=== PATIENT | male | born 1960 | race African-American/Black ===

== ENCOUNTER 2021-03-09 15:04 | Emergency (ER) | payer BC ==
[2021-03-09 15:41] LABS: Absolute Lymphocytes (CBC) 1.3 K/uL (0.7-4.9); Basophils % 0.4 % (0-1.3); Hematocrit 45.3 % (39.6-49.0); Lymphocytes % 17.7 % (15.3-44.8); MPV 8.5 fL (7.6-11.3); RBC Red Blood Cell Count 5.46 M/uL (4.33-5.43)
[2021-03-09 15:43] LABS: Urine Blood Negative (Negative); Urine Glucose 2+ (Negative); Urine Protein Negative (Negative)
[2021-03-09 16:07] LABS: ALT/SGPT 43 U/L (12-78); AST/SGOT 25 U/L (15-37); Albumin 3.3 g/dL (3.4-5.0); Alkaline Phosphatase 62 U/L (45-117); BUN Blood Urea Nitrogen 16 mg/dL (7-18); Bicarbonate 27 mmol/L (21-32); Bilirubin Direct 0.2 mg/dL (0-0.2); Bilirubin Total 0.5 mg/dL (0.2-1.0); Lipase 58 U/L (73-393); Potassium 3.8 mmol/L (3.5-5.1); Sodium Level 132 mmol/L (136-145)
[2021-03-09 16:25] LABS: Glucose Level 624 mg/dL (74-106)
[2021-03-09] MEDS ORDERED: NA CHLORIDE 0.9% 2,000 ML ONE (17:33)
[2021-03-09] MEDS ORDERED: INSULIN -REGULAR HUMAN 50 UNIT/0.5 ML ML ONE (17:33)
[2021-03-09 18:00] LABS: Urine Bacteria <20 /HPF (NONE SEEN); Urine RBC <5 /HPF (NONE SEEN)
--- NOTE | 2021-03-09 18:49 | EDPHYS ---
Physician Documentation [facility] Name: Esau Valdes Age: 60 yrs Sex: Male : 1960 Arrival Date: 03/09/2021 Time: 15:05 Bed 14 Private MD: ED Physician Matias Saunders HPI: 03/09 16:30 This 60 yrs old Black Male presents to ER via Ambulatory with complaints of High Blood cp Sugar - >500. 16:30 The patient or guardian reports hyperglycemia, that was potentially precipitated by cp eating. Associated signs and symptoms: Pertinent positives: blurry vision, right flank pain. 16:30 Current symptoms: In the emergency department the patient's symptoms are unchanged from cp the initial presentation, despite home interventions. 16:30 Patient reports he has not been watching his diet recently. cp Historical: - Allergies: 15:22 No Known Allergies; aa5 - PMHx: 15:22 Diabetes mellitus; aa5 15:26 Sleep apnea; aa5 - Immunization history:: Client reports receiving the 2nd dose of the Covid vaccine. - Social history:: Smoking status: Patient reports the use of cigarette tobacco products, smokes one-half pack cigarettes per day. ROS: 16:35 Cardiovascular: Negative for chest pain, edema, palpitations. cp 16:35 Constitutional: Negative for body aches, chills, fever, poor PO intake. cp 16:35 Eyes: Positive for blurry vision. 16:35 ENT: Negative for ear pain, sore throat. 16:35 Respiratory: Negative for cough, shortness of breath, wheezing. 16:35 Abdomen/GI: Negative for nausea and vomiting, diarrhea, constipation. 16:35 Back: Positive for flank pain, on the right. 16:35 : Positive for urinary frequency. 16:35 Neuro: Positive for weakness, Negative for altered mental status, headache, syncope. 16:35 All other systems are negative. Exam: 16:40 Constitutional: The patient appears in no acute distress, alert, awake, cp non-diaphoretic, non-toxic, well developed, well nourished, obese. 16:40 Head/Face: Normocephalic, atraumatic. cp 16:40 Eyes: Periorbital structures: appear normal, Conjunctiva: normal, no exudate, no injection, Sclera: no appreciated abnormality, Lids and lashes: appear normal, bilaterally. 16:40 ENT: External ear(s): are unremarkable, Nose: is normal, Mouth: Lips: moist, Oral mucosa: moist, Posterior pharynx: Airway: no evidence of obstruction, patent. 16:40 Neck: ROM/movement: is normal, is supple, without pain, no range of motions limitations. 16:40 Chest/axilla: Inspection: normal, Palpation: is normal, no crepitus, no tenderness. 16:40 Cardiovascular: Rate: normal, Rhythm: regular, Edema: is not appreciated, JVD: is not appreciated. 16:40 Respiratory: the patient does not display signs of respiratory distress, Respirations: normal, no use of accessory muscles, no retractions, labored breathing, is not present, Breath sounds: are clear throughout, no decreased breath sounds, no stridor, no wheezing. 16:40 Abdomen/GI: Inspection: abdomen appears normal, Bowel sounds: active, all quadrants, Palpation: soft, in all quadrants, mild abdominal tenderness, in the anterior aspect of right lateral abdomen and posterior aspect of right lateral abdomen, rebound tenderness, is not appreciated, involuntary guarding, is not appreciated. Vital Signs: 15:17 BP 154 / 90; Pulse 70; Resp 18 S; Temp 97.0(TE); Pulse Ox 96% on R/A; Weight 129.27 kg aa5 (R); Height 6 ft. 2 in. (187.96 cm) (R); 17:00 BP 142 / 86; Pulse 62; Resp 16; Pulse Ox 99% on R/A; vg1 15:17 Body Mass Index 36.59 (129.27 kg, 187.96 cm) aa5 MDM: 16:00 Differential diagnosis: DKA, hyperglycemia, hyperthyroidism, hypothyroidism. cp 16:49 Patient medically screened. cp 18:47 Data reviewed: vital signs, nurses notes, lab test result(s). cp 18:47 Counseling: I had a detailed discussion with the patient and/or guardian regarding: the cp historical points, exam findings, and any diagnostic results supporting the discharge/admit diagnosis, lab results, the need for outpatient follow up, for definitive care, a family practitioner, to return to the emergency department if symptoms worsen or persist or if there are any questions or concerns that arise at home. Response to treatment: the patient's symptoms have markedly improved after treatment, VSS. Symptoms improved and blood glucose markedly improved. Will discharge to home for continued monitoring. Patient instructed on need for diet changes and to f/u with family physician. 03/09 15:29 Order name: Basic Metabolic Panel; Complete Time: 17:26 cp 03/09 16:33 Interpretation: Normal except: NA 132; GLUC 624; CRE 1.73; GFR 49. cp 03/09 15:29 Order name: CBC with Diff; Complete Time: 16:09 cp 03/09 17:57 Interpretation: Normal except: RBC 5.46; MCH 26.3; MCHC 31.7; RDW 15.6; GILLES% 74.2. cp 03/09 15:29 Order name: Hepatic Function; Complete Time: 17: cp 03/09 15:29 Order name: Lipase; Complete Time: 17:26 cp 03/09 15:29 Order name: Ketone, Serum; Complete Time: 17:26 cp 03/09 15:29 Order name: Urine Microscopic Only; Complete Time: 18:47 cp 03/09 15:15 Order name: Accucheck; Complete Time: 15:22 cp 03/09 15:43 Order name: Glucose, Ancillary Testing; Complete Time: 16:09 EDMS 03/09 15:43 Order name: Urine Dipstick-Ancillary; Complete Time: 16:09 EDMS 03/09 18:47 Order name: Glucose, Ancillary Testing; Complete Time: 06:54 EDMS 03/09 15:29 Order name: IV Saline Lock; Complete Time: 15:29 cp 03/09 15:29 Order name: Labs collected and sent; Complete Time: 15:29 cp 03/09 15:29 Order name: Urine Dipstick-Ancillary (obtain specimen); Complete Time: 15:34 cp 03/09 18:03 Order name: Accucheck Blood Glucose; Complete Time: 18:35 cp Administered Medications: 17:10 Drug: NS 0.9% 1000 ml Route: IV; Rate: 1 bolus; Site: right forearm; vg1 18:36 Follow up: IV Status: Completed infusion; IV Intake: 1000ml vg1 17:10 Drug: NS 0.9% 1000 ml Route: IV; Rate: 1 bolus; Site: right forearm; vg1 18:35 Follow up: IV Status: Completed infusion; IV Intake: 1000ml vg1 17:12 Drug: Insulin Regular Human 10 units {Co-Signature: ss (Clarisa Knox RN).} Route: IVP; vg1 Site: right forearm; 18:35 Follow up: Response: No adverse reaction; Blood sugar is lowered vg1 Point of Care Testin:22 FSBG reading as HIGH aa5 Ranges: Critical Glucose Levels:Adult <50 mg/dl or >400 mg/dl <40 mg/dl or >180 mg/dl Disposition: 19:00 Chart complete. cp Disposition Summary: 03/09/21 18:48 Discharge Ordered Location: Home cp Problem: an ongoing problem cp Symptoms: have improved cp Condition: Stable cp Diagnosis - Diabetes mellitus due to underlying condition with hyperglycemia cp Followup: cp - With: Private Physician - When: 2 - 3 days - Reason: Recheck today's complaints Discharge Instructions: - Discharge Summary Sheet cp - Hyperglycemia cp - Form - Daily Diabetes Record cp - Blood Glucose Monitoring, Adult cp - Diabetes Mellitus and Nutrition, Adult cp Forms: - Medication Reconciliation Form cp - Thank You Letter cp - Antibiotic Education cp - Prescription Opioid Use cp - Work release form vg1 Addendum: 03/12/2021 10:26 Co-signature as Attending Physician, Matias Saunders MD I agree with the assessment and c pandya plan of care. Signatures: Dispatcher [employer] Matias Hernadez MD MD cha Calderon, Audri, RN RN aa5 Matias Caban, PA PA Elisa Andrade, RN RN vg1 Clarisa Knox RN ss Corrections: (The following items were deleted from the chart) 03/09 18:18 18:02 [place] Protocol+CT.RAD.BRZ ordered. EDWA EDMS
--- NOTE | 2021-03-09 18:49 | ER ---
Nurse's Notes [facility] Name: Esau Valdes Age: 60 yrs Sex: Male : 1960 Arrival Date: 03/09/2021 Time: 15:05 Bed 14 [facility] MD: Diagnosis: Diabetes mellitus due to underlying condition with hyperglycemia Presentation: 03/09 15:17 Chief complaint: Patient states: "My blood sugar was 600 today". Pt reports he takes aa5 Metformin. Pt c/o blurry vision and generalized weakness. Pt denies nausea/vomiting. Coronavirus screen: At this time, the client does not indicate any symptoms associated with coronavirus-19. Ebola Screen: No symptoms or risks identified at this time. Initial Sepsis Screen: Does the patient meet any 2 criteria? No. Patient's initial sepsis screen is negative. Does the patient have a suspected source of infection? No. Patient's initial sepsis screen is negative. Risk Assessment: Do you want to hurt yourself or someone else? Patient reports no desire to harm self or others. Onset of symptoms was February 2021. 15:17 Method Of Arrival: Ambulatory aa5 15:17 Acuity: LILY 2 aa5 Historical: - Allergies: 15:22 No Known Allergies; aa5 - PMHx: 15:22 Diabetes mellitus; aa5 15:26 Sleep apnea; aa5 - Immunization history:: Client reports receiving the 2nd dose of the Covid vaccine. - Social history:: Smoking status: Patient reports the use of cigarette tobacco products, smokes one-half pack cigarettes per day. Screenin:33 Abuse screen: Denies threats or abuse. Nutritional screening: No deficits noted. vg1 Tuberculosis screening: No symptoms or risk factors identified. Fall Risk No fall in past 12 months (0 pts). No secondary diagnosis (0 pts). IV access (20 points). Ambulatory Aid- None/Bed Rest/Nurse Assist (0 pts). Gait- Normal/Bed Rest/Wheelchair (0 pts) Mental Status- Oriented to own ability (0 pts). Total Ferrara Fall Scale indicates No Risk (0-24 pts). Assessment: 17:00 General: Appears in no apparent distress. comfortable, Behavior is calm, cooperative. vg1 Pain: Complains of pain in lower back and RLQ Pain currently is 7 out of 10 on a pain scale. Neuro: Level of Consciousness is awake, alert, obeys commands, Oriented to person, place, time, situation. Cardiovascular: Patient's skin is warm and dry. Respiratory: Airway is patent Respiratory effort is even, unlabored. GI: Abdomen is round non-distended, Patient currently denies diarrhea, nausea, vomiting. : No signs and/or symptoms were reported regarding the genitourinary system. EENT: No signs and/or symptoms were reported regarding the EENT system. Derm: Skin is intact, is healthy with good turgor. Musculoskeletal: Circulation, motion, and sensation intact. 19:04 Reassessment: Patient appears in no apparent distress at this time. Patient and/or vg1 family updated on plan of care and expected duration. Pain level reassessed. Patient is alert, oriented x 3, equal unlabored respirations, skin warm/dry/pink. Patient denies pain at this time. Patient states feeling better. Vital Signs: 15:17 BP 154 / 90; Pulse 70; Resp 18 S; Temp 97.0(TE); Pulse Ox 96% on R/A; Weight 129.27 kg aa (R); Height 6 ft. 2 in. (187.96 cm) (R); 17:00 BP 142 / 86; Pulse 62; Resp 16; Pulse Ox 99% on R/A; vg1 15:17 Body Mass Index 36.59 (129.27 kg, 187.96 cm) [facility] ED Course: 15:05 Patient arrived in ED. as 15:14 Matias Caban PA is PHCP. cp 15:14 Matias Saunders MD is Attending Physician. cp 15:17 Arm band placed on. aa5 15:21 Triage completed. 5 15:29 Initial lab(s) drawn, by pa, sent to lab. Inserted saline lock: 20 gauge in right aa5 forearm, using aseptic technique. Blood collected. 15:34 Urine Microscopic Only Sent. [facility] 15:34 Ketone, Serum Sent. [facility] 15:34 Basic Metabolic Panel Sent. [facility] 15:34 CBC with Diff Sent. [facility] 15:34 Hepatic Function Sent. [facility] 15:34 Lipase Sent. [facility] 15:35 Initial lab(s) drawn, by pa, sent to lab. Urine collected: clean catch specimen, clear. 5 Inserted saline lock: 20 gauge forearm, using aseptic technique. Blood collected. 15:43 Urine collected: clean catch specimen. 5 16:54 Patient has correct armband on for positive identification. Bed in low position. Call [facility] light in reach. Side rails up X 1. Pulse ox on. NIBP on. 17:00 Elisa Ewing, RN is Primary Nurse. vg1 17:33 No provider procedures requiring assistance completed. vg1 19:04 IV discontinued, intact, bleeding controlled, No redness/swelling at site. Pressure vg1 dressing applied. Administered Medications: 17:10 Drug: NS 0.9% 1000 ml Route: IV; Rate: 1 bolus; Site: right forearm; vg1 18:36 Follow up: IV Status: Completed infusion; IV Intake: 1000ml vg1 17:10 Drug: NS 0.9% 1000 ml Route: IV; Rate: 1 bolus; Site: right forearm; vg1 18:35 Follow up: IV Status: Completed infusion; IV Intake: 1000ml vg1 17:12 Drug: Insulin Regular Human 10 units {Co-Signature: ss (Clarisa Knox RN).} Route: IVP; vg1 Site: right forearm; 18:35 Follow up: Response: No adverse reaction; Blood sugar is lowered vg1 Point of Care Testin:22 FSBG reading as HIGH aa5 Ranges: Intake: 18:35 IV: 1000ml; Total: 1000ml. vg1 18:36 IV: 1000ml; Total: 2000ml. vg1 Outcome: 18:48 Discharge ordered by . cp 19:03 Discharged to home ambulatory. vg1 19:03 Condition: stable 19:03 Discharge instructions given to patient, Instructed on discharge instructions, follow up and referral plans. Demonstrated understanding of instructions, follow-up care. 19:04 Patient left the ED. vg1 Signatures: Herminia Littlejohn Audri, RN RN aa5 Matias Caban PA PA cp Martinez, Maria [facility] Elisa Ewing, MATHEW RN 1 Clarisa Knox RN ss
[2021-03-09 19:19] VITALS: TEMP 97
[2021-03-09 19:20] VITALS: BP 142/86; O2SAT 99
== END 2021-03-09 19:04 | disposition home or self-care (01) ==
LOC: ER 15:04
DX: E11.65 Type 2 diabetes mellitus with hyperglycemia (principal); F17.210 Nicotine dependence, cigarettes, uncomplicated
CPT/HCPCS: 96361; 85025; 80048; 36415; 82010; 82947 ×2; 80076; 83690; 96374; 99284; J7030; 81003; 81015

== ENCOUNTER 2021-12-19 16:54 | Emergency (ER) | payer BC ==
--- OUTSIDE RECORDS SUMMARY | 2021-12-19 17:52 | XMS REPORT | Continuity of Care Document ---
:1960 Author Organization [facility] t Address [address] [place] [address] Care Team Providers Name Role Phone Unavailable Unavailable Unavailable Problems This patient has no known problems. Allergies, Adverse Reactions, Alerts This patient has no known allergies or adverse reactions. Medications This patient has no known medications. Procedures This patient has no known procedures. Encounters Start End Encounter Admission Attending Care Care Encounter Source Date/Time Date/Time Type Type Clinicians Facility Department ID 2021-06-21 Outpatient [facility] [id number] Common 15:49:01 [facility] 2021-06-13 Outpatient [facility] [id number] Common 13:32:49 [id number] [facility] 2021-06-13 Outpatient [facility] [id number] Common 13:25:32 [id number] [facility] 2021-06-07 2021-06-07 ambulatory [facility] [id number] Common 00:00:00 00:00:00 [facility] 2021-05-31 2021-05-31 ambulatory [facility] [id number] Common 00:00:00 00:00:00 [facility] 2021-01-11 2021-01-11 Outpatient [facility] [id number] Common 00:00:00 00:00:00 [facility] 2020-11-28 2020-11-28 Outpatient [facility] [id number] Common 00:00:00 00:00:00 [facility] Results Test Description Test Time Test Comments Results Result Comments Source HIV 1/2 4TH GEN, RFLX CONF 2021-08-14 04:13:42 Test Item Value Reference Range Interpretation Comme nts HIV 1/2 4TH GEN, RFLX CONF (test code = 3514) NON-REACTIVE NON-REAC TIVE TSH, THIRD [id number] 01:15:29 Test Item Value Reference Range Interpretation Comments TSH, THIRD 0.746 UIU/ML 0.400-4.100 UNLESS OTHERW ISE GENERATION (test INDICATED, ALL TESTING code = 2821) PERFORMED [facility] [address] [place] [id number] [place] [address] DIRECTOR: FRANCES SAPP M.D. IA NUMBER [id number] CAP ACCREDITATION N O. [id number] LIPID [id number] 00:16:46 Test Item Value Reference Range Interpretation Comments CHOLESTEROL (test 106 MG/DL <200 code = 2210) TRIGLYCERIDES (test 144 MG/DL <150 code = 2232) HDL CHOLESTEROL (test 40 MG/DL >39 code = 2220) CALC LDL CHOL (test 43 MG/DL <100 NOTE: C ALCULATED LDL code = 2237) IS BASED ON JEREMIAH-LYNN METHOD WHICHINCLUDES ADJUSTABLE TRIGLYCERIDE:VL DL CHOLESTEROL RAT IO.THIS FACTOR VARIES B Y MEASURED TRIGLY CERIDE AND NON-HDLCHOL ESTEROL CONCENTRATIONS WITH INCREASED CALCU LATED LDL SEENIN HIGH ER TRIGLYCERIDE OR LOWER NON-HDL SPECIME NS. FOR MOREINFORMATION , SEE CLIENT ANNOUNCE MENT AT [email or web address] [email or web address] RATIO LDL/HDL 1.08 RATIO <3.55 (test code = 2238) HEMOGLOBIN [id number] 07:26:51 Test Item Value Reference Range Interpretation Comments HEMOGLOBIN A1c (test 13.1 % 4.2-5.6 H AMERI CAN DIABETES code = 71775) ASSOCIATION IDELINES FOR HGB A1C: PREDIABETES/INC REASED RISK . . . . . . . 5 .7-6.4% DIAGNOSIS OF DI ABETES . . . . . . . . . >=6 .5% WITH CONFIRMATION OR APPROPRIATE SYMPTOMS NOTE: ASSAY MAY BE AFFECTED BY HEMOGLOBINOPATH IES (SICKLE CELL ANEMIA, S- C DISEASE, OTHERS) OR MARJORIE FICIALLY LOWERED BY DECR EASED RED CELL SURVIVAL ( HEMOLYTIC ANEMIAS, BLOOD LOSS, ETC.). CONSIDER ALTERN ATE TESTING OR LABORATORY C ONSULTATION. CBC W/AUTO DIFF WITH [id number] 05:39:50 Test Item Value Reference Range Interpretation Comments WBC (test code = 7.2 K/UL 3.5-11.0 1001) RBC (test code = 5.07 M/UL 4.50-6.10 1002) HEMOGLOBIN (test code 13.1 G/DL 13.5-17.0 L = 1003) HEMATOCRIT (test code 41.4 % 40.0-51.0 = 1004) MCV (test code = 81.7 fL 80.0-99.0 1005) MCH (test code = 25.8 PG 25.0-33.0 1006) MCHC (test code = 31.6 G/DL 31.0-36.0 1007) RDW (test code = 12.7 % 11.5-15.0 1038) NEUTROPHILS (test 70.0 % code = 1008) LYMPHOCYTES (test 20.9 % code = 1010) MONOCYTES (test code 6.6 % = 1011) EOSINOPHILS (test 1.8 % code = 1012) BASOPHILS (test code 0.3 % = 1013) IMMATURE GRANULOCYTES 0.4 % (test code = 1036) NUCLEATED RBCS (test 0.0 /100 WBC'S See_Comment [Aut omated code = 1065) message] The sy stem which generated this result transmitted reference range : 0.0. The refere nce range was not u sed to interpret th is result as normal/abnormal . PLATELET COUNT (test 264 K/UL 130-400 code = 1015) ABSOLUTE NEUTROPHILS 5.01 K/UL 1.50-7.50 (test code = 1066) ABSOLUTE LYMPHOCYTES 1.50 K/UL 1.00-4.00 (test code = 1067) ABSOLUTE MONOCYTES 0.47 K/UL 0.20-1.00 (test code = 1068) ABSOLUTE EOSINOPHILS 0.13 K/UL 0.00-0.50 (test code = 1040) ABSOLUTE BASOPHILS 0.02 K/UL 0.00-0.20 (test code = 1069) ABS IMMATURE 0.03 K/UL 0.00-0.10 GRANULOCYTES (test code = 1020) ABS NUCLEATED RBCS 0.00 K/UL 0.00-0.11 (test code = 64654)
--- NOTE | 2021-12-19 18:08 | ER ---
Nurse's Notes [facility] Name: Esau Valdes Age: 61 yrs Sex: Male : 1960 Arrival Date: 12/19/2021 Time: 17:10 Bed Waiting Private MD: Diagnosis: Pain in right leg-resolved Presentation: 12/19 17:18 Chief complaint: Patient states: it started yesterday at work. i felt a pain in my tw2 RIGHT leg. over night it got worse where i couldn't rest. i called out for work and i mentioned maybe coming here but i need to get it checked out so i can go back to work. the pain is in my RIGHT thigh. 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 the pain went away. Coronavirus screen: At this time, the client does not indicate any symptoms associated with coronavirus-19. Ebola Screen: Patient denies travel to an Ebola-affected area in the 21 days before illness onset. Initial Sepsis Screen: Does the patient meet any 2 criteria? No. Patient's initial sepsis screen is negative. Does the patient have a suspected source of infection? No. Patient's initial sepsis screen is negative. Risk Assessment: Do you want to hurt yourself or someone else? Patient reports no desire to harm self or others. Onset of symptoms was December 19, 2021. 17:18 Method Of Arrival: Ambulatory tw2 17:18 Acuity: LILY 4 tw2 Triage Assessment: 17:22 General: Appears in no apparent distress. well groomed, Behavior is calm, cooperative, tw2 appropriate for age. Pain: Complains of pain in right quadriceps. Musculoskeletal: Circulation, motion, and sensation intact. Range of motion: intact in all extremities. Historical: - Allergies: 17:22 No Known Allergies; tw2 - Home Meds: 17:22 metformin 500 mg Oral tab 1 tab 2 times per day [Active]; losartan 25 mg oral tab 1 tab tw2 once daily [Active]; - PMHx: 17:22 diabetes mellitus; Sleep Apnea; Hypertensive disorder; tw2 - PSHx: 17:22 None; tw2 - Immunization history:: Client reports receiving the 2nd dose of the Covid vaccine. - Social history:: Smoking status: Patient reports the use of cigarette tobacco products, smokes one-half pack cigarettes per day. Screenin:24 Abuse screen: Denies threats or abuse. Nutritional screening: No deficits noted. tw2 Tuberculosis screening: No symptoms or risk factors identified. Fall Risk None identified. Assessment: 17:24 Reassessment: pt returned to [facility] at this time. tw2 18:12 Reassessment: Patient appears in no apparent distress at this time. No changes from tw2 previously documented assessment. Patient and/or family updated on plan of care and expected duration. Pain level reassessed. Patient is alert, oriented x 3, equal unlabored respirations, skin warm/dry/pink. Vital Signs: 17:18 BP 170 / 96; Pulse 89; Resp 17; Temp 97.8(TE); Pulse Ox 100% on R/A; Weight 124.74 kg tw2 (R); Height 6 ft. 3 in. (190.50 cm); Pain 2/10; 17:18 Body Mass Index 34.37 (124.74 kg, 190.50 cm) tw2 ED Course: 17:10 Patient arrived in ED. rg4 17:22 Triage completed. tw2 17:23 Tania Iniguez F[facility]-C is [facility]. kb 17:23 Matias Saunders MD is Attending Physician. kb 17:23 Arm band placed on. tw2 18:12 na. tw2 18:12 No provider procedures requiring assistance completed. Patient did not have IV access tw2 during this emergency room visit. Administered Medications: No medications were administered Medication: 18:12 VIS not applicable for this client. tw2 Outcome: 18:08 Discharge ordered by . kb 18:12 Discharged to home ambulatory. tw2 18:12 Condition: stable 18:12 Discharge instructions given to patient, Instructed on discharge instructions, follow up and referral plans. Demonstrated understanding of instructions, follow-up care. 18:12 Patient left the ED. tw2 Signatures: Tania Iniguez FNP-C FNP-Ckb Wise, Tara, RN RN tw2 Isatu Ewing rg4
--- NOTE | 2021-12-19 18:08 | EDPHYS ---
Physician Documentation [facility] Name: Esau Valdes Age: 61 yrs Sex: Male : 1960 Arrival Date: 12/19/2021 Time: 17:10 Bed Waiting Private MD: DOTTY Physician Matias Saunders HPI: 12/19 18:27 This 61 yrs old Black Male presents to ER via Ambulatory with complaints of Leg Pain. kb 18:27 The patient presents with pain, that is acute. The complaints affect the lateral aspect kb of right thigh. Context: The problem was sustained at work, resulted from a repetitive motion, the patient can fully bear weight, the patient is able to ambulate. Onset: The symptoms/episode began/occurred yesterday. Modifying factors: The symptoms are alleviated by nothing. the symptoms are aggravated by nothing. Associated signs and symptoms: The patient has no apparent associated signs or symptoms. Treatment prior to arrival includes: no previous treatment. Severity of symptoms: At their worst the symptoms were moderate, in the emergency department the symptoms have resolved. The patient has not experienced similar symptoms in the past. The patient has not recently seen a physician. Pt reports muscle pain to right lateral thigh that started yesterday. States he called into work this morning because he still had tightness in the muscle and didn't think he could perform his duties. States pain is now gone and he has no complaints, but his employer told him he had to be seen and get a note to return. Historical: - Allergies: 17:22 No Known Allergies; tw2 - Home Meds: 17:22 metformin 500 mg Oral tab 1 tab 2 times per day [Active]; losartan 25 mg oral tab 1 tab tw2 once daily [Active]; - PMHx: 17:22 diabetes mellitus; Sleep Apnea; Hypertensive disorder; tw2 - PSHx: 17:22 None; tw2 - Immunization history:: Client reports receiving the 2nd dose of the Covid vaccine. - Social history:: Smoking status: Patient reports the use of cigarette tobacco products, smokes one-half pack cigarettes per day. ROS: 18:27 Constitutional: Negative for fever, chills, and weight loss. kb 18:27 All other systems are negative. Exam: 18:27 Constitutional: This is a well developed, well nourished patient who is awake, alert, kb and in no acute distress. Head/Face: Normocephalic, atraumatic. ENT: Moist Mucous membranes Cardiovascular: Regular rate and rhythm with a normal S1 and S2. No gallops, murmurs, or rubs. No pulse deficits. Respiratory: Respirations even and unlabored. No increased work of breathing. Talking in full sentences Abdomen/GI: Soft, non-tender. No distention Skin: Warm, dry with normal turgor. Normal color. MS/ Extremity: Pulses equal, no cyanosis. Neurovascular intact. Full, normal range of motion. Neuro: Awake and alert, GCS 15, oriented to person, place, time, and situation. Moves all extremities. Normal gait. Psych: Awake, alert, with orientation to person, place and time. Behavior, mood, and affect are within normal limits. Vital Signs: 17:18 BP 170 / 96; Pulse 89; Resp 17; Temp 97.8(TE); Pulse Ox 100% on R/A; Weight 124.74 kg tw2 (R); Height 6 ft. 3 in. (190.50 cm); Pain 2/10; 17:18 Body Mass Index 34.37 (124.74 kg, 190.50 cm) tw2 MDM: 18:07 Patient medically screened. kb 18:26 Data reviewed: vital signs, nurses notes. Data interpreted: Pulse oximetry: on room air kb is 100 %. Interpretation: normal. Counseling: I had a detailed discussion with the patient and/or guardian regarding: the historical points, exam findings, and any diagnostic results supporting the discharge/admit diagnosis, the need for outpatient follow up, a family practitioner, to return to the emergency department if symptoms worsen or persist or if there are any questions or concerns that arise at home. Administered Medications: No medications were administered Disposition Summary: 12/19/21 18:08 Discharge Ordered Location: Home kb Condition: Stable kb Diagnosis - Pain in right leg - resolved kb Followup: kb - With: Emergency Department - When: As needed - Reason: Worsening of condition Followup: kb - With: Private Physician - When: 2 - 3 days - Reason: Recheck today's complaints, Continuance of care, Re-evaluation by your physician Discharge Instructions: - Musculoskeletal Pain kb - Discharge Summary Sheet tw2 Forms: - Medication Reconciliation Form kb - Thank You Letter kb - Antibiotic Education kb - Prescription Opioid Use kb - Work release form tw2 Signatures: Tania Iniguez, CARTON WAXING MACHINE OPERATOR-C CARTON WAXING MACHINE OPERATOR-Marleni Melendez, RN RN tw2
[2021-12-19 19:21] VITALS: BP 170/96; TEMP 97.8; O2SAT 100
== END 2021-12-19 18:12 | disposition home or self-care (01) ==
LOC: ER 16:54
DX: M79.604 Pain in right leg (principal); E11.9 Type 2 diabetes mellitus without complications; I10 Essential (primary) hypertension; F17.210 Nicotine dependence, cigarettes, uncomplicated

== ENCOUNTER → 2023-07-12 | Emergency (ER) | payer BC ==
[~2023-07-12] MED LIST: HYDROMORPHONE HCL 1 MG/ML INJ ONE; LIDOCAINE 2% W/EPI 1:200,000 MPF 20 ML VIAL IM ONE; MORPHINE 4 MG/ML SYR ONE; ONDANSETRON 4 MG/2 ML VIAL ONE
--- OUTSIDE RECORDS SUMMARY | 2023-07-12 14:50 | XMS REPORT | Continuity of Care Document ---
Author Name Unknown Address [address] [place] [address] [facility]connect Address [address] [place] [address] Care Team Providers Care Iron Plastic Bullet Maker Name Role Phone Unavailable Unavailable Unavailable Payers Payer Name Policy Type Policy Number Effective Date Expirati on Date Source [facility] 6 [id number] [facility] Problems Condition Name Condition Details Condition Category Status Onset Date Resolution Date Last Treatment Date Treating Clinician Comments Source [id number] Posthitis Problem Commo n [facility] [id number] 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 Problem [facility] Social History Social Habit Start Date Stop Date Quantity Comments Source History of Tobacco Use Current Smoker [facility] Sex Assigned At [facility] Smoking Status Start Date Stop Date Source Current Smoker 2021-06-07 00:00:00 [facility] Medications Ordered Medication Name Filled Medication Name Start Date Stop Date Current Medication? Ordering Clinician Indication Dosage Frequency Signature (SIG) Comments Components Source Clotrimazol e-Betametha sone 1-0.05 % Clotrimazol e-Betametha sone 1-0.05 % 8 00:00: 00 08-30 00:00 :00 No 1{appli cation} BID Clotrimazol e-Betametha sone 1-0.05 % Clotrimazol e-Betametha sone 1-0.05 % 01-11 00:00: 00 04-05 00:00 :00 No 1{appli cation} BID Clotrimazo le-Betamet hasone 1-0.05 % Betamethaso ne Dipropionat e 0.05 % Betamethaso ne Dipropionat e 0.05 % 11-28 00:00: 00 12-26 00:00 :00 No 1{appli cation} BID Betamethas one Dipropiona te 0.05 % Lovastatin 40 MG Lovastatin 40 MG No QD Lovastatin 40 MG metFORMIN HCl 1000 MG metFORMIN HCl 1000 MG No 1{table t_with_ a_meal} QD metFORMIN HCl 1000 MG metFORMIN HCl 1000 MG metFORMIN HCl 1000 MG No 1{table t_with_ a_meal} QD metFORMIN HCl 1000 MG Lovastatin 40 MG Lovastatin 40 MG No QD Lovastatin 40 MG Lovastatin 40 MG Lovastatin 40 MG No QD Lovastatin 40 MG metFORMIN HCl 1000 MG metFORMIN HCl 1000 MG No 1{table t_with_ a_meal} QD metFORMIN HCl 1000 MG metFORMIN HCl 1000 MG metFORMIN HCl 1000 MG No 1{table t_with_ a_meal} QD Lovastatin 40 MG Lovastatin 40 MG No QD metFORMIN HCl 1000 MG metFORMIN HCl 1000 MG No 1{table t_with_ a_meal} QD metFORMIN HCl 1000 MG Lovastatin 40 MG Lovastatin 40 MG No QD Lovastatin 40 MG Vital Signs Vital Name Observation Time Observation Value Comments S mitzyce height 2021-06-07 08:15:00 75 [in_i] Commo n [facility] weight 2021-06-07 08:15:00 295 [lb_av] Comm on [facility] temperature 2021-06-07 08:15:00 98 [degF] Comm on [facility] bmi 2021-06-07 08:15:00 36.87 kg/m2 Comm on [facility] oximetry 2021-06-07 08:15:00 98 % Commo n [facility] respiratory rate 2021-06-07 08:15:00 16 /min Common [facility] blood pressure systolic 2021-06-07 08:15:00 179 mm[Hg] [facility] blood pressure diastolic 2021-06-07 08:15:00 86 mm[Hg] [facility] height 2021-01-11 16:30:00 75 [in_i] Commo n [facility] weight 2021-01-11 16:30:00 285 [lb_av] Comm on [facility] temperature 2021-01-11 16:30:00 97.2 [degF] Com mon [facility] bmi 2021-01-11 16:30:00 35.62 kg/m2 Comm on [facility] oximetry 2021-01-11 16:30:00 99 % Commo n [facility] blood pressure systolic 2021-01-11 16:30:00 147 mm[Hg] [facility] blood pressure diastolic 2021-01-11 16:30:00 76 mm[Hg] [facility] height 2020-11-28 15:40:00 75 [in_i] Commo n [facility] weight 2020-11-28 15:40:00 287.4 [lb_av] Co mmon [facility] temperature 2020-11-28 15:40:00 96.5 [degF] Com [facility] bmi 2020-11-28 15:40:00 35.92 kg/m2 Comm on [facility] oximetry 2020-11-28 15:40:00 97 % Commo n [facility] blood pressure systolic 2020-11-28 15:40:00 159 mm[Hg] [facility] blood pressure diastolic 2020-11-28 15:40:00 84 mm[Hg] [facility] Encounters Start Date/Time End Date/Time Encounter Type Admission Type Attending [facility] Facility Care Department Encounter ID Source 2021-06-21 15:49:01 Outpatient [facility] [id number] [facility] 2021-06-13 13:32:49 Outpatient [facility] [id number] [facility] 2021-06-13 13:25:32 Outpatient [facility] [id number] [facility] 2023-07-04 13:34:23 2023-07-04 13:34:23 Outpatient [facility] [id number] Usman Hyman 2023-06-14 09:52:35 2023-06-14 09:52:35 Outpatient [facility] [id number] Usman Hyman 2023-02-24 15:33:13 2023-02-24 15:33:13 Outpatient [facility] [id number] Usman Hyman 2022-10-07 09:08:20 2022-10-07 09:08:20 Outpatient [facility] [id number] Usman Hyman 2022-08-12 11:14:26 2022-08-12 11:14:26 Outpatient [facility] [id number] Usman Hyman 2022-05-28 17:22:02 2022-05-28 17:22:02 Outpatient [facility] [id number] Usman Hyman 2021-06-22 00:00:00 2021-06-22 00:00:00 (TEL) [facility] [id number] [facility] 2021-06-07 00:00:00 2021-06-07 00:00:00 OFFICE VISIT ESTAB PT LEVEL 4 [facility] [id number] [facility] 2021-05-31 00:00:00 2021-05-31 00:00:00 (TEL) [facility]C [id number] [facility] 2021-01-11 00:00:00 2021-01-11 00:00:00 OFFICE VISIT EST PT LEVEL 3 [facility] STLC [id number] [facility] 2020-11-28 00:00:00 2020-11-28 00:00:00 OFFICE VISIT NEW PT LEVEL 3 [facility] STLC [id number] [facility] Results Test Description Test Time Test Comments Results Result Co mments Source CULTURE, URINE 2023-07-06 11:21:14 SPECIMEN NUMBER: [id number] CULTURE, URINE SPECIMEN NUMBER: [id number] SPECIMEN COMMENT: URINE SOURCE: URINE REPORT STATUS: FINAL ISOLATE NUMBER 1: IDENTIFICATION: 07/06/2023 10-50,000 CFU/ML STREPTOCOCCUS AGALACTIAE (GROUP B) ADDITIONAL OBSERVATIONS: PENICILLIN AND AMPICILLIN ARE DRUGS OF CHOICE FOR TREATMENT OF B-HEMOLYTIC STREPTOCOCCAL INFECTIONS. SUSCEPTIBILITY TESTING OF PENICILLIN AND OTHER B-LACTAMS APPROVED BY THE US FOOD AND DRUG ADMINISTRATION FOR TREATMENT OF B-HEMOLYTIC STREPTOCOCCAL INFECTIONS NEED NOT BE PERFORMED ROUTINELY. ALBUMIN/CREATININE RATIO, URINE, [id number] 02:45:52* Test Item Value Reference Range Interpretation Comme nts CREATININE, URINE, CONC. (test code = 2072) 61.4 MG/DL NOT ESTAB ALBUMIN, URINE, RANDOM (test code = 57664) 9.1 MG/DL NOT ESTAB CALC ALBUMIN/CREAT, RND (test code = 97988) 148 MG/G <30 H Note: Albumin/Cr eatinine ratio reference interval reflects ADA and NKF guidelines. UNLESS OTHERWISE INDICATED, ALL TESTING PERFORMED AT [facility] [address] [place] [address] LOADING UNIT OPERATOR CRIMPING: MAREN CHAVARRIA M.D. CLIA NUMBER [id number] [facility] [place] [id number] HCV RNA, PCR [id number] 20:16:46* Test Item Value Reference Range Interpretation Comme nts HCV RNA, PCR QUANT (test code = 4571) NOT DETEC IU/ML HCV VIRAL LOG (test code = 41083) NOT DETEC LOG IU/ML HCV RNA was not detected, indicating no current HCV infection.Reactive HCV antibody result may be due to biologic false positive.In certain situations, follow up HCV RNA testing may be indicated(suspected HCV exposure within past 6 months or clinical evidence ofHCV disease). Range of quantitation is 15-100,000,000 IU/mL, (1.176-8.000 logIU/mL). Samples with HCV RNA detected below the limit ofquantitation are reported as <15 IU/mL. Assay methodology ispolymerase chain reaction (PCR) using the Tushar Jayden 6800/8800system. The expected range is NOT DETECTED. HEPATITIS C REFLEX [id number] 02:34:07* Test Item Value Reference Range Interpretation Comme nts HEPATITIS C ANTIBODY (test c ode = 4675) REACTIVE NON-REACTIVE A COMPREHENSIVE METABOLIC [id number] 23:23:07* Test Item Value Reference Range Interpretation Comme nts GLUCOSE (test code = 7) 327 MG/DL 70-99 H BUN (test code = 2207) 14 MG/DL 8-23 CREATININE (test code = 2214) 1.20 MG/DL 0.80-1.40 eGFR (2020 CKD-EPI) (test co de = 00812) 69 ML/MIN/1.73 >60 CALC BUN/CREAT (test code = 2235) 12 RATIO 6-28 SODIUM (test code = 223) 136 MEQ/L 133-146 POTASSIUM (test code = 2228) 4.7 MEQ/L 3.5-5.4 CHLORIDE (test code = 2215) 99 MEQ/L 95-107 CARBON DIOXIDE (test code = 2206) 25 MEQ/L 19-31 CALCIUM (test code = 2209) 10.0 MG/DL 8.5-10.5 PROTEIN, TOTAL (test code = 2229) 7.3 G/DL 6.1-8.3 ALBUMIN (test code = 2201) 4.4 G/DL 3.5-5.2 CALC GLOBULIN (test code = 2240) 2.9 G/DL 1.9-3.7 CALC A/G RATIO (test code = 2234) 1.5 RATIO 1.0-2.6 BILIRUBIN, TOTAL (test code = 2207) 0.4 MG/DL <=1.2 ALKALINE PHOSPHATASE (test code = 2204) 55 U/L 40-123 AST (test code = 2218) 26 U/L 9-50 ALT (test code = 2219) 40 U/L 5-50 LIPID [id number] 23:23:07* Test Item Value Reference Range Interpretation Comme nts CHOLESTEROL (test code = 2210) 128 MG/DL <200 TRIGLYCERIDES (test code = 2232) 174 MG/DL <150 H HDL CHOLESTEROL (test code = 2220) 27 MG/DL >39 L CALC LDL CHOL (test code = 2237) 74 MG/DL <100 NOTE: CALCULATED LDL IS BASED ON JEREMIAH-LYNN METHOD WHICHINCLUDES ADJUSTABLE TRIGLYCERIDE:VLDL CHOLESTEROL RATIO.THIS FACTOR VARIES BY MEASURED TRIGLYCERIDE AND NON-HDLCHOLESTEROL CONCENTRATIONS WITH INCREASED CALCULATED LDL SEENIN HIGHER TRIGLYCERIDE OR LOWER NON-HDL SPECIMENS. FOR MOREINFORMATION, SEE CLIENT ANNOUNCEMENT AT [email or web address] RISK RATIO LDL/HDL (test code = 2238) 2.74 RATIO <3.55 HEMOGLOBIN [id number] 03:16:16* Test Item Value Reference Range Interpretation Comme nts HEMOGLOBIN A1c (test code = 78052) 11.2 % 4.2-5.6 H [employer] GUIDELINES FOR HGB A1C: PREDIABETES/INCREASED RISK . . . . . . . 5.7-6.4% DIAGNOSIS OF DIABETES . . . . . . . . . >=6.5% WITH CONFIRMATION OR APPROPRIATE SYMPTOMS NOTE: ASSAY MAY BE AFFECTED BY HEMOGLOBINOPATHIES (SICKLE CELL ANEMIA, S-C DISEASE, OTHERS) OR ARTIFICIALLY LOWERED BY DECREASED RED CELL SURVIVAL (HEMOLYTIC ANEMIAS, BLOOD LOSS, ETC.). CONSIDER ALTERNATE TESTING OR LABORATORY CONSULTATION. HIV 1/2 4TH GEN, RFLX [id number] 04:13:42* Test Item Value Reference Range Interpretation Comme nts HIV 1/2 4TH GEN, RFLX CONF ( test code = 3514) NON-REACTIVE NON-REACTIVE TSH, THIRD [id number] 01:15:29* Test Item Value Reference Range Interpretation Comme nts TSH, THIRD GENERATION (test code = 2821) 0.746 UIU/ML 0.400-4.100 UNLESS OTHERWISE INDICATED, ALL TESTING PERFORMED [facility] [address] [place] [address] LOADING UN[employer] OPERATOR CRIMPING: FRANCES SAPP M.D. CLIA NUMBER [id number] [place] [id number] LIPID [id number] 00:16:46* Test Item Value Reference Range Interpretation Comme nts CHOLESTEROL (test code = 2210) 106 MG/DL <200 TRIGLYCERIDES (test code = 2232) 144 MG/DL <150 HDL CHOLESTEROL (test code = 2220) 40 MG/DL >39 CALC LDL CHOL (test code = 2237) 43 MG/DL <100 NOTE: CALCULATED LDL IS BASED ON JEREMIAH-LYNN METHOD WHICHINCLUDES ADJUSTABLE TRIGLYCERIDE:VLDL CHOLESTEROL RATIO.THIS FACTOR VARIES BY MEASURED TRIGLYCERIDE AND NON-HDLCHOLESTEROL CONCENTRATIONS WITH INCREASED CALCULATED LDL SEENIN HIGHER TRIGLYCERIDE OR LOWER NON-HDL SPECIMENS. FOR MOREINFORMATION, SEE CLIENT ANNOUNCEMENT AT [email or web address] RISK RATIO LDL/HDL (test code = 2238) 1.08 RATIO <3.55 HEMOGLOBIN [id number] 07:26:51* Test Item Value Reference Range Interpretation Comme nts HEMOGLOBIN A1c (test code = 40769) 13.1 % 4.2-5.6 H [employer] GUIDELINES FOR HGB A1C: PREDIABETES/INCREASED RISK . . . . . . . 5.7-6.4% DIAGNOSIS OF DIABETES . . . . . . . . . >=6.5% WITH CONFIRMATION OR APPROPRIATE SYMPTOMS NOTE: ASSAY MAY BE AFFECTED BY HEMOGLOBINOPATHIES (SICKLE CELL ANEMIA, S-C DISEASE, OTHERS) OR ARTIFICIALLY LOWERED BY DECREASED RED CELL SURVIVAL (HEMOLYTIC ANEMIAS, BLOOD LOSS, ETC.). CONSIDER ALTERNATE TESTING OR LABORATORY CONSULTATION. CBC W/AUTO DIFF WITH [id number] 05:39:50* Test Item Value Reference Range Interpretation Comme nts WBC (test code = 1001) 7.2 K/UL 3.5-11.0 RBC (test code = 1002) 5.07 M/UL 4.50-6.10 HEMOGLOBIN (test code = 1003) 13.1 G/DL 13.5-17.0 L HEMATOCRIT (test code = 1004) 41.4 % 40.0-51.0 MCV (test code = 1005) 81.7 fL 80.0-99.0 MCH (test code = 1006) 25.8 PG 25.0-33.0 MCHC (test code = 1007) 31.6 G/DL 31.0-36.0 RDW (test code = 1038) 12.7 % 11.5-15.0 NEUTROPHILS (test code = 1008) 70.0 % LYMPHOCYTES (test code = 1010) 20.9 % MONOCYTES (test code = 1011) 6.6 % EOSINOPHILS (test code = 1012) 1.8 % BASOPHILS (test code = 1013) 0.3 % IMMATURE GRANULOCYTES (test code = 1036) 0.4 % NUCLEATED RBCS (test code = 1065) 0.0 /100 WBC'S See_Comment [Automated messa ge] The system which generated this result transmitted reference range: 0.0. The reference range was not used to interpret this result as normal/abnormal. PLATELET COUNT (test code = 1015) 264 K/UL 130-400 ABSOLUTE NEUTROPHILS (test code = 1066) 5.01 K/UL 1.50-7.50 ABSOLUTE LYMPHOCYTES (test code = 1067) 1.50 K/UL 1.00-4.00 ABSOLUTE MONOCYTES (test code = 1068) 0.47 K/UL 0.20-1.00 ABSOLUTE EOSINOPHILS (test code = 1040) 0.13 K/UL 0.00-0.50 ABSOLUTE BASOPHILS (test code = 1069) 0.02 K/UL 0.00-0.20 ABS IMMATURE GRANULOCYTES (test code = 1020) 0.03 K/UL 0.00-0.10 ABS NUCLEATED RBCS (test code = 31574) 0.00 K/UL 0.00-0.11
[2023-07-12 16:11] LABS: Absolute Lymphocytes (CBC) 0.4 K/uL (0.7-4.9); Hematocrit 45.5 % (39.6-49.0); Lymphocytes % 2.5 % (15.3-44.8); MCV 77.5 fL (80-100); MPV 8.6 fL (7.6-11.3); Platelets 266 thou/uL (152-406); RBC Red Blood Cell Count 5.88 M/uL (4.33-5.43)
[2023-07-12 16:24] LABS: Albumin 2.7 g/dL (3.4-5.0); Bilirubin Total 1.1 mg/dL (0.2-1.0); Potassium 4.1 mEq/L (3.5-5.1); Protein, Total 7.5 g/dL (6.4-8.2)
[2023-07-12 16:29] LABS: Protime INR 1.17
--- NOTE | 2023-07-12 18:18 | EDPHYS ---
Physician Documentation [facility] Name: Esau Valdes Age: 63 yrs Sex: Male : 1960 Arrival Date: 07/12/2023 Time: 14:46 Bed 2 Private MD: ED Physician Huber Rivera HPI: 07/12 18:52 This 63 yrs old Black Male presents to ER via Ambulatory with complaints of elbow pain. kdr 18:52 Patient presents with left elbow pain that began on after he hit his elbow on kdr the metal part of his truck door. Patient states that shortly afterwards he had a x-ray done of the elbow which did not apparently resulted in any acute finding. There were some chronic findings secondary to prior elbow trauma. Patient states since then the elbow has become acutely tender's and swollen. He now has swelling from his shoulder down to his hand. Patient denies fever, nausea, vomiting or any other symptom. Patient appears to be in acute pain from the pathology in his elbow.. Onset: The symptoms/episode began/occurred suddenly, 2 day(s) ago. Severity of symptoms: At their worst the symptoms were incapacitating in the emergency department the symptoms are unchanged. The patient has not experienced similar symptoms in the past. The patient has been recently seen by a physician: the patient's primary care provider. Historical: - Allergies: 15:07 No Known Allergies; cm10 - PMHx: 15:07 diabetes mellitus; Hypertensive disorder; Sleep Apnea; Hypertensive disorder; cm10 - Immunization history:: Adult Immunizations up to date. - Social history:: Smoking status: Patient reports the use of cigarette tobacco products, smokes one-half pack cigarettes per day. ROS: 18:52 Constitutional: Negative for fever, chills, and weight loss, Eyes: Negative for injury, kdr pain, redness, and discharge, 18:52 MS/extremity: Positive for injury or acute deformity, decreased range of motion, erythema, pain, swelling, tenderness, warmth, of the left bicep, left antecubital area, dorsal aspect of left forearm, left tricep, left elbow and palmar aspect of left forearm, 18:52 Skin: Positive for abscess, Apparent bursitis of the left elbow, Exam: 18:52 Constitutional: This is a well developed, well nourished patient who is awake, alert, kdr and in moderate distress. Head/Face: Normocephalic, atraumatic. Neck: Trachea midline, no thyromegaly or masses palpated, and no cervical lymphadenopathy. Supple, full range of motion without nuchal rigidity, or vertebral point tenderness. No Meningismus. Chest/axilla: Normal chest wall appearance and motion. Nontender with no deformity. No lesions are appreciated. Cardiovascular: Regular rate and rhythm with a normal S1 and S2. No gallops, murmurs, or rubs. Normal PMI, no JVD. No pulse deficits. Respiratory: Lungs have equal breath sounds bilaterally, clear to auscultation and percussion. No rales, rhonchi or wheezes noted. No increased work of breathing, no retractions or nasal flaring. Back: No spinal tenderness. No costovertebral tenderness. Full range of motion. Skin: Warm, dry with normal turgor. Normal color with no rashes, no lesions, and no evidence of cellulitis. Neuro: Awake and alert, GCS 15, oriented to person, place, time, and situation. Cranial nerves II-XII grossly intact. Motor strength 5/5 in all extremities. Sensory grossly intact. Cerebellar exam normal. Normal gait. Psych: Awake, alert, with orientation to person, place and time. Behavior, mood, and affect are within normal limits. 18:52 Musculoskeletal/extremity: Extremities: grossly normal except: noted in the left elbow: decreased ROM, erythema, pain, swelling, tenderness, Vital Signs: 15:05 BP 160 / 82; Pulse 94; Resp 16; Temp 98.8(O); Pulse Ox 99% on R/A; Weight 113.4 kg (R); cm10 Height 6 ft. 2 in. ; Pain 8/10; 16:40 BP 155 / 99; Pulse 90; Resp 16 S; Pulse Ox 99% on R/A; aa5 17:05 BP 168 / 92; Pulse 88; Resp 16 S; Pulse Ox 99% on R/A; aa5 15:05 Body Mass Index 32.10 (113.40 kg, 187.96 cm) cm10 15:05 Pain Scale: Adult cm10 Procedures: 18:52 I \T\ D: Incision and drainage was performed for an abscess of the left Elbow Prepped kdr with Betadine, Anesthetized with ml's 2% Lidocaine with epinephrine. 5 ml's 2% Lidocaine with epinephrine. Incised with #11 blade. Drained large amount purulent fluid. bloody fluid. Loculations removed. Cultures obtained. Abscess cavity explored. Packed with iodoform gauze, Dressing: sterile 4x4 gauze, the patient tolerated the procedure well. MDM: 18:17 Patient medically screened. kdr 18:52 Data reviewed: vital signs, nurses notes, lab test result(s), radiologic studies. kdr Consideration of Admission/Observation Patient was admitted/placed on observation. Escalation of care including admission/observation considered. Patient refused admission, I implored the patient to stay indicating that he may lose his upper extremity if he does not stay for antibiotics and further management. Patient was adamant about leaving.. I considered the following discharge prescriptions or medication management in the emergency department Medications were administered in the Emergency Department. See JUL. 07/12 15:39 Order name: Blood Culture Adult (2) cm10 07/12 15:39 Order name: CBC with Diff; Complete Time: 16:34 cm10 07/12 15:39 Order name: CMP; Complete Time: 16:34 cm10 07/12 15:39 Order name: Lactate w/ 2H reflex if indic.; Complete Time: 16:34 cm10 07/12 15:39 Order name: Protime (+inr); Complete Time: 16:34 cm10 07/12 15:39 Order name: Ptt, Activated; Complete Time: 16:34 cm10 07/12 18:56 Order name: Body Fluid Culture [facility] 07/12 15:39 Order name: Elbow Left 3 View XRAY; Complete Time: 18:50 cm10 07/12 15:39 Order name: EKG; Complete Time: 15:40 cm10 07/12 15:39 Order name: Cardiac monitoring; Complete Time: 15:57 cm10 07/12 15:39 Order name: EKG - Nurse/Tech; Complete Time: 15:57 cm10 07/12 15:39 Order name: IV Saline Lock - Large Bore; Complete Time: 15:57 cm10 07/12 15:39 Order name: Labs collected and sent; Complete Time: 15:57 cm10 07/12 15:39 Order name: O2 Per Protocol; Complete Time: 15:57 cm10 07/12 15:39 Order name: O2 Sat Monitoring; Complete Time: 15:57 cm10 07/12 15:39 Order name: Vital Signs; Complete Time: 15:57 cm10 07/12 16:58 Order name: I\T\D Setup; Complete Time: 16:58 aa5 Administered Medications: 16:40 Drug: morphine IVP or IV 4 mg IVP once over 4 mins; VO obtained at 1635 Route: IVP; aa5 Infused Over: 4 mins; Site: right forearm; 16:50 Follow up: Response: No adverse reaction; Pain is unchanged, physician notified aa5 16:40 Drug: Ondansetron IVP 4 mg IVP once; over 2 minutes. VO obtained at 1635 Route: IVP; aa5 Site: right forearm; 16:50 Follow up: Response: No adverse reaction aa5 17:05 Drug: HYDROmorphone IVP 1 mg IVP once Route: IVP; Site: right forearm; aa5 17:15 Follow up: Response: No adverse reaction aa5 18:00 Drug: Lidocaine-Epinephrine Infiltration -2 % (1:100,000) 10 ml Infiltration once; to aa5 bedside {Note: administered to left elbow by Dr. Rivera. .} Route: Infiltration; 18:38 Not Given (Patient Refused): [id number] mg IVPB once over 30 mins; (mix in 50 mL) aa5 18:38 Not Given (Patient Refused): vancomycin1.5 grams IVPB at calculated rate once aa5 Disposition Summary: 07/12/23 18:17 Left Against Medical Advice Problem: new kdr Symptoms: have improved kdr Condition: Stable kdr Diagnosis - Septic bursitis left elbow kdr Followup: kdr - With: Private Physician - When: 2 - 3 days - Reason: If symptoms return, Further diagnostic work-up, Recheck today's complaints, Continuance of care, Re-evaluation by your physician Discharge Instructions: - Discharge Summary Sheet kdr - Elbow Bursitis kdr - Bursitis, [id number] kdr - Elbow Bursitis, [id number] kdr Prescriptions: - acetaminophen-codeine 300-15 mg Oral tablet - take 2 tablet ORAL route every 4 to 6 hours As needed as needed for pain; 20 kdr tablet; Refills: 0, Product Selection Permitted - Clindamycin HCl 300 mg Oral Capsule - take 1 capsule ORAL route every 6 hours for 10 days; 40 capsule; Refills: 0, kdr Product Selection Permitted - Bactrim DS 800-160 mg Oral Tablet - take 1 tablet ORAL route every 12 hours for 10 days; 20 tablet; Refills: 0, kdr Product Selection Permitted Signatures: Dispatcher [employer] Huber Kurtz MD MD kdr Denia Childs, RN RN aa5 Karey Littlejohn RN RN cm10 Corrections: (The following items were deleted from the chart) 16:28 15:39 Accucheck ordered. cm10 aa5 18:56 18:44 Miscellaneous Lab Test+[id number].LAB.BRZ ordered. EDMS EDMS
--- NOTE | 2023-07-12 18:18 | ER ---
Nurse's Notes [facility] Name: Esau Valdes Age: 63 yrs Sex: Male : 1960 Arrival Date: 07/12/2023 Time: 14:46 Bed 2 Private MD: Diagnosis: Septic bursitis left elbow Presentation: 07/12 15:05 Chief complaint: Patient states: Left elbow pain onset after hitting his elbow cm10 on the metal part of his truck door. Pt states that he had an x-ray done and was told that he had bursitis. Pt has noted swelling, redness and warmth to touch on his left elbow. Coronavirus screen: Vaccine status: Patient reports receiving the 2nd dose of the covid vaccine. Client denies travel out of the [place] in the last 14 days. Ebola Screen: Patient denies travel to an Ebola-affected area in the 21 days before illness onset. No symptoms or risks identified at this time. Initial Sepsis Screen: Does the patient meet any 2 criteria? No. Patient's initial sepsis screen is negative. Does the patient have a suspected source of infection? No. Patient's initial sepsis screen is negative. Risk Assessment: Do you want to hurt yourself or someone else? Patient reports no desire to harm self or others. Onset of symptoms was July 12, 2023. 15:05 Method Of Arrival: Ambulatory cm10 15:05 Acuity: LILY 3 cm10 Historical: - Allergies: 15:07 No Known Allergies; cm10 - PMHx: 15:07 diabetes mellitus; Hypertensive disorder; Sleep Apnea; Hypertensive disorder; cm10 - Immunization history:: Adult Immunizations up to date. - Social history:: Smoking status: Patient reports the use of cigarette tobacco products, smokes one-half pack cigarettes per day. Assessment: 16:00 General: Appears uncomfortable, Behavior is cooperative. Pain: Complains of pain in aa5 left elbow Pain currently is 10 out of 10 on a pain scale. Quality of pain is described as pressure, Pt states "It feels like there is a nail stuck in there and I can't touch it" Is continuous, Aggravated by increased activity, repositioning. Neuro: Level of Consciousness is awake, alert, obeys commands, Oriented to person, place, time, situation. Cardiovascular: Heart tones S1 S2 present Rhythm is regular. Respiratory: Airway is patent Respiratory effort is even, unlabored, Respiratory pattern is regular, symmetrical. GI: Abdomen is non-distended. : No signs and/or symptoms were reported regarding the genitourinary system. EENT: No signs and/or symptoms were reported regarding the EENT system. Derm: Skin is dry, Skin is normal, Skin temperature is warm. Musculoskeletal: Swelling present in left elbow extending mid upper arm and mid FA, swelling is moderate, redness noted to left elbow and hot to touch. 16:50 Reassessment: Pt now moaning and reports morphine has not helped with pain relief. MD finley notified.. 17:00 Reassessment: Pt ambulatory to restroom, pt refused urinal. . aa5 17:05 Reassessment: Patient is alert, oriented x 3, equal unlabored respirations, skin aa5 warm/dry/pink. 17:05 Reassessment: Pt back in bed, instructed pt to stay in bed due to Dilaudid aa5 administration, pt verbalized understanding. . 17:05 General: Appears uncomfortable, Behavior is restless. Pain: Noted to be moaning. Neuro: aa5 Level of Consciousness is awake, alert, obeys commands, Oriented to person, place, time, situation. Respiratory: Airway is patent Respiratory effort is even, unlabored, Respiratory pattern is regular, symmetrical. Derm: Skin is dry, Skin is normal, Skin temperature is warm. 18:00 Reassessment: Reports pain has decreased after I\\T\\D. . Neuro: Level of Consciousness is aa5 awake, alert, obeys commands, Oriented to person, place, time, situation. Respiratory: Airway is patent Respiratory effort is even, unlabored, Respiratory pattern is regular, symmetrical. Derm: Skin is dry, Skin is normal, Skin temperature is warm. 18:10 Reassessment: Dr. Rivera spoke to patient and recommended admission, pt hesitant about aa5 being admitted to hospital at this time. Dr. Rivera notified pt of risk leaving the hospital, increased risk for worsening infection due to diabetes, increased risk for sepsis, risk for losing limb, and or , pt verbalizes understanding. . Vital Signs: 15:05 BP 160 / 82; Pulse 94; Resp 16; Temp 98.8(O); Pulse Ox 99% on R/A; Weight 113.4 kg (R); cm10 Height 6 ft. 2 in. ; Pain 8/10; 16:40 BP 155 / 99; Pulse 90; Resp 16 S; Pulse Ox 99% on R/A; aa5 17:05 BP 168 / 92; Pulse 88; Resp 16 S; Pulse Ox 99% on R/A; aa5 15:05 Body Mass Index 32.10 (113.40 kg, 187.96 cm) cm10 15:05 Pain Scale: Adult cm10 ED Course: 13:54 Initial lab(s) drawn, by me, sent to lab. First set of blood cultures drawn by me, EKG cm10 done, by ED staff, reviewed by Huber Rivera MD. 14:51 Patient arrived in ED. ra3 14:51 Huber Rievra MD is Attending Physician. kdr 15:07 Triage completed. cm10 15:08 Arm band placed on Patient placed in an exam room, on a stretcher. cm10 15:41 Denia Childs, RN is Primary Nurse. aa5 15:57 CBC with Diff Sent. cm10 15:57 CMP Sent. cm10 15:57 Lactate w/ 2H reflex if indic. Sent. cm10 15:57 Protime (+inr) Sent. cm10 15:57 Ptt, Activated Sent. cm10 15:57 Inserted saline lock: 20 gauge in right forearm, using aseptic technique. Blood cm10 collected. 15:58 Client placed on continuous cardiac and pulse oximetry monitoring. NIBP monitoring cm10 applied. 16:35 Second set of blood cultures drawn by mn. aa5 17:05 Elbow Left 3 View XRAY In Process Unspecified. EDMS 18:00 Assist provider with I \\T\\ D: of an abscess on left elbow Set up I\\T\\D tray. Performed by aa 5 Huber Rivera MD Culture sent to lab. Wound packed. iodoform gauze, Dressing with ABD pad, kerlix and tape Patient tolerated well. Large amount of purulent drainage was noted. 18:30 Pt was seen walking out of ER, pt dc'd IV, no active bleeding noted to site. (see aa5 nursing notes for more information). Administered Medications: 16:40 Drug: morphine IVP or IV 4 mg IVP once over 4 mins; VO obtained at 1635 Route: IVP; aa5 Infused Over: 4 mins; Site: right forearm; 16:50 Follow up: Response: No adverse reaction; Pain is unchanged, physician notified aa5 16:40 Drug: Ondansetron IVP 4 mg IVP once; over 2 minutes. VO obtained at 1635 Route: IVP; aa5 Site: right forearm; 16:50 Follow up: Response: No adverse reaction aa5 17:05 Drug: HYDROmorphone IVP 1 mg IVP once Route: IVP; Site: right forearm; aa5 17:15 Follow up: Response: No adverse reaction aa5 18:00 Drug: Lidocaine-Epinephrine Infiltration -2 % (1:100,000) 10 ml Infiltration once; to aa5 bedside {Note: administered to left elbow by Dr. Rivera. .} Route: Infiltration; 18:38 Not Given (Patient Refused): [id number] mg IVPB once over 30 mins; (mix in 50 mL) aa5 18:38 Not Given (Patient Refused): vancomycin1.5 grams IVPB at calculated rate once aa5 Outcome: 18:30 Patient left the ED. aa5 18:30 AMA Left before signing form, aa5 18:30 Condition: stable 18:30 Instructed on n/a. Pt was seen walking out of ER, talked to pt and states he does not want to be admitted to hospital, he wants to go home now, pt refused dose of antibiotics ordered before leaving, pt also refused discharge paperwork and prescriptions. Pt states "I have to go now". 18:59 Patient left the ED. aa5 Signatures: Dispatcher [employer] EDHuber Aparicio MD MD [facility] Denia Childs RN RN aa5 Karey Littlejohn RN RN cm10 Zeynep Collins ra3 Corrections: (The following items were deleted from the chart) 18:51 18:38 Patient left the ED. aa5 aa5
--- NOTE | 2023-07-12 18:24 | RAD REPORT ---
EXAM DESCRIPTION: RAD - Elbow Left 3 View - 07/12/2023 5:04 pm CLINICAL HISTORY: SWELLING COMPARISON: No comparisons TECHNIQUE: Left elbow, 3 views. FINDINGS: Osseous remodeling with pronounced diffuse sclerotic changes predominantly along the subch ondral bone throughout the elbow joint, particularly along the ulnotrochlear articulation. Mild defor mity at the neck of the radius, may indicate sequelae of remote trauma. Pronounced periarticular soft tissue swelling. No elevated posterior fat pad to suggest an effusion. There is no dislocation or periosteal reaction noted. No soft tissue gas or radiopaque foreign body. IMPRESSION: Pronounced soft tissue swelling about the elbow with predominantly subchondral sclerotic changes and osseous remodeling as above. Findings may relate to longstanding arthritic changes. Poss ibility of chronic osteomyelitis or sequelae of septic arthritis cannot be entirely excluded. If ther e is concern for acute osteomyelitis, MRI would provide improved assessment. Deformity at the neck of the radius favored to represent sequelae of remote trauma.
[2023-07-12 18:55] VITALS: BP 160/82; TEMP 98.8; O2SAT 99
[2023-07-12 20:03] LABS: Body Fluid WBC 474453 /mm^3
[2023-07-12 20:10] LABS: Appearance TURBID (CLEAR); Body Fluid Source SYNOVIAL; Color of fluid Red (COLORLESS)
--- NOTE | 2023-07-14 14:33 | EKG ---
Test Date: 2023-07-12 Test Time: 15:54:14 Roof Designer: JANIS MEASUREMENT RESULTS: Intervals: Rate: 92 SD: 130 QRSD: 80 QT: 322 QTc: 398 [place]: P: 42 SD: 130 QRS: 102 T: -40 INTERPRETIVE STATEMENTS: Normal sinus rhythm ST & T wave abnormality, consider inferolateral ischemia Abnormal ECG Compared to ECG 06/22/2021 13:01:44 ST (T wave) deviation now present Sinus bradycardia no longer present Right-axis deviation no longer present Myocardial infarct finding no longer present T-wave abnormality no longer present Possible ischemia still present Electronically Signed On 07-14-23 14:28:29 BELT PICKER by Ricardo Casas
== END ==
LOC: ER 14:46
DX: M71.122 Other infective bursitis, left elbow (principal); F17.210 Nicotine dependence, cigarettes, uncomplicated
CPT/HCPCS: 93005; 87040 ×2; 87070; 85025; 36415; 89050; 85610; 83605; 85730; 80053; 73080; J1170; J2405; 87077; 87186; 96374; 96375; 99285

== ENCOUNTER → 2023-07-14 | Emergency (ER) | payer BC ==
[~2023-07-14] MED LIST changes: -HYDROMORPHONE HCL 1 MG/ML INJ ONE; -LIDOCAINE 2% W/EPI 1:200,000 MPF 20 ML VIAL IM ONE; -MORPHINE 4 MG/ML SYR ONE; +NA CHLORIDE 0.9% 250 ML ONE; -ONDANSETRON 4 MG/2 ML VIAL ONE; +VANCOMYCIN 1 GM/VIAL ONE
--- OUTSIDE RECORDS SUMMARY | 2023-07-14 14:03 | XMS REPORT | Continuity of Care Document ---
Author Name Unknown Address [address] [facility]. [address] [place] [address] [facility] thconnect Address [address] [facility] [address] [place] [address] Care Team Providers Care Billet Grinder Name Role Phone Unavailable Unavailable Unavailable Payers Payer Name Policy Type Policy Number Effective Date Expirati on Date Source [facility] 6 [id number] [facility] Problems Condition Name Condition Details Condition Category Status Onset Date Resolution Date Last Treatment Date Treating Clinician Comments Source [id number] Posthitis Problem Commo n [facility] [id number] 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 Problem [facility] Social History Social Habit Start Date Stop Date Quantity Comments Source History of Tobacco Use Current Smoker [facility] Sex Assigned At [facility] Smoking Status Start Date Stop Date Source Current Smoker 2021-06-07 00:00:00 [facility] Medications Ordered Medication Name Filled Medication Name Start Date Stop Date Current Medication? Ordering Clinician Indication Dosage Frequency Signature (SIG) Comments Components Source Clotrimazol e-Betametha sone 1-0.05 % Clotrimazol e-Betametha sone 1-0.05 % 01-11 00:00: 00 08-30 00:00 :00 No 1{appli [...] Name Observation Time Observation Value Comments S ource height 2021-06-07 08:15:00 75 [in_i] Commo n [facility] weight 2021-06-07 08:15:00 295 [lb_av] Comm on [facility] temperature 2021-06-07 08:15:00 98 [degF] Comm on [facility] bmi 2021-06-07 08:15:00 36.87 kg/m2 Comm on [facility] oximetry 2021-06-07 08:15:00 98 % Commo n [facility] respiratory rate 2021-06-07 08:15:00 16 /min Common [facility] blood pressure systolic 2021-06-07 08:15:00 179 mm[Hg] [facility] blood pressure diastolic 2021-06-07 08:15:00 86 mm[Hg] Common [facility] height 2021-01-11 16:30:00 75 [in_i] Commo n [facility] weight 2021-01-11 16:30:00 285 [lb_av] Comm on [facility] temperature 2021-01-11 16:30:00 97.2 [degF] Com mon [facility] bmi 2021-01-11 16:30:00 35.62 kg/m2 Comm on [facility] oximetry 2021-01-11 16:30:00 99 % Commo n [facility] blood pressure systolic 2021-01-11 16:30:00 147 mm[Hg] Common [facility] blood pressure diastolic 2021-01-11 16:30:00 76 mm[Hg] Common [facility] height 2020-11-28 15:40:00 75 [in_i] Commo n [facility] weight 2020-11-28 15:40:00 287.4 [lb_av] Co mmon [facility] temperature 2020-11-28 15:40:00 96.5 [degF] Com mon [facility] bmi 2020-11-28 15:40:00 35.92 kg/m2 Comm on [facility] oximetry 2020-11-28 15:40:00 97 % Commo n [facility] blood pressure systolic 2020-11-28 15:40:00 159 mm[Hg] [facility] blood pressure diastolic 2020-11-28 15:40:00 84 mm[Hg] [facility] Start Date/Time End Date/Time Encounter Type Admission Type Attending [facility] Facility Care Department Encounter ID Source 2021-06-21 15:49:01 Outpatient [facility] [id number] [facility] 2021-06-13 13:32:49 Outpatient [facility] [id number] [facility] 2021-06-13 13:25:32 Outpatient [facility] [id number] [facility] 2023-07-04 13:34:23 2023-07-04 13:34:23 Outpatient [facility] [id number] Usman Hyman 2023-06-14 09:52:35 2023-06-14 09:52:35 Outpatient [facility] [id number] Usman Hyman 2023-02-24 15:33:13 2023-02-24 15:33:13 Outpatient [facility] [id number] Usman Hyman 2022-10-07 09:08:20 2022-10-07 09:08:20 Outpatient [facility] [id number] Usman Hyman 2022-08-12 11:14:26 2022-08-12 11:14:26 Outpatient [facility] [id number] Usman Hyman 2022-05-28 17:22:02 2022-05-28 17:22:02 Outpatient [facility] [id number] Usman Patterson Boogie 2021-06-22 00:00:00 2021-06-22 00:00:00 (TEL) [facility] [id number] [facility] 2021-06-07 00:00:00 2021-06-07 00:00:00 OFFICE VISIT ESTAB PT LEVEL 4 [facility] [id number] [facility] 2021-05-31 00:00:00 2021-05-31 00:00:00 (TEL) [facility] [id number] [facility] 2021-01-11 00:00:00 2021-01-11 00:00:00 OFFICE VISIT EST PT LEVEL 3 [facility] [id number] [facility] 2020-11-28 00:00:00 2020-11-28 00:00:00 OFFICE VISIT NEW [facility]EV[id number] Results Test Description Test Time Test Comments Results Result Co mments Source CULTURE, URINE 2023-07-06 11:21:14 SPECIMEN NUMBER: [id number] CULTURE, URINE SPECIMEN NUMBER: [id number] SPECIMEN COMMENT: URINE SOURCE: URINE REPORT STATUS: FINAL ISOLATE NUMBER 1: IDENTIFICATION: 07/06/2023 10-50,000 CFU/ML STREPTOCOCCUS AGALACTIAE (GROUP B) ADDITIONAL OBSERVATIONS: PENICILLIN AND AMPICILLIN ARE DRUGS OF CHOICE FOR TREATMENT OF B-HEMOLYTIC STREPTOCOCCAL INFECTIONS. SUSCEPTIBILITY TESTING OF PENICILLIN AND OTHER B-LACTAMS APPROVED BY THE [place] [employer]OD AND DRUG [employer]MIN[employer]RATION FOR TREATMENT OF B-HEMOLYTIC STREPTOCOCCAL INFECTIONS NEED NOT BE PERFORMED ROUTINELY. ALBUMIN/CREATININE RATIO, URINE, [id number] 02:45:52* Test Item Value Reference Range Interpretation Comme nts CREATININE, URINE, CONC. (test code = 2072) 61.4 MG/DL NOT ESTAB ALBUMIN, URINE, RANDOM (test code = 69457) 9.1 MG/DL NOT ESTAB CALC ALBUMIN/CREAT, RND (test code = 29244) 148 MG/G <30 H Note: Albumin/Cr eatinine ratio reference interval reflects ADA and NKF guidelines. UNLESS OTHERWISE INDICATED, ALL TESTING PERFORMED AT [facility] [address] [place] [address] MILK PICKUP TRUCK DRIVER: MAREN CHAVARRIA M.D. CLIA NUMBER [id number] [facility] [place]. [id number] HCV RNA, PCR [id number] 20:16:46* Test Item Value Reference Range Interpretation Comme nts HCV RNA, PCR QUANT (test code = 4571) NOT DETEC IU/ML HCV VIRAL LOG (test code = 14235) NOT DETEC LOG IU/ML HCV RNA was [...] chain reaction (PCR) using the Tushar Jayden [employer]00[employer]00system. The expected range is NOT DETECTED. HEPATITIS C REFLEX [id number] 02:34:07* Test Item Value Reference Range Interpretation Comme nts HEPATITIS C ANTIBODY (test c ode = 4675) REACTIVE NON-REACTIVE A COMPREHENSIVE METABOLIC [id number] 23:23:07* Test Item Value Reference Range Interpretation Comme nts GLUCOSE (test code = 2217) 327 MG/DL 70-99 H BUN (test code = 2207) 14 MG/DL 8-23 CREATININE (test code = 2214) 1.20 MG/DL 0.80-1.40 eGFR (2020 CKD-EPI) (test co de = 44870) 69 ML/MIN/1.73 >60 CALC BUN/CREAT (test code = 2235) 12 RATIO 6-28 SODIUM (test code = 2231) 136 MEQ/L 133-146 POTASSIUM (test code = [...] code = 2219) 40 U/L 5-50 LIPID [id number] 23:23:07* Test Item Value Reference Range Interpretation [...] SPECIMENS. FOR MOREINFORMATION, SEE CLIENT ANNOUNCEMENT AT http://www.[employer] /CalcLDL-C RISK RATIO LDL/HDL (test code = 2238) 2.74 RATIO <3.55 HEMOGLOBIN [id number] 03:16:16* Test Item Value Reference Range Interpretation Comme [facility] HEMOGLOBIN A1c (test code = 88773) 11.2 % 4.2-5.6 H [employer] GUIDELINES FOR HGB A1C: [...] LABORATORY CONSULTATION. HIV 1/2 4TH GEN, RFLX [id number] 04:13:42* Test Item Value Reference Range Interpretation Comme nts HIV 1/2 4TH GEN, RFLX CONF ( test code = 3514) NON-REACTIVE NON-REACTIVE TSH, THIRD [id number] 01:15:29* Test Item Value Reference Range Interpretation Comme nts TSH, THIRD GENERATION (test code = 2821) 0.746 UIU/ML 0.400-4.100 UNLESS OTHERWISE INDICATED, [facility] [address] [place] [address] [employer] PICKUP TRUCK DRIVER: FRANCES SAPP M.D. CLIA NUMBER [id number] [place]. [id number] LIPID [id number] 00:16:46* Test Item Value Reference Range Interpretation [...] SPECIMENS. FOR MOREINFORMATION, SEE CLIENT ANNOUNCEMENT AT http://www.[employer] /CalcLDL-C RISK RATIO LDL/HDL (test code = 2238) 1.08 RATIO <3.55 HEMOGLOBIN [id number] 07:26:51* Test Item Value Reference Range Interpretation Comme nts HEMOGLOBIN A1c (test code = 05220) 13.1 % 4.2-5.6 H [employer] GUIDELINES FOR HGB A1C: [...] OR LABORATORY CONSULTATION. CBC W/AUTO DIFF WITH [id number] 05:39:50* Test Item Value Reference Range Interpretation [...] = 1065) 0.0 /100 WBC'S See_Comment [Automated [employer]] The system which generated this result [...] 0.00-0.10 ABS NUCLEATED RBCS (test code = 30774) 0.00 K/UL 0.00-0.11
[2023-07-14 15:24] LABS: Absolute Lymphocytes (CBC) 0.6 K/uL (0.7-4.9); Hematocrit 41.2 % (39.6-49.0); MPV 8.2 fL (7.6-11.3); Platelets 284 thou/uL (152-406); RBC Red Blood Cell Count 5.29 M/uL (4.33-5.43)
[2023-07-14 15:34] LABS: Protime INR 1.12
[2023-07-14 15:40] LABS: Albumin 2.3 g/dL (3.4-5.0); Bilirubin Total 0.6 mg/dL (0.2-1.0); Potassium 3.9 mEq/L (3.5-5.1); Protein, Total 6.6 g/dL (6.4-8.2)
--- NOTE | 2023-07-14 15:50 | RAD REPORT ---
EXAM DESCRIPTION: CT - Elbow Left W Con - 07/14/2023 3:27 pm CLINICAL HISTORY: Left elbow pain and swelling COMPARISON: X-ray July 14, 2023 TECHNIQUE: Computed axial tomography left elbow obtained with coronal and sagittal reconstruction All CT scans are performed using dose optimization technique as appropriate and may include automated exposure control or mA/KV adjustment according to patient size. FINDINGS: No acute fracture or dislocation seen. Marked arthritis involves the elbow consisting of osteophytes, joint space narrowing and subchondral cysts. There are several bony fragments which lie along the elbow. These are well corticated and appear grinder setup operator marc. A significant joint effusion is not visualized. No acute bony destructive lesions seen. Ill-defined fluid within the olecranon bursa. Edema within predominately the posterior subcutaneous t issues IMPRESSION: No acute fracture is seen Marked arthritis Ill-defined fluid within the olecranon bursa may indicate bursitis Diffuse edema within predominately the posterior subcutaneous tissues can be seen with a cellulitis No radiographic evidence of osteomyelitis. If this remains a clinical concern despite treatment then MRI would be recommended
--- NOTE | 2023-07-14 16:25 | EDPHYS ---
Physician Documentation [facility] Name: Esau Valdes Age: 63 yrs Sex: Male : 1960 Arrival Date: 07/14/2023 Time: 14:01 Bed 18 Private MD: ED Physician Pete Armenta HPI: 07/14 17:01 This 63 yrs old Black Male presents to ER via Ambulatory with complaints of Elbow rt Injury. 17:01 Patient was seen in the ED about 2 days ago for infection to the left elbow, incision rt and drainage was performed. Labs are drawn, patient fused admission at that time and did not take the antibiotics that were prescribed to him. Patient states that now his creatinine better,. Redness, swelling, pain have decreased. Presents for wound check. Denies other acute complaints, symptoms are moderate severity, no other aggravating elevating factors.. Historical: - Allergies: 14:24 No Known Allergies; aa5 - PMHx: 14:24 diabetes mellitus; Hypertensive disorder; Hypertensive disorder; Sleep Apnea; aa5 - Immunization history:: Adult Immunizations unknown. - Family history:: not pertinent. - Social history:: Smoking status: unknown. ROS: 17:04 Constitutional: Negative for fever, chills, and weight loss, Cardiovascular: Negative rt for chest pain, palpitations, and edema, Respiratory: Negative for shortness of breath, cough, wheezing, and pleuritic chest pain, Abdomen/GI: Negative for abdominal pain, nausea, vomiting, diarrhea, and constipation, Neuro: Negative for headache, weakness, numbness, tingling, and seizure, Psych: Negative for depression, anxiety, suicide ideation, homicidal ideation, and hallucinations, 17:04 Skin: Positive for abscess, cellulitis, Exam: 17:04 Constitutional: This is a well developed, well nourished patient who is awake, alert, rt and in no acute distress. Head/Face: Normocephalic, atraumatic. Chest/axilla: Normal chest wall appearance and motion. Nontender with no deformity. No lesions are appreciated. Cardiovascular: Regular rate and rhythm with a normal S1 and S2. No gallops, murmurs, or rubs. Normal PMI, no JVD. No pulse deficits. Respiratory: Lungs have equal breath sounds bilaterally, clear to auscultation and percussion. No rales, rhonchi or wheezes noted. No increased work of breathing, no retractions or nasal flaring. Abdomen/GI: Soft, non-tender, with normal bowel sounds. No distension or tympany. No guarding or rebound. No evidence of tenderness throughout. Neuro: Awake and alert, GCS 15, oriented to person, place, time, and situation. Cranial nerves II-XII grossly intact. Motor strength 5/5 in all extremities. Sensory grossly intact. Cerebellar exam normal. Normal gait. 17:04 Musculoskeletal/extremity: Draining abscess noted to the left arm with surrounding cellulitis, patient is able to range his elbow without difficulty.. Vital Signs: 14:21 BP 140 / 71; Pulse 65; Resp 18 S; Temp 98.1(TE); Pulse Ox 98% on R/A; Weight 113.4 kg aa5 (R); Height 6 ft. 2 in. (R); 14:46 BP 124 / 70; Pulse 61; Resp 16; Pulse Ox 96% on R/A; me1 15:40 BP 125 / 85; Pulse 59; Resp 18; Pulse Ox 95% on R/A; me1 16:40 BP 129 / 79; Pulse 59; Resp 18; Pulse Ox 95% on R/A; me1 17:32 Pulse 61; Pulse Ox 96% on R/A; ap3 18:00 BP 128 / 84; Pulse 55; Resp 16; Pulse Ox 96% on R/A; me1 14:21 Body Mass Index 32.10 (113.40 kg, 187.96 cm) aa5 MDM: 14:35 Patient medically screened. rt 17:04 Differential diagnosis: Abscess, cellulitis, necrotizing fasciitis, osteomyelitis. Data rt reviewed: vital signs, nurses notes. Consideration of Admission/Observation Escalation of care including admission/observation considered. Patient states that the symptoms continue to improve, labs are improving. There is no drainable abscess currently, no evidence of deep space infection to include necrotizing fasciitis or bony involvement. At this time, patient is amenable and desires of trial of outpatient management. Strict return precautions were discussed with the patient. I considered the following discharge prescriptions or medication management in the emergency department Medications were administered in the Emergency Department. See MAR. Independent interpretation of the following test(s) in the Emergency Department CT Scan: My interpretation is No abscess interpretation of CT scan images. Care significantly affected by the following chronic conditions: Diabetes, Hypertension. Counseling: I had a detailed discussion with the patient and/or guardian regarding the historical points, exam findings, and any diagnostic results supporting the discharge/admit diagnosis, lab results, radiology results, the need for outpatient follow up, to return to the emergency department if symptoms worsen or persist or if there are any questions or concerns that arise at home. 07/14 14:42 Order name: Blood Culture Adult (2) rt 07/14 14:42 Order name: CBC with Diff rt 07/14 14:42 Order name: CMP; Complete Time: 15:52 rt 07/14 14:42 Order name: Lactate w/ 2H reflex if indic.; Complete Time: 16:01 rt 07/14 14:42 Order name: Protime (+inr); Complete Time: 15:52 rt 07/14 14:42 Order name: Ptt, Activated; Complete Time: 15:52 rt 07/14 15:05 Order name: Elbow Left W Con; Complete Time: 15:52 EDMS 07/14 14:42 Order name: Accucheck; Complete Time: 15:51 rt 07/14 14:42 Order name: IV Saline Lock - Large Bore; Complete Time: 15:15 rt 07/14 14:42 Order name: Labs collected and sent; Complete Time: 15:15 rt 07/14 14:42 Order name: O2 Per Protocol; Complete Time: 15:15 rt 07/14 14:42 Order name: O2 Sat Monitoring; Complete Time: 15:15 rt 07/14 14:42 Order name: Vital Signs; Complete Time: 15:15 rt Administered Medications: 15:51 Drug: vancoMYCIN IVPB 1 grams IVPB once over 2 hrs Route: IVPB; Infused Over: 2 hrs; me1 Site: right antecubital; 18:25 Follow up: Response: No adverse reaction; IV Status: Completed infusion me1 Disposition Summary: 07/14/23 16:25 Discharge Ordered Notes: Location: Home rt Problem: an ongoing problem rt Symptoms: have improved rt Condition: Stable rt Diagnosis - Cellulitis to left upper extremity rt Followup: rt - With: Private Physician - When: 2 - 3 days - Reason: Discharge Instructions: - Discharge Summary Sheet rt - Cellulitis, Adult rt Forms: - Medication Reconciliation Form rt - Thank You Letter rt - Antibiotic Education rt - Prescription Opioid Use rt - Patient Portal Instructions rt - Leadership Thank You Letter rt Prescriptions: - Doxycycline Hyclate 100 mg Oral Tablet - take 1 tablet ORAL route every 12 hours; 20 tablet; Refills: 0, Product rt Selection Permitted Signatures: Dispatcher [employer] EDDenia Dorado, RN RN aa5 Pete Armenta MD MD rt Nesha Dawn RN RN me1 Corrections: (The following items were deleted from the chart) 15:05 14:47 CT LEFT ELBOW WO CONTRAST ordered. EDMS EDMS 17:06 14:42 Cardiac monitoring ordered. rt ap3 17:06 14:42 EKG - Nurse/Tech ordered. rt ap3
--- NOTE | 2023-07-14 16:25 | ER ---
Nurse's Notes [facility] Name: Esau Valdes Age: 63 yrs Sex: Male : 1960 Arrival Date: 07/14/2023 Time: 14:01 Bed 18 Private MD: Diagnosis: Cellulitis to left upper extremity Presentation: 07/14 14:21 Chief complaint: Chief complaint: Patient states: "I was seen here recently but I had me1 to leave but now I want the doctor to look at my elbow". Pt c/o "pus coming out of left elbow". 14:21 Coronavirus screen: At this time, the client does not indicate any symptoms associated aa5 with coronavirus-19. Ebola Screen: Patient denies travel to an Ebola-affected area in the 21 days before illness onset. Initial Sepsis Screen: Does the patient meet any 2 criteria? No. Patient's initial sepsis screen is negative. Does the patient have a suspected source of infection? Yes:. Risk Assessment: Do you want to hurt yourself or someone else? Patient reports no desire to harm self or others. Onset of symptoms was June 2023. 14:21 Acuity: LILY 3 aa5 14:21 Method Of Arrival: Ambulatory aa5 Triage Assessment: 18:38 Injury Description: Denies injury. me1 Historical: - Allergies: 14:24 No Known Allergies; aa5 - PMHx: 14:24 diabetes mellitus; Hypertensive disorder; Hypertensive disorder; Sleep Apnea; aa5 - Immunization history:: Adult Immunizations unknown. - Family history:: not pertinent. - Social history:: Smoking status: unknown. Screenin:30 [facility] ED Fall Risk Assessment (Adult) History of falling in the last 3 months, me1 including since admission No falls in past 3 months (0 pts) Confusion or Disorientation No (0 pts) Intoxicated or Sedated No (0 pts) Impaired Gait No (0 pts) Mobility Assist Device Used No (0 pt) Altered Elimination No (0 pt) Score/Fall Risk Level 0 - 2 = Low Risk Oriented to surroundings, Provided non-skid footwear, Hourly rounding (assess needs \\T\\ fall precautionary measures) done. Abuse screen: Denies threats or abuse. Nutritional screening: No deficits noted. Tuberculosis screening: No symptoms or risk factors identified. Assessment: 14:30 General: Appears uncomfortable, well groomed, well developed, well nourished, Behavior me1 is calm, cooperative, appropriate for age, Reports "I was seen here recently but I had to leave but now I want the doctor to look at my elbow". Pt c/o "pus coming out of left elbow". Pain: Complains of pain in left elbow Pain does not radiate. Pain currently is 2 out of 10 on a pain scale. Quality of pain is described as tender, Pain began 2-3 days ago. Is continuous. Neuro: Level of Consciousness is awake, alert, obeys commands, Oriented to person, place, time, situation, Appropriate for age. Cardiovascular: Capillary refill < 3 seconds Patient's skin is warm and dry. Respiratory: Airway is patent Trachea midline Respiratory effort is even, unlabored, Respiratory pattern is regular, symmetrical. Derm: Abscess located on left elbow. Musculoskeletal: Swelling present in left elbow. 17:07 General: discharge pending completion of antibiotics. ap3 Vital Signs: 14:21 BP 140 / 71; Pulse 65; Resp 18 S; Temp 98.1(TE); Pulse Ox 98% on R/A; Weight 113.4 kg aa5 (R); Height 6 ft. 2 in. (R); 14:46 BP 124 / 70; Pulse 61; Resp 16; Pulse Ox 96% on R/A; me1 15:40 BP 125 / 85; Pulse 59; Resp 18; Pulse Ox 95% on R/A; me1 16:40 BP 129 / 79; Pulse 59; Resp 18; Pulse Ox 95% on R/A; me1 17:32 Pulse 61; Pulse Ox 96% on R/A; ap3 18:00 BP 128 / 84; Pulse 55; Resp 16; Pulse Ox 96% on R/A; me1 14:21 Body Mass Index 32.10 (113.40 kg, 187.96 cm) aa5 ED Course: 14:04 Patient arrived in ED. mg5 14:12 Pete Armenta MD is Attending Physician. rt 14:21 Arm band placed on. aa5 14:26 Triage completed. aa5 14:30 Patient has correct armband on for positive identification. Bed in low position. Call me1 light in reach. Side rails up X 1. Provided Education on: POC. Verbalized understanding. . 14:30 No provider procedures requiring assistance completed. me1 15:15 Nesha Dawn, RN is Primary Nurse. me1 15:15 Inserted saline lock: 20 gauge in right antecubital area, using aseptic technique. me1 15:16 CBC with Diff Sent. me1 15:16 CMP Sent. me1 15:16 Lactate w/ 2H reflex if indic. Sent. me1 15:16 Protime (+inr) Sent. me1 15:16 Ptt, Activated Sent. me1 15:29 Elbow Left W Con In Process Unspecified. EDMS 15:53 Blood Culture Adult (2) Sent. me1 15:53 Lactate w/ 2H reflex if indic. Sent. me1 18:38 IV discontinued, intact, bleeding controlled, No redness/swelling at site. Pressure me1 dressing applied. Administered Medications: 15:51 Drug: vancoMYCIN IVPB 1 grams IVPB once over 2 hrs Route: IVPB; Infused Over: 2 hrs; me1 Site: right antecubital; 18:25 Follow up: Response: No adverse reaction; IV Status: Completed infusion me1 Medication: 14:30 VIS not applicable for this client. me1 Outcome: 16:25 Discharge ordered by . rt 18:37 Discharged to home ambulatory, me1 18:37 Condition: stable 18:37 Discharge instructions given to patient, Instructed on discharge instructions, follow up and referral plans. medication usage, Demonstrated understanding of instructions, follow-up care, medications, Prescriptions given X 1, 18:38 Patient left the ED. me1 Signatures: Dispatcher [employer] [facility] Denia Childs RN RN aa5 Clara Verdin RN RN ap3 Pete Armenta MD MD rt Nesha Dawn, RN RN me1 Monica Frazier mg5 Corrections: (The following items were deleted from the chart) 14:26 14:21 Chief complaint: aa5 aa5 18:27 14:21 Chief complaint: Patient states: "I was seen here recently but I had to leave but me1 now I want the doctor to look at my elbow". Pt c/o "pus coming out of left elbow" Chief complaint: Patient states: "I was seen here recently but I had to leave but now I want the doctor to look at my elbow". Pt c/o "pus coming out of left elbow" aa5 18:36 14:30 General: Appears me1 me1
[2023-07-14 18:55] LABS: Platelet Estimate ADEQ; White Blood Cell Scan OK (OK)
[2023-07-14 18:56] LABS: Blood Morphology Comment NOT SEEN (NOT SEEN)
[2023-07-14 19:01] VITALS: BP 128/84; TEMP 98.1; O2SAT 96
== END ==
LOC: ER 14:01
DX: L03.114 Cellulitis of left upper limb (principal); E11.9 Type 2 diabetes mellitus without complications; I10 Essential (primary) hypertension
CPT/HCPCS: 87040 ×2; 85025; 36415; 85610; 83605; 85730; 80053; 73201; Q9967; J7050; 96365; 96366; 99284

== ENCOUNTER 2023-07-22 11:00 | Inpatient (IN) | payer BC ==
--- OUTSIDE RECORDS SUMMARY | 2023-07-22 11:04 | XMS REPORT | Continuity of Care Document ---
Author Name Unknown Address [address] [facility] [address] [place] [address] [facility] thconnect Address [address] [facility] [address] [place] [address] Care Team Providers Care Web Site Developer Name Role Phone Unavailable Unavailable Unavailable Payers Payer Name Policy Type Policy Number Effective Date Expirati on Date Source [facility] 6 [id number] [facility] Problems Condition Name Condition Details Condition Category Status Onset Date Resolution Date Last Treatment Date Treating Clinician Comments Source [id number] Posthitis Problem Commo n [facility] [id number] 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 Problem [facility] Social History Social Habit Start Date Stop Date Quantity Comments Source History of Tobacco Use Current Smoker [facility] Sex Assigned At [facility] Smoking Status Start Date Stop Date Source Current Smoker 2021-06-07 00:00:00 [facility] Medications Ordered Medication Name Filled Medication Name [...] height 2021-06-07 08:15:00 75 [in_i] Commo n [facility] weight 2021-06-07 08:15:00 295 [lb_av] Comm on [facility] temperature 2021-06-07 08:15:00 98 [degF] Comm on [facility] bmi 2021-06-07 08:15:00 36.87 kg/m2 Comm on [facility] oximetry 2021-06-07 08:15:00 98 % Commo n [facility] respiratory rate 2021-06-07 08:15:00 16 /min Common [facility] blood pressure systolic 2021-06-07 08:15:00 179 mm[facility]Hg[facility] pressure diastolic 2021-06-07 08:15:00 86 mm[Hg] [facility] height 2021-01-11 16:30:00 75 [in_i] Commo n [facility] weight 2021-01-11 16:30:00 285 [lb_av] Comm on [facility] temperature 2021-01-11 16:30:00 97.2 [degF] Com [facility] bmi 2021-01-11 16:30:00 35.62 kg/m2 Comm on [facility] oximetry 2021-01-11 16:30:00 99 % Commo n [facility] blood pressure systolic 2021-01-11 16:30:00 147 mm[Hg] [facility] blood pressure diastolic 2021-01-11 16:30:00 76 mm[Hg] Common [facility] height 2020-11-28 15:40:00 75 [in_i] Commo n [facility] weight 2020-11-28 15:40:00 287.4 [lb_av] Co mmon [facility] temperature 2020-11-28 15:40:00 96.5 [degF] Com [facility] bmi 2020-11-28 15:40:00 35.92 kg/m2 Comm on [facility] oximetry 2020-11-28 15:40:00 97 % Commo n [facility] blood pressure systolic 2020-11-28 15:40:00 159 mm[facility]Hg[facility] blood pressure diastolic 2020-11-28 15:40:00 84 mm[Hg] [facility] Start Date/Time End Date/Time Encounter Type Admission Type Attending [facility] Facility Care Department Encounter ID Source 2021-06-21 15:49:01 Outpatient [facility] [id number] [facility] 2021-06-13 13:32:49 Outpatient [facility] [id number] [facility] 2021-06-13 13:25:32 Outpatient [facility] STL[facility] [id number] [facility] 2023-07-04 13:34:23 2023-07-04 13:34:23 Outpatient [facility] [id number] Usman Hyman 2023-06-14 09:52:35 2023-06-14 09:52:35 Outpatient [facility] [id number] Usman Hyman 2023-02-24 15:33:13 2023-02-24 15:33:13 Outpatient [facility] [id number] Usman Hyman 2022-10-07 09:08:20 2022-10-07 09:08:20 Outpatient [facility] [id number] Usman Hyman 2022-08-12 11:14:26 2022-08-12 11:14:26 Outpatient [facility] [id number] Usman Hyman 2022-05-28 17:22:02 2022-05-28 17:22:02 Outpatient [facility] [id number] Usman Patterson [place] 2021-06-22 00:00:00 2021-06-22 00:00:00 (TEL) [facility] [id number] [facility] 2021-06-07 00:00:00 2021-06-07 00:00:00 OFFICE VISIT ESTAB PT LEVEL 4 [facility] STLMLC [id number] [facility] 2021-05-31 00:00:00 2021-05-31 00:00:00 (TEL) [facility]LMLC STLMLC [id number] [facility] 2021-01-11 00:00:00 2021-01-11 00:00:00 OFFICE VISIT EST PT LEVEL 3 [facility] STLC [id number] [facility] 2020-11-28 00:00:00 2020-11-28 00:00:00 OFFICE VISIT NEW PT LEVEL 3 [facility]LMLC STLC [id number] [facility] Results Test Description Test Time Test Comments Results Result Co mments Source CULTURE, URINE 2023-07-06 11:21:14 SPECIMEN NUMBER: [id number] CULTURE, URINE SPECIMEN NUMBER: [id number] SPECIMEN COMMENT: URINE SOURCE: URINE REPORT STATUS: FINAL ISOLATE NUMBER 1: IDENTIFICATION: 07/06/2023 10-50,000 CFU/ML STREPTOCOCCUS AGALACTIAE (GROUP B) ADDITIONAL OBSERVATIONS: PENICILLIN AND AMPICILLIN ARE DRUGS OF CHOICE FOR TREATMENT OF B-HEMOLYTIC STREPTOCOCCAL INFECTIONS. SUSCEPTIBILITY TESTING OF PENICILLIN AND OTHER B-LACTAMS APPROVED BY THE [place] [employer]OD AND DRUG [employer]RATION FOR TREATMENT OF B-HEMOLYTIC STREPTOCOCCAL INFECTIONS NEED NOT BE PERFORMED ROUTINELY. ALBUMIN/CREATININE RATIO, URINE, [id number] 02:45:52* Test Item Value Reference Range Interpretation Comme nts CREATININE, URINE, CONC. (test code = 2072) 61.4 MG/DL NOT ESTAB ALBUMIN, URINE, RANDOM (test code = 57411) 9.1 MG/DL NOT ESTAB CALC ALBUMIN/CREAT, RND (test code = 01021) 148 MG/G <30 H Note: Albumin/Cr eatinine ratio reference interval reflects ADA and NKF guidelines. UNLESS OTHERWISE INDICATED, ALL TESTING PERFORMED AT [facility] [address] [place] [address] ADVISORY SERVICES ASSOCIATE: MAREN CHAVARRIA M.D. CLIA NUMBER [id number] [facility] [place]. [id number] HCV RNA, PCR [id number] 20:16:46* Test Item Value Reference Range Interpretation Comme nts HCV RNA, PCR QUANT (test code = 4571) NOT DETEC IU/ML HCV VIRAL LOG (test code = 75839) NOT DETEC LOG IU/ML HCV RNA was [...] range is NOT DETECTED. HEPATITIS C REFLEX [id number] 02:34:07* Test Item Value Reference Range Interpretation Comme nts HEPATITIS C ANTIBODY (test c ode = 4675) REACTIVE NON-REACTIVE A LIPID [id number] 23:23:07* Test Item Value Reference Range Interpretation [...] SPECIMENS. FOR MOREINFORMATION, SEE CLIENT ANNOUNCEMENT AT [email or web address] RISK RATIO LDL/HDL (test code = 2238) 2.74 RATIO <3.55 COMPREHENSIVE METABOLIC [id number] 23:23:07* Test Item Value Reference Range Interpretation Comme nts GLUCOSE (test code = 2217) 327 MG/DL 70-99 H BUN (test code = 2208) 14 MG/DL 8-23 CREATININE (test code = 2214) 1.20 MG/DL 0.80-1.40 eGFR (2020 CKD-EPI) (test co de = 77828) 69 ML/MIN/1.73 >60 CALC BUN/CREAT (test code [...] (test code = 2219) 40 U/L 5-50 HEMOGLOBIN [id number] 03:16:16* Test Item Value Reference Range Interpretation Comme [facility] HEMOGLOBIN A1c (test code = 00117) 11.2 % 4.2-5.6 H [employer] GUIDELINES FOR HGB A1C: [...] LABORATORY CONSULTATION. HIV 1/2 4TH GEN, RFLX [id number] 04:13:42* Test Item Value Reference Range Interpretation Comme [facility] HIV 1/2 4TH GEN, RFLX CONF ( test code = 3514) NON-REACTIVE NON-REACTIVE TSH, THIRD [id number] 01:15:29* Test Item Value Reference Range Interpretation Comme [facility] TSH, THIRD GENERATION (test code = 2821) 0.746 UIU/ML 0.400-4.100 UNLESS OTHERWISE INDICATED, [facility] [address] [place] [address] ADVISORY SERVICES ASSOCIATE: FRANCES SAPP M.D. CLIA NUMBER [id number] [place] [id number] LIPID [id number] 00:16:46* Test Item Value Reference Range Interpretation [...] SPECIMENS. FOR MOREINFORMATION, SEE CLIENT ANNOUNCEMENT AT [email or web address] /[email or web address]-C RISK RATIO LDL/HDL (test code = 2238) 1.08 RATIO <3.55 HEMOGLOBIN [id number] 07:26:51* Test Item Value Reference Range Interpretation Comme nts HEMOGLOBIN A1c (test code = 67762) 13.1 % 4.2-5.6 H [employer] GUIDELINES FOR HGB A1C: [...] OR LABORATORY CONSULTATION. CBC W/AUTO DIFF WITH [id number] 05:39:50* Test Item Value Reference Range Interpretation [...] = 1065) 0.0 /100 WBC'S See_Comment [Automated Reblea ge] The system which generated this result [...] 0.00-0.10 ABS NUCLEATED RBCS (test code = 12982) 0.00 K/UL 0.00-0.11
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
--- NOTE | 2023-07-22 12:11 | RAD REPORT ---
EXAM DESCRIPTION: CT - Head Brain Wo Cont - 07/22/2023 12:04 pm CLINICAL HISTORY: syncope, fall COMPARISON: No comparisons TECHNIQUE: All CT scans are performed using dose optimization technique as appropriate and may inclu de automated exposure control or mA/KV adjustment according to patient size. FINDINGS: No intracranial hemorrhage, hydrocephalus or extra-axial fluid collection.No areas of brai n edema or evidence of midline shift. Mild chronic small vessel ischemic changes. The paranasal sinuses and mastoids are clear. The calvarium is intact. 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 No other osseous lesions are identified. IMPRESSION: No acute intracranial abnormality.
--- NOTE | 2023-07-22 12:11 | RAD REPORT ---
EXAM DESCRIPTION: RAD - Chest Single View - 07/22/2023 12:05 pm CLINICAL HISTORY: syncope, fall COMPARISON: Chest Pa And Lat (2 Views) dated 06/22/2021; Chest Pa And Lat (2 Views) dated 02/21/2020 FINDINGS: Lines: None. Lungs: No evidence of edema or pneumonia. Pleural: No significant pleural effusions or pneumothorax. Cardiac: Enlarged cardiac silhouette. Mediastinum: Within normal limits. Bones: No acute fractures. Other: None IMPRESSION: Enlarged cardiac silhouette could be due to an underlying pericardial effusion. Consider further evaluation with echocardiography. The lungs are clear.
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
--- NOTE | 2023-07-22 12:22 | RAD REPORT ---
EXAM DESCRIPTION: RAD - Femur Right - 07/22/2023 12:05 pm CLINICAL HISTORY: PAIN COMPARISON: Pelvis dated 07/22/2023 FINDINGS/IMPRESSION: No acute fracture. No malalignment. Mild right acetabular degenerative changes.
[2023-07-22 12:27] LABS: Absolute Basophils 0.1 K/uL (0-0.5); Absolute Lymphocytes (CBC) 0.7 K/uL (0.7-4.9); Absolute Neutrophil 17.2 K/uL (1.8-8.0); Basophils % 0.6 % (0-1.3); Eosinophils % 0.1 % (0-4.4); Hematocrit 43.8 % (39.6-49.0); Hemoglobin 14.5 g/dL (13.6-17.9); Lymphocytes % 3.5 % (15.3-44.8); MCH 25.1 pg (27.0-35.0); MPV 8.2 fL (7.6-11.3); Neutrophils % 90.8 % (41.7-73.7); Platelets 480 thou/uL (152-406); RBC Red Blood Cell Count 5.77 M/uL (4.33-5.43); Red Cell Distribution Width 15.4 % (12.1-15.2)
[2023-07-22 12:36] LABS: PT Prothrombin Time 13.1 SECONDS (9.5-12.5); PTT, Activated Partial Thromb 30.3 SECONDS (24.3-36.9); Protime INR 1.2
[2023-07-22 12:48] LABS: Albumin 2.4 g/dL (3.4-5.0); Albumin/Globulin Ratio 0.5 (1.1-1.8); Anion Gap 11.3 mEq/L (5.0-15.0); Bilirubin Direct 0.4 mg/dL (0-0.2); Bilirubin Indirect, Calculated 0.4 mg/dL (0.2-0.8); Bilirubin Total 0.8 mg/dL (0.2-1.0); Globulin 4.8 g/dL (2.3-3.5); Potassium 4.3 mEq/L (3.5-5.1); Protein, Total 7.2 g/dL (6.4-8.2); Troponin High Sensitivity 39.3 pg/mL (<58.9)
[2023-07-22] MEDS ORDERED: ONDANSETRON 4 MG/2 ML VIAL ONE (13:42)
[2023-07-22] MEDS ORDERED: MORPHINE 4 MG/ML SYR ONE (13:43)
[2023-07-22 13:49] LABS: Specific Gravity > 1.030 (1.005-1.030); Urine Bacteria None Seen /HPF (<20); Urine Bilirubin NEGATIVE (Negative); Urine Blood 2+ (Negative); Urine Clarity Clear (Clear); Urine Color Light-Yellow (Yellow); Urine Glucose 4+ (Over) (Negative); Urine Mucus Slight /HPF (None Seen); Urine Protein TRACE (Negative); Urine Urobilinogen Normal (Normal); Urine pH 5.5 (5.0-7.0)
[2023-07-22] MEDS ORDERED: VANCOMYCIN 1 GM/VIAL ONE (13:51)
[2023-07-22] MEDS ORDERED: NA CHLORIDE 0.9% 250 ML ONE (13:51)
--- NOTE | 2023-07-22 14:11 | RAD REPORT ---
EXAM DESCRIPTION: Shoulder Right 2 View - 07/22/2023 1:31 pm CLINICAL HISTORY: PAIN COMPARISON: No comparisons TECHNIQUE: Internal and external rotation views of the right shoulder were obtained. FINDINGS: Cortical irregularity along the humeral head anteriorly, may relate to sequelae of prior t rauma or dislocation. AC joint shows moderate degenerative changes. No acute or suspicious findings. IMPRESSION: Cortical irregularity along the humeral head anteriorly may relate to sequelae of prior trauma or dislocation, of indeterminate age.
--- NOTE | 2023-07-22 14:24 | RAD REPORT ---
EXAM DESCRIPTION: CT - Chest Abdomen Pelvis W Cont - 07/22/2023 1:14 pm CLINICAL HISTORY: fall, abnormal CXR, cannot walk on right hip, eval for occu COMPARISON: Femur Right dated 07/22/2023 TECHNIQUE: Thin axial CT images of the chest, abdomen, and pelvis, performed following intravenous a dministration of iodinated contrast. Multiplanar reformats were generated and reviewed. All CT scans are performed using dose optimization technique as appropriate and may include automated exposure control or mA/KV adjustment according to patient size. FINDINGS: The lungs are clear.No pleural or pericardial effusion.No intrathoracic adenopathy. The liver, spleen, pancreas, adrenal glands and kidneys are within normal limits. Gallbladder is con tracted with a small 1.7 cm structure at the level of the neck showing ring calcifications, could rel ate to a cholesterol containing stone or wall calcifications of the bladder in the region. No bowel obstruction, free air, free fluid or abscess. Normal appendix. No pathologic lymphadenopath y in the abdomen or pelvis. Small compression deformity along the superior right femoral head/ neck junction. Triangular ossific density along the superior margin of the acetabulum, could relate to a degenerative spur versus a sma ll chip fracture. See coronal images 59-66 on series 303. Pronounced soft tissue swelling throughout the periarticular muscles of the right hip and the right piriformis, extending along the upper aspect of the hip flexors, without a discrete hyperdense hematoma. IMPRESSION: Small compression deformity along the superior right femoral head/ neck junction. Triang ular ossific density at the superior margin of the acetabulum. Findings are suggestive of acute fract ures. Pronounced soft tissue swelling in the right hip periarticular soft tissues, right piriformis muscle, and extending along the upper aspect of the right hip flexors. Cholesterol containing stone versus wall calcifications at the neck of the gallbladder.
--- NOTE | 2023-07-22 14:38 | RAD REPORT ---
EXAM DESCRIPTION: CT - C Spine Wo Con - 07/22/2023 1:14 pm CLINICAL HISTORY: Fall, pain COMPARISON: None. TECHNIQUE: Axial thin cut noncontrast CT images of the cervical spine were obtained with sagittal an d coronal reconstruction images generated and reviewed. All CT scans are performed using dose optimization technique as appropriate and may include automated exposure control or mA/KV adjustment according to patient size. FINDINGS: Cervical body height and alignment are normal. No disk space narrowing. No fracture or acu te bony abnormality. No paraspinal mass or hematoma. IMPRESSION: Negative CT cervical spine examination.
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
[2023-07-22] MEDS ORDERED: MORPHINE 2 MG/ML SYR IV PRN (16:23)
[2023-07-22] MEDS ORDERED: ACETAMINOPHEN 500 MG TAB PO PRN (16:23)
[2023-07-22] MEDS ORDERED: ONDANSETRON 4 MG/2 ML VIAL IV PRN (16:23)
--- NOTE | 2023-07-22 17:03 | EKG ---
Test Date: 2023-07-22 Test Time: 12:12:47 Creative Writer: MB MEASUREMENT RESULTS: Intervals: Rate: 79 RI: 118 QRSD: 92 QT: 372 QTc: 426 [place]: P: 53 RI: 118 QRS: -18 T: -35 INTERPRETIVE STATEMENTS: Normal sinus rhythm Nonspecific T wave abnormality Abnormal ECG Compared to ECG 07/12/2023 15:54:14 T-wave abnormality now present ST (T wave) deviation no longer present Possible ischemia no longer present Electronically Signed On 07-22-23 17:02:09 INLAYER SILVER by Ricardo Casas
[2023-07-22] MEDS: NA CHLORIDE 0.9% 1,000 ML IV SCH (17:07)
[2023-07-22] MEDS: Levofloxacin 750mg IV 750 MG/150 ML BAG IV SCH (17:08)
[2023-07-22] MEDS: HYDROMORPHONE HCL 2 MG/ML inj IV ONE (17:08)
[2023-07-22] MEDS: INSULIN REGULAR (HUMAN) 100 UNIT/ML SQ SCH (17:08)
[2023-07-22 17:31] LABS: Blood Morphology Comment NOT SEEN (NOT SEEN); Platelet Estimate INCR; White Blood Cell Scan OK (OK)
[2023-07-22 18:11] VITALS: BMI 32.1
[2023-07-22] MEDS: LACTOBACILLUS/ACIDOPHILUS TAB PO SCH (20:43)
[2023-07-23] MEDS: MORPHINE 2 MG/ML SYR IV PRN (02:15)
[2023-07-23] MEDS: ZOLPIDEM TARTRATE 5 MG TABLET PO ONE ×2 (02:27→20:38)
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
[2023-07-23 07:40] LABS: Absolute Basophils 0.1 K/uL (0-0.5); Absolute Lymphocytes (CBC) 0.9 K/uL (0.7-4.9); Absolute Monocytes 0.8 K/uL (0.1-1.3); Absolute Neutrophil 13.4 K/uL (1.8-8.0); Basophils % 0.9 % (0-1.3); Eosinophils % 0.2 % (0-4.4); Hematocrit 40.9 % (39.6-49.0); Hemoglobin 13.4 g/dL (13.6-17.9); Lymphocytes % 5.9 % (15.3-44.8); MCH 24.9 pg (27.0-35.0); MCHC 32.9 g/dL (32.0-36.0); MCV 75.9 fL (80-100); MPV 8.1 fL (7.6-11.3); Monocytes % 5.4 % (3.3-12.3); Neutrophils % 87.6 % (41.7-73.7); Platelets 454 thou/uL (152-406); RBC Red Blood Cell Count 5.38 M/uL (4.33-5.43); Red Cell Distribution Width 15.4 % (12.1-15.2)
[2023-07-23 07:56] LABS: Anion Gap 9.9 mEq/L (5.0-15.0); Magnesium 1.9 mg/dL (1.6-2.4); Potassium 3.9 mEq/L (3.5-5.1)
[2023-07-23] MEDS: HYDROMORPHONE HCL 1 MG/ML INJ IV PRN (10:24)
[2023-07-23] MEDS: VANCOMYCIN 1.75 GM in NA CHLORIDE 0.9% 500 ML IVPB SCH (10:26)
[2023-07-23] MEDS: SILVER SULFADIAZINE 1% 25 GM TOP SCH (12:40)
[2023-07-23 17:03] LABS: Hepatitis B surface AG Interp. Nonreactive (Nonreactive); Hepatitis C Virus Ab Reactive (Nonreactive)
[2023-07-23 19:44] LABS: HBsAG Nonreactive Report Report
--- NOTE | 2023-07-23 19:50 | CON ---
Reason For Consultation: Right hip pain. Date Of Consult: 07/22/2023 History Of Present Illness: Mr. Valdes is a diabetic gentleman who has been admitted the last day and a half after a fall. He has had cellulitic changes in his left upper extremity. He has been treated on an outpatient basis, progressively worsened. He has what he believed to be hypoglycemic episode resulting in a fainting and a fall. He has been admitted to the hospital with complaints of right hip pain. Workup reveals a possible fracture visualized on CT scan. His left upper extremity has what appeared to be fracture blisters on his hand and his left elbow. It is unknown length of time of the syncopal episode, however. He has an elevated white count, which is coming down over the last couple of days. I have reviewed the studies and done examination on this gentleman and it is not clear that this is indeed a right hip fracture. There is a cortical deformity on the lateral margin of his femoral head, but there is no fracture that goes through the femoral head and the femoral head does not exhibit any type of collapse. Even if this is a fracture, it is not an operative intervention necessary. His left hand has blisters on the dorsum of the hand and elbow. He seems to be somewhat septic with elevated white count of 20,000. He admits his diabetes is under extreme poor control. At this juncture, I do not see an operative intervention from our standpoint. If the hip did indeed ever require an intervention it would need a total hip replacement, which he certainly is not a candidate for at the time of this dictation. Upper extremity appears to have no focal area of fluctuance, but extensive cellulitic change. I would like to see this to be treated with antibiotics and progressive improvement. It appears that this has been a long- standing failure of outpatient treatment to get to this point. At this point, I do not see that there is an operative intervention that we can help this gentleman with. CM/MODL Voice ID: [id number] Report ID: [id number] JONA
[2023-07-23 21:45] LABS: Hepatitis B Core IgM Equivocal (Nonreactive)
[2023-07-24] MEDS: HYDROCODONE/APAP 5/325 MG TAB PO PRN (03:15)
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
--- NOTE | 2023-07-24 09:03 | RAD REPORT ---
EXAM DESCRIPTION: US - Liver Only - 07/24/2023 8:45 am CLINICAL HISTORY: Hepatitis B, hepatitis C COMPARISON: July 19, 2023 CT FINDINGS: The liver has a normal echotexture. The liver is mildly enlarged. Hepatopetal flow. A lesion is not visualized. The spleen measures 8 centimeters. Normal echotexture IMPRESSION: Mild hepatomegaly Unremarkable ultrasound spleen
[2023-07-24] MEDS: MEDIHONEY 44 ML TOPICAL TUBE TOP SCH (14:53)
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
[2023-07-24] MEDS: ZOLPIDEM TARTRATE 5 MG TABLET PO ONE (23:35)
[2023-07-25] MEDS: INSULIN GLARGINE 100 UNIT/ML SQ SCH (09:58)
--- NOTE | 2023-07-25 10:56 | RAD REPORT ---
EXAM DESCRIPTION: CT - Upper Extremity W/ Cont - 07/25/2023 10:35 am CLINICAL HISTORY: left arm cellulitis COMPARISON: Liver Only dated 07/24/2023; Chest Abdomen Pelvis W Cont dated 07/22/2023; C Spine Wo Con da juany 07/22/2023; Shoulder Right 2 View dated 07/22/2023 FINDINGS: Prominent degenerative change involves the wrist. No acute fracture or dislocation is seen . No soft tissue gas or fluid collections. No soft tissue mass or hematoma. Skin thickening and mild ti ssue edema is present at the left upper extremity. No abscess suspected. IMPRESSION: No evidence of soft tissue abscess or osteomyelitis. No soft tissue gas is present. All CT scans are performed using dose optimization technique as appropriate and may include automated exposure control or mA/KV adjustment according to patient size.
[2023-07-25] MEDS: VANCOMYCIN 1.75 GM in NA CHLORIDE 0.9% 500 ML IVPB SCH (11:19)
[2023-07-25 14:58] LABS: Absolute Basophils 0.1 K/uL (0-0.5); Absolute Eosinophils 0.1 K/uL (0-0.5); Absolute Lymphocytes (CBC) 1.1 K/uL (0.7-4.9); Absolute Monocytes 0.6 K/uL (0.1-1.3); Absolute Neutrophil 8.5 K/uL (1.8-8.0); Basophils % 0.5 % (0-1.3); Eosinophils % 0.5 % (0-4.4); Hematocrit 45.3 % (39.6-49.0); Hemoglobin 15.1 g/dL (13.6-17.9); Lymphocytes % 10.2 % (15.3-44.8); MCH 25.2 pg (27.0-35.0); MCHC 33.4 g/dL (32.0-36.0); MCV 75.4 fL (80-100); Monocytes % 6.2 % (3.3-12.3); Neutrophils % 82.6 % (41.7-73.7); Platelets 553 thou/uL (152-406); RBC Red Blood Cell Count 6.01 M/uL (4.33-5.43); Red Cell Distribution Width 15.3 % (12.1-15.2)
[2023-07-25 15:12] LABS: Anion Gap 10.9 mEq/L (5.0-15.0); Potassium 3.9 mEq/L (3.5-5.1)
[2023-07-25] MEDS: NA CHLORIDE 0.9% 1,000 ML IV SCH (15:24)
[2023-07-25] MEDS: ZOLPIDEM TARTRATE 5 MG TABLET PO ONE (22:43)
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
[2023-07-26] MEDS ORDERED: HYDROCODONE/APAP 7.5/325 MG TAB PO PRN (08:30)
[2023-07-26] MEDS: DOXYCYCLINE 100 MG CAP PO SCH (09:04)
[2023-07-26] MEDS: LACTOBACILLUS/ACIDOPHILUS TAB PO SCH (09:04)
[2023-07-26] MEDS: levoFLOXacin 750 MG TAB PO SCH (10:46)
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
[2023-07-26 14:24] LABS: Absolute Basophils 0.1 K/uL (0-0.5); Absolute Eosinophils 0.1 K/uL (0-0.5); Absolute Lymphocytes (CBC) 0.9 K/uL (0.7-4.9); Absolute Monocytes 0.5 K/uL (0.1-1.3); Absolute Neutrophil 7.5 K/uL (1.8-8.0); Basophils % 0.6 % (0-1.3); Eosinophils % 0.6 % (0-4.4); Hematocrit 45.8 % (39.6-49.0); Lymphocytes % 9.7 % (15.3-44.8); MCH 24.8 pg (27.0-35.0); MCHC 32.7 g/dL (32.0-36.0); MCV 75.9 fL (80-100); Monocytes % 5.1 % (3.3-12.3); Nucleated Red Blood Cells % 0.1 % (0-0); Platelets 564 thou/uL (152-406); RBC Red Blood Cell Count 6.04 M/uL (4.33-5.43); Red Cell Distribution Width 15.3 % (12.1-15.2)
[2023-07-26 14:32] LABS: Albumin 2.1 g/dL (3.4-5.0); Albumin/Globulin Ratio 0.5 (1.1-1.8); Anion Gap 12.1 mEq/L (5.0-15.0); Bilirubin Total 0.6 mg/dL (0.2-1.0); Globulin 4.3 g/dL (2.3-3.5); Magnesium 1.7 mg/dL (1.6-2.4); Potassium 4.1 mEq/L (3.5-5.1); Protein, Total 6.4 g/dL (6.4-8.2)
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
[2023-07-26] MEDS: INSULIN REGULAR (HUMAN) 100 UNIT/ML SQ SCH (17:16)
[2023-07-26] MEDS ORDERED: ZOLPIDEM TARTRATE 5 MG TABLET PO ONE (22:19)
[2023-07-26] MEDS: INSULIN GLARGINE 100 UNIT/ML SQ SCH (22:23)
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
[2023-07-27] MEDS ORDERED: levoFLOXacin 750 MG TAB PO SCH (09:00)
[2023-07-27] MEDS: NICOTINE 21 MG/PAT TD SCH (11:52)
[2023-07-27] MEDS: OXYCODONE HCL 5 MG TAB PO PRN (11:53)
[2023-07-27] MEDS: INSULIN GLARGINE 100 UNIT/ML SQ SCH (19:49)
[2023-07-27] MEDS ORDERED: INSULIN GLARGINE 100 UNIT/ML SQ SCH (21:00)
[2023-07-27] MEDS: ZOLPIDEM TARTRATE 5 MG TABLET PO SCH (22:45)
[2023-07-28 06:57] LABS: Absolute Basophils 0.1 K/uL (0-0.5); Absolute Eosinophils 0.1 K/uL (0-0.5); Absolute Lymphocytes (CBC) 1.3 K/uL (0.7-4.9); Absolute Monocytes 0.7 K/uL (0.1-1.3); Absolute Neutrophil 8.2 K/uL (1.8-8.0); Basophils % 0.6 % (0-1.3); Eosinophils % 0.9 % (0-4.4); Hematocrit 47.1 % (39.6-49.0); Hemoglobin 15.8 g/dL (13.6-17.9); Lymphocytes % 12.4 % (15.3-44.8); MCH 25.3 pg (27.0-35.0); MCHC 33.6 g/dL (32.0-36.0); MCV 75.3 fL (80-100); MPV 7.8 fL (7.6-11.3); Monocytes % 6.6 % (3.3-12.3); Neutrophils % 79.5 % (41.7-73.7); Platelets 563 thou/uL (152-406); RBC Red Blood Cell Count 6.26 M/uL (4.33-5.43)
[2023-07-28 07:08] LABS: Albumin 2.5 g/dL (3.4-5.0); Albumin/Globulin Ratio 0.6 (1.1-1.8); Anion Gap 7.9 mEq/L (5.0-15.0); Bilirubin Total 0.7 mg/dL (0.2-1.0); Globulin 4.1 g/dL (2.3-3.5); Potassium 3.9 mEq/L (3.5-5.1); Protein, Total 6.6 g/dL (6.4-8.2)
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
[2023-07-28] MEDS ORDERED: NICOTINE 21 MG/PAT TD SCH (11:30)
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
[2023-07-28 16:40] LABS: Anti-Nuclear Antibody Screen Negative (Negative)
[2023-07-28] MEDS: ZOLPIDEM TARTRATE 5 MG TABLET PO PRN (23:01)
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
[2023-07-29 16:07] LABS: Hepatitis C RNA (PCR) <15 IU/mL; Hepatitis C Virus RNA (PCR)log <1.18 log IU/mL
[2023-07-29] MEDS: HYDROCORTISONE SUC 100 MG INJ IV ONE (17:53)
[2023-07-29] MEDS: INSULIN GLARGINE 100 UNIT/ML SQ SCH (20:39)
[2023-07-29 23:22] VITALS: O2SAT 95
[2023-07-30] MEDS: OXYCODONE HCL 5 MG TAB PO PRN (16:12)
[2023-07-30 17:17] VITALS: BP 151/90; TEMP 97.5
--- NOTE | 2023-08-01 01:02 | P.DS ---
Discharge Date: 07/30/23 Disposition: ROUTINE DISCHARGE Discharge Condition: GOOD Reason for Admission: Cellulitis left upper limb Consultations: Orthopedics Brief History of Present Illness: Patient is a 63-year-old -Turkish male presents to the emergency room with fall, hip pain. He reports symptoms started yesterday. He reports associated generalized weakness reports not feeling well over the last several days. Reports syncopal episode with fall to the ground, waking up on the ground. He reports weaning himself off of methadone for chronic pain. He reports recently started on insulin in the last month. He reports diabetes poorly controlled. He reports injury to the right hip and left hand, shoulder. Unable to ambulate ambulate independently. Pain with range of motion. He denies fever, nausea vomiting diarrhea, shortness of breath chest pain. Plan to admit for cellulitis left upper limb, fracture of the right femur, failure outpatient therapy of cellulitis, syncope. Patient had a CT scan which revealed a compression deformity of the right femoral head and neck. Patient also has some blistering to the left hand after he had extensive swelling a week ago for which he came into the emergency room. Patient does not appear to have any cellulitis and will probably get some further CT imaging and consultants to assist in patient's care. Patient may need transfer to a tertiary care facility. Hospital Course: We made arrangements for patient to transfer to a tertiary care facility. However, patient was denied for transferred to [facility] for hand surge ry. Patient had blistering to the multiple fingers of the left hand. We continued with IV antibiotics and Silvadene ointment to that hand. The blistering improved. When the blisters was removed as well. Patient had clear drainage from that blister with no purulent drainage. Patient had a CT scan of that left upper extremity with no extensive abnormal findings except for some soft tissue edema. Patient had no abscess or no phlegmon collection. Will consult Orthopedics at our hospital. They felt like patient has compression deformity to the left femoral head and neck was a chronic abnormality and patient did not need aggressive surgical intervention until the infection was controlled. We worked with physical therapy and patient did minimal weight- bearing status. Patient continues to improve and at this time we have discussed the case with orthopedics and they do not want to do any further surgical intervention. Patient is adamant about going home as he is frustrated with roma mancia here for prolonged period. patient will need close follow-up as an outpatient with orthopedics as well as PCP and Wound Healing specialist. We will try to arrange for patient to get home health at discharge as well. At this time patient is stable for discharge with outpatient follow-up and patient is advised to continue with strict blood sugar control. Patient will give be given pain medication for further treatment as well. Vital Signs/Physical Exam: Temp Pulse Resp BP Pulse Ox 97.5 F 65 18 151/90 H 98 07/30/23 16:00 07/30/23 16:00 07/30/23 16:00 07/30/23 16:00 07/30/23 16:00 General: Alert, In no apparent distress, Oriented x3 Laboratory Data at Discharge: WBC Cancelled 07/30/23 05:00 Hgb Cancelled 07/30/23 05:00 Hct Cancelled 07/30/23 05:00 Plt Count Cancelled 07/30/23 05:00 PT 13.1 SECONDS (9.5-12.5) H 07/22/23 12:18 INR 1.20 07/22/23 12:18 APTT 30.3 SECONDS (24.3-36.9) 07/22/23 12:18 Sodium Cancelled 07/30/23 05:00 Potassium Cancelled 07/30/23 05:00 BUN Cancelled 07/30/23 05:00 Creatinine Cancelled 07/30/23 05:00 Glucose Cancelled 07/30/23 05:00 Magnesium Cancelled 07/30/23 05:00 Magnesium Cancelled 07/30/23 05:00 Total Bilirubin Cancelled 07/30/23 05:00 AST Cancelled 07/30/23 05:00 ALT Cancelled 07/30/23 05:00 Alkaline Phosphatase Cancelled 07/30/23 05:00 Home Medications: Metformin HCl 1 tab PO BID 06/22/21 Amlodipine [Norvasc*] 07/22/23 Atorvastatin Calcium [Lipitor] 40 mg PO BEDTIME 07/22/23 Famotidine [Pepcid] 40 mg PO DAILY 07/22/23 Losartan Potassium [Cozaar] 100 mg PO DAILY 07/22/23 glipiZIDE [Glipizide] 10 mg PO DAILY 07/22/23 Insulin Glargine,Hum.rec.anlog [Lantus] 10 unit SQ BID #100 ml 07/25/23 Doxycycline Hyclate 100 mg PO BID #28 tab 07/30/23 Hydrocodone 10/APAP 325 [[place] 10/325] 1 tab PO Q6H PRN #30 tab 07/30/23 Medihoney [Medihoney Woundcare Gel*] 1 appl TOP DAILY #1 tube 07/30/23 Silver Sulfadiazine [Silvadene 1% Cream] 1 appl TOP BID #1 tube 07/30/23 levoFLOXacin [Levaquin*] 750 mg PO DAILY #14 tab 07/30/23 New Medications: Doxycycline Hyclate 100 mg PO BID #28 tab Insulin Glargine,Hum.rec.anlog [Lantus] 10 unit SQ BID #100 ml levoFLOXacin [Levaquin*] 750 mg PO DAILY #14 tab Medihoney [Medihoney Woundcare Gel*] 1 appl TOP DAILY #1 tube Hydrocodone 10/APAP 325 [[place] 10/325] 1 tab PO Q6H PRN #30 tab PRN Reason: Pain Silver Sulfadiazine [Silvadene 1% Cream] 1 appl TOP BID #1 tube Physician Discharge Instructions: INSTRUCTIONS: Physician Discharge Instructions: -Follow-up with PCP in 1 to 2 weeks -Please call Dr. Harry at [phone] if any questions regarding hospital stay -Please call nursing station at [phone] if any nursing or medication questions -Return to the emergency room if symptoms worsen Diet: ADA, low sodium Activity: Fall precautions Diet: AHA Activity: Fall precautions Followup: Sarah To CLIENT SERVICES ASSOCIATE [Primary Care Provider] - Time spent managing pt's care (in minutes): 35
== END 2023-07-30 18:15 | disposition home or self-care (01) | DRG 602 ==
LOC: ER 11:00 → 2ND 15:37
PROVIDERS: ADMIT Hospitalist; ATTEND Hospitalist
DX: L03.114 Cellulitis of left upper limb (principal); S72.91XA Unspecified fracture of right femur, initial encounter for closed fracture; E87.1 Hypo-osmolality and hyponatremia; N17.9 Acute kidney failure, unspecified; B15.9 Hepatitis A without hepatic coma; B16.9 Acute hepatitis B without delta-agent and without hepatic coma; I31.39 Other pericardial effusion (noninflammatory); E11.65 Type 2 diabetes mellitus with hyperglycemia; I10 Essential (primary) hypertension; D75.839 Thrombocytosis, unspecified; M47.9 Spondylosis, unspecified; G89.29 Other chronic pain; S62.611D Displaced fracture of proximal phalanx of left index finger, subsequent encounter for fracture with routine healing; R74.01 Elevation of levels of liver transaminase levels; Z79.4 Long term (current) use of insulin; Z79.84 Long term (current) use of oral hypoglycemic drugs; Z91.199 Patient's noncompliance with other medical treatment and regimen due to unspecified reason; Z79.899 Other long term (current) drug therapy; W18.30XA Fall on same level, unspecified, initial encounter; Y99.9 Unspecified external cause status; Y93.9 Activity, unspecified; Y92.9 Unspecified place or not applicable
CPT/HCPCS: 36415; 70450; 71045; 71260; 72125; 72170; 73201; 74177; 76705; 80048; 80053; 80074; 80076; 81001; 82103; 82947; 83036; 83605; 83735; 84484; 85025; 85610; 85730; 86038; 86255; 86705; 87040; 87520; 87522; 93005; 96374; 96375; 97116; 97162; 97530; 99285; J1170; J1720; J1815; J2270; J2405; J7030; J7040; J7050; Q9967

== ENCOUNTER 2024-03-06 20:54 | Inpatient (IN) | payer BC, SELFPAY ==
--- OUTSIDE RECORDS SUMMARY | 2024-03-06 21:00 | XMS REPORT | Continuity of Care Document ---
Author Name Unknown Address [address] [facility] [address] [place] [address] [facility] thconnect Address [address] [facility]. 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 6 [id number] [facility] Problems Condition Name Condition Details Condition Category Status Onset Date Resolution Date Last Treatment Date Treating Clinician Comments Source Diabetic peripheral neuropathy Diabetic Peripheral Neuropathy Problem Active 11-24 00:00: 00 [facility] Lumbar radiculopa thy Lumbar Radiculopa thy Problem Active 11-05 00:00: 00 [facility] Spinal stenosis of lumbar region Spinal Stenosis of Lumbar Region Problem Active 10-30 00:00: 00 [facility] Rotator cuff arthropath y of right shoulder Rotator Cuff Arthropath y of Right Shoulder Problem Active 10-30 00:00: 00 [facility] Arthritis of bilateral acromiocla vicular joints Arthritis of Bilateral Acromiocla vicular Joints Problem Active 10-23 00:00: 00 [facility] Knee joint prosthesis present Knee Joint Prosthesis Present Problem Active 10-23 00:00: 00 [facility] Pain of right knee joint Pain of Right Knee Joint Problem Active 10-23 00:00: 00 [facility] Pain of right shoulder joint Pain of Right Shoulder Joint Problem Active 10-23 00:00: 00 [facility] Pain of left shoulder joint Pain of Left Shoulder Joint Problem Active 10-23 00:00: 00 [facility] Closed fracture of neck of femur Closed Fracture of Neck of Femur Problem Active 08-24 00:00: 00 [facility] Stress fracture of neck of right femur Stress Fracture of Neck of Right Femur Problem Active 08-17 00:00: 00 [facility] Pain in femur Pain in Femur Problem Active 08-17 00:00: 00 [facility] Pain in right hip joint Pain in Right Hip Joint Problem Active 08-17 00:00: 00 [facility] Osteoarthr itis of knee Osteoarthr itis of Knee Problem Active 2013-05 2 00:00: 00 [facility] Subluxatio n of elbow joint Subluxatio n of Elbow Joint Problem Active 01-31 00:00: 00 [facility] Total knee replacemen t Total Knee Replacemen t Problem Active 8 00:00: 00 [facility] [id number] Posthitis Problem Commo n [facility] [id number] 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 Problem [facility] Allergies, Adverse Reactions, Alerts Allergy Name Allergy Type Status Severity Reaction(s) Onset Date Inactive Date Treating Clinician Comments Source No Known Allergie s DA Active U 405 00:00: 00 [facility] No Known Allergie s DA Active U 8 00:00: 00 [facility] Social History Social Habit Start Date Stop Date Quantity Comments Source History of Tobacco Use Current Smoker [facility] Sex Assigned At [facility] Smoking Status Start Date Stop Date Source Former Smoker [facility] Current Smoker 2021-06-07 00:00:00 [facility] Medications Ordered Medication Name Filled Medication Name Start Date Stop Date Current Medication? Ordering Clinician Indication Dosage Frequency Signature (SIG) Comments Components Source Lantus Solostar U-100 Insulin 100 unit/mL (3 mL) subcutaneou s pen 11-14 00:00: 00 Yes (3 mL) [facility] Lantus Solostar U-100 Insulin 100 unit/mL (3 mL) subcutaneou s pen 11-03 00:00: 00 Yes (3 mL) [facility] losartan 100 mg tablet 11-03 00:00: 00 Yes 1mg [facility] H[facility] Janumet 50 mg-1,000 mg tablet 11-03 00:00: 00 Yes 1mg [facility] Hyman atorvastati n 40 mg tablet 11-03 00:00: 00 Yes 1mg [facility] omeprazole 20 mg capsule,del ayed release 11-03 00:00: 00 Yes 1mg [facility] gabapentin 100 mg capsule 11-03 00:00: 00 Yes 1mg [facility] meloxicam 15 mg tablet Take 1 tablet every day by oral route with meal(s) for 42 days. meloxicam 15 mg tablet Take 1 tablet every day by oral route with meal(s) for 42 days. 6-07 00:00: 00 No 1 Q1D meloxicam 15 mg tablet Take 1 tablet every day by oral route with meal(s) for 42 days. [facility] Suboxone 8 mg-2 mg sublingual film 6-06 00:00: 00 Yes 1mg [facility] Suboxone 8 mg-2 mg sublingual film 08 00:00: 00 Yes 1mg [facility] Suboxone 8 mg-2 mg sublingual film 24 00:00: 00 Yes 1mg [facility] H[facility] BUPRENORPHI NE-NALOX 8-2MG FILM 24 00:00: 00 Yes [facility] Hyman buprenorphi ne 8 mg-naloxone 2 mg sublingual film 08-19 00:00: 00 Yes 1mg [facility] buprenorphi ne 4 mg-naloxone 1 mg sublingual film 08-12 00:00: 00 Yes 1mg [facility] H[facility] buprenorphi ne 8 mg-naloxone 2 mg sublingual film 08-12 00:00: 00 Yes 1mg [facility] TAKE 1 TABLET BY MOUTH TWICE DAILY 08-11 00:00: 00 Yes 10 [facility] TAKE 1 TABLET AT BEDTIME. 08-11 00:00: 00 Yes 40 [facility] TAKE 1 TABLET BY MOUTH DAILY 08-11 00:00: 00 Yes 100 [facility] clotrimazol e-betametha sone 1 %-0.05 % topical cream 3-21 00:00: 00 Yes 1% [facility] gabapentin 100 mg capsule -16 00:00: 00 Yes mg [facility] Lantus Solostar U-100 Insulin 100 unit/mL (3 mL) subcutaneou s pen -15 00:00: 00 Yes (3 mL) [facility] doxycycline hyclate 100 mg tablet -13 00:00: 00 Yes mg [facility] hydrocodone 10 mg-acetamin ophen 325 mg tablet 07-29 00:00: 00 Yes mg [facility] levofloxaci n 750 mg tablet 07-29 00:00: 00 Yes mg [facility] H[facility] SSD 1% CRE 07-29 00:00: 00 Yes [facility] H[facility] LEVOFLOXACI N 750MG 07-29 00:00: 00 Yes [facility] TAKE 1 TABLET BY MOUTH TWICE A DAY 07-29 00:00: 00 Yes [facility] DOXYCYCL HYC 100MG 07-17 00:00: 00 Yes [facility] H[facility] tamsulosin 0.4 mg capsule 07-08 00:00: 00 Yes mg [facility] TAKE 1 TABLET TWICE DAILY UNTIL GONE. 07-08 00:00: 00 09-28 00:00 :00 No 500 [facility] omeprazole 20 mg capsule,del ayed release 07-04 00:00: 00 Yes mg [facility] H[facility] Victoza 2-Brent 0.6 mg/0.1 mL (18 mg/3 mL) subcutaneou s pen injector 07-04 00:00: 00 Yes (18 mg/3 mL) [facility] TAKE 1 TABLET BY MOUTH ONCE DAILY 06-18 00:00: 00 Yes [id number] [facility] H[facility] TAKE 1 TABLET AT BEDTIME. 06-18 00:00: 00 Yes 40 [facility] TAKE 1 TABLET BY MOUTH DAILY 06-18 00:00: 00 Yes 100 [facility] H[facility] GLIPIZIDE 10 MG 06-18 00:00: 00 Yes 10 [facility] H[facility] atorvastati n 40 mg tablet 06-14 00:00: 00 Yes mg [facility] glipizide 10 mg tablet 06-14 00:00: 00 Yes mg [facility] TAKE 1 TABLET BY MOUTH DAILY 06-14 00:00: 00 09-28 00:00 :00 No 100 [facility] TAKE 1 TABLET BY MOUTH ONCE DAILY 2024-0 1-27 00:00: 00 09-28 00:00 :00 No [id number] [facility] TAKE 1 TABLET BY MOUTH AT BEDTIME 06-12 00:00: 00 09-28 00:00 :00 No 40 [facility] TAKE 1 TABLET TWICE DAILY. 06-12 00:00: 00 09-28 00:00 :00 No 1000 [facility] H[facility] TAKE 1 TABLET BY MOUTH TWICE DAILY 06-12 00:00: 00 09-28 00:00 :00 No 10 [facility] TAKE 1 TABLET BY MOUTH DAILY 06-12 00:00: 00 09-28 00:00 :00 No 100 Usman Yesenia Boogie APPLY CREAM TOPICALLY TO AFFECTED AREA TWICE A DAY 2022-05 00:00: 00 Yes Usman Yesenia Boogie APPLY TOPICALLY TO AFFEECTED AREA TWICE A DAY 2022-05 00:00: 00 Yes [facility] Hyman TAKE 1 TABLET BY MOUTH TWICE A DAY 2022-05 00:00: 00 Yes [id number] [facility] Hyman INJECT 0.25 MG SC ONCE A WEEK X 4 WEEKS 2022-05 0 00:00: 00 09-28 00:00 :00 No 23 Usman Yesenia Hyman TAKE 1 TABLET BY MOUTH ONCE DAILY 2022-05 00:00: 00 09-28 00:00 :00 No [id number] Usman Yesenia Hyman TAKE 1 TABLET BY MOUTH TWICE DAILY 2022-05 0 00:00: 00 09-28 00:00 :00 No 10 Usman Yesenia Boogie LOSARTAN POTASSIUM 100 MG 2022-05 0 00:00: 00 09-28 00:00 :00 No Usman Yesenia Boogie ATORVASTATI N 40 MG 2022-05 009 00:00: 00 09-28 00:00 :00 No Usman Yesenia Boogie TAKE 1 TABLET BY MOUTH TWICE DAILY -14 00:00: 00 09-28 00:00 :00 No 10 [facility] H[facility] APPLY CREAM TOPICALLY TO AFFECTED AREA TWICE A DAY FOR 15 DAYS -24 00:00: 00 Yes Usmna Yesenia Boogie TAKE 1 TABLET BY MOUTH TWICE DAILY -22 00:00: 00 09-28 00:00 :00 No [id number] Us[facility] Hyman JANUMET XR 50-1,000 MG 08-16 00:00: 00 09-28 00:00 :00 No [facility] Hyman TAKE 1 TABLET BY MOUTH AT BEDTIME 08-12 00:00: 00 09-28 00:00 :00 No 40 [facility] Hyman TAKE 1 TABLET DAILY. 08-12 00:00: 00 09-28 00:00 :00 No 10 [facility] H[facility] TAKE 1 TABLET BY MOUTH DAILY 08-12 00:00: 00 09-28 00:00 :00 No 100 [facility] Hyman TAKE 1 TABLET BY MOUTH TWICE A DAY 08-12 00:00: 00 09-28 00:00 :00 No [id number] [facility] Hyman TAKE 1 TABLET BY MOUTH DAILY 08-08 00:00: 00 09-28 00:00 :00 No 100 [facility] Hyman TAKE 1 TABLET BY MOUTH AT BEDTIME 08-08 00:00: 00 09-28 00:00 :00 No 40 [facility] Hyman TAKE 1 TABLET BY MOUTH TWICE A DAY 08-08 00:00: 00 09-28 00:00 :00 No [id number] [facility] Hyman APPLY CREAM TOPICALLY TO AFFECTED AREA TWICE DAILY 2021-05 1 00:00: 00 Yes [facility] Hyman TAKE 1 CAPSULE BY MOUTH IN THE MORNING 02-08 00:00: 00 Yes [facility] Hyman losartan 50 mg tablet 08-11 00:00: 00 Yes 1mg Us[facility] Hyman Januvia 50 mg tablet - 00:00: 00 Yes 1mg [facility] Hyman metformin 1,000 mg tablet 08-11 00:00: 00 Yes 1mg [facility] Hyman glipizide 10 mg tablet - 00:00: 00 Yes 1mg Us[facility] Hyman atorvastati n 80 mg tablet 08-11 00:00: 00 Yes 1mg Us[facility] Hyman hydrochloro thiazide 12.5 mg capsule 3- 00:00: 00 Yes 1mg [facility] Hyman Dose Unknown 3- 00:00: 00 Yes [facility] Hyman Dose Unknown 2-25 00:00: 00 Yes [facility] Hyman Dose Unknown 2- 00:00: 00 Yes [facility] Hyman Dose Unknown 1-14 00:00: 00 Yes [facility] Hyman Dose Unknown 1- 00:00: 00 Yes [facility] Hyman Dose Unknown 06-01 00:00: 00 Yes [facility] Hyman Dose Unknown 1- 00:00: 00 Yes [facility] Hyman Dose Unknown 1 00:00: 00 Yes [facility] Hyman Dose Unknown 2020-05 00:00: 00 Yes [facility] Hyman Januvia 50 mg tablet 2020-05 0 00:00: 00 Yes 1mg [facility] Hyman losartan 50 mg tablet 2020-05 018 00:00: 00 Yes 1mg [facility] Hyman metformin 1,000 mg tablet 2020-05 018 00:00: 00 Yes 1mg [facility] Hyman glipizide 10 mg tablet 2020-05 018 00:00: 00 Yes 1mg [facility] Hyman Dose Unknown 2020-05 018 00:00: 00 Yes [facility] Hyman hydrochloro thiazide 12.5 mg capsule 2020-05 018 00:00: 00 Yes 1mg Us[facility] Hyman Dose Unknown 01-27 00:00: 00 Yes Usman Hyman losartan 50 mg tablet 01-27 00:00: 00 Yes 1mg Us[facility] Hyman metformin 1,000 mg tablet 01-27 00:00: 00 Yes 1mg Usman Hyman atorvastati n 80 mg tablet 01-27 00:00: 00 Yes 1mg Us[facility] Hyman hydrochloro thiazide 12.5 mg capsule - 00:00: 00 Yes 1mg [facility] Hyman Clotrimazol e-Betametha sone 1-0.05 % Clotrimazol e-Betametha sone 1-0.05 % 8-26 00:00: 00 11-18 00:00 :00 No 1{appli cation} BID Clotrimazo le-Betamet hasone 1-0.05 % Betamethaso ne Dipropionat e 0.05 % Betamethaso ne Dipropionat e 0.05 % 7-13 00:00: 00 12-26 00:00 :00 No 1{appli cation} BID Betamethas one Dipropiona te 0.05 % Dose Unknown - 00:00: 00 Yes [facility] Hyman Dose Unknown - 00:00: 00 Yes Us[facility] Hyman Dose Unknown 10-06 00:00: 00 Yes Us[facility] Hyman Dose Unknown 10-06 00:00: 00 Yes [facility] Hyman hydrochloro thiazide 12.5 mg capsule - 00:00: 00 Yes 1mg Us[facility] Hyman Dose Unknown 4-30 00:00: 00 Yes [facility] Hyman Dose Unknown -30 00:00: 00 Yes [facility] Hyman Dose Unknown 4-30 00:00: 00 Yes [facility] Hyman Dose Unknown -30 00:00: 00 Yes [facility] Hyman metformin 1,000 mg tablet 2-12 00:00: 00 Yes 1mg Usman Hyman atorvastati n 80 mg tablet 2-12 00:00: 00 Yes 1mg [facility] Hyman metformin 1,000 mg tablet 2-10 00:00: 00 Yes 1mg Usman Hyman losartan 25 mg tablet 2-10 00:00: 00 Yes 1mg Us[facility] Hyman hydrochloro thiazide 12.5 mg capsule 2-10 00:00: 00 Yes 1mg [facility] Hyman metformin 1,000 mg tablet 2-05 00:00: 00 Yes 1mg Usman Hyman losartan 25 mg tablet 2-05 00:00: 00 Yes 1mg Us[facility] Hyman hydrochloro thiazide 12.5 mg capsule 2-05 00:00: 00 Yes 1mg Usman Hyman losartan 25 mg tablet 2019-05 2-05 00:00: 00 Yes 1mg Us[facility] Hyman metformin 1,000 mg tablet 2019-05 2-05 00:00: 00 Yes 1mg Us[facility] Hyman hydrochloro thiazide 12.5 mg capsule 2019-05 2-05 00:00: 00 Yes 1mg [facility] Hyman hydrochloro thiazide 12.5 mg capsule 2019-05 0-12 00:00: 00 Yes 1mg Usman Hyman ProAir HFA 90 mcg/actuati on aerosol inhaler 0 -12 00:00: 00 Yes 12mcg/a ctuatio n Usman Hyman metformin 1,000 mg tablet 0 - 00:00: 00 Yes 1mg Usman Hyman losartan 25 mg tablet 0 01-28 00:00: 00 Yes 1mg Usman Hyman levofloxaci n 500 mg tablet 0 8-17 00:00: 00 Yes 1mg Us[facility] Hyman prednisone 20 mg tablet 0 8-17 00:00: 00 Yes 1mg Usman Hyman benzonatate 200 mg capsule 0 8-17 00:00: 00 Yes 1mg Us[facility] Hyman losartan 25 mg tablet 0 7-07 00:00: 00 Yes 1mg [facility] Hyman metformin 1,000 mg tablet 0 7-07 00:00: 00 Yes 1mg Usman Hyman ProAir HFA 90 mcg/actuati on aerosol inhaler 0 5- 00:00: 00 Yes 12mcg/a ctuatio n [facility] Hyman losartan 25 mg tablet 0 5- 00:00: 00 Yes 1mg [facility] Hyman metformin 1,000 mg tablet 0 5- 00:00: 00 Yes 1mg Usman Hyman lovastatin 20 mg tablet 0 5- 00:00: 00 Yes 1mg Us[facility] Hyman losartan 25 mg tablet 0 4-21 00:00: 00 Yes 1mg [facility] Hyman metformin 1,000 mg tablet 0 4-21 00:00: 00 Yes 1mg Us[facility] Hyman lovastatin 20 mg tablet 2019-0 4-21 00:00: 00 Yes 1mg Us[facility] Hyman losartan 25 mg tablet 2019-0 3-10 00:00: 00 Yes 1mg Us[facility] Hyman metformin 1,000 mg tablet 3 00:00: 00 Yes 1mg Usman Hyman lovastatin 20 mg tablet 3 00:00: 00 Yes 1mg Usman Hyman losartan 25 mg tablet 1 00:00: 00 Yes 1mg Usman Hyman metformin 1,000 mg tablet 05-31 00:00: 00 Yes 1mg Usman Hyman lovastatin 20 mg tablet 05-31 00:00: 00 Yes 1mg Usman Hyman metformin 1,000 mg tablet 2018-05 00:00: 00 Yes 1mg Usman Hyman lovastatin 20 mg tablet 2018-05 00:00: 00 Yes 1mg Usman Hyman lisinopril 40 mg tablet 2018-05 0 00:00: 00 Yes 1mg Usman Hyman metformin 1,000 mg tablet 2018-05 00:00: 00 Yes 1mg Usman Hyman lovastatin 20 mg tablet 2018-05 00:00: 00 Yes 1mg Usman Hyman lisinopril 40 mg tablet 01-15 00:00: 00 Yes 1mg Usman Hyman metformin 1,000 mg tablet 01-15 00:00: 00 Yes 1mg Usman Hyman lovastatin 20 mg tablet 01-15 00:00: 00 Yes 1mg Usman Hyman tamsulosin 0.4 mg capsule 01-15 00:00: 00 Yes 1mg Usman Hyman lisinopril 40 mg tablet 12-11 00:00: 00 Yes 1mg Usman Hyman metformin 1,000 mg tablet 12-11 00:00: 00 Yes 1mg Usman Hyman lovastatin 20 mg tablet 12-11 00:00: 00 Yes 1mg Usman Hyman lisinopril 30 mg tablet 06-04 00:00: 00 Yes 1mg Usman Hyman lisinopril 30 mg tablet 09-26 00:00: 00 Yes 1mg Usman Hyman glipizide 5 mg tablet 07-22 00:00: 00 Yes 1mg Usman Hyman hydrochloro thiazide 25 mg tablet 07-22 00:00: 00 Yes 1mg Us[facility] Hyman lovastatin 20 mg tablet 07-22 00:00: 00 Yes 1mg Usman Hyman lisinopril 30 mg tablet 07-22 00:00: 00 Yes 1mg Usman Hyman amlodipine 10 mg tablet 07-22 00:00: 00 Yes 1mg Usman Hyman metformin 1,000 mg tablet 07-22 00:00: 00 Yes 1mg Usman Hyman glipizide 5 mg tablet 2016-05 00:00: 00 Yes 1mg Usman Hyman metformin 1,000 mg tablet 2016-05 00:00: 00 Yes 1mg Usman Hyman amlodipine 10 mg tablet 2016-05 00:00: 00 Yes 1mg Usman Hyman lisinopril 30 mg tablet 2016-05 00:00: 00 Yes 1mg Usman Hyman lovastatin 20 mg tablet 2016-05 00:00: 00 Yes 1mg Usman Hyman hydrochloro thiazide 25 mg tablet 2016-05 00:00: 00 Yes 1mg Usman Hyman metformin 500 mg tablet 2016-05 00:00: 00 Yes 1mg Usman Hyman lisinopril 30 mg tablet 2016-05 00:00: 00 Yes 1mg Usman Hyman amlodipine 5 mg tablet 2016-05 00:00: 00 Yes 1mg Usman Hyman hydrochloro thiazide 25 mg tablet 2016-05 00:00: 00 Yes 1mg Usman Hyman lovastatin 20 mg tablet 02-13 00:00: 00 Yes 1mg Usman Hyman lovastatin 20 mg tablet 11-14 00:00: 00 Yes 1mg Usman Hyman amlodipine 5 mg tablet 11-14 00:00: 00 Yes 1mg Usman Hyman lisinopril 30 mg tablet 11-14 00:00: 00 Yes 1mg Usman Hyman hydrochloro thiazide 25 mg tablet 11-13 00:00: 00 Yes 1mg Usman Hyman metformin 500 mg tablet 11-13 00:00: 00 Yes 1mg Usman Hyman lisinopril 30 mg tablet 10-01 00:00: 00 Yes 1mg Usman Hyman hydrochloro thiazide 25 mg tablet 10-01 00:00: 00 Yes 1mg Usman Hyman Tricor 145 mg tablet 10-01 00:00: 00 Yes 1mg Usman Hyman amlodipine 5 mg tablet 10-01 00:00: 00 Yes 1mg Usman Hyman metformin 500 mg tablet 10-01 00:00: 00 Yes 1mg Usman Hyman hydrochloro thiazide 25 mg tablet 08-30 00:00: 00 Yes 1mg Usman Hyman lisinopril 30 mg tablet 08-30 00:00: 00 Yes 1mg Usman Hyman amlodipine 5 mg tablet 07-23 00:00: 00 Yes 1mg Usman Hyman Tricor 145 mg tablet 07-23 00:00: 00 Yes 1mg Usman Hyman hydrochloro thiazide 25 mg tablet 07-23 00:00: 00 Yes 1mg Usman Hyman lisinopril 30 mg tablet 07-23 00:00: 00 Yes 1mg Usman Hyman lisinopril 30 mg tablet 2015-05 00:00: 00 Yes 1mg Usman Hyman Tricor 145 mg tablet 2015-05 00:00: 00 Yes 1mg Usman Hyman hydrochloro thiazide 25 mg tablet 2015-05 00:00: 00 Yes 1mg Usman Hyman amlodipine 5 mg tablet 2015-05 00:00: 00 Yes 1mg Usman Hyman metformin 500 mg tablet 2015-05 00:00: 00 Yes 1mg Usman Hyman amlodipine 5 mg tablet 12-12 00:00: 00 Yes 1mg Usman Hyman hydrochloro thiazide 25 mg tablet 12-12 00:00: 00 Yes 1mg Usman Hyman Tricor 145 mg tablet 12-12 00:00: 00 Yes 1mg Usman Hyman lisinopril 30 mg tablet 12-12 00:00: 00 Yes 1mg Usman Hyman metformin 500 mg tablet 12-12 00:00: 00 Yes 1mg Usman Hyman amlodipine 5 mg tablet 11-13 00:00: 00 Yes 1mg Usman Hyman hydrochloro thiazide 25 mg tablet 10-05 00:00: 00 Yes 1mg Usman Hyman Tricor 145 mg tablet 10-05 00:00: 00 Yes 1mg Usman Hyman lisinopril 30 mg tablet 10-05 00:00: 00 Yes 1mg Usman Hyman metformin 500 mg tablet 10-05 00:00: 00 Yes 1mg Usman Hyman lisinopril 30 mg tablet 05-19 00:00: 00 Yes 1mg Usman Hyman metformin 500 mg tablet 2014-05 00:00: 00 Yes 1mg Usman Hyman lisinopril 20 mg tablet 2014-05 00:00: 00 Yes 1mg Usman Hyman lisinopril 20 mg tablet 12-21 00:00: 00 Yes 1mg Usman yHman atorvastati n 40 mg tablet atorvastati n 40 mg tablet No atorvastat in 40 mg tablet [facility] gabapentin 100 mg capsule TAKE 1 CAPSULE BY MOUTH THREE TIMES DAILY gabapentin 100 mg capsule TAKE 1 CAPSULE BY MOUTH THREE TIMES DAILY No gabapentin 100 mg capsule TAKE 1 CAPSULE BY MOUTH THREE TIMES DAILY [facility] Janumet 50 mg-1,000 mg tablet TAKE ONE TABLET BY MOUTH EVERY DAY Janumet 50 mg-1,000 mg tablet TAKE ONE TABLET BY MOUTH EVERY DAY No Janumet 50 mg-1,000 mg tablet TAKE ONE TABLET BY MOUTH EVERY DAY [facility] buprenorphi ne 8 mg-naloxone [address] FILM UNDER THE TONGUE THREE TIMES A DAY buprenorphi ne 8 mg-naloxone [address] FILM UNDER THE TONGUE THREE TIMES A DAY No buprenorph ine 8 mg-naloxon e [address] FILM UNDER THE TONGUE THREE TIMES A DAY [facility] Lyrica 75 mg capsule Take 1 capsule twice a day by oral route. Lyrica 75 mg capsule Take 1 capsule twice a day by oral route. No 1capsul e(s) BID Lyrica 75 mg capsule Take 1 capsule twice a day by oral route. [facility] clotrimazol e-betametha sone 1 %-0.05 % topical cream APPLY CREAM TOPICALLY TO AFFECTED AREA TWICE A DAY clotrimazol e-betametha sone 1 %-0.05 % topical cream APPLY CREAM TOPICALLY TO AFFECTED AREA TWICE A DAY No clotrimazo le-betamet hasone 1 %-0.05 % topical cream APPLY CREAM TOPICALLY TO AFFECTED AREA TWICE A DAY [facility] doxycycline hyclate 100 mg tablet TAKE 1 TABLET BY MOUTH TWICE A DAY doxycycline hyclate 100 mg tablet TAKE 1 TABLET BY MOUTH TWICE A DAY No doxycyclin e hyclate 100 mg tablet TAKE 1 TABLET BY MOUTH TWICE A DAY [facility] glipizide 10 mg tablet TAKE 1 TABLET BY MOUTH TWICE DAILY glipizide 10 mg tablet TAKE 1 TABLET BY MOUTH TWICE DAILY No glipizide 10 mg tablet TAKE 1 TABLET BY MOUTH TWICE DAILY [facility] hydrocodone 10 mg-acetamin ophen 325 mg tablet TAKE 1 TABLET BY MOUTH EVERY 6 HOURS NEEDED FOR PAIN hydrocodone 10 mg-acetamin ophen 325 mg tablet TAKE 1 TABLET BY MOUTH EVERY 6 HOURS NEEDED FOR PAIN No hydrocodon e 10 mg-acetami nophen 325 mg tablet TAKE 1 TABLET BY MOUTH EVERY 6 HOURS NEEDED FOR PAIN [facility] Janumet XR 50 mg-1,000 mg tablet,exte nded release Janumet XR 50 mg-1,000 mg tablet,exte nded release No Janumet XR 50 mg-1,000 mg tablet,ext ended release [facility] Lantus Solostar U-100 Insulin 100 unit/mL (3 mL) subcutaneou s pen inject 10 units BELOW THE SKIN with breakfast AND 10 units with dinner Lantus Solostar U-100 Insulin 100 unit/mL (3 mL) subcutaneou s pen inject 10 units BELOW THE SKIN with breakfast AND 10 units with dinner No Lantus Solostar U-100 Insulin 100 unit/mL (3 mL) subcutaneo us pen inject 10 units BELOW THE SKIN with breakfast AND 10 units with dinner [facility] levofloxaci n 750 mg tablet TAKE 1 TABLET BY MOUTH EVERY DAY levofloxaci n 750 mg tablet TAKE 1 TABLET BY MOUTH EVERY DAY No levofloxac in 750 mg tablet TAKE 1 TABLET BY MOUTH EVERY DAY [facility] losartan 100 mg tablet losartan 100 mg tablet No losartan 100 mg tablet [facility] omeprazole 20 mg capsule,del ayed release omeprazole 20 mg capsule,del ayed release No omeprazole 20 mg capsule,de layed release [facility] penicillin V potassium 500 mg tablet penicillin V potassium 500 mg tablet No penicillin V potassium 500 mg tablet [facility] SSD 1 % topical cream APPLY 1 APPLICATION TO SKIN TWICE A DAY SSD 1 % topical cream APPLY 1 APPLICATION TO SKIN TWICE A DAY No SSD 1 % topical cream APPLY 1 APPLICATIO N TO SKIN TWICE A DAY [facility] tamsulosin 0.4 mg capsule tamsulosin 0.4 mg capsule No tamsulosin 0.4 mg capsule [facility] Victoza 2-Brent 0.6 mg/0.1 mL (18 mg/3 mL) subcutaneou s pen injector Victoza 2-Brent 0.6 mg/0.1 mL (18 mg/3 mL) subcutaneou s pen injector No Victoza 2-Brent 0.6 mg/0.1 mL (18 mg/3 mL) subcutaneo us pen injector [facility] tramadol 50 mg tablet Take 1 tablet(s) EVERY 6 HOURS by oral route as needed for pain tramadol 50 mg tablet Take 1 tablet(s) EVERY 6 HOURS by oral route as needed for pain No tramadol 50 mg tablet Take 1 tablet(s) EVERY 6 HOURS by oral route as needed for pain [facility] Lovastatin 40 MG Lovastatin 40 MG No QD Lovastatin 40 MG metFORMIN HCl 1000 MG metFORMIN HCl 1000 MG No 1{table t_with_ a_meal} QD metFORMIN HCl 1000 MG metFORMIN HCl 1000 MG metFORMIN HCl 1000 MG No 1{table t_with_ a_meal} QD metFORMIN HCl 1000 MG Lovastatin 40 MG Lovastatin 40 MG No QD Lovastatin 40 MG Immunizations Ordered Immunization Name Filled Immunization Name Date Status Comments Source Moderna COVID-19 Vaccine Moderna COVID-19 Vaccine 2020-09-29 00:00:00 Completed [facility] Moderna COVID-19 Vaccine Moderna COVID-19 Vaccine 2020-08-31 00:00:00 Completed [facility] Vital Signs Vital Name Observation Time Observation Value Comments S stephany Height 2023-11-25 00:00:00 75 [in_i] [facility] BMI (Body Mass Index) 2023-11-25 00:00:00 31.2 kg/m2 [facility] Body Weight 2023-11-25 00:00:00 250 [lb_av] [facility] BMI (Body Mass Index) 2023-11-06 00:00:00 31.2 kg/m2 [facility] Height 2023-11-06 00:00:00 75 [in_i] [facility] Body Weight 2023-11-06 00:00:00 250 [lb_av] [facility] Height 2023-10-31 00:00:00 75 [in_i] [facility] Body Weight 2023-10-31 00:00:00 250 [lb_av] [facility] BMI (Body Mass Index) 2023-10-31 00:00:00 31.2 kg/m2 [facility] Height 2023-10-24 00:00:00 75 [in_i] [facility] Body Weight 2023-10-24 00:00:00 250 [lb_av] [facility] BMI (Body Mass Index) 2023-10-24 00:00:00 31.2 kg/m2 [facility] height 2021-06-07 08:15:00 75 [in_i] Commo n [...] pressure systolic 2021-06-07 08:15:00 179 mm[Hg] [facility] blood pressure diastolic 2021-06-07 08:15:00 86 mm[Hg] [facility] height 2021-01-11 16:30:00 75 [in_i] Commo n [facility] weight 2021-01-11 16:30:00 285 [lb_av] Comm on [facility] temperature 2021-01-11 16:30:00 97.2 [degF] Com mon [facility] bmi 2021-01-11 16:30:00 35.62 kg/m2 Comm on [facility] oximetry 2021-01-11 16:30:00 99 % Commo n [facility] blood pressure systolic 2021-01-11 16:30:00 147 mm[Hg] [facility] blood pressure diastolic 2021-01-11 16:30:00 76 mm[Hg] [facility] height 2020-11-28 15:40:00 75 [in_i] Commo n [facility] weight 2020-11-28 15:40:00 287.4 [lb_av] Co mmon [facility] temperature 2020-11-28 15:40:00 96.5 [degF] Com [facility] bmi 2020-11-28 15:40:00 35.92 kg/m2 Comm on [facility] oximetry 2020-11-28 15:40:00 97 % Commo n [facility] blood pressure systolic 2020-11-28 15:40:00 159 mm[Hg] [facility] blood pressure diastolic 2020-11-28 15:40:00 84 mm[Hg] [facility] BP Systolic 2023-11-18 10:34:00 133 mm[Hg] Step hen [facility] BP Diastolic 2023-11-18 10:34:00 76 mm[Hg] Lul phen [facility] Weight Measured 2023-11-18 10:34:00 251.80 pounds Usman F [facility] Height Measured 2023-11-18 10:34:00 74.00 inches Usman F [facility] Body Temperature 2023-11-18 10:34:00 98.00 degrees Usman F [facility] Heart Rate 2023-11-18 10:34:00 79.00 /min Safia en F [facility] Respiratory Rate 2023-11-18 10:34:00 Usman F [place] BP Systolic 2023-11-04 11:35:00 158 mm[Hg] Step hen [facility] BP Diastolic 2023-11-04 11:35:00 93 mm[Hg] Lul phen [facility] Weight Measured 2023-11-04 11:35:00 255.00 pounds Usman F [facility] Height Measured 2023-11-04 11:35:00 74.00 inches Usman F [place] Body Temperature 2023-11-04 11:35:00 98.20 degrees Usman F [place] Heart Rate 2023-11-04 11:35:00 77.00 /min Safia en F [facility] Respiratory Rate 2023-11-04 11:35:00 18.00 /min Usman F [place] BP Systolic 2023-10-23 10:44:00 144 mm[Hg] Step hen [facility] [place] BP Diastolic 2023-10-23 10:44:00 84 mm[Hg] Lul phen [facility] [place] Weight Measured 2023-10-23 10:44:00 252.02 pounds Usman F [facility] Height Measured 2023-10-23 10:44:00 74.00 inches Usman F [place] Body Temperature 2023-10-23 10:44:00 97.50 degrees Usman F [place] Heart Rate 2023-10-23 10:44:00 75.00 /min Safia en F [place] Respiratory Rate 2023-10-23 10:44:00 18.00 /min Usman F [place] BP Systolic 2023-09-24 14:35:00 129 mm[Hg] Step hen [facility] [place] BP Diastolic 2023-09-24 14:35:00 72 mm[Hg] Lul phen [facility] Weight Measured 2023-09-24 14:35:00 240.00 pounds Usman F [facility] Height Measured 2023-09-24 14:35:00 74.00 inches Usman F [place] Body Temperature 2023-09-24 14:35:00 97.20 degrees Usman F [place] Heart Rate 2023-09-24 14:35:00 77.00 /min Safia en F [place] Respiratory Rate 2023-09-24 14:35:00 Usman F [place] BP Systolic 2023-09-10 13:54:00 140 mm[Hg] Step hen [facility] [place] BP Diastolic 2023-09-10 13:54:00 85 mm[Hg] Lul phen [facility] [place] Weight Measured 2023-09-10 13:54:00 235.60 pounds Usman F [facility] Height Measured 2023-09-10 13:54:00 74.00 inches Usman F [place] Body Temperature 2023-09-10 13:54:00 98.10 degrees Usman F [place] Heart Rate 2023-09-10 13:54:00 85.00 /min Safia en F [place] Respiratory Rate 2023-09-10 13:54:00 19.00 /min Usman F [place] BP Systolic 2023-08-20 13:46:00 136 mm[Hg] Step hen [facility] [place] BP Diastolic 2023-08-20 13:46:00 84 mm[Hg] Lul phen [facility] [place] Weight Measured 2023-08-20 13:46:00 237.60 pounds Usman F [facility] Height Measured 2023-08-20 13:46:00 74.00 inches Usman F [place] Body Temperature 2023-08-20 13:46:00 98.40 degrees Usman F [place] Heart Rate 2023-08-20 13:46:00 71.00 /min Safia en F [place] Respiratory Rate 2023-08-20 13:46:00 18.00 /min Usman F [place] BP Systolic 2023-08-13 10:04:00 136 mm[Hg] Step hen [facility] [place] BP Diastolic 2023-08-13 10:04:00 87 mm[Hg] Lul phen [facility] Weight Measured 2023-08-13 10:04:00 226.00 pounds Usman F [facility] Height Measured 2023-08-13 10:04:00 74.00 inches Usman F [facility] Body Temperature 2023-08-13 10:04:00 98.20 degrees Usman F [place] Heart Rate 2023-08-13 10:04:00 85.00 /min Safia en F [place] Respiratory Rate 2023-08-13 10:04:00 18.00 /min Usman F [place] BP Systolic 2023-08-12 13:36:00 139 mm[Hg] Step hen [facility] [place] BP Diastolic 2023-08-12 13:36:00 88 mm[Hg] Lul phen [facility] [place] Weight Measured 2023-08-12 13:36:00 226.40 pounds Usman F [facility] Height Measured 2023-08-12 13:36:00 74.00 inches Usman F [facility] Body Temperature 2023-08-12 13:36:00 98.20 degrees Usman F [place] Heart Rate 2023-08-12 13:36:00 88.00 /min Safia en F [place] Respiratory Rate 2023-08-12 13:36:00 18.00 /min Usman F [facility] BP Systolic 2023-08-07 14:57:00 131 mm[Hg] Step hen [facility] [place] BP Diastolic 2023-08-07 14:57:00 89 mm[Hg] Lul phen [facility] [place] Weight Measured 2023-08-07 14:57:00 226.60 pounds Usman F [facility] Height Measured 2023-08-07 14:57:00 74.00 inches Usman F [facility] Body Temperature 2023-08-07 14:57:00 98.00 degrees Usman F [place] Heart Rate 2023-08-07 14:57:00 94.00 /min Safia en F [place] Respiratory Rate 2023-08-07 14:57:00 18.00 /min Usman F [facility] BP Systolic 2023-08-01 15:50:00 100 mm[Hg] Step hen [facility] BP Diastolic 2023-08-01 15:50:00 78 mm[Hg] Lul phen [facility] Weight Measured 2023-08-01 15:50:00 215.60 pounds Usman F [facility] Height Measured 2023-08-01 15:50:00 74.00 inches Usman F [facility] Body Temperature 2023-08-01 15:50:00 98.40 degrees Usman F [facility] Heart Rate 2023-08-01 15:50:00 76.00 /min Safia en Yesenia Hyman Respiratory Rate 2023-08-01 15:50:00 18.00 /min Usman Hyman BP Systolic 2023-07-04 13:45:00 149 mm[Hg] Eugene hen Yesenia Hyman BP Diastolic 2023-07-04 13:45:00 82 mm[Hg] Lul Hyman Weight Measured 2023-07-04 13:45:00 255.60 pounds Usman Hyman Height Measured 2023-07-04 13:45:00 74.00 inches Usman Hyman Body Temperature 2023-07-04 13:45:00 98.20 degrees Usman Hyman Heart Rate 2023-07-04 13:45:00 76.00 /min Safia en Yesneia Hyman Respiratory Rate 2023-07-04 13:45:00 18.00 /min Usman Hyman Procedures Procedure Date / Time Performed Performing Clinician Source RADEX SPI LUMBOSAC MINIMUM 4 VIEWS 2023-11-25 00:00:00 [facility] XR, hip + pelvis, unilateral, 2 or 3 view 2023-11-14 00:00:00 [facility], knee, 1 or 2 view 2023-10-24 00:00:00 [facility] XR, shoulder, 2 or more view 2023-10-24 00:00:00 [facility] MRI, shoulder, w/o contrast 2023-10-24 00:00:00 [facility] MRI, lumbar spine, w/o contrast 2023-10-24 00:00:00 [facility] XR, hip + pelvis, unilateral, 2 or 3 view 2023-09-26 00:00:00 [facility] MRI, hip, w/ contrast 2023-08-22 00:00:00 [facility] XR, hip + pelvis, unilateral, 2 or 3 view 2023-08-18 00:00:00 [facility] XR, femur, 2 or more view 2023-08-18 00:00:00 [facility] MRI, hip, w/o contrast 2023-08-18 00:00:00 [facility] Fracture Surgery [facility] Procedure on Stomach [facility] Arthroscopy of Hip [facility] Total Replacement of Right Knee Joint [facility] Total Replacement of Left Knee Joint [facility] Encounters Start Date/Time End Date/Time Encounter Type Admission Type Attending [facility] Care Facility Care Department Encounter ID Source 2021-06-21 15:49:01 Outpatient [facility] [id number] [facility] 2021-06-13 13:32:49 Outpatient [facility] [id number] [facility] 2021-06-13 13:25:32 Outpatient [facility] [id number] [facility] 2024-02-09 14:17:28 2024-02-09 14:17:28 Outpatient [facility] [id number] Usman Patterson [place] 2024-01-01 10:33:32 2024-01-01 10:33:32 Outpatient [facility] [id number] Usman Patterson [place] 2023-11-27 11:08:32 2023-11-27 11:08:32 Outpatient [facility] [id number] Usman Patterson [place] 2023-11-25 00:00:00 2023-11-25 00:00:00 Dionte Valentine MD: [address] [place], [place] [address] , Ph. [phone] [facility] [id number] [facility] 2023-11-18 10:34:48 2023-11-18 10:34:48 Outpatient [facility] [id number] Usman Yesenia Boogie 2023-11-18 00:00:00 2023-11-18 00:00:00 Outpatient Visit [facility] [id number] Usman Yesenia Boogie 2023-11-14 00:00:00 2023-11-14 00:00:00 Frances Bar MD: [address] [place], [place] [address] , Ph. [phone] [place] [facility] [place] [facility] [id number] [facility] 2023-11-10 11:08:47 2023-11-10 11:08:47 Outpatient [facility] 24 Usman Patterson [place] 2023-11-06 00:00:00 2023-11-06 00:00:00 Heath Lawson MD: [address] [place], [place] [address] , Ph. [phone] [place] [facility] [place] [facility] [id number] [facility] 2023-11-04 11:06:32 2023-11-04 11:06:32 Outpatient [facility] 18 Usman Patterson Warriormine 2023-11-04 00:00:00 2023-11-04 00:00:00 Outpatient Visit [facility] [id number] Usman Patterson Warriormine 2023-10-31 00:00:00 2023-10-31 00:00:00 Rafal Pate MD: [address] [place], [place] [id number] , Ph. [phone] [place] [facility] [place] [facility] [place] [id number] [facility] 2023-10-24 00:00:00 2023-10-24 00:00:00 Rafal Pate MD: [address] [place], [place] [id number] , Ph. [phone] [place] [facility] [place] [facility] [place] [id number] [facility] 2023-10-23 10:42:24 2023-10-23 10:42:24 Outpatient [facility] [id number] Usman Patterson [place] 2023-09-26 00:00:00 2023-09-26 00:00:00 Frances Bar MD: [address] [place] [address] , Ph. [phone] [place] [facility] [place] [facility] [address] [id number] [facility] 2023-09-24 14:35:23 2023-09-24 14:35:23 Outpatient [facility] [id number] Usman Hyman 2023-09-12 00:00:00 2023-09-12 00:00:00 Frances Bar MD: [address] [place] [address] , Ph. [phone] [facility] [place] - [facility] [place] [facility] [address] [id number] [facility] 2023-09-10 13:51:14 2023-09-10 13:51:14 Outpatient [facility] [id number] Usman Hyman 2023-09-02 09:14:00 2023-09-02 09:14:00 Outpatient Frances Hsieh [facility] [id number] [facility] 2023-09-02 00:00:00 2023-09-02 00:00:00 Frances Bar MD: [address] [place] [address] , Ph. [phone] [facility] [place] [facility] [place] [facility] [id number] [facility] 2023-08-31 00:00:00 2023-08-31 00:00:00 Outpatient [facility]_ Dutch_ [facility] [id number] [facility] 2023-08-25 00:00:00 2023-08-25 00:00:00 Frances Bar MD: [address] [place] [address] , Ph. [phone] [facility] [place] - [facility] [place] [facility] [address] [id number] [facility] 2023-08-22 08:46:00 2023-08-22 08:46:00 Outpatient Frances Hsieh [facility] [id number] [facility] 2023-08-22 00:00:00 2023-08-22 00:00:00 Frances Bar MD: [address] [place] [address] , Ph. [phone] [facility]_ Robin_MD [place] - [facility] [place] [facility] [address] [place] [id number] [facility] 2023-08-21 19:53:00 2023-08-21 19:53:00 Outpatient Frances Bar [facility] [id number] [facility] 2023-08-20 13:42:52 2023-08-20 13:42:52 Outpatient [facility] [id number] Usman Hyman 2023-08-18 00:00:00 2023-08-18 00:00:00 Frances Bar MD: [address] [place] [address] , Ph. [phone] [facility]_ Robin_MD [place] [facility] [place] [facility] [place] [id number] [facility] 2023-08-12 00:00:00 2023-08-12 00:00:00 Outpatient FOG_[facility]tia_ Robin_MD [place] [id number] [facility] 2023-08-07 14:41:23 2023-08-07 14:41:23 Outpatient [facility] [id number] Usman Patterson [place]ogie 2023-08-01 15:35:34 2023-08-01 15:35:34 Outpatient [facility] [id number] Usman Patterson [place] 2023-07-04 13:34:23 2023-07-04 13:34:23 Outpatient [facility] [id number] Usman Patterson [place] 2023-06-14 09:52:35 2023-06-14 09:52:35 Outpatient [facility] [id number] Usman Patterson [place] 2023-02-24 15:33:13 2023-02-24 15:33:13 Outpatient [facility] [id number] Usman Hyman 2022-10-07 09:08:20 2022-10-07 09:08:20 Outpatient [facility] [id number] Usman Hyman 2022-08-12 11:14:26 2022-08-12 11:14:26 Outpatient [facility] [id number] Usman Hyman 2022-05-28 17:22:02 2022-05-28 17:22:02 Outpatient [facility] [id number] Usman Hyman 2021-06-22 00:00:00 2021-06-22 00:00:00 (TEL) STLMLC STLMLC [id number] [facility] 2021-06-07 00:00:00 2021-06-07 00:00:00 OFFICE VISIT ESTAB PT LEVEL 4 STLMLC STLMLC [id number] [facility] 2021-05-31 00:00:00 2021-05-31 00:00:00 (TEL) STLMLC STLMLC [id number] [facility] 2021-01-11 00:00:00 2021-01-11 00:00:00 OFFICE VISIT EST PT LEVEL 3 STLMLC STLMLC [id number] [facility] 2020-11-28 00:00:00 2020-11-28 00:00:00 OFFICE VISIT NEW PT LEVEL 3 STLMLC STLMLC [id number] [facility] Results Test Description Test Time Test Comments Results Result Co mments Source VITAMIN B 12 AND FOLIC [id number] 03:55:09* Test Item Value Reference Range Interpretation Comme nts VITAMIN B-12 (test code = 2840) >2000 PG/ML 200-950 H FOLIC ACID (test code = 2695) 19.1 UG/L SEE BELOW INTERPRETI VE RANGES DEFICIENCY . . . . . . . . . . . . . . . UG/L <4.0 POSSIBLE DEFICIENCY. . . . . . . . . . . UG/L 4.0-5.9 SUFFICIENT . . . . . . . . . . . . . . . UG/L >=6.0 UNLESS OTHERWISE INDICATED, ALL TESTING PERFORMED AT [facility] [address] [facility] [place] [address] EXHIBITIONS AND COLLECTIONS MANAGER: MAREN CHAVARRIA M.D. CLIA NUMBER [id number] [facility] [place]. [id number] CBC W/AUTO DIFF WITH [id number] 03:15:20* Test Item Value Reference Range Interpretation Comme nts WBC (test code = 1001) 6.6 K/UL 3.5-11.0 RBC (test code = 1002) 4.89 M/UL 4.50-6.10 HEMOGLOBIN (test code = 1003) 13.1 G/DL 13.5-17.0 L HEMATOCRIT (test code = 1004) 41.3 % 40.0-51.0 MCV (test code = 1005) 84.5 fL 80.0-99.0 MCH (test code = 1006) 26.8 PG 25.0-33.0 MCHC (test code = 1007) 31.7 G/DL 31.0-36.0 RDW (test code = 1038) 14.4 % 11.5-15.0 NEUTROPHILS (test code = 1008) 70.8 % LYMPHOCYTES (test code = 1010) 18.6 % MONOCYTES (test code = 1011) 7.9 % EOSINOPHILS (test code = 1012) 2.0 % BASOPHILS (test code = 1013) 0.2 % IMMATURE GRANULOCYTES (test code = 1036) 0.5 % NUCLEATED RBCS (test code = 1065) 0.0 /100 WBC'S See_Comment [Automated messa ge] The system which generated this result transmitted reference range: 0.0. The reference range was not used to interpret this result as normal/abnormal. PLATELET COUNT (test code = 1015) 293 K/UL 130-400 ABSOLUTE NEUTROPHILS (test code = 1066) 4.65 K/UL 1.50-7.50 ABSOLUTE LYMPHOCYTES (test code = 1067) 1.22 K/UL 1.00-4.00 ABSOLUTE MONOCYTES (test code = 1068) 0.52 K/UL 0.20-1.00 ABSOLUTE EOSINOPHILS (test code = 1040) 0.13 K/UL 0.00-0.50 ABSOLUTE BASOPHILS (test code = 1069) 0.01 K/UL 0.00-0.20 ABS IMMATURE GRANULOCYTES (test code = 1020) 0.03 K/UL 0.00-0.10 ABS NUCLEATED RBCS (test code = 21856) 0.00 K/UL 0.00-0.11 [id number] 02:39:37* Test Item Value Reference Range Interpretation Comme nts FERRITIN (test code = 2075) 267 NG/ML 30-400 [id number] 02:39:29* Test Item Value Reference Range Interpretation Comme nts TRANSFERRIN (test code = 4936) 213 MG/DL 200-360 IRON BINDING CAPACITY AND IRON AND % [id number] 02:38:50* Test Item Value Reference Range Interpretation Comme nts IRON, SERUM (test code = 2222) 52 UG/DL 59-158 L UNSATURATED IBC (test code = 09329) 197 UG/DL 112-347 CALC TOTAL IBC (test code = 2077) 249 UG/DL 250-450 L CALC % IRON SAT (test code = 2079) 21 % 20-50 CBC W/AUTO [id number] 00:00:00* Test Item Value Reference Range Interpretation Comme nts WBC (test code = 1001) 6.6 K/UL RBC (test code = 1002) 4.89 M/UL HEMOGLOBIN (test code = 1003) 13.1 G/DL HEMATOCRIT (test code = 1004) 41.3 % MCV (test code = 1005) 84.5 fL MCH (test code = 1006) 26.8 PG MCHC (test code = 1007) 31.7 G/DL RDW (test code = 1038) 14.4 % NEUTROPHILS (test code = 1008) 70.8 % LYMPHOCYTES (test code = 1010) 18.6 % MONOCYTES (test code = 1011) 7.9 % EOSINOPHILS (test code = 1012) 2.0 % BASOPHILS (test code = 1013) 0.2 % IMMATURE GRANULOCYTES (test code = 1036) 0.5 % NUCLEATED RBCS (test code = 1065) 0.0 /100WBC'S PLATELET COUNT (test code = 1015) 293 K/UL ABSOLUTE NEUTROPHILS (test c ode = 1066) 4.65 K/UL ABSOLUTE LYMPHOCYTES (test c ode = 1067) 1.22 K/UL ABSOLUTE MONOCYTES (test cod e = 1068) 0.52 K/UL ABSOLUTE EOSINOPHILS (test c ode = 1040) 0.13 K/UL ABSOLUTE BASOPHILS (test cod e = 1069) 0.01 K/UL ABS IMMATURE GRANULOCYTES (t est code = 1020) 0.03 K/UL ABS NUCLEATED RBCS (test cod e = 89332) 0.00 K/UL Usman HymanHEMOGLOBIN [id number] 00:00:00* Test Item Value Reference Range Interpretation Comme nts HEMOGLOBIN A1c (test code = 03524) 6.7 % Usman HymanIRON BINDING CAPACITY AND IRON AND % [id number] 00:00:00* Test Item Value Reference Range Interpretation Comme nts IRON, SERUM (test code = 2222) 52 UG/DL UNSATURATED IBC (test code = 83185) 197 UG/DL CALC TOTAL IBC (test code = 2077) 249 UG/DL CALC % IRON SAT (test code = 2079) 21 % Usman [id number] 00:00:00* Test Item Value Reference Range Interpretation Comme nts FERRITIN (test code = 2075) 267 NG/ML Usman [id number] 00:00:00* Test Item Value Reference Range Interpretation Comme nts TRANSFERRIN (test code = 4936) 213 MG/DL Usman HymanVITAMIN B 12 AND FOLIC [id number] 00:00:00* Test Item Value Reference Range Interpretation Comme nts VITAMIN B-12 (test code = 2840) >2000 PG/ML FOLIC ACID (test code = 2695) 19.1 UG/L Usman HymanCBC W/AUTO DIFF WITH [id number] 08:10:35* Test Item Value Reference Range Interpretation Comme nts WBC (test code = 1001) 5.7 K/UL 3.5-11.0 RBC (test code = 1002) 5.32 M/UL 4.50-6.10 HEMOGLOBIN (test code = 1003) 13.2 G/DL 13.5-17.0 L HEMATOCRIT (test code = 1004) 41.4 % 40.0-51.0 MCV (test code = 1005) 77.8 fL 80.0-99.0 L MCH (test code = 1006) 24.8 PG 25.0-33.0 L MCHC (test code = 1007) 31.9 G/DL 31.0-36.0 RDW (test code = 1038) 15.3 % 11.5-15.0 H NEUTROPHILS (test code = 1008) 69.2 % LYMPHOCYTES (test code = 1010) 20.4 % MONOCYTES (test code = 1011) 7.5 % EOSINOPHILS (test code = 1012) 2.3 % BASOPHILS (test code = 1013) 0.3 % IMMATURE GRANULOCYTES (test code = 1036) 0.3 % NUCLEATED RBCS (test code = 1065) 0.0 /100 WBC'S See_Comment [Automated message] The system which generated this result transmitted reference range: 0.0. The reference range was not used to interpret this result as normal/abnormal. PLATELET COUNT (test code = 1015) 358 K/UL 130-400 ABSOLUTE NEUTROPHILS (test code = 1066) 3.97 K/UL 1.50-7.50 ABSOLUTE LYMPHOCYTES (test code = 1067) 1.17 K/UL 1.00-4.00 ABSOLUTE MONOCYTES (test code = 1068) 0.43 K/UL 0.20-1.00 ABSOLUTE EOSINOPHILS (test code = 1040) 0.13 K/UL 0.00-0.50 ABSOLUTE BASOPHILS (test code = 1069) 0.02 K/UL 0.00-0.20 ABS IMMATURE GRANULOCYTES (test code = 1020) 0.02 K/UL 0.00-0.10 ABS NUCLEATED RBCS (test code = 69365) 0.00 K/UL 0.00-0.11 UNLESS OTHER OCONNOR INDICATED, ALL TESTING PERFORMED AT [facility] [address] [place] [address] EXHIBITIONS AND COLLECTIONS MANAGER: MAREN CHAVARRIA M.D. CLIA NUMBER [id number] [facility] [place]. [id number] HIV 1/2 4TH GEN, RFLX [id number] 04:31:36* Test Item Value Reference Range Interpretation Comme nts HIV 1/2 4TH GEN, RFLX CONF ( test code = 3514) NON-REACTIVE NON-REACTIVE HEPATITIS PANEL, [id number] 04:31:36* Test Item Value Reference Range Interpretation Comme nts HEPATITIS A IgM (test code = 34461) NON-REACTIVE NON-REACTIVE HEPATITIS B CORE IgM (test code = 4644) NON-REACTIVE NON-REACTIVE HEPATITIS B SURF AG (test code = 2739) NON-REACTIVE NON-REACTIVE HEPATITIS C ANTIBODY (test code = 4675) REACTIVE NON-REACTIVE A INTERPRETATION HEPATITIS A: (test code = 2552) (NOTE) Hepatitis A serology shows no evidence of acute hepatitis A. INTERPRETATION HEPATITIS B: (test code = 73774) (NOTE) Hepatitis B serology shows no evidence of acute hepatitis B andno indication of exposure to hepatitis B virus in the previous danielle eight months. INTERPRETATION HEPATITIS C: (test code = 87639) (NOTE) Hepatitis C serology is consistent with exposure to hepatitis Cvirus. The CDC recommends performing a supplemental confirmatory teston initial positive hepatitis C antibody tests. HCV PCR quantitativecan be used to confirm these results on a new sample (See MMWR, 2003;52 RR-3). ACUTE HEPATITIS [id number] 00:00:00* Test Item Value Reference Range Interpretation Comme nts HEPATITIS A IgM (test code = 62993) NON-REACTIVE HEPATITIS B CORE IgM (test c ode = 4644) NON-REACTIVE HEPATITIS B SURF AG (test co de = 2739) NON-REACTIVE HEPATITIS C ANTIBODY (test c ode = 4675) REACTIVE INTERPRETATION HEPATITIS A: (test code = 2552) (NOTE) INTERPRETATION HEPATITIS B: (test code = 84665) (NOTE) INTERPRETATION HEPATITIS C: (test code = 09798) (NOTE) [facility] [id number] 00:00:00* Test Item Value Reference Range Interpretation Comme nts WBC (test code = 1001) 5.7 K/UL RBC (test code = 1002) 5.32 M/UL HEMOGLOBIN (test code = 1003) 13.2 G/DL HEMATOCRIT (test code = 1004) 41.4 % MCV (test code = 1005) 77.8 fL MCH (test code = 1006) 24.8 PG MCHC (test code = 1007) 31.9 G/DL RDW (test code = 1038) 15.3 % NEUTROPHILS (test code = 1008) 69.2 % LYMPHOCYTES (test code = 1010) 20.4 % MONOCYTES (test code = 1011) 7.5 % EOSINOPHILS (test code = 1012) 2.3 % BASOPHILS (test code = 1013) 0.3 % IMMATURE GRANULOCYTES (test code = 1036) 0.3 % NUCLEATED RBCS (test code = 1065) 0.0 /100WBC'S PLATELET COUNT (test code = 1015) 358 K/UL ABSOLUTE NEUTROPHILS (test c ode = 1066) 3.97 K/UL ABSOLUTE LYMPHOCYTES (test c ode = 1067) 1.17 K/UL ABSOLUTE MONOCYTES (test cod e = 1068) 0.43 K/UL ABSOLUTE EOSINOPHILS (test c ode = 1040) 0.13 K/UL ABSOLUTE BASOPHILS (test cod e = 1069) 0.02 K/UL ABS IMMATURE GRANULOCYTES (t est code = 1020) 0.02 K/UL ABS NUCLEATED RBCS (test cod e = 86396) 0.00 K/UL Usman HymanHIV 1/2 4TH GEN, RFLX [id number] 00:00:00* Test Item Value Reference Range Interpretation Comme nts HIV 1/2 4TH GEN, RFLX CONF ( test code = 3514) NON-REACTIVE Usman HymanACUTE HEPATITIS [id number] 00:00:00* Test Item Value Reference Range Interpretation Comme nts HEPATITIS A IgM (test code = 34947) NON-REACTIVE HEPATITIS B CORE IgM (test c ode = 4644) NON-REACTIVE HEPATITIS B SURF AG (test co de = 2739) NON-REACTIVE HEPATITIS C ANTIBODY (test c ode = 4675) REACTIVE INTERPRETATION HEPATITIS A: (test code = 2552) (NOTE) INTERPRETATION HEPATITIS B: (test code = 74507) (NOTE) INTERPRETATION HEPATITIS C: (test code = 07078) (NOTE) Usman HymanCBC W/AUTO [id number] 00:00:00* Test Item Value Reference Range Interpretation Comme nts WBC (test code = 1001) 5.7 K/UL RBC (test code = 1002) 5.32 M/UL HEMOGLOBIN (test code = 1003) 13.2 G/DL HEMATOCRIT (test code = 1004) 41.4 % MCV (test code = 1005) 77.8 fL MCH (test code = 1006) 24.8 PG MCHC (test code = 1007) 31.9 G/DL RDW (test code = 1038) 15.3 % NEUTROPHILS (test code = 1008) 69.2 % LYMPHOCYTES (test code = 1010) 20.4 % MONOCYTES (test code = 1011) 7.5 % EOSINOPHILS (test code = 1012) 2.3 % BASOPHILS (test code = 1013) 0.3 % IMMATURE GRANULOCYTES (test code = 1036) 0.3 % NUCLEATED RBCS (test code = 1065) 0.0 /100WBC'S PLATELET COUNT (test code = 1015) 358 K/UL ABSOLUTE NEUTROPHILS (test c ode = 1066) 3.97 K/UL ABSOLUTE LYMPHOCYTES (test c ode = 1067) 1.17 K/UL ABSOLUTE MONOCYTES (test cod e = 1068) 0.43 K/UL ABSOLUTE EOSINOPHILS (test c ode = 1040) 0.13 K/UL ABSOLUTE BASOPHILS (test cod e = 1069) 0.02 K/UL ABS IMMATURE GRANULOCYTES (t est code = 1020) 0.02 K/UL ABS NUCLEATED RBCS (test cod e = 98512) 0.00 K/UL Usman HymanHIV 1/2 4TH GEN, RFLX [id number] 00:00:00* Test Item Value Reference Range Interpretation Comme nts HIV 1/2 4TH GEN, RFLX CONF ( test code = 3514) NON-REACTIVE Usman [id number] 16:40:00* Test Item Value Reference Range Interpretation Comme nts GLUBED (test code = GLUBED) 189 mg/dL 60-99 H The normal fasti ng blood glucose range for a non-diabeticadult is 60-99 mg/dL. Two hours after meals, normal blood glucose levels should beless than 140 mg/dL.Please note new normal range. [id number] 16:27:00* Test Item Value Reference Range Interpretation Comme nts glubed (test code = glubed) 189 mg/dL 60-99 H performing lab: (test code = performing lab:) [facility] [id number] 10:58:00* Test Item Value Reference Range Interpretation Comme nts GLUBED (test code = GLUBED) 202 mg/dL 60-99 H The normal fasti ng blood glucose range for a non-diabeticadult is 60-99 mg/dL. Two hours after meals, normal blood glucose levels should beless than 140 mg/dL.Please note new normal range. [id number] 10:47:00* Test Item Value Reference Range Interpretation Comme nts glubed (test code = glubed) 202 mg/dL 60-99 H performing lab: (test code = performing lab:) [facility]- MRI LW JNT W/CONTRAST [id number] 08:23:00 [facility] ESAU VALDES : 1960 Sex: M Patient Name: ESAU VALDES Unit No: [id number] EXAMS: CPT CODE: [id number] MRI LW JNT W/CONTRAST RT [id number]: Multiplanar multisequence images of the right hip were obtained with and without IV contrast. COMPARISON STUDY: MRI dated 08/22/2023. FINDINGS: Marked heterogeneous increased signal is demonstrated within the right femoral head and neck, greatest within the anterior femoral neck. Underlying fracture anteriorly is not excluded. A right hip joint effusion is present. There is pronounced intramuscular edema and enhancement surrounding the right hip joint and extending into the abductor musculature. A complex fluid collection is noted within the adductor musculature measuring up to 4 cm.No definite enhancing focal mass is visualized. Mild right hip cartilage loss is noted diffusely. There is a complex tear of the superior labrum. Bone marrow signal is otherwise normal. The gluteal and hamstring tendons are intact. Visualized intrapelvic structures are unremarkable. IMPRESSION: Marked intramuscular edema and enhancement within the right adductor musculature as well as a complex fluid collection. This could represent myositis/abscess formation in the absence of trauma. If thereis history of trauma, these findings may be secondary to muscle tear/strain and hematoma. No underlying mass is visualized. at 0823 Reported and signed by: Usman To M.D. CC: Frances Bar MD Technologist: JOANNE MACHUCA MRI Transcribed D/ (0823) Jordyn [facility] NAME: ESAU VALDES [address] [facility] PHYS: BRIMA. - Frances Bar MD : 1960 AGE: 63 SEX: M [place], [place] [address] LOC: Y.MRI PHONE #: [phone] EXAM DATE: 08/22/2023 STATUS: DEP CLI FAX #:[phone] RAD #: D/C DT PAGE 1 Signed Report Patient Name: ESAU VALDES Unit No: [id number] EXAMS: CPT CODE: [id number] MRI LW JNT W/[place] [id number] (Continued) Orig Print D/T: S: 08/24/2023 (08) [facility] NAME: ESAU VALDES [address] [place] [address] PHYS: BRIMA. - Frances Bar : 1960 AGE: 63 SEX: M [place], [place] [address] LOC: Y.MRI PHONE #: [phone] EXAM DATE: 08/22/2023 STATUS: DEP CLI FAX #: [phone] RAD #: D/C DT PAGE 2 Signed Report- MRI LW JNT W/O CONT [id number] 08:23:00 [facility] 1960 Sex: M Patient Name: ESAU VALDES Unit No: [id number] EXAMS: CPT CODE: [id number] MRI LW JNT W/[place] [id number] TECHNIQUE: Multiplanar multisequence images of the right hip were obtained with and without IV contrast. COMPARISON STUDY: MRI dated 08/22/2023. FINDINGS: Marked heterogeneous increased signal is demonstrated within the right femoral head and neck, greatest within the anterior femoral neck. Underlying f racture anteriorly is not excluded. A right hip joint effusion is present. There is pronounced intramuscular edema and enhancement surrounding the right hip joint and extending into the abductor musculature. A complex fluid collection is noted within the adductor musculature measuring up to 4 cm. No definite enhancing focal mass is visualized. Mild right hip cartilage loss is noted diffusely. There is a complex tear of the superior labrum. Bone marrow signal is otherwise normal. The gluteal andhamstring tendons are intact. Visualized intrapelvic structures are unremarkable. IMPRESSION: Marked intramuscular edema and enhancement within the right adductor musculature as well as a complex fluid collection. This could represent myositis/abscess formation in the absence of trauma. If there ishistory of trauma, these findings may be secondary to muscle tear/strain and hematoma. No underlying mass is visualized. at 0823 Reported and signed by: Usman To M.D. CC: Frances Bar MD Technologist: Ismael Mcfarlane ([facility]),MRI Transcribed D/ (0823) [email or web address] [facility] NAME: ESAU VALDES[address] [facility] PHYS: BRIMA.01 - Frances Bar MD : 1960 AGE: 63 SEX: M [place], [place] [address] LOC: Y.MRI PHONE #: [phone] EXAM DATE: 08/22/2023 STATUS: DEP CLI FAX#: [phone] RAD #: D/C DT PAGE 1 Signed Report Patient Name: ESAU VALDES Unit No: [id number]: CPT CODE: [id number] MRI LW JNT W/[place] [id number] (Continued) Orig Print D/T: S: 08/24/2023 (0826) [facility] NAME: ESAU VALDES [address] PHYS: OJ.Soni - Frances Bar MD : 1960 AGE: 63 SEX: M [place], [place] [address] LOC: YJULIAN PHONE #: [phone] EXAM DATE: 08/22/2023 STATUS: DEP CLI FAX #: [phone] RAD #: D/C DT PAGE 2 Signed ReportC REACTIVE [id number] 23:20:00* Test Item Value Reference Range Interpretation Comme nts C REACTIVE PROTEIN (test cod e = CRP) < 0.30 mg/dL < 0.3 N COMPREHENSIVE METABOLIC [id number] 22:12:00* Test Item Value Reference Range Interpretation Comme nts SODIUM (test code = NA) 138 mmol/L 136-145 N POTASSIUM (test code = K) 4.2 mmol/L 3.5-5.1 N CHLORIDE (test code = CL) 101.0 mmol/L 98-107 N CARBON DIOXIDE (test code = CO2) 27.6 mmol/L 21-32 N GLUCOSE (test code = GLU) 154 mg/dL 74-106 H BLOOD UREA NITROGEN (test code = BUN) 12 mg/dL 7-18 N GLOMERULAR FILTRATION RATE (test code = GFR) 99.0 >60 The Glomerular Filtration Rate is a calculated parameterbased on serum Creatinine, patient age and sex. GFR valuesless than 60 mL/min/1.73 square meters are indicative ofChronic Kidney Disease. Values less than 15 mL/min/1.73square meters indicate Kidney failure. The calculation forGFR is based on the CKD-EPI (2020) calculation. This formulais race indifferent and is the recommended formula for GFRby the National Kidney Foundation for Adults.The GFR will not calculate if the sex is unknown or if thepatient's age is <18 years. CREATININE (test code = CREAT) 0.83 mg/dL 0.70-1.30 N TOTAL PROTEIN (test code = PROT) 7.0 g/dL 6.4-8.2 N ALBUMIN (test code = ALB) 3.6 g/dL 3.4-5.0 N GLOBULIN (test code = GLOB) 3.4 g/dL 2.2-4.2 N ALBUMIN/GLOBULIN RATIO (test code = A/G) 1.1 0.7-2.0 N CALCIUM (test code = CA) 9.5 mg/dL 8.5-10.1 N BILIRUBIN TOTAL (test code = BILT) 0.30 mg/dL 0.2-1.00 N SGOT/AST (test code = AST) 26.0 U/L 15-37 N SGPT/ALT (test code = ALT) 58.0 U/L 16-63 N ALKALINE PHOSPHATASE TOTAL (test code = ALKP) 100 U/L 46-116 N ACUTE HEPATITIS [id number] 21:25:00* Test Item Value Reference Range Interpretation Comme nts AB HEPATITIS A IGM (test code = HAVMAB) NONREACTIVE NONREACTIVE AG HEPATITIS B SURFACE (test code = HBSAG) NONREACTIVE NONREACTIVE AB HEPATITIS B CORE IGM (test code = HBCMAB) NONREACTIVE NONREACTIVE AB HEPATITIS C (test code = HCVAB) REACTIVE NONREACTIVE A RESULTS CALLED T O BOWEN HOLLINS MT.READ BACK & CONFIRMED? Y.BY [id number] 08/21/232123. SIGNAL TO CUTOFF (test code = CUTOFF) >11.00 <0.80 H AB HIV 1 21:25:00* Test Item Value Reference Range Interpretation Comme nts AB HIV 1 2 (test code = LAL93DL) NONREACTIVE NONREACTIVE Done by Siemens Corticaaur 4th Gen HIV Ag/Ab Combo Screen C REACTIVE [id number] 21:25:00* Test Item Value Reference Range Interpretation Comme nts C REACTIVE PROTEIN (test code = CRP) mg/dL < 0.3 ACUTE HEPATITIS [id number] 21:25:00* Test Item Value Reference Range Interpretation Comme nts AB HEPATITIS A IGM (test code = HAVMAB) NONREACTIVE NONREACTIVE AG HEPATITIS B SURFACE (test code = HBSAG) NONREACTIVE NONREACTIVE AB HEPATITIS B CORE IGM (test code = HBCMAB) NONREACTIVE NONREACTIVE AB HEPATITIS C (test code = HCVAB) REACTIVE NONREACTIVE A Reported to []by JACI on 08/21/23 at 2125.RESULTS CALLED TO BOWEN HOLLINS MT.READ BACK & CONFIRMED? Y.BY [id number] 08/21/232123. SIGNAL TO CUTOFF (test code = CUTOFF) > 11.00 <0.80 H AB HIV 21:25:00* Test Item Value Reference Range Interpretation Comme nts AB HIV 1 (test code = HIV1AB) NONREACTIVE NONREACTIVE Done by Smartaxiaur 4th Gen HIV Ag/Ab Combo Screen SED [id number] 15:30:00* Test Item Value Reference Range Interpretation Comme nts SED RATE (test code = SEDW) 10 mm/hr 0-20 N PROTHROMBIN [id number] 14:45:00* Test Item Value Reference Range Interpretation Comme nts PROTHROMBIN TIME PATIENT (test code = PTP) 9.5 secs 9.4-12.5 N INTERNATIONAL NORMAL RATIO (test code = INR) 0.89 <2.0 RECOMMENDED THER APEUTIC RANGE FOR ORAL ANTICOAGULANTTREATMENT: CONDITION INRProphylaxis of venous thrombosis in 2.0 - 3.0 high-risk medical or surgical patientsTreatment of venous thrombosis 2.0 - 3.0Prevention of embolism 2.0 - 3.0Prevention of recurrent embolism, or 3.0 - 4.5 patients with mechanical prosthetic intravascular valves IS PATIENT ON ANTICOAGULANTS ? [facility] been notified if Patient is on Heparin Drip? NOIf Yes, order CBC, OCCULT BLOOD, PT every other day NTHROMBOPLASTIN TIME [id number] 14:45:00* Test Item Value Reference Range Interpretation Comme nts PTT ACTIVATED (test code = APTT) 33.2 secs 25.1-36.5 N IS PATIENT ON ANTICOAGULANTS ? [facility] been notified if Patient is on Heparin Drip? NOIf Yes, order CBC, OCCULT BLOOD, PT every other day NCBC W/AUTO DIFF 2023-08-21 13:55:00* Test Item Value Reference Range Interpretation Comme nts WHITE BLOOD CELL (test code = WBC) 3.8 K/mm3 5.5-11.0 L RED BLOOD CELL (test code = RBC) 5.50 M/mm3 4.2-5.4 H HEMOGLOBIN (test code = HGB) 13.5 g/dL 12-16 N HEMATOCRIT (test code = HCT) 41.7 % 37-47 N MEAN CELL VOLUME (test code = MCV) 76 fL 80-98 L MEAN CELL HGB (test code = MCH) 24.5 pg 27-34 L MEAN CELL HGB CONCENTRATION (test code = MCHC) 32.4 g/dL 30.8-34.1 N RED CELL DISTRIBUTION WIDTH (test code = RDW) 15.9 % 11-16 N PLT (test code = PLT) 227 K/mm3 130-400 N MEAN PLATELET VOLUME (test c ode = MPV) 10.2 fL 8.9-12.1 N NEUTROPHIL % (test code = NT%) 55.8 % 45-70 N LYMPHOCYTE % (test code = LY%) 27.9 % 20-40 N MONOCYTE % (test code = MO%) 9.5 % 3-10 N EOSINOPHIL % (test code = EO%) 5.5 % 1-5 H BASOPHIL % (test code = BA%) 0.8 % 0.0-1.1 N NEUTROPHIL # (test code = NT#) 2.12 K/mm3 2.00-7.50 N LYMPHOCYTE # (test code = LY#) 1.06 K/mm3 1.50-4.00 L MONOCYTE # (test code = MO#) 0.36 K/mm3 0.2-0.8 N EOSINOPHIL # (test code = EO#) 0.21 K/mm3 0.04-0.4 N BASOPHIL # (test code = BA#) 0.03 K/mm3 0.02-0.10 N MANUAL DIFF REQUIRED (test c ode = MDIFF) NO MANUAL DIFF NUCLEATED RED BLOOD CELL (te st code = NRBC) 0 % 0-0 N CBC W Auto Differential panel - [id number] 11:45:00* Test Item Value Reference Range Interpretation Comme nts white blood cell (test code = white blood cell) 3.8 K/mm3 5.5-11.0 L red blood cell (test code = red blood cell) 5.50 M/mm3 4.2-5.4 H hemoglobin (test code = hemoglobin) 13.5 g/dL 12-16 hematocrit (test code = hematocrit) 41.7 % 37-47 mean cell volume (test code = mean cell volume) 76 fL 80-98 L mean cell HGB (test code = m fredy cell HGB) 24.5 pg 27-34 L mean cell HGB concentration (test code = mean cell HGB concentration) 32.4 g/dL 30.8-34.1 red cell distribution width (test code = red cell distribution width) 15.9 % 11-16 plt (test code = plt) 227 K/mm3 130-400 mean platelet volume (test c ode = mean platelet volume) 10.2 fL 8.9-12.1 neutrophil % (test code = neutrophil %) 55.8 % 45-70 lymphocyte % (test code = lymphocyte %) 27.9 % 20-40 monocyte % (test code = mono cyte %) 9.5 % 3-10 eosinophil % (test code = eosinophil %) 5.5 % 1-5 H basophil % (test code = baso vito %) 0.8 % 0.0-1.1 neutrophil # (test code = neutrophil #) 2.12 K/mm3 2.00-7.50 lymphocyte # (test code = lymphocyte #) 1.06 K/mm3 1.50-4.00 L monocyte # (test code = mono cyte #) 0.36 K/mm3 0.2-0.8 eosinophil # (test code = eosinophil #) 0.21 K/mm3 0.04-0.4 basophil # (test code = baso vito #) 0.03 K/mm3 0.02-0.10 manual diff required (test c ode = manual diff required) no manual diff nucleated red blood cell (te st code = nucleated red blood cell) 0 % 0-0 performing lab: (test code = performing lab:) [facility] (PT)2023-08-21 11:45:00* Test Item Value Reference Range Interpretation Comme nts prothrombin time patient (te st code = prothrombin time patient) 9.5 secs 9.4-12.5 international normal ratio ( test code = international normal ratio) 0.89 <2.0 performing lab: (test code = performing lab:) [facility]althromboplastin time [id number] 11:45:00 * Test Item Value Reference Range Interpretation Comme nts PTT activated (test code = P TT activated) 33.2 secs 25.1-36.5 performing lab: (test code = performing lab:) [facility] Medicinesed [id number] 11:45:00* Test Item Value Reference Range Interpretation Comme nts sed rate (test code = sed rate) 10 mm/HR 0-20 performing lab: (test code = performing lab:) [facility] - Serum or [id number] 11:45:00* Test Item Value Reference Range Interpretation Comme nts sodium (test code = sodium) 138 mmol/L 136-145 potassium (test code = potassium) 4.2 mmol/L 3.5-5.1 chloride (test code = chloride) 101.0 mmol/L 98-107 carbon dioxide (test code = carbon dioxide) 27.6 mmol/L 21-32 glucose (test code = glucose) 154 mg/dL 74-106 H blood urea nitrogen (test co de = blood urea nitrogen) 12 mg/dL 7-18 glomerular filtration rate ( test code = glomerular filtration rate) 99.0 >60 creatinine (test code = creatinine) 0.83 mg/dL 0.70-1.30 total protein (test code = t otal protein) 7.0 g/dL 6.4-8.2 albumin (test code = albumin) 3.6 g/dL 3.4-5.0 globulin (test code = globulin) 3.4 g/dL 2.2-4.2 albumin/globulin ratio (test code = albumin/globulin ratio) 1.1 0.7-2.0 calcium (test code = calcium) 9.5 mg/dL 8.5-10.1 bilirubin total (test code = bilirubin total) 0.30 mg/dL 0.2-1.00 SGOT/AST (test code = SGOT/AST) 26.0 U/L 15-37 SGPT/ALT (test code = SGPT/ALT) 58.0 U/L 16-63 alkaline phosphatase total ( test code = alkaline phosphatase total) 100 U/L 46-116 performing lab: (test code = performing lab:) [facility] HospitalC reactive [id number] 11:45:00* Test Item Value Reference Range Interpretation Comme nts C reactive protein (test cod e = C reactive protein) < 0.30 < 0.3 performing lab: (test code = performing lab:) [facility] HospitalCULTURE, [id number] 11:21:14SPECIMEN NUMBER: [id number] CULTURE, URINE SPECIMEN NUMBER: [id number] SPECIMEN COMMENT: URINE SOURCE: URINE REPORT STATUS: FINAL ISOLATE NUMBER 1: IDENTIFICATION: 07/06/2023 10-50,000 CFU/ML STREPTOCOCCUS AGALACTIAE (GROUP B) ADDITIONAL OBSERVATIONS: PENICILLIN AND AMPICILLIN ARE DRUGS OF CHOICE FOR TREATMENT OF B- HEMOLYTIC STREPTOCOCCAL INFECTIONS. SUSCEPTIBILITY TESTING OF PENICILLIN AND OTHER B-LACTAMS APPROVED BY THE [place] FOOD AND DRUG ADMINISTRATION FOR TREATMENT OF B-HEMOLYTIC STREPTOCOCCAL INFECTIONS NEED NOT BE PERFORMED ROUTINELY.CULTURE, [id number] 00:00:00* Test Item Value Reference Range Interpretation Comme nts CULTURE, URINE (test code = 81378) SPECIMEN NUMBER: [id number] Usman HymanCULTURE, [id number] 00:00:00* Test Item Value Reference Range Interpretation Comme nts CULTURE, URINE (test code = 01067) SPECIMEN NUMBER: [id number] Usman HymanPSA, [id number] 07:47:28* Test Item Value Reference Range Interpretation Comme nts PSA, TOTAL (test code = 2606) 0.31 NG/ML <=4.00 NOTE: Methodolog y is Tushar Jayden Electrochemiluminescence Immunoassay traceable to WHO reference standard 96/760. UNLESS OTHERWISE INDICATED, ALL TESTING PERFORMED AT [facility] [address] [place] [address] EXHIBITIONS AND COLLECTIONS MANAGER: MAREN CHAVARRIA M.D. CLIA NUMBER [id number] [facility] [place]. [id number] PSA, [id number] 00:00:00* Test Item Value Reference Range Interpretation Comme nts PSA, TOTAL (test code = 2606) 0.31 NG/ML Usman RaygozaA, [id number] 00:00:00* Test Item Value Reference Range Interpretation Comme nts PSA, TOTAL (test code = 2606) 0.31 NG/ML Usman HymanALBUMIN/CREATININE RATIO, URINE, [id number] 02:45:52* Test Item Value Reference Range Interpretation Comme nts CREATININE, URINE, CONC. (test code = 2072) 61.4 MG/DL NOT ESTAB ALBUMIN, URINE, RANDOM (test code = 35080) 9.1 MG/DL NOT ESTAB CALC ALBUMIN/CREAT, RND (test code = 53704) 148 MG/G <30 H Note: Albumin/Cr eatinine ratio reference interval reflects ADA and NKF guidelines. UNLESS OTHERWISE INDICATED, ALL TESTING PERFORMED AT [facility] [address] [place] [address] EXHIBITIONS AND COLLECTIONS MANAGER: MAREN CHAVARRIA M.D. [place] NUMBER [id number] [facility] [place]. [id number] ALBUMIN/CREATININE RATIO, RANDOM [id number] 00:00:00* Test Item Value Reference Range Interpretation Comme nts CREATININE, URINE, CONC. (te st code = 2072) 61.4 MG/DL ALBUMIN, URINE, RANDOM (test code = 89930) 9.1 MG/DL CALC ALBUMIN/CREAT, RND (shanna t code = 09873) 148 MG/G Usman HymanALBUMIN/CREATININE RATIO, RANDOM [id number] 00:00:00* Test Item Value Reference Range Interpretation Comme nts CREATININE, URINE, CONC. (te st code = 2072) 61.4 MG/DL ALBUMIN, URINE, RANDOM (test code = 39646) 9.1 MG/DL CALC ALBUMIN/CREAT, RND (shanna t code = 93602) 148 MG/G Usman HymanHCV RNA, PCR [id number] 20:16:46* Test Item Value Reference Range Interpretation Comme nts HCV RNA, PCR QUANT (test code = 4571) NOT DETEC IU/ML HCV VIRAL LOG (test code = 34057) NOT DETEC LOG IU/ML HCV RNA was [...] range is NOT DETECTED. HEPATITIS C REFLEX [id number] 02:34:07* Test Item Value Reference Range Interpretation Comme nts HEPATITIS C ANTIBODY (test c ode = 4675) REACTIVE NON-REACTIVE A HEPATITIS C REFLEX [id number] 00:00:00* Test Item Value Reference Range Interpretation Comme nts HEPATITIS C ANTIBODY (test c ode = 4675) REACTIVE Usman HymanHCV RNA, PCR [id number] 00:00:00* Test Item Value Reference Range Interpretation Comme nts HCV RNA, PCR QUANT (test code = 4571) NOT DETEC IU/ML HCV VIRAL LOG (test code = 58578) NOT DETEC LOGIU/ML Usman HymanHEPATITIS C REFLEX [id number] 00:00:00* Test Item Value Reference Range Interpretation Comme nts HEPATITIS C ANTIBODY (test c ode = 4675) REACTIVE Usman Patterson AustinHCV RNA, PCR [id number] 00:00:00* Test Item Value Reference Range Interpretation Comme nts HCV RNA, PCR QUANT (test code = 4571) NOT DETEC IU/ML HCV VIRAL LOG (test code = 18238) NOT DETEC LOGIU/ML Usman HymanCOMPREHENSIVE METABOLIC [id number] 23:23:07* Test Item Value Reference Range Interpretation Comme nts GLUCOSE (test code = 2217) 327 MG/DL 70-99 H BUN (test code = 2208) 14 MG/DL 8-23 CREATININE (test code = 2214) 1.20 MG/DL 0.80-1.40 eGFR (2020 CKD-EPI) (test co de = 03487) 69 ML/MIN/1.73 >60 CALC BUN/CREAT (test code = 2235) 12 RATIO 6-28 SODIUM (test code = 2231) 136 MEQ/L 133-146 POTASSIUM (test code = 2228) 4.7 MEQ/L 3.5-5.4 CHLORIDE (test code = 2215) 99 MEQ/L 95-107 CARBON DIOXIDE (test code = 2206) 25 MEQ/L 19-31 CALCIUM (test code = 2209) 10.0 MG/DL 8.5-10.5 PROTEIN, TOTAL (test code = 222) 7.3 G/DL 6.1-8.3 ALBUMIN (test code = [...] code = 2219) 40 U/L 5-50 LIPID [id number] 23:23:07* Test Item Value Reference Range Interpretation [...] SPECIMENS. FOR MOREINFORMATION, SEE CLIENT ANNOUNCEMENT AT [email or web address] RISK RATIO LDL/HDL (test code = 2238) 2.74 RATIO <3.55 HEMOGLOBIN [id number] 03:16:16* Test Item Value Reference Range Interpretation Comme nts HEMOGLOBIN A1c (test code = 13916) 11.2 % 4.2-5.6 H [employer]ATION GUIDELINES FOR HGB A1C: [...] ETC.). CONSIDER ALTERNATE TESTING OR LABORATORY CONSULTATION. HEMOGLOBIN [id number] 00:00:00* Test Item Value Reference Range Interpretation Comme nts HEMOGLOBIN A1c (test code = 42118) 11.2 % Usman F AustinLIPID [id number] 00:00:00* Test Item Value Reference Range Interpretation Comme nts CHOLESTEROL (test code = 2210) 128 MG/DL TRIGLYCERIDES (test code = 2232) 174 MG/DL HDL CHOLESTEROL (test code = 2220) 27 MG/DL CALC LDL CHOL (test code = 2237) 74 MG/DL RISK RATIO LDL/HDL (test cod e = 2238) 2.74 RATIO Usman HymanCOMPREHENSIVE METABOLIC [id number] 00:00:00* Test Item Value Reference Range Interpretation Comme nts GLUCOSE (test code = 2217) 327 MG/DL BUN (test code = 2208) 14 MG/DL CREATININE (test code = 2214) 1.20 MG/DL eGFR (2020 CKD-EPI) (test co de = 63878) 69 ML/MIN/1.73 CALC BUN/CREAT (test code = 2235) 12 RATIO SODIUM (test code = 2231) 136 MEQ/L POTASSIUM (test code = 2228) 4.7 MEQ/L CHLORIDE (test code = 2215) 99 MEQ/L CARBON DIOXIDE (test code = 2206) 25 MEQ/L CALCIUM (test code = 2209) 10.0 MG/DL PROTEIN, TOTAL (test code = 2229) 7.3 G/DL ALBUMIN (test code = 2201) 4.4 G/DL CALC GLOBULIN (test code = 2240) 2.9 G/DL CALC A/G RATIO (test code = 2234) 1.5 RATIO BILIRUBIN, TOTAL (test code = 2207) 0.4 MG/DL ALKALINE PHOSPHATASE (test code = 2204) 55 U/L AST (test code = 2218) 26 U/L ALT (test code = 2219) 40 U/L Usman HymanHEMOGLOBIN [id number] 00:00:00* Test Item Value Reference Range Interpretation Comme nts HEMOGLOBIN A1c (test code = 85214) 11.2 % Usman HymanLIPID [id number] 00:00:00* Test Item Value Reference Range Interpretation Comme nts CHOLESTEROL (test code = 2210) 128 MG/DL TRIGLYCERIDES (test code = 2232) 174 MG/DL HDL CHOLESTEROL (test code = 2220) 27 MG/DL CALC LDL CHOL (test code = 2237) 74 MG/DL RISK RATIO LDL/HDL (test cod e = 2238) 2.74 RATIO Usman Patterson AustinCOMPREHENSIVE METABOLIC [id number] 00:00:00* Test Item Value Reference Range Interpretation Comme nts GLUCOSE (test code = 2217) 327 MG/DL BUN (test code = 2208) 14 MG/DL CREATININE (test code = 2214) 1.20 MG/DL eGFR (2020 CKD-EPI) (test co de = 11461) 69 ML/MIN/1.73 CALC BUN/CREAT (test code = 2235) 12 RATIO SODIUM (test code = 223) 136 MEQ/L POTASSIUM (test code = 2228) 4.7 MEQ/L CHLORIDE (test code = 2215) 99 MEQ/L CARBON DIOXIDE (test code = 2206) 25 MEQ/L CALCIUM (test code = 2209) 10.0 MG/DL PROTEIN, TOTAL (test code = 222) 7.3 G/DL ALBUMIN (test code = 2201) 4.4 G/DL CALC GLOBULIN (test code = 2240) 2.9 G/DL CALC A/G RATIO (test code = 2234) 1.5 RATIO BILIRUBIN, TOTAL (test code = 2207) 0.4 MG/DL ALKALINE PHOSPHATASE (test code = 2204) 55 U/L AST (test code = 2218) 26 U/L ALT (test code = 2219) 40 U/L Usman HymanHIV 1/2 4TH GEN, RFLX [id number] 04:13:42* Test Item Value Reference Range Interpretation Comme nts HIV 1/2 4TH GEN, RFLX CONF ( test code = 3514) NON-REACTIVE NON-REACTIVE HIV AB/AG COMBO RFLX [id number] 00:00:00* Test Item Value Reference Range Interpretation Comme nts HIV 1/2 4TH GEN, RFLX CONF ( test code = 3514) NON-REACTIVE Usman HymanHIV AB/AG COMBO RFLX [id number] 00:00:00* Test Item Value Reference Range Interpretation Comme nts HIV 1/2 4TH GEN, RFLX CONF ( test code = 3514) NON-REACTIVE Usman HymanTSH, THIRD [id number] 01:15:29* Test Item Value Reference Range Interpretation Comme nts TSH, THIRD GENERATION (test code = 2821) 0.746 UIU/ML 0.400-4.100 UNLESS OTHERWISE INDICATED, ALL TESTING PERFORMED ATCLINICAL PATHOLOGY [employer] [address] [place] [id number] EXHIBITIONS AND COLLECTIONS MANAGER: FRANCES SAPP M.D. [place] NUMBER [id number] [facility] [place]. [id number] LIPID [id number] 00:16:46* Test Item Value Reference Range Interpretation [...] SPECIMENS. FOR MOREINFORMATION, SEE CLIENT ANNOUNCEMENT AT [email or web address] RISK RATIO LDL/HDL (test code = 2238) 1.08 RATIO <3.55 LIPID [id number] 00:00:00* Test Item Value Reference Range Interpretation Comme nts CHOLESTEROL (test code = 2210) 106 MG/DL TRIGLYCERIDES (test code = 2232) 144 MG/DL HDL CHOLESTEROL (test code = 2220) 40 MG/DL CALC LDL CHOL (test code = 2237) 43 MG/DL RISK RATIO LDL/HDL (test cod e = 2238) 1.08 RATIO Usman Patterson [id number] 00:00:00* Test Item Value Reference Range Interpretation Comme nts TSH, THIRD GENERATION (test code = 2821) 0.746 UIU/ML Usman HymanLIPID [id number] 00:00:00* Test Item Value Reference Range Interpretation Comme nts CHOLESTEROL (test code = 2210) 106 MG/DL TRIGLYCERIDES (test code = 2232) 144 MG/DL HDL CHOLESTEROL (test code = 2220) 40 MG/DL CALC LDL CHOL (test code = 2237) 43 MG/DL RISK RATIO LDL/HDL (test cod e = 2238) 1.08 RATIO Usman Patterson [id number] 00:00:00* Test Item Value Reference Range Interpretation Comme nts TSH, THIRD GENERATION (test code = 2821) 0.746 UIU/ML Usman F AustinHEMOGLOBIN [id number] 07:26:51* Test Item Value Reference Range Interpretation Comme nts HEMOGLOBIN A1c (test code = 77273) 13.1 % 4.2-5.6 H [employer] GUIDELINES FOR HGB A1C: [...] OR LABORATORY CONSULTATION. CBC W/AUTO DIFF WITH [id number] 05:39:50* Test Item Value Reference Range Interpretation [...] = 1065) 0.0 /100 WBC'S See_Comment [Automated Chiral Qu[facility]] The system which generated this result transmitted [...] 0.00-0.10 ABS NUCLEATED RBCS (test code = 11971) 0.00 K/UL 0.00-0.11 HEMOGLOBIN [id number] 00:00:00* Test Item Value Reference Range Interpretation Comme nts HEMOGLOBIN A1c (test code = 05839) 13.1 % [facility] [id number] 00:00:00* Test Item Value Reference Range Interpretation Comme nts WBC (test code = 1001) 7.2 K/UL RBC (test code = 1002) 5.07 M/UL HEMOGLOBIN (test code = 1003) 13.1 G/DL HEMATOCRIT (test code = 1004) 41.4 % MCV (test code = 1005) 81.7 fL MCH (test code = 1006) 25.8 PG MCHC (test code = 1007) 31.6 G/DL RDW (test code = 1038) 12.7 % NEUTROPHILS (test code = 1008) 70.0 % LYMPHOCYTES (test code = 1010) 20.9 % MONOCYTES (test code = 1011) 6.6 % EOSINOPHILS (test code = 1012) 1.8 % BASOPHILS (test code = 1013) 0.3 % IMMATURE GRANULOCYTES (test code = 1036) 0.4 % NUCLEATED RBCS (test code = 1065) 0.0 /100WBC'S PLATELET COUNT (test code = 1015) 264 K/UL ABSOLUTE NEUTROPHILS (test c ode = 1066) 5.01 K/UL ABSOLUTE LYMPHOCYTES (test c ode = 1067) 1.50 K/UL ABSOLUTE MONOCYTES (test cod e = 1068) 0.47 K/UL ABSOLUTE EOSINOPHILS (test c ode = 1040) 0.13 K/UL ABSOLUTE BASOPHILS (test cod e = 1069) 0.02 K/UL ABS IMMATURE GRANULOCYTES (t est code = 1020) 0.03 K/UL ABS NUCLEATED RBCS (test cod e = 98007) 0.00 K/UL Usman HymanHEMOGLOBIN [id number] 00:00:00* Test Item Value Reference Range Interpretation Comme nts HEMOGLOBIN A1c (test code = 56841) 13.1 % Usman HymanCBC W/AUTO [id number] 00:00:00* Test Item Value Reference Range Interpretation Comme nts WBC (test code = 1001) 7.2 K/UL RBC (test code = 1002) 5.07 M/UL HEMOGLOBIN (test code = 1003) 13.1 G/DL HEMATOCRIT (test code = 1004) 41.4 % MCV (test code = 1005) 81.7 fL MCH (test code = 1006) 25.8 PG MCHC (test code = 1007) 31.6 G/DL RDW (test code = 1038) 12.7 % NEUTROPHILS (test code = 1008) 70.0 % LYMPHOCYTES (test code = 1010) 20.9 % MONOCYTES (test code = 1011) 6.6 % EOSINOPHILS (test code = 1012) 1.8 % BASOPHILS (test code = 1013) 0.3 % IMMATURE GRANULOCYTES (test code = 1036) 0.4 % NUCLEATED RBCS (test code = 1065) 0.0 /100WBC'S PLATELET COUNT (test code = 1015) 264 K/UL ABSOLUTE NEUTROPHILS (test c ode = 1066) 5.01 K/UL ABSOLUTE LYMPHOCYTES (test c ode = 1067) 1.50 K/UL ABSOLUTE MONOCYTES (test cod e = 1068) 0.47 K/UL ABSOLUTE EOSINOPHILS (test c ode = 1040) 0.13 K/UL ABSOLUTE BASOPHILS (test cod e = 1069) 0.02 K/UL ABS IMMATURE GRANULOCYTES (t est code = 1020) 0.03 K/UL ABS NUCLEATED RBCS (test cod e = 44851) 0.00 K/UL Usman HymanLIPID PANEL [ADDED]2021-06-02 00:00:00* Test Item Value Reference Range Interpretation Comme nts CHOLESTEROL (test code = 2210) 203 MG/DL TRIGLYCERIDES (test code = 2232) 337 MG/DL HDL CHOLESTEROL (test code = 2220) 50 MG/DL CALC LDL CHOL (test code = 2237) 108 MG/DL RISK RATIO LDL/HDL (test cod e = 2238) 2.16 RATIO Usman HymanCOMPREHENSIVE METABOLIC PANEL [ADDED]2021-06-02 00:00:00* Test Item Value Reference Range Interpretation Comme nts GLUCOSE (test code = 2217) 248 MG/DL BUN (test code = 2208) 20 MG/DL CREATININE (test code = 2214) 1.25 MG/DL eGFR (2020 CKD-EPI) (test co de = 36449) 66 ML/MIN/1.73 CALC BUN/CREAT (test code = 2235) 16 RATIO SODIUM (test code = 2231) 137 MEQ/L POTASSIUM (test code = 2228) 4.1 MEQ/L CHLORIDE (test code = 2215) 98 MEQ/L CARBON DIOXIDE (test code = 2206) 26 MEQ/L CALCIUM (test code = 2209) 9.7 MG/DL PROTEIN, TOTAL (test code = 2229) 7.3 G/DL ALBUMIN (test code = 2201) 4.2 G/DL CALC GLOBULIN (test code = 2240) 3.1 G/DL CALC A/G RATIO (test code = 2234) 1.4 RATIO BILIRUBIN, TOTAL (test code = 2207) 0.3 MG/DL ALKALINE PHOSPHATASE (test code = 2204) 73 U/L AST (test code = 2218) 23 U/L ALT (test code = 2219) 30 U/L Usman HymanALBUMIN/CREATININE RATIO, URINE, RANDOM [ADDED]2021-06-02 00:00:00* Test Item Value Reference Range Interpretation Comme nts CREATININE, URINE, CONC. (te st code = 2072) 98.4 MG/DL ALBUMIN, URINE, RANDOM (test code = 65886) 0.8 MG/DL CALC ALBUMIN/CREAT, RND (shanna t code = 89366) 8 MG/G Usman HymanHEMOGLOBIN A1c [ADDED]2021-06-02 00:00:00* Test Item Value Reference Range Interpretation Comme nts HEMOGLOBIN A1c (test code = 85671) 12.7 % Usman HymanLIPID PANEL [ADDED]2021-06-02 00:00:00* Test Item Value Reference Range Interpretation Comme nts CHOLESTEROL (test code = 2210) 203 MG/DL TRIGLYCERIDES (test code = 2232) 337 MG/DL HDL CHOLESTEROL (test code = 2220) 50 MG/DL CALC LDL CHOL (test code = 2237) 108 MG/DL RISK RATIO LDL/HDL (test cod e = 2238) 2.16 RATIO Usman HymanCOMPREHENSIVE METABOLIC PANEL [ADDED]2021-06-02 00:00:00* Test Item Value Reference Range Interpretation Comme nts GLUCOSE (test code = 2217) 248 MG/DL BUN (test code = 2208) 20 MG/DL CREATININE (test code = 2214) 1.25 MG/DL eGFR (2020 CKD-EPI) (test co de = 85377) 66 ML/MIN/1.73 CALC BUN/CREAT (test code = 2235) 16 RATIO SODIUM (test code = 2231) 137 MEQ/L POTASSIUM (test code = 2228) 4.1 MEQ/L CHLORIDE (test code = 2215) 98 MEQ/L CARBON DIOXIDE (test code = 2206) 26 MEQ/L CALCIUM (test code = 2209) 9.7 MG/DL PROTEIN, TOTAL (test code = 2229) 7.3 G/DL ALBUMIN (test code = 2201) 4.2 G/DL CALC GLOBULIN (test code = 2240) 3.1 G/DL CALC A/G RATIO (test code = 2234) 1.4 RATIO BILIRUBIN, TOTAL (test code = 2207) 0.3 MG/DL ALKALINE PHOSPHATASE (test code = 2204) 73 U/L AST (test code = 2218) 23 U/L ALT (test code = 2219) 30 U/L Usman HymanALBUMIN/CREATININE RATIO, URINE, RANDOM [ADDED]2021-06-02 00:00:00* Test Item Value Reference Range Interpretation Comme nts CREATININE, URINE, CONC. (te st code = 2072) 98.4 MG/DL ALBUMIN, URINE, RANDOM (test code = 67111) 0.8 MG/DL CALC ALBUMIN/CREAT, RND (shanna t code = 14678) 8 MG/G Usman HymanHEMOGLOBIN A1c [ADDED]2021-06-02 00:00:00* Test Item Value Reference Range Interpretation Comme nts HEMOGLOBIN A1c (test code = 54886) 12.7 % Usman Patterson BoogieLIPID [id number] 00:00:00* Test Item Value Reference Range Interpretation Comme nts CHOLESTEROL (test code = 2210) 95 MG/DL TRIGLYCERIDES (test code = 2232) 176 MG/DL HDL CHOLESTEROL (test code = 2220) 34 MG/DL CALC LDL CHOL (test code = 2237) 36 MG/DL RISK RATIO LDL/HDL (test cod e = 2238) 1.06 RATIO Usman HymanCOMPREHENSIVE METABOLIC [id number] 00:00:00* Test Item Value Reference Range Interpretation Comme nts GLUCOSE (test code = 2217) 494 MG/DL BUN (test code = 2208) 12 MG/DL CREATININE (test code = 2214) 1.44 MG/DL eGFR AMER. (test cod e = 54782) 61 ML/MIN/1.73 eGFR NON- AMER. (test code = 51864) 53 ML/MIN/1.73 CALC BUN/CREAT (test code = 2235) 8 RATIO SODIUM (test code = 2231) 135 MEQ/L POTASSIUM (test code = 2228) 4.2 MEQ/L CHLORIDE (test code = 2215) 94 MEQ/L CARBON DIOXIDE (test code = 2206) 28 MEQ/L CALCIUM (test code = 2209) 10.0 MG/DL PROTEIN, TOTAL (test code = 2229) 7.2 G/DL ALBUMIN (test code = 2201) 4.4 G/DL CALC GLOBULIN (test code = 2240) 2.8 G/DL CALC A/G RATIO (test code = 2234) 1.6 RATIO BILIRUBIN, TOTAL (test code = 2207) 0.4 MG/DL ALKALINE PHOSPHATASE (test code = 2204) 69 U/L AST (test code = 2218) 26 U/L ALT (test code = 2219) 33 U/L Usman HymanHEMOGLOBIN [id number] 00:00:00* Test Item Value Reference Range Interpretation Comme nts HEMOGLOBIN A1c (test code = 95986) 13.8 % Usman HymanLIPID [id number] 00:00:00* Test Item Value Reference Range Interpretation Comme nts CHOLESTEROL (test code = 2210) 95 MG/DL TRIGLYCERIDES (test code = 2232) 176 MG/DL HDL CHOLESTEROL (test code = 2220) 34 MG/DL CALC LDL CHOL (test code = 2237) 36 MG/DL RISK RATIO LDL/HDL (test cod e = 2238) 1.06 RATIO Usman HymanCOMPREHENSIVE METABOLIC [id number] 00:00:00* Test Item Value Reference Range Interpretation Comme nts GLUCOSE (test code = 2217) 494 MG/DL BUN (test code = 2208) 12 MG/DL CREATININE (test code = 2214) 1.44 MG/DL eGFR AMER. (test cod e = 75186) 61 ML/MIN/1.73 eGFR NON- AMER. (test code = 27162) 53 ML/MIN/1.73 CALC BUN/CREAT (test code = 2235) 8 RATIO SODIUM (test code = 2231) 135 MEQ/L POTASSIUM (test code = 2228) 4.2 MEQ/L CHLORIDE (test code = 2215) 94 MEQ/L CARBON DIOXIDE (test code = 2206) 28 MEQ/L CALCIUM (test code = 2209) 10.0 MG/DL PROTEIN, TOTAL (test code = 2229) 7.2 G/DL ALBUMIN (test code = 2201) 4.4 G/DL CALC GLOBULIN (test code = 2240) 2.8 G/DL CALC A/G RATIO (test code = 2234) 1.6 RATIO BILIRUBIN, TOTAL (test code = 2207) 0.4 MG/DL ALKALINE PHOSPHATASE (test code = 2204) 69 U/L AST (test code = 2218) 26 U/L ALT (test code = 2219) 33 U/L Usman HymanHEMOGLOBIN [id number] 00:00:00* Test Item Value Reference Range Interpretation Comme nts HEMOGLOBIN A1c (test code = 03009) 13.8 % Usman Patterson AustinLIPID [id number] 00:00:00* Test Item Value Reference Range Interpretation Comme nts CHOLESTEROL (test code = 2210) 86 MG/DL TRIGLYCERIDES (test code = 2232) 132 MG/DL HDL CHOLESTEROL (test code = 2220) 30 MG/DL CALC LDL CHOL (test code = 2237) 34 MG/DL RISK RATIO LDL/HDL (test cod e = 2238) 1.13 RATIO Usman HymanCOMPREHENSIVE METABOLIC [id number] 00:00:00* Test Item Value Reference Range Interpretation Comme nts GLUCOSE (test code = 2217) 231 MG/DL BUN (test code = 2207) 14 MG/DL CREATININE (test code = 2214) 1.22 MG/DL eGFR AMER. (test cod e = 39208) 75 ML/MIN/1.73 eGFR NON- AMER. (test code = 99245) 64 ML/MIN/1.73 CALC BUN/CREAT (test code = 2235) 11 RATIO SODIUM (test code = 223) 137 MEQ/L POTASSIUM (test code = 2228) 3.8 MEQ/L CHLORIDE (test code = 2215) 98 MEQ/L CARBON DIOXIDE (test code = 2206) 26 MEQ/L CALCIUM (test code = 2209) 9.3 MG/DL PROTEIN, TOTAL (test code = 2228) 6.7 G/DL ALBUMIN (test code = 220) 4.1 G/DL CALC GLOBULIN (test code = 2240) 2.6 G/DL CALC A/G RATIO (test code = 2234) 1.6 RATIO BILIRUBIN, TOTAL (test code = 2206) 0.2 MG/DL ALKALINE PHOSPHATASE (test code = 2203) 50 U/L AST (test code = 2218) 27 U/L ALT (test code = 2219) 36 U/L Usman HymanHEMOGLOBIN [id number] 00:00:00* Test Item Value Reference Range Interpretation Comme nts HEMOGLOBIN A1c (test code = 86921) 10.9 % Usman HymanLIPID [id number] 00:00:00* Test Item Value Reference Range Interpretation Comme nts CHOLESTEROL (test code = 2210) 86 MG/DL TRIGLYCERIDES (test code = 2232) 132 MG/DL HDL CHOLESTEROL (test code = 2220) 30 MG/DL CALC LDL CHOL (test code = 2237) 34 MG/DL RISK RATIO LDL/HDL (test cod e = 2238) 1.13 RATIO Usman HymanCOMPREHENSIVE METABOLIC [id number] 00:00:00* Test Item Value Reference Range Interpretation Comme nts GLUCOSE (test code = 7) 231 MG/DL BUN (test code = 8) 14 MG/DL CREATININE (test code = 2214) 1.22 MG/DL eGFR AMER. (test cod e = 03319) 75 ML/MIN/1.73 eGFR NON- AMER. (test code = 79778) 64 ML/MIN/1.73 CALC BUN/CREAT (test code = 2235) 11 RATIO SODIUM (test code = 2231) 137 MEQ/L POTASSIUM (test code = 2228) 3.8 MEQ/L CHLORIDE (test code = 2215) 98 MEQ/L CARBON DIOXIDE (test code = 2206) 26 MEQ/L CALCIUM (test code = 2209) 9.3 MG/DL PROTEIN, TOTAL (test code = 2229) 6.7 G/DL ALBUMIN (test code = 2201) 4.1 G/DL CALC GLOBULIN (test code = 2240) 2.6 G/DL CALC A/G RATIO (test code = 2234) 1.6 RATIO BILIRUBIN, TOTAL (test code = 2207) 0.2 MG/DL ALKALINE PHOSPHATASE (test code = 2204) 50 U/L AST (test code = 2218) 27 U/L ALT (test code = 2219) 36 U/L Usman HymanHEMOGLOBIN [id number] 00:00:00* Test Item Value Reference Range Interpretation Comme [facility] HEMOGLOBIN A1c (test code = 37946) 10.9 % Usman HymanCBC W/AUTO [id number] 00:00:00* Test Item Value Reference Range Interpretation Comme nts WBC (test code = 1001) 8.4 K/UL RBC (test code = 1002) 4.87 M/UL HEMOGLOBIN (test code = 1003) 13.0 G/DL HEMATOCRIT (test code = 1004) 38.8 % MCV (test code = 1005) 79.7 fL MCH (test code = 1006) 26.7 PG MCHC (test code = 1007) 33.5 G/DL RDW (test code = 1038) 14.7 % NEUTROPHILS (test code = 1008) 73.7 % LYMPHOCYTES (test code = 1010) 16.8 % MONOCYTES (test code = 1011) 7.8 % EOSINOPHILS (test code = 1012) 1.2 % BASOPHILS (test code = 1013) 0.5 % PLATELET COUNT (test code = 1015) 290 K/UL Usman HymanLIPID [id number] 00:00:00* Test Item Value Reference Range Interpretation Comme nts CHOLESTEROL (test code = 2210) 224 MG/DL TRIGLYCERIDES (test code = 2232) 268 MG/DL HDL CHOLESTEROL (test code = 2220) 41 MG/DL CALC LDL CHOL (test code = 2237) 142 MG/DL RISK RATIO LDL/HDL (test cod e = 2238) 3.46 RATIO Usman HymanCOMPREHENSIVE METABOLIC [id number] 00:00:00* Test Item Value Reference Range Interpretation Comme nts GLUCOSE (test code = 2217) 204 MG/DL BUN (test code = 2208) 12 MG/DL CREATININE (test code = 2214) 1.20 MG/DL eGFR AMER. (test cod e = 28492) 76 ML/MIN/1.73 eGFR NON- AMER. (test code = 71257) 66 ML/MIN/1.73 CALC BUN/CREAT (test code = 2235) 10 RATIO SODIUM (test code = 2231) 140 MEQ/L POTASSIUM (test code = 2228) 4.0 MEQ/L CHLORIDE (test code = 2215) 99 MEQ/L CARBON DIOXIDE (test code = 2206) 26 MEQ/L CALCIUM (test code = 2209) 10.1 MG/DL PROTEIN, TOTAL (test code = 2229) 7.4 G/DL ALBUMIN (test code = 2201) 4.4 G/DL CALC GLOBULIN (test code = 2240) 3.0 G/DL CALC A/G RATIO (test code = 2234) 1.5 RATIO BILIRUBIN, TOTAL (test code = 2207) 0.4 MG/DL ALKALINE PHOSPHATASE (test code = 2204) 64 U/L AST (test code = 2218) 28 U/L ALT (test code = 2219) 30 U/L Usman HymanHEMOGLOBIN [id number] 00:00:00* Test Item Value Reference Range Interpretation Comme [facility] HEMOGLOBIN A1c (test code = 45491) 10.1 % Usman HymanCBC W/AUTO [id number] 00:00:00* Test Item Value Reference Range Interpretation Comme nts WBC (test code = 1001) 8.4 K/UL RBC (test code = 1002) 4.87 M/UL HEMOGLOBIN (test code = 1003) 13.0 G/DL HEMATOCRIT (test code = 1004) 38.8 % MCV (test code = 1005) 79.7 fL MCH (test code = 1006) 26.7 PG MCHC (test code = 1007) 33.5 G/DL RDW (test code = 1038) 14.7 % NEUTROPHILS (test code = 1008) 73.7 % LYMPHOCYTES (test code = 1010) 16.8 % MONOCYTES (test code = 1011) 7.8 % EOSINOPHILS (test code = 1012) 1.2 % BASOPHILS (test code = 1013) 0.5 % PLATELET COUNT (test code = 1015) 290 K/UL Usman Patterson AustinLIPID [id number] 00:00:00* Test Item Value Reference Range Interpretation Comme nts CHOLESTEROL (test code = 2210) 224 MG/DL TRIGLYCERIDES (test code = 2232) 268 MG/DL HDL CHOLESTEROL (test code = 2220) 41 MG/DL CALC LDL CHOL (test code = 2237) 142 MG/DL RISK RATIO LDL/HDL (test cod e = 2238) 3.46 RATIO Usman HymanCOMPREHENSIVE METABOLIC [id number] 00:00:00* Test Item Value Reference Range Interpretation Comme nts GLUCOSE (test code = 2217) 204 MG/DL BUN (test code = 2208) 12 MG/DL CREATININE (test code = 2214) 1.20 MG/DL eGFR AMER. (test cod e = 90816) 76 ML/MIN/1.73 eGFR NON- AMER. (test code = 41366) 66 ML/MIN/1.73 CALC BUN/CREAT (test code = 2235) 10 RATIO SODIUM (test code = 2231) 140 MEQ/L POTASSIUM (test code = 2228) 4.0 MEQ/L CHLORIDE (test code = 2215) 99 MEQ/L CARBON DIOXIDE (test code = 2206) 26 MEQ/L CALCIUM (test code = 2209) 10.1 MG/DL PROTEIN, TOTAL (test code = 2229) 7.4 G/DL ALBUMIN (test code = 2201) 4.4 G/DL CALC GLOBULIN (test code = 2240) 3.0 G/DL CALC A/G RATIO (test code = 2234) 1.5 RATIO BILIRUBIN, TOTAL (test code = 2207) 0.4 MG/DL ALKALINE PHOSPHATASE (test code = 2204) 64 U/L AST (test code = 2218) 28 U/L ALT (test code = 2219) 30 U/L Usman HymanHEMOGLOBIN [id number] 00:00:00* Test Item Value Reference Range Interpretation Comme nts HEMOGLOBIN A1c (test code = 22831) 10.1 % Usman HymanSARS-CoV-2 (COVID-19) by RT-PCR (HIGH RISK)2020-01-05 00:00:00* Test Item Value Reference Range Interpretation Comme nts SARS-CoV-2 INTERPRETATION (t est code = 12383) NEGATIVE SOURCE (test code = 09730) NOT SPECIFIED Usman Patterson [id number] (COVID-19) by RT-PCR (HIGH RISK)2020-01-05 00:00:00* Test Item Value Reference Range Interpretation Comme nts SARS-CoV-2 INTERPRETATION (t est code = 67288) NEGATIVE SOURCE (test code = 77755) NOT SPECIFIED Usman HymanLIPID [id number] 00:00:00* Test Item Value Reference Range Interpretation Comme nts CHOLESTEROL (test code = 2210) 180 MG/DL TRIGLYCERIDES (test code = 2232) 177 MG/DL HDL CHOLESTEROL (test code = 2220) 25 MG/DL CALC LDL CHOL (test code = 2237) 126 MG/DL RISK RATIO LDL/HDL (test cod e = 2238) 5.04 RATIO Usman HymanHEMOGLOBIN [id number] 00:00:00* Test Item Value Reference Range Interpretation Comme nts HEMOGLOBIN A1c (test code = 05424) 9.2 % Usman HymanCOMPREHENSIVE METABOLIC [id number] 00:00:00* Test Item Value Reference Range Interpretation Comme nts GLUCOSE (test code = 2217) 215 MG/DL BUN (test code = 2208) 10 MG/DL CREATININE (test code = 2214) 1.28 MG/DL eGFR AMER. (test cod e = 34704) 71 ML/MIN/1.73 eGFR NON- AMER. (test code = 77537) 61 ML/MIN/1.73 CALC BUN/CREAT (test code = 2235) 8 RATIO SODIUM (test code = 2231) 136 MEQ/L POTASSIUM (test code = 2228) 5.3 MEQ/L CHLORIDE (test code = 2215) 100 MEQ/L CARBON DIOXIDE (test code = 2206) 25 MEQ/L CALCIUM (test code = 2209) 9.3 MG/DL PROTEIN, TOTAL (test code = 2229) 7.0 G/DL ALBUMIN (test code = 2201) 4.2 G/DL CALC GLOBULIN (test code = 2240) 2.8 G/DL CALC A/G RATIO (test code = 2234) 1.5 RATIO BILIRUBIN, TOTAL (test code = 2207) 0.7 MG/DL ALKALINE PHOSPHATASE (test code = 2204) 42 U/L AST (test code = 2218) 32 U/L ALT (test code = 2219) 46 U/L Usman HymanLIPID [id number] 00:00:00* Test Item Value Reference Range Interpretation Comme nts CHOLESTEROL (test code = 2210) 180 MG/DL TRIGLYCERIDES (test code = 2232) 177 MG/DL HDL CHOLESTEROL (test code = 2220) 25 MG/DL CALC LDL CHOL (test code = 2237) 126 MG/DL RISK RATIO LDL/HDL (test cod e = 2237) 5.04 RATIO Usman HymanHEMOGLOBIN [id number] 00:00:00* Test Item Value Reference Range Interpretation Comme nts HEMOGLOBIN A1c (test code = 42270) 9.2 % Usman HymanCOMPREHENSIVE METABOLIC [id number] 00:00:00* Test Item Value Reference Range Interpretation Comme nts GLUCOSE (test code = 2217) 215 MG/DL BUN (test code = 2208) 10 MG/DL CREATININE (test code = 2214) 1.28 MG/DL eGFR AMER. (test cod e = 16518) 71 ML/MIN/1.73 eGFR NON- AMER. (test code = 05150) 61 ML/MIN/1.73 CALC BUN/CREAT (test code = 2235) 8 RATIO SODIUM (test code = 2231) 136 MEQ/L POTASSIUM (test code = 2228) 5.3 MEQ/L CHLORIDE (test code = 2215) 100 MEQ/L CARBON DIOXIDE (test code = 2206) 25 MEQ/L CALCIUM (test code = 2209) 9.3 MG/DL PROTEIN, TOTAL (test code = 2229) 7.0 G/DL ALBUMIN (test code = 2201) 4.2 G/DL CALC GLOBULIN (test code = 2240) 2.8 G/DL CALC A/G RATIO (test code = 2234) 1.5 RATIO BILIRUBIN, TOTAL (test code = 2207) 0.7 MG/DL ALKALINE PHOSPHATASE (test code = 2204) 42 U/L AST (test code = 2218) 32 U/L ALT (test code = 2219) 46 U/L Usman HymanHEMOGLOBIN [id number] 00:00:00* Test Item Value Reference Range Interpretation Comme nts HEMOGLOBIN A1c (test code = 60324) 7.5 % Usman HymanCOMPREHENSIVE METABOLIC [id number] 00:00:00* Test Item Value Reference Range Interpretation Comme nts GLUCOSE (test code = 2217) 186 MG/DL BUN (test code = 2208) 14 MG/DL CREATININE (test code = 2214) 1.07 MG/DL eGFR AMER. (test cod e = 50097) 89 ML/MIN/1.73 eGFR NON- AMER. (test code = 44399) 77 ML/MIN/1.73 CALC BUN/CREAT (test code = 2235) 13 RATIO SODIUM (test code = 2231) 142 MEQ/L POTASSIUM (test code = 2228) 4.1 MEQ/L CHLORIDE (test code = 2215) 101 MEQ/L CARBON DIOXIDE (test code = 2206) 27 MEQ/L CALCIUM (test code = 2209) 9.6 MG/DL PROTEIN, TOTAL (test code = 2229) 7.0 G/DL ALBUMIN (test code = 2201) 4.4 G/DL CALC GLOBULIN (test code = 2240) 2.6 G/DL CALC A/G RATIO (test code = 2234) 1.7 RATIO BILIRUBIN, TOTAL (test code = 2207) 0.3 MG/DL ALKALINE PHOSPHATASE (test code = 2204) 60 U/L AST (test code = 2218) 22 U/L ALT (test code = 2219) 27 U/L Usman HymanLIPID [id number] 00:00:00* Test Item Value Reference Range Interpretation Comme nts CHOLESTEROL (test code = 2210) 178 MG/DL TRIGLYCERIDES (test code = 2232) 155 MG/DL HDL CHOLESTEROL (test code = 2220) 56 MG/DL CALC LDL CHOL (test code = 2237) 91 MG/DL RISK RATIO LDL/HDL (test cod e = 2238) 1.63 RATIO Usman HymanHEMOGLOBIN [id number] 00:00:00* Test Item Value Reference Range Interpretation Comme joseph HEMOGLOBIN A1c (test code = 21235) 7.5 % Usman HymanCOMPREHENSIVE METABOLIC [id number] 00:00:00* Test Item Value Reference Range Interpretation Comme nts GLUCOSE (test code = 2217) 186 MG/DL BUN (test code = 2208) 14 MG/DL CREATININE (test code = 2214) 1.07 MG/DL eGFR AMER. (test cod e = 42521) 89 ML/MIN/1.73 eGFR NON- AMER. (test code = 02258) 77 ML/MIN/1.73 CALC BUN/CREAT (test code = 2235) 13 RATIO SODIUM (test code = 2231) 142 MEQ/L POTASSIUM (test code = 2228) 4.1 MEQ/L CHLORIDE (test code = 2215) 101 MEQ/L CARBON DIOXIDE (test code = 2206) 27 MEQ/L CALCIUM (test code = 2209) 9.6 MG/DL PROTEIN, TOTAL (test code = 2229) 7.0 G/DL ALBUMIN (test code = 2201) 4.4 G/DL CALC GLOBULIN (test code = 2240) 2.6 G/DL CALC A/G RATIO (test code = 2234) 1.7 RATIO BILIRUBIN, TOTAL (test code = 2207) 0.3 MG/DL ALKALINE PHOSPHATASE (test code = 2204) 60 U/L AST (test code = 2218) 22 U/L ALT (test code = 2219) 27 U/L Usman Patterson AustinLIPID [id number] 00:00:00* Test Item Value Reference Range Interpretation Comme nts CHOLESTEROL (test code = 2210) 178 MG/DL TRIGLYCERIDES (test code = 2232) 155 MG/DL HDL CHOLESTEROL (test code = 2220) 56 MG/DL CALC LDL CHOL (test code = 2237) 91 MG/DL RISK RATIO LDL/HDL (test cod e = 2238) 1.63 RATIO Usman HymanLIPID [id number] 00:00:00* Test Item Value Reference Range Interpretation Comme nts CHOLESTEROL (test code = 2210) 192 MG/DL TRIGLYCERIDES (test code = 2232) 226 MG/DL HDL CHOLESTEROL (test code = 2220) 47 MG/DL CALC LDL CHOL (test code = 2237) 100 MG/DL RISK RATIO LDL/HDL (test cod e = 2238) 2.12 RATIO Usman [id number] 00:00:00* Test Item Value Reference Range Interpretation Comme nts TSH (test code = 2821) 0.616 UIU/ML Usman HymanCOMPREHENSIVE METABOLIC [id number] 00:00:00* Test Item Value Reference Range Interpretation Comme nts GLUCOSE (test code = 2217) 148 MG/DL BUN (test code = 2208) 26 MG/DL CREATININE (test code = 2214) 1.31 MG/DL eGFR AMER. (test cod e = 49655) 71 ML/MIN/1.73 eGFR NON- AMER. (test code = 12998) 61 ML/MIN/1.73 CALC BUN/CREAT (test code = 2235) 20 RATIO SODIUM (test code = 2231) 143 MEQ/L POTASSIUM (test code = 2228) 3.7 MEQ/L CHLORIDE (test code = 2215) 102 MEQ/L CARBON DIOXIDE (test code = 2206) 24 MEQ/L CALCIUM (test code = 2209) 9.8 MG/DL PROTEIN, TOTAL (test code = 2229) 7.2 G/DL ALBUMIN (test code = 2201) 4.6 G/DL CALC GLOBULIN (test code = 2240) 2.6 G/DL CALC A/G RATIO (test code = 2234) 1.8 RATIO BILIRUBIN, TOTAL (test code = 2207) 0.2 MG/DL ALKALINE PHOSPHATASE (test code = 2204) 60 U/L AST (test code = 2218) 22 U/L ALT (test code = 2219) 20 U/L Usman HymanLIPID [id number] 00:00:00* Test Item Value Reference Range Interpretation Comme nts CHOLESTEROL (test code = 2210) 192 MG/DL TRIGLYCERIDES (test code = 2232) 226 MG/DL HDL CHOLESTEROL (test code = 2220) 47 MG/DL CALC LDL CHOL (test code = 2237) 100 MG/DL RISK RATIO LDL/HDL (test cod e = 2238) 2.12 RATIO Usman [id number] 00:00:00* Test Item Value Reference Range Interpretation Comme nts TSH (test code = 2821) 0.616 UIU/ML Usman HymanCOMPREHENSIVE METABOLIC [id number] 00:00:00* Test Item Value Reference Range Interpretation Comme nts GLUCOSE (test code = 2217) 148 MG/DL BUN (test code = 2208) 26 MG/DL CREATININE (test code = 2214) 1.31 MG/DL eGFR AMER. (test cod e = 13700) 71 ML/MIN/1.73 eGFR NON- AMER. (test code = 16384) 61 ML/MIN/1.73 CALC BUN/CREAT (test code = 2235) 20 RATIO SODIUM (test code = 2231) 143 MEQ/L POTASSIUM (test code = 2228) 3.7 MEQ/L CHLORIDE (test code = 2215) 102 MEQ/L CARBON DIOXIDE (test code = 2206) 24 MEQ/L CALCIUM (test code = 2209) 9.8 MG/DL PROTEIN, TOTAL (test code = 2229) 7.2 G/DL ALBUMIN (test code = 2201) 4.6 G/DL CALC GLOBULIN (test code = 2240) 2.6 G/DL CALC A/G RATIO (test code = 2234) 1.8 RATIO BILIRUBIN, TOTAL (test code = 2207) 0.2 MG/DL ALKALINE PHOSPHATASE (test code = 2204) 60 U/L AST (test code = 2218) 22 U/L ALT (test code = 2219) 20 U/L Usman HymanCBC W/AUTO [id number] 00:00:00* Test Item Value Reference Range Interpretation Comme nts WBC (test code = 1001) 5.8 K/UL RBC (test code = 1002) 4.64 M/UL HEMOGLOBIN (test code = 1003) 11.7 G/DL HEMATOCRIT (test code = 1004) 36.2 % MCV (test code = 1005) 78.0 fL MCH (test code = 1006) 25.2 PG MCHC (test code = 1007) 32.3 G/DL RDW (test code = 1038) 13.6 % NEUTROPHILS (test code = 1008) 64.3 % LYMPHOCYTES (test code = 1010) 27.8 % MONOCYTES (test code = 1011) 6.4 % EOSINOPHILS (test code = 1012) 1.0 % BASOPHILS (test code = 1013) 0.5 % PLATELET COUNT (test code = 1015) 292 K/UL Usman Patterson AustinHEMOGLOBIN [id number] 00:00:00* Test Item Value Reference Range Interpretation Comme nts HEMOGLOBIN A1c (test code = 32249) 7.4 % Usman HymanCBC W/AUTO [id number] 00:00:00* Test Item Value Reference Range Interpretation Comme nts WBC (test code = 1001) 5.8 K/UL RBC (test code = 1002) 4.64 M/UL HEMOGLOBIN (test code = 1003) 11.7 G/DL HEMATOCRIT (test code = 1004) 36.2 % MCV (test code = 1005) 78.0 fL MCH (test code = 1006) 25.2 PG MCHC (test code = 1007) 32.3 G/DL RDW (test code = 1038) 13.6 % NEUTROPHILS (test code = 1008) 64.3 % LYMPHOCYTES (test code = 1010) 27.8 % MONOCYTES (test code = 1011) 6.4 % EOSINOPHILS (test code = 1012) 1.0 % BASOPHILS (test code = 1013) 0.5 % PLATELET COUNT (test code = 1015) 292 K/UL Usman HymanHEMOGLOBIN [id number] 00:00:00* Test Item Value Reference Range Interpretation Comme joseph HEMOGLOBIN A1c (test code = 60802) 7.4 % Usman Patterson WarriormineCOMPREHENSIVE METABOLIC [id number] 00:00:00* Test Item Value Reference Range Interpretation Comme nts GLUCOSE (test code = 2217) 138 MG/DL BUN (test code = 2208) 21 MG/DL CREATININE (test code = 2214) 1.35 MG/DL eGFR AMER. (test cod e = 45430) 68 ML/MIN/1.73 eGFR NON- AMER. (test code = 42819) 59 ML/MIN/1.73 CALC BUN/CREAT (test code = 2235) 16 RATIO SODIUM (test code = 2231) 140 MEQ/L POTASSIUM (test code = 2228) 4.2 MEQ/L CHLORIDE (test code = 2215) 102 MEQ/L CARBON DIOXIDE (test code = 2206) 25 MEQ/L CALCIUM (test code = 2209) 9.7 MG/DL PROTEIN, TOTAL (test code = 2229) 7.1 G/DL ALBUMIN (test code = 2201) 4.4 G/DL CALC GLOBULIN (test code = 2240) 2.7 G/DL CALC A/G RATIO (test code = 2234) 1.6 RATIO BILIRUBIN, TOTAL (test code = 2207) 0.3 MG/DL ALKALINE PHOSPHATASE (test code = 2204) 56 U/L AST (test code = 2218) 30 U/L ALT (test code = 2219) 25 U/L Usman HymanLIPID [id number] 00:00:00* Test Item Value Reference Range Interpretation Comme nts CHOLESTEROL (test code = 2210) 224 MG/DL TRIGLYCERIDES (test code = 2232) 179 MG/DL HDL CHOLESTEROL (test code = 2220) 58 MG/DL CALC LDL CHOL (test code = 2237) 130 MG/DL RISK RATIO LDL/HDL (test cod e = 2238) 2.24 RATIO Usman HymanCOMPREHENSIVE METABOLIC [id number] 00:00:00* Test Item Value Reference Range Interpretation Comme nts GLUCOSE (test code = 2217) 138 MG/DL BUN (test code = 2208) 21 MG/DL CREATININE (test code = 2214) 1.35 MG/DL eGFR AMER. (test cod e = 40097) 68 ML/MIN/1.73 eGFR NON- AMER. (test code = 63226) 59 ML/MIN/1.73 CALC BUN/CREAT (test code = 2235) 16 RATIO SODIUM (test code = 2231) 140 MEQ/L POTASSIUM (test code = 2228) 4.2 MEQ/L CHLORIDE (test code = 2215) 102 MEQ/L CARBON DIOXIDE (test code = 2206) 25 MEQ/L CALCIUM (test code = 2209) 9.7 MG/DL PROTEIN, TOTAL (test code = 2229) 7.1 G/DL ALBUMIN (test code = 2201) 4.4 G/DL CALC GLOBULIN (test code = 2240) 2.7 G/DL CALC A/G RATIO (test code = 2234) 1.6 RATIO BILIRUBIN, TOTAL (test code = 2207) 0.3 MG/DL ALKALINE PHOSPHATASE (test code = 2204) 56 U/L AST (test code = 2218) 30 U/L ALT (test code = 2219) 25 U/L Usman HymanLIPID [id number] 00:00:00* Test Item Value Reference Range Interpretation Comme nts CHOLESTEROL (test code = 2210) 224 MG/DL TRIGLYCERIDES (test code = 2232) 179 MG/DL HDL CHOLESTEROL (test code = 2220) 58 MG/DL CALC LDL CHOL (test code = 2237) 130 MG/DL RISK RATIO LDL/HDL (test cod e = 2238) 2.24 RATIO Usman Patterson AustinLIPID [id number] 00:00:00* Test Item Value Reference Range Interpretation Comme nts CHOLESTEROL (test code = 2210) 262 MG/DL TRIGLYCERIDES (test code = 2232) 391 MG/DL HDL CHOLESTEROL (test code = 2220) 51 MG/DL CALC LDL CHOL (test code = 2237) 133 MG/DL RISK RATIO LDL/HDL (test cod e = 2238) 2.60 RATIO Usman HymanHEMOGLOBIN [id number] 00:00:00* Test Item Value Reference Range Interpretation Comme nts HEMOGLOBIN A1c (test code = 76216) 6.8 % Usman HymanCOMPREHENSIVE METABOLIC [id number] 00:00:00* Test Item Value Reference Range Interpretation Comme nts GLUCOSE (test code = 2217) 115 MG/DL BUN (test code = 2208) 26 MG/DL CREATININE (test code = 2214) 1.26 MG/DL eGFR AMER. (test cod e = 65408) 74 ML/MIN/1.73 eGFR NON- AMER. (test code = 52446) 64 ML/MIN/1.73 CALC BUN/CREAT (test code = 2235) 21 RATIO SODIUM (test code = 2231) 141 MEQ/L POTASSIUM (test code = 2228) 4.2 MEQ/L CHLORIDE (test code = 2215) 103 MEQ/L CARBON DIOXIDE (test code = 2206) 25 MEQ/L CALCIUM (test code = 2209) 9.5 MG/DL PROTEIN, TOTAL (test code = 2229) 7.4 G/DL ALBUMIN (test code = 2201) 4.6 G/DL CALC GLOBULIN (test code = 2240) 2.8 G/DL CALC A/G RATIO (test code = 2234) 1.6 RATIO BILIRUBIN, TOTAL (test code = 2207) 0.2 MG/DL ALKALINE PHOSPHATASE (test code = 2204) 88 U/L AST (test code = 2218) 19 U/L ALT (test code = 2219) 16 U/L Usman HymanLIPID [id number] 00:00:00* Test Item Value Reference Range Interpretation Comme nts CHOLESTEROL (test code = 2210) 262 MG/DL TRIGLYCERIDES (test code = 2232) 391 MG/DL HDL CHOLESTEROL (test code = 2220) 51 MG/DL CALC LDL CHOL (test code = 223) 133 MG/DL RISK RATIO LDL/HDL (test cod e = 223) 2.60 RATIO Usman HymanHEMOGLOBIN [id number] 00:00:00* Test Item Value Reference Range Interpretation Comme nts HEMOGLOBIN A1c (test code = 37828) 6.8 % Usman HymanCOMPREHENSIVE METABOLIC [id number] 00:00:00* Test Item Value Reference Range Interpretation Comme nts GLUCOSE (test code = 2217) 115 MG/DL BUN (test code = 8) 26 MG/DL CREATININE (test code = 2214) 1.26 MG/DL eGFR AMER. (test cod e = 20924) 74 ML/MIN/1.73 eGFR NON- AMER. (test code = 34122) 64 ML/MIN/1.73 CALC BUN/CREAT (test code = 2235) 21 RATIO SODIUM (test code = 2231) 141 MEQ/L POTASSIUM (test code = 2228) 4.2 MEQ/L CHLORIDE (test code = 2215) 103 MEQ/L CARBON DIOXIDE (test code = 2206) 25 MEQ/L CALCIUM (test code = 2209) 9.5 MG/DL PROTEIN, TOTAL (test code = 2229) 7.4 G/DL ALBUMIN (test code = 2201) 4.6 G/DL CALC GLOBULIN (test code = 2240) 2.8 G/DL CALC A/G RATIO (test code = 2234) 1.6 RATIO BILIRUBIN, TOTAL (test code = 2207) 0.2 MG/DL ALKALINE PHOSPHATASE (test code = 2204) 88 U/L AST (test code = 2218) 19 U/L ALT (test code = 2219) 16 U/L Usman HymanCOMPREHENSIVE METABOLIC [id number] 00:00:00* Test Item Value Reference Range Interpretation Comme nts GLUCOSE (test code = 2217) 90 MG/DL BUN (test code = 2208) 20 MG/DL CREATININE (test code = 2214) 1.28 MG/DL eGFR AMER. (test cod e = 97691) 73 ML/MIN/1.73 eGFR NON- AMER. (test code = 92172) 63 ML/MIN/1.73 CALC BUN/CREAT (test code = 2235) 16 RATIO SODIUM (test code = 2231) 140 MEQ/L POTASSIUM (test code = 2228) 4.3 MEQ/L CHLORIDE (test code = 2215) 100 MEQ/L CARBON DIOXIDE (test code = 2206) 26 MEQ/L CALCIUM (test code = 2209) 9.7 MG/DL PROTEIN, TOTAL (test code = 2229) 7.5 G/DL ALBUMIN (test code = 2201) 4.4 G/DL CALC GLOBULIN (test code = 2240) 3.1 G/DL CALC A/G RATIO (test code = 2234) 1.4 RATIO BILIRUBIN, TOTAL (test code = 2207) 0.3 MG/DL ALKALINE PHOSPHATASE (test code = 2204) 52 U/L AST (test code = 2218) 25 U/L ALT (test code = 2219) 22 U/L Usman Patterson AustinLIPID [id number] 00:00:00* Test Item Value Reference Range Interpretation Comme nts CHOLESTEROL (test code = 2210) 244 MG/DL TRIGLYCERIDES (test code = 2232) 225 MG/DL HDL CHOLESTEROL (test code = 2220) 64 MG/DL CALC LDL CHOL (test code = 2237) 135 MG/DL RISK RATIO LDL/HDL (test cod e = 2238) 2.11 RATIO Usman HymanHEMOGLOBIN [id number] 00:00:00* Test Item Value Reference Range Interpretation Comme nts HEMOGLOBIN A1c (test code = 29559) 7.2 % Usman Patterson AustinCOMPREHENSIVE METABOLIC [id number] 00:00:00* Test Item Value Reference Range Interpretation Comme nts GLUCOSE (test code = 2217) 90 MG/DL BUN (test code = 2208) 20 MG/DL CREATININE (test code = 2214) 1.28 MG/DL eGFR AMER. (test cod e = ) 73 ML/MIN/1.73 eGFR NON- AMER. (test code = 50524) 63 ML/MIN/1.73 CALC BUN/CREAT (test code = 2235) 16 RATIO SODIUM (test code = 2231) 140 MEQ/L POTASSIUM (test code = 2228) 4.3 MEQ/L CHLORIDE (test code = 2215) 100 MEQ/L CARBON DIOXIDE (test code = 2206) 26 MEQ/L CALCIUM (test code = 2209) 9.7 MG/DL PROTEIN, TOTAL (test code = 2229) 7.5 G/DL ALBUMIN (test code = 2201) 4.4 G/DL CALC GLOBULIN (test code = 2240) 3.1 G/DL CALC A/G RATIO (test code = 2234) 1.4 RATIO BILIRUBIN, TOTAL (test code = 2207) 0.3 MG/DL ALKALINE PHOSPHATASE (test code = 2204) 52 U/L AST (test code = 2218) 25 U/L ALT (test code = 2219) 22 U/L Usman Patterson AustinLIPID [id number] 00:00:00* Test Item Value Reference Range Interpretation Comme nts CHOLESTEROL (test code = 2210) 244 MG/DL TRIGLYCERIDES (test code = 2232) 225 MG/DL HDL CHOLESTEROL (test code = 2220) 64 MG/DL CALC LDL CHOL (test code = 2237) 135 MG/DL RISK RATIO LDL/HDL (test cod e = 2238) 2.11 RATIO Usman Patterson AustinHEMOGLOBIN [id number] 00:00:00* Test Item Value Reference Range Interpretation Comme nts HEMOGLOBIN A1c (test code = 27645) 7.2 % Usman Patterson AustinHEMOGLOBIN [id number] 00:00:00* Test Item Value Reference Range Interpretation Comme nts HEMOGLOBIN A1c (test code = 21125) 7.0 % Usman Patterson AustinHEPATITIS C [id number] 00:00:00* Test Item Value Reference Range Interpretation Comme nts HEPATITIS C ANTIBODY (test c ode = 4675) REACTIVE Usman Patterson AustinHEMOGLOBIN [id number] 00:00:00* Test Item Value Reference Range Interpretation Comme joseph HEMOGLOBIN A1c (test code = 38969) 7.0 % Usman HymanHEPATITIS C [id number] 00:00:00* Test Item Value Reference Range Interpretation Comme nts HEPATITIS C ANTIBODY (test c ode = 4675) REACTIVE Usman Patterson AustinHEMOGLOBIN [id number] 00:00:00* Test Item Value Reference Range Interpretation Comme nts HEMOGLOBIN A1c (test code = 36144) 6.7 % Usman HymanCOMPREHENSIVE METABOLIC [id number] 00:00:00* Test Item Value Reference Range Interpretation Comme nts GLUCOSE (test code = 2217) 114 MG/DL BUN (test code = 2208) 16 MG/DL CREATININE (test code = 2214) 1.0 MG/DL eGFR AMER. (test cod e = 14409) 95 ML/MIN/1.73 eGFR NON- AMER. (test code = 87705) 78 ML/MIN/1.73 CALCULATED BUN/CREAT (test code = 2235) 16 RATIO SODIUM (test code = 2231) 137 MEQ/L POTASSIUM (test code = 2228) 4.2 MEQ/L CHLORIDE (test code = 2215) 101 MEQ/L CARBON DIOXIDE (test code = 2206) 26 MEQ/L CALCIUM (test code = 2209) 9.4 MG/DL PROTEIN, TOTAL (test code = 2229) 7.6 G/DL ALBUMIN (test code = 2201) 4.1 G/DL CALCULATED GLOBULIN (test co de = 2240) 3.5 G/DL CALCULATED A/G RATIO (test code = 2234) 1.2 RATIO BILIRUBIN, TOTAL (test code = 2207) 0.5 MG/DL ALKALINE PHOSPHATASE (test code = 2204) 85 U/L SGOT (AST) (test code = 2218) 27 U/L SGPT (ALT) (test code = 2219) 27 U/L Usman Patterson AustinLIPID [id number] 00:00:00* Test Item Value Reference Range Interpretation Comme nts CHOLESTEROL (test code = 2210) 305 MG/DL TRIGLYCERIDES (test code = 2232) 535 MG/DL HDL CHOLESTEROL (test code = 2220) 45 MG/DL CALCULATED LDL CHOL (test co de = 2237) NOTE MG/DL Usman HymanTHYROID II PROFILE (T3U, T4, T7, TSH)2015-04-08 00:00:00* Test Item Value Reference Range Interpretation Comme nts T3 UPTAKE (test code = 2817) 25.6 % T4 (THYROXINE) (test code = 2819) 10.1 UG/DL CALCULATED T7 (FTI) (test co de = 2820) 2.59 TSH (test code = 2821) 0.8 UIU/ML Usman HymanPSA, [id number] 00:00:00* Test Item Value Reference Range Interpretation Comme nts PSA, TOTAL (test code = 2606) 0.2 NG/ML Usman HymanCBC W/AUTO [id number] 00:00:00* Test Item Value Reference Range Interpretation Comme nts WBC (test code = 1001) 5.0 K/UL RBC (test code = 1002) 5.14 M/UL HEMOGLOBIN (test code = 1003) 13.2 G/DL HEMATOCRIT (test code = 1004) 39.6 % MCV (test code = 1005) 77.0 fL MCH (test code = 1006) 25.7 PG MCHC (test code = 1007) 33.3 G/DL RDW (test code = 1038) 14.1 % NEUTROPHILS (test code = 1008) 58 % LYMPHOCYTES (test code = 1010) 32 % MONOCYTES (test code = 1011) 7 % EOSINOPHILS (test code = 1012) 3 % PLATELET COUNT (test code = 1015) 288 K/UL Usman HymanHEMOGLOBIN [id number] 00:00:00* Test Item Value Reference Range Interpretation Comme nts HEMOGLOBIN A1c (test code = 42477) 6.7 % Usman HymanCOMPREHENSIVE METABOLIC [id number] 00:00:00* Test Item Value Reference Range Interpretation Comme nts GLUCOSE (test code = 2217) 114 MG/DL BUN (test code = 2208) 16 MG/DL CREATININE (test code = 2214) 1.0 MG/DL eGFR AMER. (test cod e = 96713) 95 ML/MIN/1.73 eGFR NON- AMER. (test code = 96912) 78 ML/MIN/1.73 CALCULATED BUN/CREAT (test code = 2235) 16 RATIO SODIUM (test code = 223) 137 MEQ/L POTASSIUM (test code = 2228) 4.2 MEQ/L CHLORIDE (test code = 2215) 101 MEQ/L CARBON DIOXIDE (test code = 220) 26 MEQ/L CALCIUM (test code = 2209) 9.4 MG/DL PROTEIN, TOTAL (test code = 222) 7.6 G/DL ALBUMIN (test code = 220) 4.1 G/DL CALCULATED GLOBULIN (test co de = 2240) 3.5 G/DL CALCULATED A/G RATIO (test code = 2234) 1.2 RATIO BILIRUBIN, TOTAL (test code = 220) 0.5 MG/DL ALKALINE PHOSPHATASE (test code = 2203) 85 U/L SGOT (AST) (test code = 221) 27 U/L SGPT (ALT) (test code = 2218) 27 U/L Usman HymanLIPID [id number] 00:00:00* Test Item Value Reference Range Interpretation Comme nts CHOLESTEROL (test code = 2210) 305 MG/DL TRIGLYCERIDES (test code = 223) 535 MG/DL HDL CHOLESTEROL (test code = 0) 45 MG/DL CALCULATED LDL CHOL (test co de = 223) NOTE MG/DL Usman HymanTHYROID II PROFILE (T3U, T4, T7, TSH)2015-04-08 00:00:00* Test Item Value Reference Range Interpretation Comme nts T3 UPTAKE (test code = 2817) 25.6 % T4 (THYROXINE) (test code = 2819) 10.1 UG/DL CALCULATED T7 (FTI) (test co de = 2820) 2.59 TSH (test code = 2821) 0.8 UIU/ML Usman HymanPSA, [id number] 00:00:00* Test Item Value Reference Range Interpretation Comme nts PSA, TOTAL (test code = 2606) 0.2 NG/ML Usman HymanCBC W/AUTO [id number] 00:00:00* Test Item Value Reference Range Interpretation Comme nts WBC (test code = 1001) 5.0 K/UL RBC (test code = 1002) 5.14 M/UL HEMOGLOBIN (test code = 1003) 13.2 G/DL HEMATOCRIT (test code = 1004) 39.6 % MCV (test code = 1005) 77.0 fL MCH (test code = 1006) 25.7 PG MCHC (test code = 1007) 33.3 G/DL RDW (test code = 1038) 14.1 % NEUTROPHILS (test code = 1008) 58 % LYMPHOCYTES (test code = 1010) 32 % MONOCYTES (test code = 1011) 7 % EOSINOPHILS (test code = 1012) 3 % PLATELET COUNT (test code = 1015) 288 K/UL Usman Hyman Notes Date/Time Note Provider Source Usman Smiley [facility]2024-06-18 00:00:00 Usman Smiley [facility]2024-04-04 10:02:[id number] [place] [id number] PATIENT NAME: ESAU VALDES ADMIT DATE: ACCOUNT NO: [id number] ROOM NO: AGE: 63 REPORT TYPE: ELECTROCARDIOGRAM SEX: M ADMITTING PHYSICIAN: ATTENDING PHYSICIAN:Frances Bar MD Order: [id number] Test Reason : PRE OP CLEARANCE HTN Test Date/Time Stamp: FriAug 21 2023 10:02:51 Blood Pressure : / mmHG Vent. Rate : 064 BPM Atrial Rate : 064 BPM P-R Int : 138 ms QRS Dur : 092 ms QT Int : 402 ms P-R-T Axes : 042 056 -39 degrees QTc Int : 414 ms Normal sinus rhythm T wave abnormality, consider inferior ischemia Abnormal ECG When compared with ECG of 29-NOV-2013 17:37, T wave inversion more evident in Inferior leads Confirmed by KARTIK ALFONSO MD ([id number]) on 08/26/2023 12:21:06 PM Referred By: Frances Bar Confirmed by:KARTIK ALFONSO MD PATIENT NAME: ESAU VALDES
--- NOTE | 2024-03-06 22:30 | RAD REPORT ---
Extremity Venous [facility] [employer] CLINICAL INDICATION: Male, 63 years old.SWELLING TECHNIQUE: Complete duplex sonography of the lower extremity veins was performed of the affected limb . The examination included compression for vein patency, color Doppler imaging and flow augmentation in response to distal compression of the distal external iliac, common femoral, femoral, popliteal, peroneal, tibial and great saphenous veins. [id number]. COMPARISON: No prior exams FINDINGS: Duplex sonography imaging demonstrates all deep examined to be fully compressible with spontaneous, p hasic and augmented flow in the affected limb. IMPRESSION: No evidence of deep venous thrombosis in the left lower extremity.
--- NOTE | 2024-03-06 22:34 | RAD REPORT ---
EXAM: Left lower extremity arterial ultrasound HISTORY: left leg pain and swelling: COMPARISON: None TECHNIQUE: Multiplanar grayscale and color Doppler images were obtained for [facility] lower extremity ar terial ultrasound. Spectral analysis of the Doppler waveforms were performed. FINDINGS plaque is present in the Left lower extremity: Common femoral artery: Triphasic Superficial femoral artery: Multiphasic at the proximal midportion but monophasic at the distal porti on. Popliteal artery: Monophasic Posterior tibial artery: Monophasic Dorsalis pedis artery: Monophasic IMPRESSION: Monophasic waveforms extending from the distal SFA through the runoff vessels consistent with a moder ate to severe distal SFA stenosis.
[2024-03-06 23:08] LABS: Absolute Basophils 0.1 K/uL (0-0.5); Absolute Eosinophils 0.1 K/uL (0-0.5); Absolute Lymphocytes (CBC) 1.2 K/uL (0.7-4.9); Absolute Monocytes 1.1 K/uL (0.1-1.3); Absolute Neutrophil 9.3 K/uL (1.8-8.0); Basophils % 0.5 % (0-1.3); Eosinophils % 0.8 % (0-4.4); Hematocrit 44.8 % (39.6-49.0); Hemoglobin 14.3 g/dL (13.6-17.9); MCH 25.5 pg (27.0-35.0); MCHC 31.9 g/dL (32.0-36.0); MCV 79.8 fL (80-100); MPV 8.3 fL (7.6-11.3); Monocytes % 9.4 % (3.3-12.3); Neutrophils % 79.3 % (41.7-73.7); Platelets 285 thou/uL (152-406); RBC Red Blood Cell Count 5.61 M/uL (4.33-5.43)
[2024-03-06 23:13] LABS: PT Prothrombin Time 13.6 SECONDS (9.4-12.5); PTT, Activated Partial Thromb 35.1 SECONDS (24.3-36.9); Protime INR 1.22
[2024-03-06] MEDS ORDERED: MORPHINE 4 MG/ML SYR ONE (23:20)
[2024-03-06 23:25] LABS: Albumin 3.2 g/dL (3.4-5.0); Albumin/Globulin Ratio 0.7 (1.1-1.8); Anion Gap 8.4 mEq/L (5.0-15.0); Bilirubin Total 1.1 mg/dL (0.2-1.0); Globulin 4.5 g/dL (2.3-3.5); Potassium 4.4 mEq/L (3.5-5.1); Protein, Total 7.7 g/dL (6.4-8.2)
[2024-03-06 23:35] LABS: C-Reactive Protein 82.1 mg/L (<3.00)
[2024-03-06] MEDS ORDERED: VANCOMYCIN 1 GM/VIAL ONE ×2 (23:39→23:50)
[2024-03-06] MEDS ORDERED: VANCOMYCIN 500 MG/VIAL ONE ×2 (23:39→23:50)
[2024-03-06] MEDS ORDERED: NA CHLORIDE 0.9% 1,000 ML ONE (23:40)
[2024-03-06] MEDS ORDERED: NA CHLORIDE 0.9% 250 ML ONE (23:40)
[2024-03-06] MEDS ORDERED: CEFEPIME 2 GM VIAL ONE (23:40)
[2024-03-06] MEDS ORDERED: NA CHLORIDE 0.9% 0 ML ONE (23:40)
[2024-03-06] MEDS ORDERED: NA CHLORIDE 0.9% 100 ML ONE (23:51)
[2024-03-06] MEDS ORDERED: ONDANSETRON 4 MG/2 ML VIAL IV PRN (23:58)
[2024-03-07] MEDS ORDERED: D10W 125 ML IV PRN (00:04)
[2024-03-07] MEDS ORDERED: GLUCAGON 1 MG/VIAL IM PRN (00:04)
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
--- NOTE | 2024-03-07 00:13 | RAD REPORT ---
EXAM: XR Left Foot Complete, 3 or More Views CLINICAL HISTORY: The patient is 63 years old and is Male; SWELLING TECHNIQUE: Frontal, lateral and oblique views of the left foot. COMPARISON: No relevant prior studies available. FINDINGS: BONES/JOINTS: Unremarkable. No acute fracture. No dislocation. SOFT TISSUES: Soft tissue swelling of the foot is present. Subcutaneous air and likely ulceration along the plantar surface of the lateral aspect of the forefoot is present. No radiopaque foreign body. IMPRESSION: Soft tissue swelling of the foot is present. Subcutaneous air and likely ulceration along the plant ar surface of the lateral aspect of the forefoot is present. No radiographic evidence to suggest osteomyelitis. Electronically signed by: Makayla Gustafson MD 03/07/2024 12:00 AM CDT RP Due to temporary technical issues with the PACS/[employer] reporting system, reports are being shannon d by the in-house radiologist without review as a courtesy to ensure prompt reporting the interpreting radiologist is fully responsible for the content of the report. Transcribed Date/Time: 03/07/2024 12:13 AM
[2024-03-07 00:21] LABS: Renal Epithelial <5 /HPF (None Seen); Specific Gravity > 1.030 (1.005-1.030); Sqamous Epithelial None Seen /HPF (None Seen); Urine Bacteria None Seen /HPF (<20); Urine Bilirubin NEGATIVE (Negative); Urine Blood Negative (Negative); Urine Clarity Clear (Clear); Urine Color Yellow (Yellow); Urine Culture Reflex Order NOT NEEDED; Urine Glucose 1+ (Negative); Urine Ketones NEGATIVE (Negative); Urine Microscopic Reflex YN ORDER UMIC; Urine Nitrite NEGATIVE (Negative); Urine Protein 1+ (Negative); Urine RBC None Seen /HPF (None Seen); Urine Urobilinogen 1+ (Normal); Urine WBC <5 /HPF (<5)
[2024-03-07] MEDS: NA CHLORIDE 0.9% 1,000 ML IV SCH (02:18)
[2024-03-07 03:06] VITALS: BMI 33.9
[2024-03-07] MEDS ORDERED: VANCOMYCIN 1 GM in NA CHLORIDE 0.9% 250 ML IVPB SCH (03:46)
[2024-03-07] MEDS: VANCOMYCIN 500 MG in NA CHLORIDE 0.9% 100 ML IVPB ONE (04:25)
[2024-03-07] MEDS: CEFEPIME 1 GM in NA CHLORIDE 0.9% 100 ML IV SCH (08:52)
[2024-03-07] MEDS: ENOXAPARIN 40 MG/0.4 ML SQ SCH (08:55)
[2024-03-07] MEDS: INSULIN REGULAR (HUMAN) 100 UNIT/ML SQ SCH (08:55)
--- NOTE | 2024-03-07 10:14 | P.PN ---
Date of Service: 03/07/24 63-year-old male with past medical history of diabetes, hypertension, chronic pain, was brought to ER with pain and swelling of the left foot which has been going on for the last 1 week. Noted cellulitis of the left lower extremity, elevated CRP, surgery consulted for diabetic foot ulcer, cellulitis, started on IV cefepime, vancomycin, wound cultures, blood cultures ordered, as needed analgesics for pain. Afebrile, vital signs stable. <Malu Thomas - Last Filed: 03/07/24 10:11> Patient was seen and examined. Events of the last 24 hours have been noted. Spoke with with ZHANG regarding patient's clinical picture after evaluating and examining the patient independently. I performed a substantial part of the MDM during this patient's care today. I personally made or approved the documented management plan and acknowledge its risk of complications. I agree with the findings and documentation provided in the ZHANG's notes. Patient seen and examined and we will go ahead and get an MRI of the foot. N.p.o. after midnight for I&D of the abscess on the left lateral aspect of the foot. Awaiting for surgery input at this time. <Jeremy Harry - Last Filed: 03/07/24 18:04>
[2024-03-07] MEDS: PNEUMOCOCCAL VACCINE 0.5 ML IMVAC ONE (16:00)
[2024-03-07] MEDS: MORPHINE 2 MG/ML SYR IV PRN (20:18)
[2024-03-07] MEDS ORDERED: VANCOMYCIN 2 GM in NA CHLORIDE 0.9% 500 ML IVPB SCH (22:30)
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
[2024-03-07] MEDS: VANCOMYCIN 2 GM in NA CHLORIDE 0.9% 500 ML IVPB SCH (23:45)
[2024-03-08 08:12] LABS: Absolute Basophils 0.1 K/uL (0-0.5); Absolute Eosinophils 0.2 K/uL (0-0.5); Absolute Lymphocytes (CBC) 1.2 K/uL (0.7-4.9); Absolute Monocytes 0.6 K/uL (0.1-1.3); Absolute Neutrophil 7.1 K/uL (1.8-8.0); Basophils % 0.6 % (0-1.3); Eosinophils % 2.4 % (0-4.4); Hematocrit 41.2 % (39.6-49.0); Hemoglobin 13.5 g/dL (13.6-17.9); Lymphocytes % 13.3 % (15.3-44.8); MCH 25.8 pg (27.0-35.0); MCHC 32.8 g/dL (32.0-36.0); MCV 78.8 fL (80-100); MPV 8.4 fL (7.6-11.3); Monocytes % 6.2 % (3.3-12.3); Neutrophils % 77.5 % (41.7-73.7); Nucleated Red Blood Cells % 0.1 % (0-0); Platelets 274 thou/uL (152-406); RBC Red Blood Cell Count 5.23 M/uL (4.33-5.43); Red Cell Distribution Width 14.8 % (12.1-15.2)
[2024-03-08 08:30] LABS: Albumin 2.6 g/dL (3.4-5.0); Albumin/Globulin Ratio 0.7 (1.1-1.8); Bilirubin Total 0.8 mg/dL (0.2-1.0); Globulin 3.9 g/dL (2.3-3.5); Protein, Total 6.5 g/dL (6.4-8.2)
[2024-03-08] MEDS: CEFEPIME 2 GM in NA CHLORIDE 0.9% 100 ML IV SCH ×2 (08:47→21:39)
[2024-03-08] MEDS: CEFEPIME 1 GM in NA CHLORIDE 0.9% 100 ML IV ONE (11:08)
[2024-03-08] MEDS ORDERED: LIDOCAINE 1% MPF 5 ML VIAL ONE (11:26)
[2024-03-08] MEDS ORDERED: MIDAZOLAM HCL 2 MG/2 ML INJ ONE (11:26)
[2024-03-08] MEDS ORDERED: propofoL 200 MG/20 ML VIAL IV ONE (11:26)
[2024-03-08] MEDS: NA CHLORIDE 0.9% 1,000 ML ONE (12:05)
--- NOTE | 2024-03-08 12:24 | P.PN ---
Subjective Date of Service: 03/08/24 Chief Complaint: Diabetic foot left Subjective: No new changes (no fever, no increase in pain, no discharge over the pm, no history of gout) Review of Systems 10-point ROS is otherwise unremarkable General: Unremarkable Eyes: Unremarkable ENT: Unremarkable Respiratory: Unremarkable Cardiovascular: Unremarkable Gastrointestinal: Unremarkable Genitourinary: Unremarkable Musculoskeletal: As per HPI Integumentary: Other (left lateral foot at metatarsal and 5th digit with thickening, area of previous split in skin with exudative discharge per report. awaiting OR debridement/MRI) Neurological: Unremarkable Lymphatics: Unremarkable Physical Examination - Vital Signs Temperature: 97.7 F Blood Pressure: 146/79 Pulse: 61 Respirations: 16 Pulse Ox (%): 94 - Physical Exam General: Alert, In no apparent distress, Oriented x3 HEENT: Atraumatic, Normocephalic Neck: Supple Respiratory: Normal air movement Cardiovascular: Regular rate/rhythm Capillary refill: <2 Seconds Gastrointestinal: Soft and benign Musculoskeletal: Swelling, Tenderness, Other (left lateral metatarsal/toe area) Integumentary: Skin lesion, Tenderness/swelling Neurological: Normal speech, Normal tone, Normal affect Lymphatics: No axilla or inguinal lymphadenopathy External genitalia: Deferred Rectal: Deferred - Studies Microbiology Data (last 24 hrs): 03/06/24 22:31 Wound - Left Foot Gram Stain - Final Assessment And Plan - Plan Assessment and Plan - Plan Cellulitis of left foot Started on IV antibiotic Pain control Monitor closely on telemetry Will obtain cultures Consulted Dr. Littlejohn Elevated CRP X-ray findings noted No signs of osteo but consistent with cellulitis Hypertension Antihypertensives titrated Continue home medications and titrate as needed CKD stage II Monitor renal parameters Electrolytes monitor and replace accordingly Diabetes Insulin sliding scale Accu-Chek before every meal and at bedtime GI/DVT prophylaxis Advanced directive full code Discharge Plan: Home Plan to discharge in: 48 Hours - Advance Directives Does patient have a Living Will: No Does patient have a Durable POA for Healthcare: No - Code Status/Comfort Care Code Status: Full Code Time Spent Managing Pts Care (In Minutes): 25
--- NOTE | 2024-03-08 12:31 | P.BOP ---
Preoperative diagnosis: infected diabetic left foot ulcer Postoperative diagnosis: same Primary procedure: Excisional debridement of infected diabetic left foot ulcer 4x3cm Estimated blood loss: <10cc Specimen: necrotic tissue, culture Findings: necrotic tissue. abscess Anesthesia: General Complications: None Drain(s): Other (wet to dry) Transferred to: Recovery Room Condition: Good
[2024-03-08 12:50] VITALS: O2SAT 98
--- NOTE | 2024-03-08 14:03 | OP ---
Date of Procedure: 03/08/2024 Surgeon: Flo Littlejohn MD Preoperative Diagnosis: Infected diabetic left foot ulcer. Postoperative Diagnosis: Infected diabetic left foot ulcer. Procedure: Excisional debridement of infected diabetic left foot ulcer 4 x 3 cm. Estimated Blood Loss: Less than 10 cc. Specimens: Necrotic tissue and culture. Findings: Necrotic tissue and abscess. Anesthesia: General plus local. Complications: None. Packing: Wet-to-dry. Indications For Surgery: This is the case of a 63-year-old patient who came to us with the left foot with draining pus in the lateral side of the foot. The patient fully explained the benefits, altern atives, and risks of excisional debridement and drainage of an abscess subcu, which include, but not limited to, infection, bleeding, damage to adjacent structures, anesthesia complication, recurrence, MS, and even . He also understands this may not relieve any symptoms. He might need more than one surgical intervention. He understood, signed a consent. He also understand the importance of dr essing changes, IV antibiotics, offloading shoes, diabetic control. He was also explained the import ance of discussing with his Vascular doctor the option for a revascularization of the area. He under stood, and signed a consent. Description Of Procedure: The patient was brought to the operating room, placed in supine position. Anesthesia was induced without complication. Left foot was prepped and draped in the usual sterile fashion. A time-out was called. After that, local anesthesia was applied followed by sharp incision of the skin with a knife and immediately we noticed a few cavities. Those tracked more from the hao ntar to the dorsal aspect in the fifth metatarsal region. The loculations were explored opened, and cultures were done. Hemostasis was obtained. Necrotic tissue removed and the area was packed with w et-to-dry dressing. Patient tolerated the procedure well. Patient was on his way to Recovery in sta ble condition. HM/MODL Voice ID: [id number] Report ID: [id number]
--- NOTE | 2024-03-08 14:46 | RAD REPORT ---
EXAM: Foot Left Wo Cont HISTORY: Foot pain COMPARISON: X-ray March 06, 2024 TECHNIQUE: Axial, sagittal and coronal magnetic resonance imaging of the left foot obtained FINDINGS: Soft tissue ulceration lateral forefoot. No significant abnormal signal visualized within the adjacent fifth digit. No significant abnormal signal visualized within the remainder of the bones. No soft tissue abscess. Diffuse edema tissues IMPRESSION: Diffuse edema within the subcutaneous tissues compatible with cellulitis. No evidence of osteomyelitis
[2024-03-08] MEDS: HYDROCODONE/APAP 5/325 MG TAB PO PRN (15:34)
[2024-03-08] MEDS: LOSARTAN POTASSIUM 50 MG TABLET PO SCH (17:45)
[2024-03-08] MEDS: ACETAMINOPHEN 325 MG TABLET PO PRN (17:57)
[2024-03-08] MEDS: MUPIROCIN 2% OINT 22GM TUBE TOP SCH (21:00)
[2024-03-09] MEDS: METOPROLOL TARTRATE 5 MG/5 ML INJ IV ONE (04:55)
[2024-03-09] MEDS: METOPROLOL TARTRATE 5 MG/5 ML INJ IV STA (05:01)
[2024-03-09] MEDS: Levofloxacin500mg IV 500 MG/100 ML BAG IV SCH (08:00)
[2024-03-09] MEDS: Levofloxacin 750mg IV 750 MG/150 ML BAG IV SCH (09:16)
[2024-03-09] MEDS: VANCOMYCIN 1.5 GM in NA CHLORIDE 0.9% 500 ML IVPB SCH (09:19)
--- NOTE | 2024-03-09 12:57 | EKG ---
Test Date: 2024-03-06 Test Time: 23:23:58 [employer]: CESAR MEASUREMENT RESULTS: Intervals: Rate: 67 [place]: 126 QRSD: 88 QT: 372 QTc: 393 [place]: P: 45 NJ: 126 QRS: 93 T: -44 INTERPRETIVE STATEMENTS: Normal sinus rhythm Inferior infarct, age undetermined Abnormal ECG Compared to ECG 07/22/2023 12:12:47 Myocardial infarct finding now present T-wave abnormality no longer present Electronically Signed On 03-09-24 12:51:30 CDT by Aman Fonseca
[2024-03-09 13:09] VITALS: BP 157/74; TEMP 97.6
--- NOTE | 2024-03-10 19:30 | P.DS ---
Admission Date: 03/06/24 Discharge Date: 03/10/24 Disposition: ROUTINE DISCHARGE Discharge Condition: GOOD Reason for Admission: Diabetic foot left Consultations: Dr. Littlejohn Procedures: Wound debridement to left lateral distal foot Brief History of Present Illness: 63-year-old male with past medical history of diabetes, hypertension, chronic pain, was brought to ER with pain and swelling of the left foot which has been going on for the last 1 week and has been progressively worsening and was brought to ER. Patient denies any fever or chills. No nausea vomiting or diarrhea. No history of trauma. Patient was assessed in the ER and is admitted for further management of cellulitis of the left foot. Foot x-ray was consistent with cellulitis and no signs of osteomyelitis Hospital Course: Mr. Valdes went to the operating room for debridement of the wound to his left lateral foot. The wound culture grew E. Cloacae, sensitive to Bactrim and A ugmentin. Mr. Murray will follow-up with Dr. Littlejohn and will go home with Bactrim, Augmentin, and [place]. All his questions have been answered regarding his plan of care. Vital Signs/Physical Exam: Temp Pulse Resp BP Pulse Ox 97.6 F 66 20 157/74 H 96 03/09/24 12:00 03/09/24 12:00 03/09/24 12:00 03/09/24 12:00 03/09/24 12:00 General: Alert, In no apparent distress, Oriented x3 HEENT: Atraumatic, Normocephalic Neck: Supple Respiratory: Normal air movement Cardiovascular: Normal pulses, Regular rate/rhythm, Normal S1 S2 Capillary refill: <2 Seconds Gastrointestinal: Hypoactive Musculoskeletal: No clubbing, No swelling Integumentary: Other (surgical bandage to left lateral foot/foot dry and intact) Neurological: Normal speech, Normal tone, Normal affect Lymphatics: No axilla or inguinal lymphadenopathy External genitalia: Deferred Rectal: Deferred Laboratory Data at Discharge: WBC 9.20 thou/uL (4.3-10.9) 03/08/24 07:35 Hgb 13.5 g/dL (13.6-17.9) L 03/08/24 07:35 Hct 41.2 % (39.6-49.0) 03/08/24 07:35 Plt Count 274 thou/uL (152-406) 03/08/24 07:35 PT 13.6 SECONDS (9.4-12.5) H 03/06/24 22:43 INR 1.22 03/06/24 22:43 APTT 35.1 SECONDS (24.3-36.9) 03/06/24 22:43 Sodium 136 mEq/L (136-145) 03/08/24 07:35 Potassium 4.0 mEq/L (3.5-5.1) 03/08/24 07:35 BUN 12 mg/dL (7-18) 03/08/24 07:35 Creatinine 1.00 mg/dL (0.70-1.30) 03/08/24 07:35 Glucose 172 mg/dL (74-106) H 03/08/24 07:35 Total Bilirubin 0.8 mg/dL (0.2-1.0) 03/08/24 07:35 AST 19 U/L (15-37) 03/08/24 07:35 ALT 34 U/L (16-61) 03/08/24 07:35 Alkaline Phosphatase 64 U/L (45-117) 03/08/24 07:35 Home Medications: Metformin HCl 500 mg PO BID 06/22/21 Atorvastatin Calcium [Lipitor] 40 mg PO BEDTIME 07/22/23 Losartan Potassium [Cozaar] 100 mg PO DAILY 07/22/23 glipiZIDE [Glipizide] 5 mg PO BID 07/22/23 Insulin Glargine,Hum.rec.anlog [Lantus] 10 unit SQ BID #100 ml 07/25/23 Hydrocodone 7.5/APAP 325 [[place] 7.5/325 mg] 1 tab PO Q6H PRN #30 tab 03/09/24 Mupirocin Oint [Bactroban 2% Ointment*] 1 appl TOP BID #1 tube 03/09/24 Smz./Tmp. [Bactrim Ds 800 MG/160 MG] 1 tab PO BID #20 tab 03/09/24 levoFLOXacin [Levaquin] 750 mg PO DAILY #10 tab 03/09/24 New Medications: Smz./Tmp. [Bactrim Ds 800 MG/160 MG] 1 tab PO BID #20 tab Mupirocin Oint [Bactroban 2% Ointment*] 1 appl TOP BID #1 tube levoFLOXacin [Levaquin] 750 mg PO DAILY #10 tab Hydrocodone 7.5/APAP 325 [[place] 7.5/325 mg] 1 tab PO Q6H PRN #30 tab PRN Reason: Pain Physician Discharge Instructions: OK TO DC IV AND DC HOME FOLLOW-UP WITH PRIMARY CARE PROVIDER IN 1-2 WEEKS FOLLOW-UP WITH Surgery IN 1-2 WEEKS RETURN TO THE ER IF symptoms worsens CALL DR. BRANDON AT [phone] IF ANY QUESTIONS REGARDING HOSPITAL STAY. PLEASE CALL THE FLOOR AT [phone] IF ANY MEDICATION OR NURSING QUESTIONS. Diet: ADA Activity: Fall precautions Followup: Flo Littlejohn MD [ACTIVE - CAN ADMIT] - 1-2 Weeks Sarah To NP [Primary Care Provider] - 1-2 Weeks
== END 2024-03-09 13:30 | disposition home or self-care (01) | DRG 264 ==
LOC: ER 20:54 → ERHOLD 23:58 → 2ND 03-07 01:08
PROVIDERS: ADMIT Family Medicine; ATTEND Hospitalist
PROC: 0JBR0ZZ Excision of Left Foot Subcutaneous Tissue and Fascia, Open Approach (ICD-10-PCS; principal; 2024-03-08 13:15)
DX: E11.52 Type 2 diabetes mellitus with diabetic peripheral angiopathy with gangrene (principal); L02.612 Cutaneous abscess of left foot; L03.116 Cellulitis of left lower limb; I12.9 Hypertensive chronic kidney disease with stage 1 through stage 4 chronic kidney disease, or unspecified chronic kidney disease; N18.2 Chronic kidney disease, stage 2 (mild); E11.22 Type 2 diabetes mellitus with diabetic chronic kidney disease; E11.621 Type 2 diabetes mellitus with foot ulcer; E11.628 Type 2 diabetes mellitus with other skin complications; L97.529 Non-pressure chronic ulcer of other part of left foot with unspecified severity; G89.29 Other chronic pain; F17.210 Nicotine dependence, cigarettes, uncomplicated; B95.2 Enterococcus as the cause of diseases classified elsewhere; Z79.4 Long term (current) use of insulin; Z79.84 Long term (current) use of oral hypoglycemic drugs; Z79.899 Other long term (current) drug therapy
CPT/HCPCS: 36415; 80053; 80202; 81001; 82947; 83605; 85025; 85610; 85730; 86140; 87040; 87070; 87075; 87077; 87186; 87205; 88304; 93005; 93926; 93971; 94010; 96365; 96375; 99285; J0692; J1650; J2003; J2250; J2270; J2704; J7030; J7040; J7050

== ENCOUNTER 2024-08-13 11:03 | Emergency (ER) | payer OTHER ==
--- OUTSIDE RECORDS SUMMARY | 2024-08-13 11:15 | XMS REPORT | Continuity of Care Document ---
Author Name Unknown Address [address] [facility] [address] [place] [address] [facility] Address [address] [facility] [place] [address] Care Team Providers Care Tobacco Feeder Catcher Name Role Phone Ekaterina Kendall NP Primary Care Physician PARISH HAWKINS Attending Clinician Unavailable [facility] B Attending Clinician Unavaila ble LAB90 Attending Clinician Unavailable BILLY, YANI Attending Clinician Unavailable LINUS SEVILLA Attending Clinician Unavailable NWFRANCO TERRELLEOMA O Attending Clinician Unavailable [facility] Attending Clinician UnavailFrances Alvarenga Attending Clinician Unavailable Neena Attending Clinician Unavaila Frances Nagel Admitting Clinician Unavailable Neena Admitting Clinician Unavaila MIKE Sotelo Admitting Clinician Unavailable Payers Payer Name Policy Type Policy Number Effective Date Expirati on Date Source [facility] JAYLEEN [employer] FOCUS 9 [id number] 2024 00:00:00 [place] [id number] 2022 00:00:00 Blue Cross Blue Shield of [place] 6 [id number] [facility] Problems Condition Name Condition Details Condition Category Status Onset Date Resolution Date Last Treatment Date Treating Clinician Comments Source Opioid-ind uced constipati on Opioid-ind uced constipati on Disease Active 3-11 00:00: 00 Dara andrews Hx of opioid abuse Hx of opioid abuse Disease Active 130 00:00: 00 Dara andrews Type 2 diabetes mellitus with foot ulcer, with long-term current use of insulin (multi HCC) Type 2 diabetes mellitus with foot ulcer, with long-term current use of insulin (multi HCC) Disease Active 2023-05 2- 00:00: 00 Dara andrews Diabetic peripheral neuropathy Diabetic Peripheral Neuropathy Problem [...] Knee Joint Problem Active 10-23 00:00: 00 [facility] Pain of right shoulder joint Pain of Right Shoulder Joint Problem Active 2024-0 6-07 00:00: 00 [facility] Pain of left shoulder joint Pain of Left Shoulder Joint Problem Active 607 00:00: 00 [facility] Closed fracture of neck of femur Closed Fracture of Neck of Femur Problem Active 408 00:00: 00 [facility] Stress fracture of neck of right femur Stress Fracture of Neck of Right Femur Problem Active 4 00:00: 00 [facility] [...] Subluxatio n of Elbow Joint Problem Active 915 00:00: 00 [facility] Total knee replacemen t Total Knee Replacemen t Problem Active 8 00:00: 00 [facility] Chronic back pain Chronic back pain Disease Active Dara Lewis - Externa l Chronic pain syndrome Chronic pain syndrome Disease Active Dara Hale Externa l [id number] Posthitis Problem Commo n [facility] [id number] 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 Problem Common [facility] Allergies, Adverse Reactions, Alerts Allergy Name Allergy Type Status Severity Reaction(s) Onset Date Inactive Date Treating Clinician Comments Source No Known Allergie s DA Active U 08-21 00:00: 00 [facility] No Known Allergie s DA Active U 12-28 00:00: 00 [facility] Social History Social Habit Start Date Stop Date Quantity Comments Source History of tobacco use 2008-08-17 00:00:00 Cigarette Smoker Dara Lewis - External Sexual orientation K sukh Lewis - External History of Social function 2024-07-27 00:00:00 2024-07-27 00:00:00 Dara Alcantara Alcoholic beverage intake 2024-07-27 00:00:00 2024-07-27 00:00:00 Lifetime non-drinker (finding) Dara Alcantara Cigarettes smoked current (pack per day) - Reported 2024-05-14 00:00:00 2024-05-14 00:00:00 Dara Lewis - External Cigarette pack-years 2024-05-14 00:00:00 2024-05-14 00:00:00 Dara Lewis - External Sex 2023-02-20 17:48:13 2023-02-20 17:48:13 Male (finding) Dara Lewis - External Sex assigned at 1960 00:00:00 1960 00:00:00 Dara Lewis - External Smoking Status Start Date Stop Date Source Former Smoker [facility] Smokes tobacco daily 2024-05-14 00:00:00 Dara Lewis - External Medications Ordered Medication Name Filled Medication Name Start Date Stop Date Current Medication? Ordering Clinician Indication Dosage Frequency Signature (SIG) Comments Components Source Losartan Potassium (COZAAR) 100 MG oral Tablet 07-27 00:00: 00 Yes [id number] 100mg QD Take 1 tablet (100 mg total) by mouth daily. Dara andrews Insulin Glargine (Basaglar KwikPen) 100 UNIT/ML subcutaneou s Solution Pen-injecto r 07-27 00:00: 00 Yes [id number] 3 20U QD Inject 20 units into the skin daily (with breakfast) Take 10 units in the morning and 10 units in the evening.. Dara andrews Amlodipine Besylate (NORVASC) 5 MG oral Tablet 07-27 00:00: 00 Yes [id number] 5mg QD Take 1 tablet (5 mg total) by mouth daily. Dara andrews glipiZIDE 10 MG oral Tablet 07-27 00:00: 00 Yes [id number] 3 10mg Take 1 tablet (10 mg total) by mouth in the morning and 1 tablet (10 mg total) in the evening. Take before meals. Dara andrews Atorvastati n Calcium 40 MG oral Tablet 07-27 00:00: 00 Yes [id number] 3 40mg QD Take 1 tablet (40 mg total) by mouth nightly. Dara andrews glipiZIDE 5 MG oral Tablet 06-17 11:33: 32 06-17 00:00 :00 No [id number] 00 10mg Take 2 tablets (10 mg total) by mouth. Dara andrews Atorvastati n Calcium 10 MG oral Tablet 06-17 11:33: 32 06-17 00:00 :00 No [id number] 40mg QD Take 4 tablets (40 mg total) by mouth daily. Dara andrews Buprenorphi ne HCl-Naloxon e HCl (Suboxone) 8-2 MG sublingual Film 06-17 00:00: 00 Yes [id number] 1{film} Q.5D Place 1 film under the tongue 2 times daily. Dara andrews Atorvastati n Calcium 40 MG oral Tablet 06-17 00:00: 00 07-27 00:00 :00 No [id number] 00 40mg QD Take 1 tablet (40 mg total) by mouth nightly. Dara andrews glipiZIDE 10 MG oral Tablet 06-17 00:00: 07-27 00:00 :00 No [id number] 00 10mg Take 1 tablet (10 mg total) by mouth in the morning and 1 tablet (10 mg total) in the evening. Take before meals. Dara andrews Amlodipine Besylate (NORVASC) 5 MG oral Tablet 06-17 00:00: 00 07-27 00:00 :00 No [id number] 5mg QD Take 1 tablet (5 mg total) by mouth daily. Dara andrews Insulin Glargine (Basaglar KwikPen) 100 UNIT/ML subcutaneou s Solution Pen-injecto r 2023-05 00:00: 00 07-27 00:00 :00 No [id number] 00 Take 10 units in the morning and 10 units in the evening.. Dara andrews Tramadol HCl (ULTRAM) 50 MG oral Tablet 2023-05 16:26: 07 05-14 00:00 :00 No Dara andrews METFORMIN HCL OR 2023-05 16:25: 25 05-14 00:00 :00 No Take by mouth. Dara andrews Lovastatin 40 MG oral Tablet 2023-05 16:25: 13 05-14 00:00 :00 No every 24 hours. Dara andrews Losartan Potassium 25 MG oral Tablet 2023-05 16:18: 11 05-14 00:00 :00 No 25mg QD Take 1 tablet (25 mg total) by mouth daily. Dara andrews glipiZIDE 5 MG oral Tablet 2023-05 16:02: 06 Yes [id number] 00 10mg Take 2 tablets (10 mg total) by mouth. Dara andrews Atorvastati n Calcium 10 MG oral Tablet 2023-05 16:02: 06 Yes [id number] 40mg QD Take 4 tablets (40 mg total) by mouth daily. Dara andrews Insulin Glargine (Lantus SoloStar) 100 UNIT/ML subcutaneou s Solution Pen-injecto r 2023-05 00:00: 00 Yes [id number] 00 Take 10 units in the morning and 10 units in the evening.. Dara andrews Losartan Potassium (COZAAR) 100 MG oral Tablet 2023-05 00:00: 00 07-27 00:00 :00 No [id number] 100mg QD Take 1 tablet (100 mg total) by mouth daily. Dara andrews Amlodipine Besylate (NORVASC) 5 MG oral Tablet 2023-05 00:00: 00 06-17 00:00 :00 No [id number] 5mg QD Take 1 tablet (5 mg total) by mouth daily. Dara andrews Atorvastati n Calcium 40 MG oral Tablet 2023-05 00:00: 00 05-14 00:00 :00 No 40mg QD Take 1 tablet (40 mg total) by mouth daily. Dara andrews Losartan Potassium (COZAAR) 100 MG oral Tablet 2023-05 00:00: 00 05-14 00:00 :00 No 100mg QD Take 1 tablet (100 mg total) by mouth daily. Dara andrews glipiZIDE 10 MG oral Tablet 2023-05 00:00: 00 05-14 00:00 :00 No 10mg Q.5D Take 1 tablet (10 mg total) by mouth 2 times daily. Dara andrews Pregabalin 75 MG oral Capsule 2023-05 00:00: 00 Yes [id number] 00 75mg Q.5D Take 1 capsule (75 mg total) by mouth 2 times daily. Dara andrews Lantus Solostar U-100 Insulin 100 unit/mL (3 mL) subcutaneou s pen 2023-05 00:00: 00 Yes (3 mL) Usman Hyman atorvastati n 40 mg tablet 2023-05 00:00: 00 Yes 1mg Usman Hyman losartan 100 mg tablet 2023-05 00:00: 00 Yes 1mg Usman Hyman glipizide 10 mg tablet 2023-05 00:00: 00 Yes 1mg Usman Hyman Suboxone 8 mg-2 mg sublingual film 2023-05 00:00: 00 Yes 1mg Usman Hyman Mupirocin (BACTROBAN) 2 % apply externally Ointment 2023-05 00:00: 00 05-14 00:00 :00 No APPLY 1 APPLICATIO N EXTERNALLY TWICE A DAY Dara andrews TRIMETHOPRI M-SULFAMETH OXAZOLE (BACTRIM DS) 800-160 MG oral Tablet 2023-05 00:00: 00 05-14 00:00 :00 No 1{tbl} 1 tablet. Dara Rochaold - Externa l Suboxone 8 mg-2 mg sublingual film 9- 00:00: 00 Yes 1mg Usman Hyman Suboxone 8 mg-2 mg sublingual film 8-15 00:00: 00 Yes 1mg Usman Hyman Suboxone 8 mg-2 mg sublingual film - 00:00: 00 Yes 1mg Usman Hyman atorvastati n 40 mg tablet 11-27 00:00: 00 Yes 1mg Usmna Hyman Suboxone 8 mg-2 mg sublingual film - 00:00: 00 Yes 1mg Usman Hyman Lantus Solostar U-100 Insulin 100 unit/mL (3 mL) subcutaneou s pen 11-17 00:00: 00 Yes (3 mL) Usman Hyman atorvastati n 40 mg tablet 11-17 00:00: 00 Yes 1mg Usman Hyman losartan 100 mg tablet 11-17 00:00: 00 Yes 1mg Usman Hyman Janumet 50 mg-1,000 mg tablet 11-17 00:00: 00 Yes 1mg Usman Hyman Mucinex 1,200 mg tablet, extended release 11-17 00:00: 00 Yes 1mg Usman Hyman gabapentin 100 mg capsule 11-17 00:00: 00 Yes 1mg Usman Hyman Guaifenesin (Mucinex Maximum Strength) 1200 MG oral Tablet 12 Hour Sustained Release 11-17 00:00: 00 06-17 00:00 :00 No 1mg 1 mg. Dara Lewis - Externa l Lantus Solostar U-100 Insulin 100 unit/mL (3 mL) subcutaneou s pen 11-14 00:00: 00 Yes (3 mL) Usman Hyman Lantus Solostar U-100 Insulin 100 unit/mL (3 mL) subcutaneou s pen 0 -18 00:00: 00 Yes (3 mL) Usman Hyman losartan 100 mg tablet 11-03 00:00: 00 Yes 1mg Usman Hyman atorvastati n 40 mg tablet 11-03 00:00: 00 Yes 1mg Usman Hyman omeprazole 20 mg capsule,del ayed release 11-03 00:00: 00 Yes 1mg Usman Hyman gabapentin 100 mg capsule 11-03 00:00: 00 Yes 1mg Usman Hyman Sitagliptin -Metformin HCl (Janumet) 50-1000 MG oral Tablet 11-03 00:00: 00 05-14 00:00 :00 No 1mg 1 mg. Dara andrews Meloxicam 15 MG oral Tablet 10-23 00:00: 00 05-14 00:00 :00 No Take 1 tablet every day by oral route with meal(s) for 42 days. Dara andrews Suboxone 8 mg-2 mg sublingual film 06 00:00: 00 Yes 1mg Usman Hyman Suboxone 8 mg-2 mg sublingual film 5-08 00:00: 00 Yes 1mg Usman Hyman Suboxone 8 mg-2 mg sublingual film 24 00:00: 00 Yes 1mg Usman Hyman BUPRENORPHI NE-NALOX 8-2MG FILM -24 00:00: 00 Yes Usman Hyman buprenorphi ne 8 mg-naloxone 2 mg sublingual film 4- 00:00: 00 Yes 1mg Usman Hyman buprenorphi ne 8 mg-naloxone 2 mg sublingual film -27 00:00: 00 Yes 1mg Usman Hyman Suboxone 8-2 MG sublingual Film 3-27 00:00: 00 06-17 00:00 :00 No [id number] 1mg 1 mg. Dara Hale Externa juliana Buprenorphi ne HCl-Naloxon e HCl 4-1 MG sublingual Film 08-12 00:00: 00 06-17 00:00 :00 No [id number] 1mg 1 mg. Dara Underwooda juliana TAKE 1 TABLET BY MOUTH TWICE DAILY 08-11 00:00: 00 Yes 10 Usman Hyman TAKE 1 TABLET AT BEDTIME. 08-11 00:00: 00 Yes 40 Usman Hyman TAKE 1 TABLET BY MOUTH DAILY 08-11 00:00: 00 Yes 100 Usman Hyman clotrimazol e-betametha sone 1 %-0.05 % topical cream 08-06 00:00: 00 Yes 1% Usman Hyman Gabapentin 100 MG oral Capsule 08-01 00:00: 00 05-14 00:00 :00 No 1mg 1 mg. Dara andrews Insulin Glargine (Lantus SoloStar) 100 UNIT/ML subcutaneou s Solution Pen-injecto r 07-31 00:00: 00 05-14 00:00 :00 No Dara andrews Silver sulfADIAZIN E (SSD) 1 % apply externally Cream 07-29 00:00: 00 Yes Dara andrews levofloxaci n 750 mg tablet 07-29 00:00: 00 Yes mg Usman Hyman SSD 1% CRE 07-29 00:00: 00 Yes Usman Hyman LEVOFLOXACI N 750MG 07-29 00:00: 00 Yes Usman Hyman TAKE 1 TABLET BY MOUTH TWICE A DAY 07-29 00:00: 00 Yes Usman Hyman HYDROcodone -Acetaminop hen 10-325 MG oral Tablet 07-29 00:00: 00 06-17 00:00 :00 No [id number] Dara andrews Doxycycline Hyclate 100 MG oral Tablet 07-29 00:00: 00 05-14 00:00 :00 No Dara andrews Famotidine 40 MG oral Tablet 07-21 00:00: 00 05-14 00:00 :00 No 40mg 1 tablet (40 mg total). Dara andrews Amlodipine Besylate 2.5 MG oral Tablet 07-21 00:00: 00 05-14 00:00 :00 No Dara Seybold - Externa l DOXYCYCL HYC 100MG 07-17 00:00: 00 Yes Usman Hyman Tamsulosin HCl 0.4 MG oral Capsule 07-08 00:00: 00 05-14 00:00 :00 No Dara Seybold - Externa l TAKE 1 TABLET TWICE DAILY UNTIL GONE. 07-08 00:00: 00 09-28 00:00 :00 No 500 Usman Hyman omeprazole 20 mg capsule,del ayed release 07-04 00:00: 00 Yes mg Usman Hyman Victoza 2-Brent 0.6 mg/0.1 mL (18 mg/3 mL) subcutaneou s pen injector 07-04 00:00: 00 Yes (18 mg/3 mL) Usman Hyman Liraglutide (Victoza) 18 MG/3ML subcutaneou s Solution Pen-injecto r 07-04 00:00: 00 05-14 00:00 :00 No Dara Lewis - Externa l TAKE 1 TABLET BY MOUTH ONCE DAILY 06-18 00:00: 00 Yes [id number] Usman Hyman TAKE 1 TABLET AT BEDTIME. [...] TAKE 1 TABLET BY MOUTH ONCE DAILY 06-14 00:00: 00 09-28 00:00 :00 No [id number] Usman Hyman TAKE 1 TABLET BY MOUTH AT BEDTIME 06-12 00:00: 00 09-28 00:00 :00 No 40 Usman Hyman TAKE 1 TABLET TWICE DAILY. 06-12 00:00: 00 09-28 00:00 :00 No 1000 Usman Hyman TAKE 1 TABLET BY MOUTH TWICE DAILY 06-12 00:00: 00 09-28 00:00 :00 No 10 Usman Yesenia Hyman TAKE 1 TABLET BY MOUTH DAILY 06-12 00:00: 00 09-28 00:00 :00 No 100 Usman Yesenia Hyman APPLY CREAM TOPICALLY TO AFFECTED AREA TWICE A DAY 2022-05 00:00: 00 Yes Usman Hyman APPLY TOPICALLY TO AFFEECTED AREA TWICE A DAY 2022-05 00:00: 00 Yes Usman Yesenia Boogie TAKE 1 TABLET BY MOUTH TWICE A DAY 2022-05 0 00:00: 00 Yes [id number] Usman Yesenia Hyman INJECT 0.25 MG SC ONCE A WEEK X 4 WEEKS 2022-05 0 00:00: 00 09-28 00:00 :00 No 23 Usman Hyman TAKE 1 TABLET BY MOUTH ONCE DAILY 2022-05 0 00:00: 00 09-28 00:00 :00 No [id number] Usman Yesenia Boogie TAKE 1 TABLET BY MOUTH TWICE DAILY 2022-05 0 00:00: 00 09-28 00:00 :00 No 10 Usman Yesenia Boogie LOSARTAN POTASSIUM 100 MG 2022-05 009 00:00: 00 09-28 00:00 :00 No Usman Yesenia Boogie ATORVASTATI N 40 MG 2022-05 009 00:00: 00 09-28 00:00 :00 No Usman Yesenia Boogie TAKE 1 TABLET BY MOUTH TWICE DAILY 8-14 00:00: 00 09-28 00:00 :00 No 10 Usman Yesenia Boogie APPLY CREAM TOPICALLY TO AFFECTED AREA TWICE A DAY FOR 15 DAYS 724 00:00: 00 Yes Usman Hyman TAKE 1 TABLET BY MOUTH TWICE DAILY -22 00:00: 00 09-28 00:00 :00 No [id number] Usamn Yesenia Boogie JANUMET XR 50-1,000 MG 3 00:00: 00 09-28 00:00 :00 No Usman [...] 08-12 00:00: 00 09-28 00:00 :00 No [id number] Usman Hyman TAKE 1 TABLET BY MOUTH DAILY 08-08 00:00: 00 09-28 00:00 :00 No 100 Usman Hyman TAKE 1 TABLET BY MOUTH AT BEDTIME 08-08 00:00: 00 09-28 00:00 :00 No 40 Usman Hyman TAKE 1 TABLET BY MOUTH TWICE A DAY 08-08 00:00: 00 09-28 00:00 :00 No [id number] Usman Hyman APPLY CREAM TOPICALLY TO AFFECTED AREA TWICE DAILY 2021-05 00:00: 00 Yes Usman Hyman TAKE 1 CAPSULE BY MOUTH IN THE MORNING 02-08 00:00: 00 Yes Usman Hyman losartan 50 mg tablet 08-11 00:00: 00 Yes 1mg Usman Hyman Januvia 50 mg tablet 08-11 00:00: 00 Yes 1mg Usman Hyman metformin 1,000 mg tablet 08-11 00:00: 00 Yes 1mg Usman Hyman glipizide 10 mg tablet 08-11 00:00: 00 Yes 1mg Usman Hyman atorvastati n 80 mg tablet 08-11 00:00: 00 Yes 1mg Usman Hyman hydrochloro thiazide 12.5 mg capsule 08-11 00:00: 00 Yes 1mg Usman Hyman Dose Unknown 2022-0 3-25 00:00: 00 Yes Usman Hyman Dose Unknown 2-25 00:00: 00 Yes Usman Hyman Dose Unknown 2-23 00:00: 00 Yes Usman Hyman Dose Unknown 1-14 00:00: 00 Yes Usman Hyman Dose Unknown 1-14 00:00: 00 Yes Usman Hyman Dose Unknown 1- 00:00: 00 Yes Usman Hyman Dose Unknown 06-01 00:00: 00 Yes Usman Hyman Dose Unknown 06-01 00:00: 00 Yes Usman Hyman Dose Unknown 2020-05 1 00:00: 00 Yes Usman Hyman Januvia 50 [...] 1mg Usman Hyman metformin 1,000 mg tablet - 00:00: 00 Yes 1mg Usman Hyman atorvastati n 80 mg tablet - 00:00: 00 Yes 1mg Usman Hyman hydrochloro thiazide 12.5 mg capsule - 00:00: 00 Yes 1mg Usman Hyman Clotrimazol e-Betametha sone 1-0.05 % Clotrimazol e-Betametha sone 1-0.05 % 8- 00:00: 00 -18 00:00 :00 No 1{appli cation} BID Clotrimazo [...] Dose Unknown 10-06 00:00: 00 Yes Usman yHman hydrochloro thiazide 12.5 mg capsule 10-06 00:00: 00 Yes 1mg Usman Hyman Dose Unknown 09-15 00:00: 00 Yes Usman Hyman Dose Unknown 09-15 00:00: 00 Yes Usman Hyman Dose Unknown 09-15 00:00: 00 Yes Usman Hyman Dose Unknown 09-15 00:00: 00 Yes Usman Hyman metformin 1,000 mg tablet 2- 00:00: 00 Yes 1mg Usman Hyman atorvastati n 80 mg tablet 2-12 00:00: 00 Yes 1mg Usman Hyman metformin 1,000 mg tablet 2- 00:00: 00 Yes 1mg Usman Hyman losartan 25 mg tablet 2- 00:00: 00 Yes 1mg Usman Hyman hydrochloro thiazide 12.5 mg capsule 2- 00:00: 00 Yes 1mg Usman Hyman metformin [...] Hyman hydrochloro thiazide 12.5 mg capsule 2019-05 0 00:00: 00 Yes 1mg Usman Hyman ProAir HFA 90 mcg/actuati on aerosol inhaler 0 01-28 00:00: 00 Yes 12mcg/a ctuatio n Usman Hyman metformin 1,000 mg tablet 0 01-28 00:00: 00 Yes 1mg Usman Hyman losartan 25 mg tablet 01-28 00:00: 00 Yes 1mg Usman Hyman levofloxaci n 500 mg tablet 01-02 00:00: 00 Yes 1mg Usman Hyman prednisone 20 mg tablet 01-02 00:00: 00 Yes 1mg Usman Hyman benzonatate 200 mg capsule 0 01-02 00:00: 00 Yes 1mg Usman Hyman losartan 25 mg tablet 0 - 00:00: 00 Yes 1mg Usman Hyman metformin 1,000 mg tablet 11-22 00:00: 00 Yes 1mg Usman Hyman ProAir HFA 90 mcg/actuati on aerosol inhaler - 00:00: 00 Yes 12mcg/a ctuatio n Usman Hyman losartan 25 mg tablet 0 5- 00:00: 00 Yes 1mg Usman Hyman metformin 1,000 mg tablet 0 5- 00:00: 00 Yes 1mg Usman Hyman lovastatin 20 mg tablet 0 5- 00:00: 00 Yes 1mg Usman Hyman losartan 25 mg tablet 0 - 00:00: 00 Yes 1mg Usman Hyman metformin 1,000 mg tablet 0 - 00:00: 00 Yes 1mg Usman Hyman lovastatin 20 mg tablet 0 - 00:00: 00 Yes 1mg Usman Hyman losartan 25 mg tablet 0 3-10 00:00: 00 Yes 1mg Usman Hyman metformin 1,000 mg tablet 2019-0 3-10 00:00: 00 Yes 1mg Usman Hyman lovastatin 20 mg tablet 310 00:00: 00 Yes 1mg Usman Hyman losartan 25 mg tablet 13 00:00: 00 Yes 1mg Usman Hyman metformin 1,000 mg tablet 05-31 00:00: 00 Yes 1mg Usman Hyman lovastatin 20 mg tablet 05-31 00:00: 00 Yes 1mg Usman Hyman metformin 1,000 mg tablet 2018-05 2 00:00: 00 Yes 1mg Usman Hyman lovastatin [...] tablet 01-15 00:00: 00 Yes 1mg Usman Hymna lovastatin 20 mg tablet 01-15 00:00: 00 [...] Usman Hyman hydrochloro thiazide 25 mg tablet 06 00:00: 00 Yes 1mg Usman Hyman lovastatin [...] tablet 12-21 00:00: 00 Yes 1mg Usman Hyman Lyrica 75 mg capsule Take 1 capsule [...] DAY [facility] Janumet XR 50 mg-1,000 mg tablet,exte nded release Janumet XR 50 mg-1,000 mg tablet,exte nded release No Janumet XR 50 mg-1,000 mg tablet,ext ended release [facility] levofloxaci n 750 mg tablet TAKE 1 TABLET BY MOUTH EVERY DAY levofloxaci n 750 mg tablet TAKE 1 TABLET BY MOUTH EVERY DAY No levofloxac in 750 mg tablet TAKE 1 TABLET BY MOUTH EVERY DAY [facility] omeprazole [...] DAY [facility] Victoza 2-Brent 0.6 mg/0.1 mL (18 mg/3 mL) subcutaneou s pen injector Victoza 2-Brent 0.6 mg/0.1 mL (18 mg/3 mL) subcutaneou s pen injector No Victoza 2-Brent 0.6 mg/0.1 mL (18 mg/3 mL) subcutaneo us pen injector [facility] metFORMIN HCl 1000 MG metFORMIN HCl 1000 [...] COVID-19 Vaccine Moderna COVID-19 Vaccine 2020-08-31 00:00:00 Philippe Hyman Covid-19 Vaccine Moderna (Spikevax), Mrna-lnp, Vadim Protein, Pf Unknown Completed Dara Lewis - External Covid-19 Vaccine Moderna (Spikevax), Mrna-lnp, Vadim Protein, Pf Unknown Completed Dara Lewis - External Covid-19 Vaccine Moderna (Spikevax), Mrna-lnp, Vadim Protein, Pf Unknown Completed Dara Lewis - External Covid-19 Vaccine Moderna (Spikevax), Mrna-lnp, Vadim Protein, Pf Unknown Completed Dara Lewis - External Covid-19 Vaccine Moderna (Spikevax), Mrna-lnp, Vadim Protein, Pf Unknown Completed Dara Lewis - External Vital Signs Vital Name Observation Time Observation Value Comments S ource Systolic blood pressure 2024-07-27 15:35:00 158 mm[Hg] Dara Seybo ld - External Diastolic blood pressure 2024-07-27 15:35:00 98 mm[Hg] Dara Edouardybo ld - External Heart rate 2024-07-27 15:35:00 81 /min Cesarse y Seybold - External Body temperature 2024-07-27 15:35:00 36.61 Teena Dara Edouardybold - External Respiratory rate 2024-07-27 15:35:00 18 /min Dara Seybold - External Body height 2024-07-27 15:35:00 190.5 cm Rebecca ey Seybold - External Body weight 2024-07-27 15:35:00 118.752 kg Rebecca ey Seybold - External BMI 2024-07-27 15:35:00 32.72 kg/m2 Rebecca ey Seybold - External Oxygen saturation in Arterial blood by Pulse oximetry 2024-07-27 15:35:00 99 /min Dara Rochao ld - External Body height 2024-07-13 15:31:00 190.5 cm per pt Rebecca ey Seybold - External Body weight 2024-07-13 15:31:00 117.935 kg per pt Rebecca ey Seybold - External BMI 2024-07-13 15:31:00 32.50 kg/m2 Rebecca ey Seybold - External Body height 2024-07-06 15:51:00 190.5 cm per pt Rebecca ey Seybold - External Body weight 2024-07-06 15:51:00 117.935 kg Rebecca ey Seybold - External BMI 2024-07-06 15:51:00 32.50 kg/m2 Rebecca ey Seybold - External Systolic blood pressure 2024 17:15:00 135 mm[Hg] Dara Edouardybo ld - External Diastolic blood pressure 2024 17:15:00 85 mm[Hg] Dara Edouardybo ld - External Heart rate 2024 17:15:00 85 /min Cesarse y Seybold - External Body temperature 2024 17:15:00 36.78 Teena Dara Seybold - External Respiratory rate 2024 17:15:00 18 /min Dara Seybold - External Body height 2024 17:15:00 190.5 cm Rebecca ey Seybold - External Body weight 2024 17:15:00 119.931 kg Rebecca ey Seybold - External BMI 2024 17:15:00 33.05 kg/m2 Rebecca ey Seybold - External Oxygen saturation in Arterial blood by Pulse oximetry 2024 17:15:00 99 /min Dara Seybo ld - External Systolic blood pressure 2024-05-14 21:43:00 142 mm[Hg] Dara Seybo ld - External Diastolic blood pressure 2024-05-14 21:43:00 92 mm[Hg] Dara Seybo ld - External Heart rate 2024-05-14 21:43:00 82 /min Kelse y Seybold - External Body temperature 2024-05-14 21:43:00 36.06 Teena Dara Seybold - External Respiratory rate 2024-05-14 21:43:00 15 /min Dara Seybold - External Body height 2024-05-14 21:43:00 190.5 cm Rebecca ey Seybold - External Body weight 2024-05-14 21:43:00 123.378 kg Rebecca ey Seybold - External BMI 2024-05-14 21:43:00 34.00 kg/m2 Rebecca ey Seybold - External Oxygen saturation in Arterial blood by Pulse oximetry 2024-05-14 21:43:00 97 /min Dara Seybo ld - External Height 2023-11-25 00:00:00 75 [in_i] Az[facility] a [...] Sports Medicine Height 2023-10-31 00:00:00 75 [in_i] [facility] Body Weight 2023-10-31 00:00:00 250 [lb_av] [facility] BMI (Body Mass Index) 2023-10-31 00:00:00 31.2 kg/m2 [facility] Height 2023-10-24 00:00:00 75 [in_i] [facility] Body Weight 2023-10-24 00:00:00 250 [lb_av] [facility] BMI (Body Mass Index) 2023-10-24 00:00:00 31.2 kg/m2 [facility] height 2021-06-07 08:15:00 75 [in_i] Commo n [facility] weight 2021-06-07 08:15:00 295 [lb_av] Comm on [facility] temperature 2021-06-07 08:15:00 98 [degF] Comm on [facility] bmi 2021-06-07 08:15:00 36.87 kg/m2 Comm on [facility] oximetry 2021-06-07 08:15:00 98 % Commo n [facility] respiratory rate 2021-06-07 08:15:00 16 /min [facility] blood pressure systolic 2021-06-07 08:15:00 179 mm[Hg] [facility] blood pressure diastolic 2021-06-07 08:15:00 86 mm[Hg] [facility] height 2021-01-11 16:30:00 75 [in_i] Commo n [facility] weight 2021-01-11 16:30:00 285 [lb_av] Comm on [facility] temperature 2021-01-11 16:30:00 97.2 [degF] Com mon [facility] bmi 2021-01-11 16:30:00 35.62 kg/m2 Comm on [facility] oximetry 2021-01-11 16:30:00 99 % Commo n [facility] blood pressure systolic 2021-01-11 16:30:00 147 mm[Hg] [facility] blood pressure diastolic 2021-01-11 16:30:00 76 mm[Hg] Common [facility] height 2020-11-28 15:40:00 75 [in_i] Commo n [facility] weight 2020-11-28 15:40:00 287.4 [lb_av] Co mmon [facility] temperature 2020-11-28 15:40:00 96.5 [degF] Com mon [facility] bmi 2020-11-28 15:40:00 35.92 kg/m2 Comm on [facility] oximetry 2020-11-28 15:40:00 97 % Commo n [facility] blood pressure systolic 2020-11-28 15:40:00 159 mm[Hg] Common [facility] blood pressure diastolic 2020-11-28 15:40:00 84 mm[Hg] Common [facility] BP Systolic 2024-03-25 11:31:00 Step hen Yesenia Hyman BP Diastolic 2024-03-25 11:31:00 Lul phen Yesenia Hyman Weight Measured 2024-03-25 11:31:00 257.80 pounds Usman Hyman Height Measured 2024-03-25 11:31:00 74.00 inches Usmansharon Hyman Body Temperature 2024-03-25 11:31:00 Usmansharon Hyman Heart Rate 2024-03-25 11:31:00 60.00 /min Safia en F Boogie Respiratory Rate 2024-03-25 11:31:00 18.00 /min Usmansharon Hyman BP Systolic 2024-03-24 13:33:00 134 mm[Hg] Step hen Yesenia Hyman BP Diastolic 2024-03-24 13:33:00 88 mm[Hg] Lul phen Yesenia Hyman Weight Measured 2024-03-24 13:33:00 258.80 pounds Usman Yesenia Hyman Height Measured 2024-03-24 13:33:00 74.00 inches Usman F Boogie Body Temperature 2024-03-24 13:33:00 97.70 degrees Usman F Boogie Heart Rate 2024-03-24 13:33:00 74.00 /min Safia en F [place] Respiratory Rate 2024-03-24 13:33:00 19.00 /min Usman F Boogie BP Systolic 2024-02-09 14:19:00 151 mm[Hg] Step hen F Boogie BP Diastolic 2024-02-09 14:19:00 81 mm[Hg] Lul phen F [place]ie Weight Measured 2024-02-09 14:19:00 257.00 pounds Usman F Boogie Height Measured 2024-02-09 14:19:00 74.00 inches Usman F [place] Body Temperature 2024-02-09 14:19:00 97.60 degrees Usman F [place] Heart Rate 2024-02-09 14:19:00 68.00 /min Safia en F [place] Respiratory Rate 2024-02-09 14:19:00 Usman F Boogie BP Systolic 2024-01-01 10:39:00 161 mm[Hg] Step hen F Boogie BP Diastolic 2024-01-01 10:39:00 87 mm[Hg] Lul phen F [place] Weight Measured 2024-01-01 10:39:00 257.60 pounds Usman F Boogie Height Measured 2024-01-01 10:39:00 74.00 inches Usman F [place] Body Temperature 2024-01-01 10:39:00 98.30 degrees Usman F [place] Heart Rate 2024-01-01 10:39:00 60.00 /min Safia en F [place] Respiratory Rate 2024-01-01 10:39:00 18.00 /min Usman F Boogie BP Systolic 2023-11-27 11:09:00 136 mm[Hg] Step hen F [place]ogie BP Diastolic 2023-11-27 11:09:00 71 mm[Hg] Lul phen F [place] Weight Measured 2023-11-27 11:09:00 253.60 pounds Usman F Boogie Height Measured 2023-11-27 11:09:00 74.00 inches Usman F [place] Body Temperature 2023-11-27 11:09:00 97.80 degrees Usman F [place] Heart Rate 2023-11-27 11:09:00 75.00 /min Safia en F [place] Respiratory Rate 2023-11-27 11:09:00 19.00 /min Usman F Boogie BP Systolic 2023-11-18 10:34:00 133 mm[Hg] Step [...] Height Measured 2023-08-01 15:50:00 74.00 inches Usman Hyman Body Temperature 2023-08-01 15:50:00 98.40 degrees Usman Hyman Heart Rate 2023-08-01 15:50:00 76.00 /min Safia en Yesenia Hyman Respiratory Rate 2023-08-01 15:50:00 18.00 /min Usman Hyman BP Systolic 2023-07-04 13:45:00 149 mm[Hg] Step hen Yesenia Hyman BP Diastolic 2023-07-04 13:45:00 82 mm[Hg] Lul Hyman Weight Measured 2023-07-04 13:45:00 255.60 pounds Usman Hyman Height Measured 2023-07-04 13:45:00 74.00 inches Usman Hyman Body Temperature 2023-07-04 13:45:00 98.20 degrees Usman Hyman Heart Rate 2023-07-04 13:45:00 76.00 /min Safia en Yesenia Hyman Respiratory Rate 2023-07-04 13:45:00 18.00 /min [...] Medicine Total Replacement of Right Knee Joint [facility] Total Replacement of Left Knee Joint [facility] Encounters Start Date/Time End Date/Time Encounter Type Admission Type Attending [facility] Care Facility Care Department Encounter ID Source 2021-06-21 15:49:01 Outpatient [facility] [id number] [facility] 2021-06-13 13:32:49 [facility] [id number] [facility] 2021-06-13 13:25:32 [facility] [id number] [facility] 2024-09-08 09:45:00 2024-09-08 09:45:00 Outpatient [facility] [id number] [facility] 2024-08-10 10:00:00 2024-08-10 10:00:00 Outpatient SAV ERVIN [id number] [facility] 2024-08-06 00:00:00 2024-08-06 00:00:00 Outpatient PREZAPARISH Hoffman [id number] [facility] 2024-08-03 00:00:00 2024-08-03 00:00:00 Outpatient PREZAPARISH Hoffman [id number] [facility] 2024-07-27 11:30:00 2024-07-27 11:30:00 Outpatient YULISA DONG [id number] [facility] 2024-07-27 10:30:00 2024-07-27 10:30:00 Outpatient [facility] [id number] [facility] 2024-07-23 00:00:00 2024-07-23 00:00:00 Outpatient BILLY, YANI DONG [id number] [facility] 2024-07-22 00:00:00 2024-07-22 00:00:00 Outpatient SEVILLALINUS GARVIN DARA DONG [id number] [facility] 2024-07-21 11:26:26 2024-07-21 11:26:26 Outpatient SFA [facility] [id number] Usman Hyman 2024-07-16 09:20:00 2024-07-16 09:20:00 Outpatient DARA DONG [id number] [facility] 2024-07-16 09:15:00 2024-07-16 09:15:00 Outpatient DARA DONG [id number] [facility] 2024-07-16 00:00:00 2024-07-16 00:00:00 Outpatient [facility] [id number] [facility] 2024-07-13 11:00:00 2024-07-13 11:00:00 Outpatient BILLY, YANI DARA DONG [id number] [facility] 2024-07-13 08:00:00 2024-07-13 08:00:00 Outpatient BILLY, YANI [facility]ARA [facility] [id number] [facility] 2024-07-06 09:25:00 2024-07-06 09:25:00 Outpatient DARA DONG [id number] [facility] 2024-07-06 09:00:00 2024-07-06 09:00:00 Outpatient NWAEZE, CRISTOBAL DARA DONG [id number] [facility] 2024-07-05 00:00:00 2024-07-05 00:00:00 Outpatient NWAEZE, CRISTOBAL DARA DONG [id number] [facility] 2024-06-22 00:00:00 2024-06-22 00:00:00 Outpatient SEVILLALINUS DARA DONG [id number] [facility] 2024-06-18 00:00:00 2024-06-18 00:00:00 Outpatient ZARINA HAWKINSAND DARA DONG [id number] [facility] 2024 11:00:00 2024 11:00:00 Outpatient PARISH HAWKINS [id number] [facility] 2024-06-14 13:17:27 2024-06-14 13:17:27 Outpatient SFA [facility] [id number] Usman Hyman 2024-05-26 13:12:59 2024-05-26 13:12:59 Outpatient SFA [facility] [id number] Usman Hyman 2024-05-21 15:45:00 2024-05-21 15:45:00 Outpatient SAV ERVIN [id number] [facility] 2024-05-17 15:40:38 2024-05-17 15:40:38 Outpatient SFA SFA [id number] Usman Hyman 2024-05-17 00:00:00 2024-05-17 00:00:00 Outpatient LINUS SEVILLA DARA [id number] [facility] 2024-05-17 00:00:00 2024-05-17 00:00:00 Outpatient LINUS SEVILLA DARA [id number] [facility] 2024-05-14 16:30:00 2024-05-14 16:30:00 Outpatient LINUS SEVILLA [id number] [facility] 2024-03-25 11:29:41 2024-03-25 11:29:41 Outpatient SFA SFA [id number] Usman Hyman 2024-03-25 00:00:00 2024-03-25 00:00:00 Outpatient Visit SFA [id number] Usman Hyman 2024-03-24 13:32:46 2024-03-24 13:32:46 Outpatient SFA SFA [id number] Usman Hyman 2024-02-09 14:17:28 2024-02-09 14:17:28 Outpatient SFA SFA [id number] Usman Hyman 2024-01-01 10:33:32 2024-01-01 10:33:32 Outpatient SFA SFA [id number] Usman Hyman 2023-11-27 11:08:32 2023-11-27 11:08:32 Outpatient SFA [facility] 710 Usman Patterson [place] 2023-11-25 00:00:00 2023-11-25 00:00:00 Dionte Valentine MD: [address] [place] [address] , Ph. [phone] [place] [facility] [place] [id number] [facility] 2023-11-18 10:34:48 2023-11-18 10:34:48 Outpatient SFA [facility] 701 Usman Patterson [place] 2023-11-18 00:00:00 2023-11-18 00:00:00 Outpatient Visit [facility] [id number] Usman Patterson [place] 2023-11-14 00:00:00 2023-11-14 00:00:00 Frances Bar MD: [address] [place] [address] , Ph. [phone] [place] [facility] [place] [id number] [facility] 2023-11-10 11:08:47 2023-11-10 11:08:47 Outpatient SFA [facility] 24 Usman Patterson [place] 2023-11-06 00:00:00 2023-11-06 00:00:00 Heath Lawson MD: [address] [place] [address] , Ph. [phone] [place] [facility] [place] [id number] [facility] 2023-11-04 11:06:32 2023-11-04 11:06:32 Outpatient SFA [facility] [id number] Usman Patterson [place] 2023-11-04 00:00:00 2023-11-04 00:00:00 Outpatient Visit [facility] [id number] Usman Hyman 2023-10-31 00:00:00 2023-10-31 00:00:00 Rafal Pate MD: [address] [place] [address] , Ph. [phone] [place] [facility] [place] [id number] [facility] 2023-10-24 00:00:00 2023-10-24 00:00:00 Rafal Pate MD: [address] [place], [place] [address] , Ph. [phone] [place] [facility] [place] [id number] [facility] 2023-10-23 10:42:24 2023-10-23 10:42:24 Outpatient SFA [facility] [id number] Usman Hyman 2023-09-26 00:00:00 2023-09-26 00:00:00 Frances Bar MD: [address] [place] [phone] , Ph. [phone] [place] [facility] [id number] [facility] 2023-09-24 14:35:23 2023-09-24 14:35:23 Outpatient SFA [facility] [id number] Usman Hyman 2023-09-12 00:00:00 2023-09-12 00:00:00 Frances Bar MD: [address] [place] [phone] , Ph. [phone] [place] [facility] [id number] [facility] 2023-09-10 13:51:14 2023-09-10 13:51:14 Outpatient SFA [facility] [id number] Usman Hyman 2023-09-02 09:14:00 2023-09-02 09:14:00 Outpatient Frances Hsieh [facility] [id number] [facility] 2023-09-02 00:00:00 2023-09-02 00:00:00 Frances Bar MD: [address] [place] [phone] , Ph. [phone] [facility] [place] [facility] [id number] [facility] 2023-08-31 00:00:00 2023-08-31 00:00:00 Outpatient FOG_Goytia_ Robin_ [facility] [id number] [facility] 2023-08-25 00:00:00 2023-08-25 00:00:00 Frances Bar MD: [address] [place] [address] , Ph. [phone] [facility] [place] [facility] [id number] [facility] 2023-08-22 08:46:00 2023-08-22 08:46:00 Outpatient Frances Hsieh [facility] [id number] [facility] 2023-08-22 00:00:00 2023-08-22 00:00:00 Frances Bar MD: [address] [place] [phone] , Ph. [phone] FOG_Goytia_ Robin_ [facility] [place] [facility] [id number] [facility] 2023-08-21 19:53:00 2023-08-21 19:53:00 Outpatient Frances Bar [facility] [id number] [facility] 2023-08-20 13:42:52 2023-08-20 13:42:52 Outpatient [facility] [id number] Usman F Boogie 2023-08-18 00:00:00 2023-08-18 00:00:00 Frances Bar MD: [address] [place] [phone] , Ph. [phone] FOG_Goytia_ Robin_ [facility] [place] [facility] FOG_Ofc [address] [id number] [facility] 2023-08-12 00:00:00 2023-08-12 00:00:00 Outpatient FOG_Goytia_ Dutch_ [place]JACINTO [place] [id number] [facility] 2023-08-07 14:41:23 2023-08-07 14:41:23 Outpatient [facility] [id number] Usman Hyman 2023-08-01 15:35:34 2023-08-01 15:35:34 Outpatient SFA [facility] [id number] Usman Hyman 2023-07-04 13:34:23 2023-07-04 13:34:23 Outpatient [facility] [id number] Usman Hyman 2023-06-14 09:52:35 2023-06-14 09:52:35 Outpatient [facility] [id number] Usman Hyman 2023-02-24 15:33:13 2023-02-24 15:33:13 Outpatient [facility] [id number] Usman Hyman 2022-10-07 09:08:20 2022-10-07 09:08:20 Outpatient [facility] [id number] Usman Hyman 2022-08-12 11:14:26 2022-08-12 11:14:26 Outpatient [facility] [id number] Usman Hyman 2022-05-28 17:22:02 2022-05-28 17:22:02 Outpatient [facility] [id number] Usman Patterson [place] 2021-06-22 00:00:00 2021-06-22 00:00:00 (TEL) STLMLC STLMLC [id number] [facility] 2021-06-07 00:00:00 2021-06-07 00:00:00 OFFICE VISIT ESTAB PT LEVEL 4 STLMLC STLMLC [id number] [facility] 2021-05-31 00:00:00 2021-05-31 00:00:00 (TEL) STLMLC STLMLC [id number] [facility] 2021-01-11 00:00:00 2021-01-11 00:00:00 OFFICE VISIT EST PT LEVEL 3 STLMLC STLC [id number] [facility] 2020-11-28 00:00:00 2020-11-28 00:00:00 OFFICE VISIT NEW PT LEVEL 3 STLMLC STLMLC [id number] [facility] Results Test Description Test Time Test Comments Results Result Co mments Source VITAMIN B 12 AND FOLIC [id number] 03:55:09* Test Item Value Reference Range Interpretation [...] TESTING PERFORMED AT [facility] [address] [place] [address] PAPER MACHINE SUPERVISOR: MAREN CHAVARRIA M.D. CLIA NUMBER [id number] [facility] [place]. [id number] CBC W/AUTO DIFF WITH [id number] 03:15:20* Test Item Value Reference Range Interpretation [...] = 1065) 0.0 /100 WBC'S See_Comment [Automated Legend3Da ge] The system which generated this result [...] 0.00-0.10 ABS NUCLEATED RBCS (test code = 30747) 0.00 K/UL 0.00-0.11 [id number] 02:39:37* Test Item Value Reference Range Interpretation Comme nts FERRITIN (test code = 2075) 267 NG/ML 30-400 [id number] 02:39:29* Test Item Value Reference Range Interpretation Comme nts TRANSFERRIN (test code = 4936) 213 MG/DL 200-360 IRON BINDING CAPACITY AND IRON AND % [id number] 02:38:50* Test Item Value Reference Range Interpretation Comme nts IRON, SERUM (test code = 2222) 52 UG/DL 59-158 L UNSATURATED IBC (test code = 68381) 197 UG/DL 112-347 CALC TOTAL IBC (test code = 207) 249 UG/DL 250-450 L CALC % IRON SAT (test code = 207) 21 % 20-50 CBC W/AUTO [id number] 00:00:00* Test Item Value Reference Range Interpretation [...] ABS NUCLEATED RBCS (test cod e = 14479) 0.00 K/UL Usman Patterson AustinHEMOGLOBIN [id number] 00:00:00* Test Item Value Reference Range Interpretation Comme nts HEMOGLOBIN A1c (test code = 31718) 6.7 % Usman Patterson AustinIRON BINDING CAPACITY AND IRON AND % [id number] 00:00:00* Test Item Value Reference Range Interpretation Comme nts IRON, SERUM (test code = 2222) 52 UG/DL UNSATURATED IBC (test code = 81385) 197 UG/DL CALC TOTAL IBC (test code = 2076) 249 UG/DL CALC % IRON SAT (test code = 2078) 21 % Usman Patterson [id number] 00:00:00* Test Item Value Reference Range Interpretation Comme nts FERRITIN (test code = 2074) 267 NG/ML Usman Patterson [id number] 00:00:00* Test Item Value Reference Range Interpretation Comme nts TRANSFERRIN (test code = 4936) 213 MG/DL Usman HymanVITAMIN B 12 AND FOLIC [id number] 00:00:00* Test Item Value Reference Range Interpretation Comme nts VITAMIN B-12 (test code = 2840) >2000 PG/ML FOLIC ACID (test code = 2695) 19.1 UG/L Usman HymanCBC W/AUTO [id number] 00:00:00* Test Item Value Reference Range Interpretation [...] ABS NUCLEATED RBCS (test cod e = 17486) 0.00 K/UL Umsan HymanHEMOGLOBIN [id number] 00:00:00* Test Item Value Reference Range Interpretation Comme nts HEMOGLOBIN A1c (test code = 23350) 6.7 % Usman HymanIRON BINDING CAPACITY AND IRON AND % [id number] 00:00:00* Test Item Value Reference Range Interpretation Comme nts IRON, SERUM (test code = 2222) 52 UG/DL UNSATURATED IBC (test code = 55711) 197 UG/DL CALC TOTAL IBC (test code = 2077) 249 UG/DL CALC % IRON SAT (test code = 2079) 21 % Usman [id number] 00:00:00* Test Item Value Reference Range Interpretation Comme nts FERRITIN (test code = 2075) 267 NG/ML Usman [id number] 00:00:00* Test Item Value Reference Range Interpretation Comme nts TRANSFERRIN (test code = 4936) 213 MG/DL Usman HymanVITAMIN B 12 AND FOLIC [id number] 00:00:00* Test Item Value Reference Range Interpretation Comme nts VITAMIN B-12 (test code = 2840) >2000 PG/ML FOLIC ACID (test code = 2695) 19.1 UG/L Usman HymanCBC W/AUTO DIFF WITH [id number] 08:10:35* Test Item Value Reference Range Interpretation [...] 0.00-0.10 ABS NUCLEATED RBCS (test code = 36864) 0.00 K/UL 0.00-0.11 UNLESS OTHER OCONNOR INDICATED, ALL TESTING PERFORMED AT [facility] [address] [place] [address] PAPER MACHINE SUPERVISOR: MAREN CHAVARRIA M.D. [place] NUMBER [id number] [facility] [place]. [id number] HIV 1/2 4TH GEN, RFLX [id number] 04:31:36* Test Item Value Reference Range Interpretation Comme nts HIV 1/2 4TH GEN, RFLX CONF ( test code = 3514) NON-REACTIVE NON-REACTIVE HEPATITIS PANEL, [id number] 04:31:36* Test Item Value Reference Range Interpretation Comme nts HEPATITIS A IgM (test code = 11559) NON-REACTIVE NON-REACTIVE HEPATITIS B CORE IgM (test code = 4644) NON-REACTIVE NON-REACTIVE HEPATITIS B SURF AG (test code = 2739) NON-REACTIVE NON-REACTIVE HEPATITIS C ANTIBODY (test code = 4675) REACTIVE NON-REACTIVE A INTERPRETATION HEPATITIS A: (test code = 2552) (NOTE) Hepatitis A serology shows no evidence of acute hepatitis A. INTERPRETATION HEPATITIS B: (test code = 54558) (NOTE) Hepatitis B serology shows no evidence of acute hepatitis B andno indication of exposure to hepatitis B virus in the previous danielle eight months. INTERPRETATION HEPATITIS C: (test code = 78902) (NOTE) Hepatitis C serology is consistent with exposure to hepatitis Cvirus. The CDC recommends performing a supplemental confirmatory teston initial positive hepatitis C antibody tests. HCV PCR quantitativecan be used to confirm these results on a new sample (See MMWR, 2003;52 RR-3). ACUTE HEPATITIS [id number] 00:00:00* Test Item Value Reference Range Interpretation Comme nts HEPATITIS A IgM (test code = 24908) NON-REACTIVE HEPATITIS B CORE IgM (test c ode = 4644) NON-REACTIVE HEPATITIS B SURF AG (test co de = 2739) NON-REACTIVE HEPATITIS C ANTIBODY (test c ode = 4675) REACTIVE INTERPRETATION HEPATITIS A: (test code = 2552) (NOTE) INTERPRETATION HEPATITIS B: (test code = 17899) (NOTE) INTERPRETATION HEPATITIS C: (test code = 08302) (NOTE) [facility] [id number] 00:00:00* Test Item Value Reference Range Interpretation [...] ABS NUCLEATED RBCS (test cod e = 55976) 0.00 K/UL Usman HymanHIV 1/2 4TH GEN, RFLX [id number] 00:00:00* Test Item Value Reference Range Interpretation Comme nts HIV 1/2 4TH GEN, RFLX CONF ( test code = 3514) NON-REACTIVE Usman HymanACUTE HEPATITIS [id number] 00:00:00* Test Item Value Reference Range Interpretation Comme nts HEPATITIS A IgM (test code = 76165) NON-REACTIVE HEPATITIS B CORE IgM (test c ode = 4644) NON-REACTIVE HEPATITIS B SURF AG (test co de = 2739) NON-REACTIVE HEPATITIS C ANTIBODY (test c ode = 4675) REACTIVE INTERPRETATION HEPATITIS A: (test code = 2552) (NOTE) INTERPRETATION HEPATITIS B: (test code = 34217) (NOTE) INTERPRETATION HEPATITIS C: (test code = 02995) (NOTE) Usman HymanCBC W/AUTO [id number] 00:00:00* Test Item Value Reference Range Interpretation [...] ABS NUCLEATED RBCS (test cod e = 59424) 0.00 K/UL Usman HymanHIV 1/2 4TH GEN, RFLX [id number] 00:00:00* Test Item Value Reference Range Interpretation Comme nts HIV 1/2 4TH GEN, RFLX CONF ( test code = 3514) NON-REACTIVE Usman HymanACUTE HEPATITIS [id number] 00:00:00* Test Item Value Reference Range Interpretation Comme nts HEPATITIS A IgM (test code = 54878) NON-REACTIVE HEPATITIS B CORE IgM (test c ode = 4644) NON-REACTIVE HEPATITIS B SURF AG (test co de = 2739) NON-REACTIVE HEPATITIS C ANTIBODY (test c ode = 4675) REACTIVE INTERPRETATION HEPATITIS A: (test code = 2552) (NOTE) INTERPRETATION HEPATITIS B: (test code = 60588) (NOTE) INTERPRETATION HEPATITIS C: (test code = 04566) (NOTE) Usman HymanCBC W/AUTO [id number] 00:00:00* Test Item Value Reference Range Interpretation [...] ABS NUCLEATED RBCS (test cod e = 18676) 0.00 K/UL Usman HymanHIV 1/2 4TH GEN, RFLX [id number] 00:00:00* Test Item Value Reference Range Interpretation Comme nts HIV 1/2 4TH GEN, RFLX CONF ( test code = 3514) NON-REACTIVE Usman Patterson [id number] 16:40:00* Test Item Value Reference Range Interpretation Comme nts GLUBED (test code = GLUBED) 189 mg/dL 60-99 H The normal fasti ng blood glucose range for a non-diabeticadult is 60-99 mg/dL. Two hours after meals, normal blood glucose levels should beless than 140 mg/dL.Please note new normal range. [id number] 16:27:00* Test Item Value Reference Range Interpretation Comme nts glubed (test code = glubed) 189 mg/dL 60-99 H performing lab: (test code = performing lab:) [id number]* Test Item Value Reference Range Interpretation Comme nts GLUBED (test code = GLUBED) 202 mg/dL 60-99 H The normal fasti ng blood glucose range for a non-diabeticadult is 60-99 mg/dL. Two hours after meals, normal blood glucose levels should beless than 140 mg/dL.Please note new normal range. [id number] 10:47:00* Test Item Value Reference Range Interpretation Comme nts glubed (test code = glubed) 202 mg/dL 60-99 H performing lab: (test code = performing lab:) [facility] LW JNT W/CONTRAST [id number] 08:23:00 [facility] 1960 Sex: M Patient Name: ESAU VALDES Unit No: [id number] EXAMS: CPT CODE: [id number] [place] LW JNT W/[place] [address] TECHNIQUE: Multiplanar multisequence images of the right hip were obtained with and without IV contrast. COMPARISON STUDY: MRI dated 08/22/2023. FINDINGS: Marked heterogeneous increased signal is demonstrated within the right femoral head and neck, greatest within the anterior femoral neck. Underlyingfracture anteriorly is not excluded. A right hip [...] in the absence of trauma. If there is history of trauma, these findings may be secondary to muscle tear/strain and hematoma. No underlying mass is visualized. at 0823 Reported and signed by: Usman To M.D. CC: Frances Bar MD Technologist: JOANNE MACHUCA MRI Transcribed D/ (0823) [facility] NAME: ESAU VALDES [address] PHYS: BRIMA. - Frances Bar MD : 1960 AGE: 63 SEX: M [place], [place] [address] LOC: Y.MRI PHONE #: [phone] EXAM DATE: 08/22/2023 STATUS: DEP CLI FAX #:[phone] RAD #: D/C DT PAGE 1 Signed Report Patient Name: ESAU VALDES Unit No: [id number] EXAMS: CPT CODE: [id number] MRI LW JNT W/[place] [id number] (Continued) Orig Print D/T: S: 08/24/2023 (0826) [facility] NAME: EASU VALDES [address] [facility] PHYS: SALMAIMA. - Frances Bar MD : 1960 AGE: 63 SEX: M [place], [place] [address] LOC: Y.MRI PHONE #: [phone] EXAM DATE: 08/22/2023 STATUS: DEP CLI FAX #: [phone] RAD #: D/C DT PAGE 2 Signed Report- MRI LW JNT W/O CONT [id number] 08:23:00 [facility] : 1960 Sex: M Patient Name: ESAU VALDES Unit No: [id number] EXAMS: CPT CODE: [id number] [place] LW JNT W/[place] [address] TECHNIQUE: Multiplanar multisequence images of the right [...] in the absence of trauma. If there is history of trauma, these findings may be secondary to muscle tear/strain and hematoma. No underlying mass is visualized. at 0823 Reported and signed by: Usman To M.D. CC: Frances Bar MD Technologist: Ismael Mcfarlane ([facility]),MRI Transcribed D/ (08) TeresaSLVickey [facility] NAME: ESAU VALDES [address] [place] [address] PHYS: BRIMA. - Frances Bar MD : 1960 AGE: 63 SEX: M [place] [address] LOC: Y.MRI PHONE #: [phone] EXAM DATE: 08/22/2023 STATUS: DEP CLI FAX #: [phone] RAD #: D/C DT PAGE 1 Signed Report Patient Name: ESAU VALDES Unit No: [id number] EXAMS: CPT CODE: [id number] MRI LW JNT [place] [address] (Continued) Orig Print D/T: S: 08/24/2023(08) [facility] NAME: ESAU VALDES [address] [place] [address] PHYS: BRIMA. - Frances Bar MD : 1960 AGE: 63 SEX: M [place] [address] LOC: Y.MRI PHONE #: [phone] EXAM DATE: 08/22/2023 STATUS: GREGORIO HOLLY FAX #: [phone] RAD #: D/C DT PAGE 2 Signed ReportC REACTIVE [id number] 23:20:00* Test Item Value Reference Range Interpretation Comme nts C REACTIVE PROTEIN (test cod e = CRP) < 0.30 mg/dL < 0.3 N COMPREHENSIVE METABOLIC [id number] 22:12:00* Test Item Value Reference Range Interpretation [...] ALKP) 100 U/L 46-116 N ACUTE HEPATITIS [id number] 21:25:00* Test Item Value Reference Range Interpretation Comme nts AB HEPATITIS A IGM (test code = HAVMAB) NONREACTIVE NONREACTIVE AG HEPATITIS B SURFACE (test code = HBSAG) NONREACTIVE NONREACTIVE AB HEPATITIS B CORE IGM (test code = HBCMAB) NONREACTIVE NONREACTIVE AB HEPATITIS C (test code = HCVAB) REACTIVE NONREACTIVE A RESULTS CALLED T O BOWEN HOLLINS MT.READ BACK & CONFIRMED? Y.BY [id number] 08/21/232123. SIGNAL TO CUTOFF (test code = CUTOFF) >11.00 <0.80 H AB HIV 1 21:25:00* Test Item Value Reference Range Interpretation Comme nts AB HIV 1 2 (test code = LAN54CQ) NONREACTIVE NONREACTIVE Done by [employer] Gen HIV Ag/Ab Combo Screen C REACTIVE [id number] 21:25:00* Test Item Value Reference Range Interpretation Comme nts C REACTIVE PROTEIN (test code = CRP) mg/dL < 0.3 ACUTE HEPATITIS [id number] 21:25:00* Test Item Value Reference Range Interpretation Comme nts AB HEPATITIS A IGM (test code = HAVMAB) NONREACTIVE NONREACTIVE AG HEPATITIS B SURFACE (test code = HBSAG) NONREACTIVE NONREACTIVE AB HEPATITIS B CORE IGM (test code = HBCMAB) NONREACTIVE NONREACTIVE AB HEPATITIS C (test code = HCVAB) REACTIVE NONREACTIVE A Reported to []by JACI, on 08/21/23 at 2125.RESULTS CALLED TO BOWEN HOLLINS MT.READ BACK & CONFIRMED? Y.BY [id number] 08/21/232123. SIGNAL TO CUTOFF (test code = CUTOFF) > 11.00 <0.80 H AB HIV 21:25:00* Test Item Value Reference Range Interpretation Comme nts AB HIV 1 (test code = HIV1AB) NONREACTIVE NONREACTIVE Done by [employer] HIV Ag/Ab Combo Screen SED [id number] 15:30:00* Test Item Value Reference Range Interpretation Comme nts SED RATE (test code = SEDW) 10 mm/hr 0-20 N PROTHROMBIN [id number] 14:45:00* Test Item Value Reference Range Interpretation [...] intravascular valves IS PATIENT ON ANTICOAGULANTS ? [facility] been notified if Patient is on Heparin Drip? NOIf Yes, order CBC, OCCULT BLOOD, PT every other day NTHROMBOPLASTIN TIME [id number] 14:45:00* Test Item Value Reference Range Interpretation Comme nts PTT ACTIVATED (test code = APTT) 33.2 secs 25.1-36.5 N IS PATIENT ON ANTICOAGULANTS ? [facility] been notified if Patient is on [...] N CBC W Auto Differential panel - [id number] 11:45:00* Test Item Value Reference Range Interpretation [...] performing lab: (test code = performing lab:) [facility] 11:45:00* Test Item Value Reference Range Interpretation Comme nts prothrombin time patient (te st code = prothrombin time patient) 9.5 secs 9.4-12.5 international normal ratio ( test code = international normal ratio) 0.89 <2.0 performing lab: (test code = performing lab:) [facility] [id number] 11:45:00 * Test Item Value Reference Range Interpretation Comme nts PTT activated (test code = P TT activated) 33.2 secs 25.1-36.5 performing lab: (test code = performing lab:) [facility] [id number] 11:45:00* Test Item Value Reference Range Interpretation Comme nts sed rate (test code = sed rate) 10 mm/HR 0-20 performing lab: (test code = performing lab:) [facility]Com[facility] 2000 [facility] - Serum or [id number] 11:45:00* Test Item Value Reference Range Interpretation [...] performing lab: (test code = performing lab:) [facility] reactive [id number] 11:45:00* Test Item Value Reference Range Interpretation Comme nts C reactive protein (test cod e = C reactive protein) < 0.30 < 0.3 performing lab: (test code = performing lab:) [facility], [id number] 11:21:14SPECIMEN NUMBER: [id number] CULTURE, URINE SPECIMEN NUMBER: [id number] SPECIMEN COMMENT: URINE SOURCE: URINE REPORT STATUS: FINAL ISOLATE NUMBER 1: IDENTIFICATION: 07/06/2023 10-50,000 CFU/ML STREPTOCOCCUS AGALACTIAE (GROUP B) ADDITIONAL OBSERVATIONS: PENICILLIN AND AMPICILLIN ARE DRUGS OF CHOICE FORTREATMENT OF B- HEMOLYTIC STREPTOCOCCAL INFECTIONS. SUSCEPTIBILITY TESTING OF PENICILLIN AND OTHER B-LACTAMS APPROVED BY THE [place] [employer]OD AND DRUG ADMINISTRATION FOR TREATMENT OF B-HEMOLYTIC STREPTOCOCCAL INFECTIONS NEED NOT BE PERFORMED ROUTINELY.CULTURE, [id number] 00:00:00* Test Item Value Reference Range Interpretation Comme nts CULTURE, URINE (test code = 42543) SPECIMEN NUMBER: [id number] Usman MarieLTURE, [id number] 00:00:00* Test Item Value Reference Range Interpretation Comme nts CULTURE, URINE (test code = 90850) SPECIMEN NUMBER: [id number] Usman HymanCULTURE, [id number] 00:00:00* Test Item Value Reference Range Interpretation Comme nts CULTURE, URINE (test code = 58631) SPECIMEN NUMBER: [id number] Usman HymanPSA, [id number] 07:47:28* Test Item Value Reference Range Interpretation Comme nts PSA, TOTAL (test code = 2606) 0.31 NG/ML <=4.00 NOTE: Methodolog y is Tushar Jayden Electrochemiluminescence Immunoassay traceable to WHO reference standard 96/760. UNLESS OTHERWISE INDICATED, ALL TESTING PERFORMED AT [facility] [address] [place] [address] PAPER MACHINE SUPERVISOR: MAREN CHAVARRIA M.D. CLIA NUMBER [id number] [facility] [place]. [id number] PSA, [id number] 00:00:00* Test Item Value Reference Range Interpretation Comme nts PSA, TOTAL (test code = 2606) 0.31 NG/ML Usman RaygozaA, [id number] 00:00:00* Test Item Value Reference Range Interpretation Comme nts PSA, TOTAL (test code = 2606) 0.31 NG/ML Usman HymanPSA, [id number] 00:00:00* Test Item Value Reference Range Interpretation Comme nts PSA, TOTAL (test code = 2606) 0.31 NG/ML Usman Patterson AustinALBUMIN/CREATININE RATIO, URINE, [id number] 02:45:52* Test Item Value Reference Range Interpretation Comme nts CREATININE, URINE, CONC. (test code = 2072) 61.4 MG/DL NOT ESTAB ALBUMIN, URINE, RANDOM (test code = 75381) 9.1 MG/DL NOT ESTAB CALC ALBUMIN/CREAT, RND (test code = 92195) 148 MG/G <30 H Note: Albumin/Cr eatinine ratio reference interval reflects ADA and NKF guidelines. UNLESS OTHERWISE INDICATED, ALL TESTING PERFORMED AT [facility] [address] [place] [address] PAPER MACHINE SUPERVISOR: MAREN CHAVARRIA M.D. [place] NUMBER [id number] [facility] [place]. [id number] ALBUMIN/CREATININE RATIO, RANDOM [id number] 00:00:00* Test Item Value Reference Range Interpretation Comme nts CREATININE, URINE, CONC. (te st code = 2072) 61.4 MG/DL ALBUMIN, URINE, RANDOM (test code = 10247) 9.1 MG/DL CALC ALBUMIN/CREAT, RND (shanna t code = 08437) 148 MG/G Usman Patterson AustinALBUMIN/CREATININE RATIO, RANDOM [id number] 00:00:00* Test Item Value Reference Range Interpretation Comme nts CREATININE, URINE, CONC. (te st code = 2072) 61.4 MG/DL ALBUMIN, URINE, RANDOM (test code = 49743) 9.1 MG/DL CALC ALBUMIN/CREAT, RND (shanna t code = 77755) 148 MG/G Usman Patterson AustinALBUMIN/CREATININE RATIO, RANDOM [id number] 00:00:00* Test Item Value Reference Range Interpretation Comme nts CREATININE, URINE, CONC. (te st code = 2072) 61.4 MG/DL ALBUMIN, URINE, RANDOM (test code = 67452) 9.1 MG/DL CALC ALBUMIN/CREAT, RND (shanna t code = 80609) 148 MG/G Usman HymanHCV RNA, PCR [id number] 20:16:46* Test Item Value Reference Range Interpretation Comme nts HCV RNA, PCR QUANT (test code = 4571) NOT DETEC IU/ML HCV VIRAL LOG (test code = 63326) NOT DETEC LOG IU/ML HCV RNA was [...] range is NOT DETECTED. HEPATITIS C REFLEX [id number] 02:34:07* Test Item Value Reference Range Interpretation Comme nts HEPATITIS C ANTIBODY (test c ode = 4675) REACTIVE NON-REACTIVE A HEPATITIS C REFLEX [id number] 00:00:00* Test Item Value Reference Range Interpretation Comme nts HEPATITIS C ANTIBODY (test c ode = 4675) REACTIVE Usman Yesenia AustinHCV RNA, PCR [id number] 00:00:00* Test Item Value Reference Range Interpretation Comme nts HCV RNA, PCR QUANT (test code = 4571) NOT DETEC IU/ML HCV VIRAL LOG (test code = 59339) NOT DETEC LOGIU/ML Usman Patterson AustinHEPATITIS C REFLEX [id number] 00:00:00* Test Item Value Reference Range Interpretation Comme nts HEPATITIS C ANTIBODY (test c ode = 4675) REACTIVE Usman Patterson AustinHCV RNA, PCR [id number] 00:00:00* Test Item Value Reference Range Interpretation Comme nts HCV RNA, PCR QUANT (test code = 4571) NOT DETEC IU/ML HCV VIRAL LOG (test code = 16645) NOT DETEC LOGIU/ML Usman HymanHEPATITIS C REFLEX [id number] 00:00:00* Test Item Value Reference Range Interpretation Comme nts HEPATITIS C ANTIBODY (test c ode = 4675) REACTIVE Usman Patterson AustinHCV RNA, PCR [id number] 00:00:00* Test Item Value Reference Range Interpretation Comme nts HCV RNA, PCR QUANT (test code = 4571) NOT DETEC IU/ML HCV VIRAL LOG (test code = 11298) NOT DETEC LOGIU/ML Usman HymanCOMPREHENSIVE METABOLIC [id number] 23:23:07* Test Item Value Reference Range Interpretation Comme nts GLUCOSE (test code = 2217) 327 MG/DL 70-99 H BUN (test code = 2208) 14 MG/DL 8-23 CREATININE (test code = 2214) 1.20 MG/DL 0.80-1.40 eGFR (2020 CKD-EPI) (test co de = 62277) 69 ML/MIN/1.73 >60 CALC BUN/CREAT (test code = 2234) 12 RATIO 6-28 SODIUM (test code = 2230) 136 MEQ/L 133-146 POTASSIUM (test code = 2227) 4.7 MEQ/L 3.5-5.4 CHLORIDE (test code = 2214) 99 MEQ/L 95-107 CARBON DIOXIDE (test code = 2205) 25 MEQ/L 19-31 CALCIUM (test code = 2208) 10.0 MG/DL 8.5-10.5 PROTEIN, TOTAL (test code = 2228) 7.3 G/DL 6.1-8.3 ALBUMIN (test code = 2200) 4.4 G/DL 3.5-5.2 CALC GLOBULIN (test code = 2239) 2.9 G/DL 1.9-3.7 CALC A/G RATIO (test code = 2233) 1.5 RATIO 1.0-2.6 BILIRUBIN, TOTAL (test code = 2206) 0.4 MG/DL <=1.2 ALKALINE PHOSPHATASE (test code = 2203) 55 U/L 40-123 AST (test code = 2217) 26 U/L 9-50 ALT (test code = 2219) 40 U/L 5-50 LIPID [id number] 23:23:07* Test Item Value Reference Range Interpretation Comme nts CHOLESTEROL (test code = 2210) 128 MG/DL <200 TRIGLYCERIDES (test code = 2231) 174 MG/DL <150 H HDL CHOLESTEROL (test code = 2219) 27 MG/DL >39 L CALC LDL CHOL (test code = 2236) 74 MG/DL <100 NOTE: CALCULATED LDL IS BASED ON JEREMIAH-LYNN METHOD WHICHINCLUDES ADJUSTABLE TRIGLYCERIDE:VLDL CHOLESTEROL RATIO.THIS FACTOR VARIES BY MEASURED TRIGLYCERIDE AND NON-HDLCHOLESTEROL CONCENTRATIONS WITH INCREASED CALCULATED LDL SEENIN HIGHER TRIGLYCERIDE OR LOWER NON-HDL SPECIMENS. FOR MOREINFORMATION, SEE CLIENT ANNOUNCEMENT AT [email or web address] RISK RATIO LDL/HDL (test code = 2238) 2.74 RATIO <3.55 HEMOGLOBIN [id number] 03:16:16* Test Item Value Reference Range Interpretation Comme nts HEMOGLOBIN A1c (test code = 79116) 11.2 % 4.2-5.6 [employer] GUIDELINES FOR HGB A1C: [...] CONSIDER ALTERNATE TESTING OR LABORATORY CONSULTATION. HEMOGLOBIN [id number] 00:00:00* Test Item Value Reference Range Interpretation Comme [facility] HEMOGLOBIN A1c (test code = 07361) 11.2 % Usman HymanLIPID [id number] 00:00:00* Test Item Value Reference Range Interpretation Comme nts CHOLESTEROL (test code = 2210) 128 MG/DL TRIGLYCERIDES (test code = 2232) 174 MG/DL HDL CHOLESTEROL (test code = 2220) 27 MG/DL CALC LDL CHOL (test code = 2237) 74 MG/DL RISK RATIO LDL/HDL (test cod e = 2238) 2.74 RATIO Usman HymanCOMPREHENSIVE METABOLIC [id number] 00:00:00* Test Item Value Reference Range Interpretation Comme nts GLUCOSE (test code = 2217) 327 MG/DL BUN (test code = 2208) 14 MG/DL CREATININE (test code = 2214) 1.20 MG/DL eGFR (2020 CKD-EPI) (test co de = 50931) 69 ML/MIN/1.73 CALC BUN/CREAT (test code = [...] code = 2219) 40 U/L Usman HymanHEMOGLOBIN [id number] 00:00:00* Test Item Value Reference Range Interpretation Comme nts HEMOGLOBIN A1c (test code = 18887) 11.2 % Usman Patterson AustinLIPID [id number] 00:00:00* Test Item Value Reference Range Interpretation Comme nts CHOLESTEROL (test code = 2210) 128 MG/DL TRIGLYCERIDES (test code = 2232) 174 MG/DL HDL CHOLESTEROL (test code = 2220) 27 MG/DL CALC LDL CHOL (test code = 2237) 74 MG/DL RISK RATIO LDL/HDL (test cod e = 2238) 2.74 RATIO Usman HymanCOMPREHENSIVE METABOLIC [id number] 00:00:00* Test Item Value Reference Range Interpretation Comme nts GLUCOSE (test code = 2217) 327 MG/DL BUN (test code = 2208) 14 MG/DL CREATININE (test code = 2214) 1.20 MG/DL eGFR (2020 CKD-EPI) (test co de = 07756) 69 ML/MIN/1.73 CALC BUN/CREAT (test code = [...] code = 2219) 40 U/L Usman HymanHEMOGLOBIN [id number] 00:00:00* Test Item Value Reference Range Interpretation Comme nts HEMOGLOBIN A1c (test code = 40171) 11.2 % Usman HymanLIPID [id number] 00:00:00* Test Item Value Reference Range Interpretation Comme nts CHOLESTEROL (test code = 2210) 128 MG/DL TRIGLYCERIDES (test code = 2232) 174 MG/DL HDL CHOLESTEROL (test code = 2220) 27 MG/DL CALC LDL CHOL (test code = 2237) 74 MG/DL RISK RATIO LDL/HDL (test cod e = 2238) 2.74 RATIO Usman HymanCOMPREHENSIVE METABOLIC [id number] 00:00:00* Test Item Value Reference Range Interpretation Comme nts GLUCOSE (test code = 2217) 327 MG/DL BUN (test code = 2208) 14 MG/DL CREATININE (test code = 2214) 1.20 MG/DL eGFR (2020 CKD-EPI) (test co de = 54844) 69 ML/MIN/1.73 CALC BUN/CREAT (test code = [...] U/L Usman HymanHIV 1/2 4TH GEN, RFLX [id number] 04:13:42* Test Item Value Reference Range Interpretation Comme nts HIV 1/2 4TH GEN, RFLX CONF ( test code = 3514) NON-REACTIVE NON-REACTIVE HIV AB/AG COMBO RFLX [id number] 00:00:00* Test Item Value Reference Range Interpretation Comme nts HIV 1/2 4TH GEN, RFLX CONF ( test code = 3514) NON-REACTIVE Usman HymanHIV AB/AG COMBO RFLX [id number] 00:00:00* Test Item Value Reference Range Interpretation Comme nts HIV 1/2 4TH GEN, RFLX CONF ( test code = 3514) NON-REACTIVE Usman HmyanHIV AB/AG COMBO RFLX [id number] 00:00:00* Test Item Value Reference Range Interpretation Comme nts HIV 1/2 4TH GEN, RFLX CONF ( test code = 3514) NON-REACTIVE Usman HymanTSH, THIRD [id number] 01:15:29* Test Item Value Reference Range Interpretation Comme nts TSH, THIRD GENERATION (test code = 2821) 0.746 UIU/ML 0.400-4.100 UNLESS OTHERWISE INDICATED, [facility] [employer] [address] [place] [address] PAPER MACHINE SUPERVISOR: FRANCES SAPP M.D. CLIA NUMBER [id number] [place]. [id number] LIPID [id number] 00:16:46* Test Item Value Reference Range Interpretation [...] SPECIMENS. FOR MOREINFORMATION, SEE CLIENT ANNOUNCEMENT AT [email or web address] RISK RATIO LDL/HDL (test code = 2238) 1.08 RATIO <3.55 LIPID [id number] 00:00:00* Test Item Value Reference Range Interpretation Comme nts CHOLESTEROL (test code = 2210) 106 MG/DL TRIGLYCERIDES (test code = 2232) 144 MG/DL HDL CHOLESTEROL (test code = 2220) 40 MG/DL CALC LDL CHOL (test code = 2237) 43 MG/DL RISK RATIO LDL/HDL (test cod e = 2238) 1.08 RATIO Usman [id number] 00:00:00* Test Item Value Reference Range Interpretation Comme nts TSH, THIRD GENERATION (test code = 2821) 0.746 UIU/ML Usman HymanLIPID [id number] 00:00:00* Test Item Value Reference Range Interpretation Comme nts CHOLESTEROL (test code = 2210) 106 MG/DL TRIGLYCERIDES (test code = 2232) 144 MG/DL HDL CHOLESTEROL (test code = 2220) 40 MG/DL CALC LDL CHOL (test code = 2237) 43 MG/DL RISK RATIO LDL/HDL (test cod e = 2238) 1.08 RATIO Usman [id number] 00:00:00* Test Item Value Reference Range Interpretation Comme nts TSH, THIRD GENERATION (test code = 2821) 0.746 UIU/ML Usman HymanLIPID [id number] 00:00:00* Test Item Value Reference Range Interpretation Comme nts CHOLESTEROL (test code = 2210) 106 MG/DL TRIGLYCERIDES (test code = 2232) 144 MG/DL HDL CHOLESTEROL (test code = 2220) 40 MG/DL CALC LDL CHOL (test code = 2237) 43 MG/DL RISK RATIO LDL/HDL (test cod e = 2238) 1.08 RATIO Usman [id number] 00:00:00* Test Item Value Reference Range Interpretation Comme nts TSH, THIRD GENERATION (test code = 2821) 0.746 UIU/ML Usman HymanHEMOGLOBIN [id number] 07:26:51* Test Item Value Reference Range Interpretation Comme nts HEMOGLOBIN A1c (test code = 20531) 13.1 % 4.2-5.6 [employer] GUIDELINES FOR HGB A1C: [...] OR LABORATORY CONSULTATION. CBC W/AUTO DIFF WITH [id number] 05:39:50* Test Item Value Reference Range Interpretation [...] 0.00-0.10 ABS NUCLEATED RBCS (test code = 22904) 0.00 K/UL 0.00-0.11 HEMOGLOBIN [id number] 00:00:00* Test Item Value Reference Range Interpretation Comme nts HEMOGLOBIN A1c (test code = 84235) 13.1 % Usman F AustinCBC W/AUTO [id number] 00:00:00* Test Item Value Reference Range Interpretation [...] ABS NUCLEATED RBCS (test cod e = 50599) 0.00 K/UL Usman HymanHEMOGLOBIN [id number] 00:00:00* Test Item Value Reference Range Interpretation Comme nts HEMOGLOBIN A1c (test code = 79129) 13.1 % Usman Patterson AustinCBC W/AUTO [id number] 00:00:00* Test Item Value Reference Range Interpretation [...] ABS NUCLEATED RBCS (test cod e = 06137) 0.00 K/UL Usman HymanHEMOGLOBIN [id number] 00:00:00* Test Item Value Reference Range Interpretation Comme nts HEMOGLOBIN A1c (test code = 96853) 13.1 % Usman HymanCBC W/AUTO [id number] 00:00:00* Test Item Value Reference Range Interpretation [...] ABS NUCLEATED RBCS (test cod e = 78236) 0.00 K/UL Usman Patterson BoogieLIPID PANEL [ADDED]2021-06-02 00:00:00* Test Item Value Reference Range Interpretation Comme nts CHOLESTEROL (test code = 2210) 203 MG/DL TRIGLYCERIDES (test code = 2232) 337 MG/DL HDL CHOLESTEROL (test code = 2220) 50 MG/DL CALC LDL CHOL (test code = 2237) 108 MG/DL RISK RATIO LDL/HDL (test cod e = 2238) 2.16 RATIO Usman Patterson BoogieCOMPREHENSIVE METABOLIC PANEL [ADDED]2021-06-02 00:00:00* Test Item Value Reference Range Interpretation Comme nts GLUCOSE (test code = 2217) 248 MG/DL BUN (test code = 2208) 20 MG/DL CREATININE (test code = 2214) 1.25 MG/DL eGFR (2020 CKD-EPI) (test co de = 80069) 66 ML/MIN/1.73 CALC BUN/CREAT (test code = [...] MG/DL ALBUMIN, URINE, RANDOM (test code = 68847) 0.8 MG/DL CALC ALBUMIN/CREAT, RND (shanna t code = 66454) 8 MG/G Usman HymanHEMOGLOBIN A1c [ADDED]2021-06-02 00:00:00* Test Item Value Reference Range Interpretation Comme joseph HEMOGLOBIN A1c (test code = 44580) 12.7 % Usman HymanLIPID PANEL [ADDED]2021-06-02 00:00:00* [...] eGFR (2020 CKD-EPI) (test co de = 10310) 66 ML/MIN/1.73 CALC BUN/CREAT (test code = [...] MG/DL ALBUMIN, URINE, RANDOM (test code = 45463) 0.8 MG/DL CALC ALBUMIN/CREAT, RND (shanna t code = 23643) 8 MG/G Usman HymanHEMOGLOBIN A1c [ADDED]2021-06-02 00:00:00* Test Item Value Reference Range Interpretation Comme joseph HEMOGLOBIN A1c (test code = 95771) 12.7 % Usman HymanLIPID PANEL [ADDED]2021-06-02 00:00:00* [...] eGFR (2020 CKD-EPI) (test co de = 04935) 66 ML/MIN/1.73 CALC BUN/CREAT (test code = [...] MG/DL ALBUMIN, URINE, RANDOM (test code = 92150) 0.8 MG/DL CALC ALBUMIN/CREAT, RND (shanna t code = 08782) 8 MG/G Usman HymanHEMOGLOBIN A1c [ADDED]2021-06-02 00:00:00* Test Item Value Reference Range Interpretation Comme joseph HEMOGLOBIN A1c (test code = 37911) 12.7 % Usman HymanLIPID [id number] 00:00:00* Test Item Value Reference Range Interpretation Comme nts CHOLESTEROL (test code = 2210) 95 MG/DL TRIGLYCERIDES (test code = 2232) 176 MG/DL HDL CHOLESTEROL (test code = 2220) 34 MG/DL CALC LDL CHOL (test code = 2237) 36 MG/DL RISK RATIO LDL/HDL (test cod e = 2238) 1.06 RATIO Usman HymanCOMPREHENSIVE METABOLIC [id number] 00:00:00* Test Item Value Reference Range Interpretation Comme nts GLUCOSE (test code = 2217) 494 MG/DL BUN (test code = 2208) 12 MG/DL CREATININE (test code = 2214) 1.44 MG/DL eGFR AMER. (test cod e = 71025) 61 ML/MIN/1.73 eGFR NON- AMER. (test code = 08274) 53 ML/MIN/1.73 CALC BUN/CREAT (test code = 2235) 8 RATIO SODIUM (test code = 2231) 135 MEQ/L POTASSIUM (test code = 2228) 4.2 MEQ/L CHLORIDE (test code = 2215) 94 MEQ/L CARBON DIOXIDE (test code = 2206) 28 MEQ/L CALCIUM (test code = 220) 10.0 MG/DL PROTEIN, TOTAL (test code = [...] code = 2219) 33 U/L Usman HymanHEMOGLOBIN [id number] 00:00:00* Test Item Value Reference Range Interpretation Comme joseph HEMOGLOBIN A1c (test code = 05274) 13.8 % Usman HymanLIPID [id number] 00:00:00* Test Item Value Reference Range Interpretation Comme nts CHOLESTEROL (test code = 2210) 95 MG/DL TRIGLYCERIDES (test code = 2232) 176 MG/DL HDL CHOLESTEROL (test code = 2220) 34 MG/DL CALC LDL CHOL (test code = 2237) 36 MG/DL RISK RATIO LDL/HDL (test cod e = 2238) 1.06 RATIO Usman HymanCOMPREHENSIVE METABOLIC [id number] 00:00:00* Test Item Value Reference Range Interpretation Comme nts GLUCOSE (test code = 2217) 494 MG/DL BUN (test code = 8) 12 MG/DL CREATININE (test code = 2214) 1.44 MG/DL eGFR AMER. (test cod e = 63115) 61 ML/MIN/1.73 eGFR NON- AMER. (test code = 38235) 53 ML/MIN/1.73 CALC BUN/CREAT (test code = [...] code = 2219) 33 U/L Usman HymanHEMOGLOBIN [id number] 00:00:00* Test Item Value Reference Range Interpretation Comme nts HEMOGLOBIN A1c (test code = 87899) 13.8 % Usman HymanLIPID [id number] 00:00:00* Test Item Value Reference Range Interpretation Comme nts CHOLESTEROL (test code = 2210) 95 MG/DL TRIGLYCERIDES (test code = 2232) 176 MG/DL HDL CHOLESTEROL (test code = 2220) 34 MG/DL CALC LDL CHOL (test code = 2237) 36 MG/DL RISK RATIO LDL/HDL (test cod e = 2238) 1.06 RATIO Usman HymanCOMPREHENSIVE METABOLIC [id number] 00:00:00* Test Item Value Reference Range Interpretation Comme nts GLUCOSE (test code = 2217) 494 MG/DL BUN (test code = 2208) 12 MG/DL CREATININE (test code = 2214) 1.44 MG/DL eGFR AMER. (test cod e = 37613) 61 ML/MIN/1.73 eGFR NON- AMER. (test code = 10192) 53 ML/MIN/1.73 CALC BUN/CREAT (test code = [...] code = 2219) 33 U/L Usman HymanHEMOGLOBIN [id number] 00:00:00* Test Item Value Reference Range Interpretation Comme joseph HEMOGLOBIN A1c (test code = 18489) 13.8 % Usman HymanLIPID [id number] 00:00:00* Test Item Value Reference Range Interpretation Comme nts CHOLESTEROL (test code = 2210) 86 MG/DL TRIGLYCERIDES (test code = 2232) 132 MG/DL HDL CHOLESTEROL (test code = 2220) 30 MG/DL CALC LDL CHOL (test code = 2237) 34 MG/DL RISK RATIO LDL/HDL (test cod e = 2238) 1.13 RATIO Usman HymanCOMPREHENSIVE METABOLIC [id number] 00:00:00* Test Item Value Reference Range Interpretation Comme nts GLUCOSE (test code = 2217) 231 MG/DL BUN (test code = 2208) 14 MG/DL CREATININE (test code = 2214) 1.22 MG/DL eGFR AMER. (test cod e = 33993) 75 ML/MIN/1.73 eGFR NON- AMER. (test code = 39450) 64 ML/MIN/1.73 CALC BUN/CREAT (test code = [...] code = 2219) 36 U/L Usman HymanHEMOGLOBIN [id number] 00:00:00* Test Item Value Reference Range Interpretation Comme nts HEMOGLOBIN A1c (test code = 57324) 10.9 % Usman Patterson AustinLIPID [id number] 00:00:00* Test Item Value Reference Range Interpretation Comme nts CHOLESTEROL (test code = 2210) 86 MG/DL TRIGLYCERIDES (test code = 2232) 132 MG/DL HDL CHOLESTEROL (test code = 2220) 30 MG/DL CALC LDL CHOL (test code = 2237) 34 MG/DL RISK RATIO LDL/HDL (test cod e = 2238) 1.13 RATIO Usman HymanCOMPREHENSIVE METABOLIC [id number] 00:00:00* Test Item Value Reference Range Interpretation Comme nts GLUCOSE (test code = 2217) 231 MG/DL BUN (test code = 2208) 14 MG/DL CREATININE (test code = 2214) 1.22 MG/DL eGFR AMER. (test cod e = 51520) 75 ML/MIN/1.73 eGFR NON- AMER. (test code = 99939) 64 ML/MIN/1.73 CALC BUN/CREAT (test code = [...] code = 2219) 36 U/L Usman HymanHEMOGLOBIN [id number] 00:00:00* Test Item Value Reference Range Interpretation Comme nts HEMOGLOBIN A1c (test code = 09100) 10.9 % Usman HymanLIPID [id number] 00:00:00* Test Item Value Reference Range Interpretation Comme nts CHOLESTEROL (test code = 2210) 86 MG/DL TRIGLYCERIDES (test code = 2232) 132 MG/DL HDL CHOLESTEROL (test code = 2220) 30 MG/DL CALC LDL CHOL (test code = 2237) 34 MG/DL RISK RATIO LDL/HDL (test cod e = 2238) 1.13 RATIO Usman HymanCOMPREHENSIVE METABOLIC [id number] 00:00:00* Test Item Value Reference Range Interpretation Comme nts GLUCOSE (test code = 2217) 231 MG/DL BUN (test code = 2208) 14 MG/DL CREATININE (test code = 2214) 1.22 MG/DL eGFR AMER. (test cod e = 32419) 75 ML/MIN/1.73 eGFR NON- AMER. (test code = 44665) 64 ML/MIN/1.73 CALC BUN/CREAT (test code = [...] code = 2219) 36 U/L Usman HymanHEMOGLOBIN [id number] 00:00:00* Test Item Value Reference Range Interpretation Comme joseph HEMOGLOBIN A1c (test code = 40431) 10.9 % Usman HymanCBC W/AUTO [id number] 00:00:00* Test Item Value Reference Range Interpretation Comme joseph WBC (test code = 1001) 8.4 K/UL [...] code = 1015) 290 K/UL Usman HymanLIPID [id number] 00:00:00* Test Item Value Reference Range Interpretation Comme nts CHOLESTEROL (test code = 2210) 224 MG/DL TRIGLYCERIDES (test code = 2232) 268 MG/DL HDL CHOLESTEROL (test code = 2220) 41 MG/DL CALC LDL CHOL (test code = 2237) 142 MG/DL RISK RATIO LDL/HDL (test cod e = 2238) 3.46 RATIO Usman HymanCOMPREHENSIVE METABOLIC [id number] 00:00:00* Test Item Value Reference Range Interpretation Comme nts GLUCOSE (test code = 2217) 204 MG/DL BUN (test code = 2208) 12 MG/DL CREATININE (test code = 2214) 1.20 MG/DL eGFR AMER. (test cod e = 51244) 76 ML/MIN/1.73 eGFR NON- AMER. (test code = 90272) 66 ML/MIN/1.73 CALC BUN/CREAT (test code = [...] ALT (test code = 2219) 30 U/L Usmansharon HymanHEMOGLOBIN [id number] 00:00:00* Test Item Value Reference Range Interpretation Comme nts HEMOGLOBIN A1c (test code = 67950) 10.1 % Usman HymanCBC W/AUTO [id number] 00:00:00* Test Item Value Reference Range Interpretation [...] code = 1015) 290 K/UL Usman HymanLIPID [id number] 00:00:00* Test Item Value Reference Range Interpretation Comme nts CHOLESTEROL (test code = 2210) 224 MG/DL TRIGLYCERIDES (test code = 2232) 268 MG/DL HDL CHOLESTEROL (test code = 2220) 41 MG/DL CALC LDL CHOL (test code = 2237) 142 MG/DL RISK RATIO LDL/HDL (test cod e = 2238) 3.46 RATIO Usman HymanCOMPREHENSIVE METABOLIC [id number] 00:00:00* Test Item Value Reference Range Interpretation Comme nts GLUCOSE (test code = 2217) 204 MG/DL BUN (test code = 2208) 12 MG/DL CREATININE (test code = 2214) 1.20 MG/DL eGFR AMER. (test cod e = 82712) 76 ML/MIN/1.73 eGFR NON- AMER. (test code = 10329) 66 ML/MIN/1.73 CALC BUN/CREAT (test code = [...] code = 2219) 30 U/L Usman HymanHEMOGLOBIN [id number] 00:00:00* Test Item Value Reference Range Interpretation Comme [facility] HEMOGLOBIN A1c (test code = 85464) 10.1 % Usman HymanCBC W/AUTO [id number] 00:00:00* Test Item Value Reference Range Interpretation [...] code = 1015) 290 K/UL Usman HymanLIPID [id number] 00:00:00* Test Item Value Reference Range Interpretation Comme nts CHOLESTEROL (test code = 2210) 224 MG/DL TRIGLYCERIDES (test code = 2232) 268 MG/DL HDL CHOLESTEROL (test code = 2220) 41 MG/DL CALC LDL CHOL (test code = 2237) 142 MG/DL RISK RATIO LDL/HDL (test cod e = 2238) 3.46 RATIO Usman HymanCOMPREHENSIVE METABOLIC [id number] 00:00:00* Test Item Value Reference Range Interpretation Comme nts GLUCOSE (test code = 2217) 204 MG/DL BUN (test code = 2208) 12 MG/DL CREATININE (test code = 2214) 1.20 MG/DL eGFR AMER. (test cod e = 08961) 76 ML/MIN/1.73 eGFR NON- AMER. (test code = 74507) 66 ML/MIN/1.73 CALC BUN/CREAT (test code = [...] (test code = 2219) 30 U/L Usman Patterson AustinHEMOGLOBIN [id number] 00:00:00* Test Item Value Reference Range Interpretation Comme nts HEMOGLOBIN A1c (test code = 53634) 10.1 % Usman Patterson [id number] (COVID-19) by RT-PCR (HIGH RISK)2020-01-05 00:00:00* Test Item Value Reference Range Interpretation Comme nts SARS-CoV-2 INTERPRETATION (t est code = 00038) NEGATIVE SOURCE (test code = 24665) NOT SPECIFIED Usman Patterson [id number] (COVID-19) by RT-PCR (HIGH RISK)2020-01-05 00:00:00* Test Item Value Reference Range Interpretation Comme nts SARS-CoV-2 INTERPRETATION (t est code = 07877) NEGATIVE SOURCE (test code = 85671) NOT SPECIFIED Usman Patterson [id number] (COVID-19) by RT-PCR (HIGH RISK)2020-01-05 00:00:00* Test Item Value Reference Range Interpretation Comme nts SARS-CoV-2 INTERPRETATION (t est code = 09497) NEGATIVE SOURCE (test code = 84543) NOT SPECIFIED Usman Patterson AustinLIPID [id number] 00:00:00* Test Item Value Reference Range Interpretation Comme nts CHOLESTEROL (test code = 2210) 180 MG/DL TRIGLYCERIDES (test code = 2232) 177 MG/DL HDL CHOLESTEROL (test code = 2220) 25 MG/DL CALC LDL CHOL (test code = 2237) 126 MG/DL RISK RATIO LDL/HDL (test cod e = 2238) 5.04 RATIO Usman HymanHEMOGLOBIN [id number] 00:00:00* Test Item Value Reference Range Interpretation Comme nts HEMOGLOBIN A1c (test code = 25972) 9.2 % Usman HymanCOMPREHENSIVE METABOLIC [id number] 00:00:00* Test Item Value Reference Range Interpretation Comme nts GLUCOSE (test code = 2217) 215 MG/DL BUN (test code = 2208) 10 MG/DL CREATININE (test code = 2214) 1.28 MG/DL eGFR AMER. (test cod e = 23744) 71 ML/MIN/1.73 eGFR NON- AMER. (test code = 02049) 61 ML/MIN/1.73 CALC BUN/CREAT (test code = [...] (test code = 2219) 46 U/L Usman Patterson AustinLIPID [id number] 00:00:00* Test Item Value Reference Range Interpretation Comme nts CHOLESTEROL (test code = 2210) 180 MG/DL TRIGLYCERIDES (test code = 2232) 177 MG/DL HDL CHOLESTEROL (test code = 2220) 25 MG/DL CALC LDL CHOL (test code = 2237) 126 MG/DL RISK RATIO LDL/HDL (test cod e = 2238) 5.04 RATIO Usman HymanHEMOGLOBIN [id number] 00:00:00* Test Item Value Reference Range Interpretation Comme nts HEMOGLOBIN A1c (test code = 09743) 9.2 % Usman HymanCOMPREHENSIVE METABOLIC [id number] 00:00:00* Test Item Value Reference Range Interpretation Comme nts GLUCOSE (test code = 2217) 215 MG/DL BUN (test code = 2208) 10 MG/DL CREATININE (test code = 2214) 1.28 MG/DL eGFR AMER. (test cod e = 05651) 71 ML/MIN/1.73 eGFR NON- AMER. (test code = 04865) 61 ML/MIN/1.73 CALC BUN/CREAT (test code = [...] code = 2219) 46 U/L Usman HymanLIPID [id number] 00:00:00* Test Item Value Reference Range Interpretation Comme nts CHOLESTEROL (test code = 2210) 180 MG/DL TRIGLYCERIDES (test code = 2232) 177 MG/DL HDL CHOLESTEROL (test code = 2220) 25 MG/DL CALC LDL CHOL (test code = 2237) 126 MG/DL RISK RATIO LDL/HDL (test cod e = 2238) 5.04 RATIO Usman Patterson AustinHEMOGLOBIN [id number] 00:00:00* Test Item Value Reference Range Interpretation Comme nts HEMOGLOBIN A1c (test code = 37907) 9.2 % Usman Patterson AustinCOMPREHENSIVE METABOLIC [id number] 00:00:00* Test Item Value Reference Range Interpretation Comme nts GLUCOSE (test code = 2217) 215 MG/DL BUN (test code = 2208) 10 MG/DL CREATININE (test code = 2214) 1.28 MG/DL eGFR AMER. (test cod e = 86769) 71 ML/MIN/1.73 eGFR NON- AMER. (test code = 78163) 61 ML/MIN/1.73 CALC BUN/CREAT (test code = [...] (test code = 2219) 46 U/L Usman Patterson AustinHEMOGLOBIN [id number] 00:00:00* Test Item Value Reference Range Interpretation Comme joseph HEMOGLOBIN A1c (test code = 69087) 7.5 % Usman Patterson AustinCOMPREHENSIVE METABOLIC [id number] 00:00:00* Test Item Value Reference Range Interpretation Comme nts GLUCOSE (test code = 2217) 186 MG/DL BUN (test code = 2208) 14 MG/DL CREATININE (test code = 2214) 1.07 MG/DL eGFR AMER. (test cod e = 16299) 89 ML/MIN/1.73 eGFR NON- AMER. (test code = 69104) 77 ML/MIN/1.73 CALC BUN/CREAT (test code = [...] code = 2219) 27 U/L Usman Patterson SecorLIPID [id number] 00:00:00* Test Item Value Reference Range Interpretation Comme nts CHOLESTEROL (test code = 2210) 178 MG/DL TRIGLYCERIDES (test code = 2232) 155 MG/DL HDL CHOLESTEROL (test code = 2220) 56 MG/DL CALC LDL CHOL (test code = 2237) 91 MG/DL RISK RATIO LDL/HDL (test cod e = 2238) 1.63 RATIO Usman HymanHEMOGLOBIN [id number] 00:00:00* Test Item Value Reference Range Interpretation Comme nts HEMOGLOBIN A1c (test code = 52971) 7.5 % Usman Patterson SecorCOMPREHENSIVE METABOLIC [id number] 00:00:00* Test Item Value Reference Range Interpretation Comme nts GLUCOSE (test code = 2217) 186 MG/DL BUN (test code = 2208) 14 MG/DL CREATININE (test code = 2214) 1.07 MG/DL eGFR AMER. (test cod e = 82277) 89 ML/MIN/1.73 eGFR NON- AMER. (test code = 78022) 77 ML/MIN/1.73 CALC BUN/CREAT (test code = [...] code = 2219) 27 U/L Usman HymanLIPID [id number] 00:00:00* Test Item Value Reference Range Interpretation Comme nts CHOLESTEROL (test code = 2210) 178 MG/DL TRIGLYCERIDES (test code = 2232) 155 MG/DL HDL CHOLESTEROL (test code = 2220) 56 MG/DL CALC LDL CHOL (test code = 2237) 91 MG/DL RISK RATIO LDL/HDL (test cod e = 2238) 1.63 RATIO Usman HymanHEMOGLOBIN [id number] 00:00:00* Test Item Value Reference Range Interpretation Comme nts HEMOGLOBIN A1c (test code = 65695) 7.5 % Usman HymanCOMPREHENSIVE METABOLIC [id number] 00:00:00* Test Item Value Reference Range Interpretation Comme nts GLUCOSE (test code = 2217) 186 MG/DL BUN (test code = 8) 14 MG/DL CREATININE (test code = 2214) 1.07 MG/DL eGFR AMER. (test cod e = 11806) 89 ML/MIN/1.73 eGFR NON- AMER. (test code = 32602) 77 ML/MIN/1.73 CALC BUN/CREAT (test code = [...] code = 2219) 27 U/L Usman HymanLIPID [id number] 00:00:00* Test Item Value Reference Range Interpretation Comme nts CHOLESTEROL (test code = 2210) 178 MG/DL TRIGLYCERIDES (test code = 2232) 155 MG/DL HDL CHOLESTEROL (test code = 2220) 56 MG/DL CALC LDL CHOL (test code = 2237) 91 MG/DL RISK RATIO LDL/HDL (test cod e = 2238) 1.63 RATIO Usman HymanLIPID [id number] 00:00:00* Test Item Value Reference Range Interpretation Comme nts CHOLESTEROL (test code = 2210) 192 MG/DL TRIGLYCERIDES (test code = 2232) 226 MG/DL HDL CHOLESTEROL (test code = 2220) 47 MG/DL CALC LDL CHOL (test code = 2237) 100 MG/DL RISK RATIO LDL/HDL (test cod e = 2238) 2.12 RATIO Usman [id number] 00:00:00* Test Item Value Reference Range Interpretation Comme nts TSH (test code = 2821) 0.616 UIU/ML Usman HymanCOMPREHENSIVE METABOLIC [id number] 00:00:00* Test Item Value Reference Range Interpretation Comme nts GLUCOSE (test code = 2217) 148 MG/DL BUN (test code = 2208) 26 MG/DL CREATININE (test code = 2214) 1.31 MG/DL eGFR AMER. (test cod e = 14933) 71 ML/MIN/1.73 eGFR NON- AMER. (test code = 42740) 61 ML/MIN/1.73 CALC BUN/CREAT (test code = [...] code = 2219) 20 U/L Usman HymanLIPID [id number] 00:00:00* Test Item Value Reference Range Interpretation Comme nts CHOLESTEROL (test code = 2210) 192 MG/DL TRIGLYCERIDES (test code = 2232) 226 MG/DL HDL CHOLESTEROL (test code = 2220) 47 MG/DL CALC LDL CHOL (test code = 2237) 100 MG/DL RISK RATIO LDL/HDL (test cod e = 223) 2.12 RATIO Usman [id number] 00:00:00* Test Item Value Reference Range Interpretation Comme nts TSH (test code = 2821) 0.616 UIU/ML Usman HymanCOMPREHENSIVE METABOLIC [id number] 00:00:00* Test Item Value Reference Range Interpretation Comme nts GLUCOSE (test code = 2217) 148 MG/DL BUN (test code = 8) 26 MG/DL CREATININE (test code = 2214) 1.31 MG/DL eGFR AMER. (test cod e = 07977) 71 ML/MIN/1.73 eGFR NON- AMER. (test code = 45634) 61 ML/MIN/1.73 CALC BUN/CREAT (test code = 2235) 20 RATIO SODIUM (test code = 2231) 143 MEQ/L POTASSIUM (test code = 2228) 3.7 MEQ/L CHLORIDE (test code = 2215) 102 MEQ/L CARBON DIOXIDE (test code = 6) 24 MEQ/L CALCIUM (test code = 2209) [...] code = 2219) 20 U/L Usman HymanLIPID [id number] 00:00:00* Test Item Value Reference Range Interpretation Comme nts CHOLESTEROL (test code = 2210) 192 MG/DL TRIGLYCERIDES (test code = 2232) 226 MG/DL HDL CHOLESTEROL (test code = 2220) 47 MG/DL CALC LDL CHOL (test code = 2237) 100 MG/DL RISK RATIO LDL/HDL (test cod e = 2237) 2.12 RATIO Usman [id number] 00:00:00* Test Item Value Reference Range Interpretation Comme nts TSH (test code = 2821) 0.616 UIU/ML Usman Patterson SecorCOMPREHENSIVE METABOLIC [id number] 00:00:00* Test Item Value Reference Range Interpretation Comme nts GLUCOSE (test code = 2217) 148 MG/DL BUN (test code = 2208) 26 MG/DL CREATININE (test code = 2214) 1.31 MG/DL eGFR AMER. (test cod e = 21298) 71 ML/MIN/1.73 eGFR NON- AMER. (test code = 55655) 61 ML/MIN/1.73 CALC BUN/CREAT (test code = [...] (test code = 2219) 20 U/L Usman Patterson AustinCBC W/AUTO [id number] 00:00:00* Test Item Value Reference Range Interpretation [...] = 1015) 292 K/UL Usman Patterson AustinHEMOGLOBIN [id number] 00:00:00* Test Item Value Reference Range Interpretation Comme nts HEMOGLOBIN A1c (test code = 06905) 7.4 % Usman HymanCBC W/AUTO [id number] 00:00:00* Test Item Value Reference Range Interpretation [...] = 1015) 292 K/UL Usman Patterson AustinHEMOGLOBIN [id number] 00:00:00* Test Item Value Reference Range Interpretation Comme nts HEMOGLOBIN A1c (test code = 11568) 7.4 % Usman HymanCBC W/AUTO [id number] 00:00:00* Test Item Value Reference Range Interpretation [...] code = 1015) 292 K/UL Usman HymanHEMOGLOBIN [id number] 00:00:00* Test Item Value Reference Range Interpretation Comme nts HEMOGLOBIN A1c (test code = 04736) 7.4 % Usman HymanCOMPREHENSIVE METABOLIC [id number] 00:00:00* Test Item Value Reference Range Interpretation Comme nts GLUCOSE (test code = 2217) 138 MG/DL BUN (test code = 2208) 21 MG/DL CREATININE (test code = 2214) 1.35 MG/DL eGFR AMER. (test cod e = 56183) 68 ML/MIN/1.73 eGFR NON- AMER. (test code = 82022) 59 ML/MIN/1.73 CALC BUN/CREAT (test code = [...] (test code = 2219) 25 U/L Usman Patterson AustinLIPID [id number] 00:00:00* Test Item Value Reference Range Interpretation Comme nts CHOLESTEROL (test code = 2210) 224 MG/DL TRIGLYCERIDES (test code = 2232) 179 MG/DL HDL CHOLESTEROL (test code = 2220) 58 MG/DL CALC LDL CHOL (test code = 2237) 130 MG/DL RISK RATIO LDL/HDL (test cod e = 2238) 2.24 RATIO Usman HymanCOMPREHENSIVE METABOLIC [id number] 00:00:00* Test Item Value Reference Range Interpretation Comme nts GLUCOSE (test code = 2217) 138 MG/DL BUN (test code = 2208) 21 MG/DL CREATININE (test code = 2214) 1.35 MG/DL eGFR AMER. (test cod e = 20163) 68 ML/MIN/1.73 eGFR NON- AMER. (test code = 52667) 59 ML/MIN/1.73 CALC BUN/CREAT (test code = [...] (test code = 2219) 25 U/L Usman Patterson AustinLIPID [id number] 00:00:00* Test Item Value Reference Range Interpretation Comme nts CHOLESTEROL (test code = 2210) 224 MG/DL TRIGLYCERIDES (test code = 2232) 179 MG/DL HDL CHOLESTEROL (test code = 2220) 58 MG/DL CALC LDL CHOL (test code = 2237) 130 MG/DL RISK RATIO LDL/HDL (test cod e = 2238) 2.24 RATIO Usman HymanCOMPREHENSIVE METABOLIC [id number] 00:00:00* Test Item Value Reference Range Interpretation Comme nts GLUCOSE (test code = 2217) 138 MG/DL BUN (test code = 2208) 21 MG/DL CREATININE (test code = 2214) 1.35 MG/DL eGFR AMER. (test cod e = 49887) 68 ML/MIN/1.73 eGFR NON- AMER. (test code = 57912) 59 ML/MIN/1.73 CALC BUN/CREAT (test code = [...] (test code = 2219) 25 U/L Usman Patterson AustinLIPID [id number] 00:00:00* Test Item Value Reference Range Interpretation Comme nts CHOLESTEROL (test code = 2210) 224 MG/DL TRIGLYCERIDES (test code = 2232) 179 MG/DL HDL CHOLESTEROL (test code = 2220) 58 MG/DL CALC LDL CHOL (test code = 2237) 130 MG/DL RISK RATIO LDL/HDL (test cod e = 2238) 2.24 RATIO Usman Patterson AustinLIPID [id number] 00:00:00* Test Item Value Reference Range Interpretation Comme nts CHOLESTEROL (test code = 2210) 262 MG/DL TRIGLYCERIDES (test code = 2232) 391 MG/DL HDL CHOLESTEROL (test code = 2220) 51 MG/DL CALC LDL CHOL (test code = 2237) 133 MG/DL RISK RATIO LDL/HDL (test cod e = 2238) 2.60 RATIO Usman HymanHEMOGLOBIN [id number] 00:00:00* Test Item Value Reference Range Interpretation Comme nts HEMOGLOBIN A1c (test code = 18649) 6.8 % Usman HymanCOMPREHENSIVE METABOLIC [id number] 00:00:00* Test Item Value Reference Range Interpretation Comme nts GLUCOSE (test code = 2217) 115 MG/DL BUN (test code = 2208) 26 MG/DL CREATININE (test code = 2214) 1.26 MG/DL eGFR AMER. (test cod e = 27541) 74 ML/MIN/1.73 eGFR NON- AMER. (test code = 76170) 64 ML/MIN/1.73 CALC BUN/CREAT (test code = [...] code = 2219) 16 U/L Usman HymanLIPID [id number] 00:00:00* Test Item Value Reference Range Interpretation Comme nts CHOLESTEROL (test code = 2210) 262 MG/DL TRIGLYCERIDES (test code = 2232) 391 MG/DL HDL CHOLESTEROL (test code = 2220) 51 MG/DL CALC LDL CHOL (test code = 2237) 133 MG/DL RISK RATIO LDL/HDL (test cod e = 2238) 2.60 RATIO Usman Patterson AustinHEMOGLOBIN [id number] 00:00:00* Test Item Value Reference Range Interpretation Comme nts HEMOGLOBIN A1c (test code = 93616) 6.8 % Usman HymanCOMPREHENSIVE METABOLIC [id number] 00:00:00* Test Item Value Reference Range Interpretation Comme nts GLUCOSE (test code = 2217) 115 MG/DL BUN (test code = 2208) 26 MG/DL CREATININE (test code = 2214) 1.26 MG/DL eGFR AMER. (test cod e = 36541) 74 ML/MIN/1.73 eGFR NON- AMER. (test code = 60193) 64 ML/MIN/1.73 CALC BUN/CREAT (test code = [...] (test code = 2219) 16 U/L Usman Patterson AustinLIPID [id number] 00:00:00* Test Item Value Reference Range Interpretation Comme nts CHOLESTEROL (test code = 2210) 262 MG/DL TRIGLYCERIDES (test code = 2232) 391 MG/DL HDL CHOLESTEROL (test code = 2220) 51 MG/DL CALC LDL CHOL (test code = 2237) 133 MG/DL RISK RATIO LDL/HDL (test cod e = 2238) 2.60 RATIO Usman HymanHEMOGLOBIN [id number] 00:00:00* Test Item Value Reference Range Interpretation Comme nts HEMOGLOBIN A1c (test code = 23963) 6.8 % Usman HymanCOMPREHENSIVE METABOLIC [id number] 00:00:00* Test Item Value Reference Range Interpretation Comme nts GLUCOSE (test code = 2217) 115 MG/DL BUN (test code = 2208) 26 MG/DL CREATININE (test code = 2214) 1.26 MG/DL eGFR AMER. (test cod e = 06419) 74 ML/MIN/1.73 eGFR NON- AMER. (test code = 25817) 64 ML/MIN/1.73 CALC BUN/CREAT (test code = [...] = 2219) 16 U/L Usman HymanCOMPREHENSIVE METABOLIC [id number] 00:00:00* Test Item Value Reference Range Interpretation Comme nts GLUCOSE (test code = 2217) 90 MG/DL BUN (test code = 2208) 20 MG/DL CREATININE (test code = 2214) 1.28 MG/DL eGFR AMER. (test cod e = 20857) 73 ML/MIN/1.73 eGFR NON- AMER. (test code = 47687) 63 ML/MIN/1.73 CALC BUN/CREAT (test code = [...] (test code = 2219) 22 U/L Usman HymanLIPID [id number] 00:00:00* Test Item Value Reference Range Interpretation Comme nts CHOLESTEROL (test code = 2210) 244 MG/DL TRIGLYCERIDES (test code = 2232) 225 MG/DL HDL CHOLESTEROL (test code = 2220) 64 MG/DL CALC LDL CHOL (test code = 2237) 135 MG/DL RISK RATIO LDL/HDL (test cod e = 223) 2.11 RATIO Usman HymanHEMOGLOBIN [id number] 00:00:00* Test Item Value Reference Range Interpretation Comme nts HEMOGLOBIN A1c (test code = 63152) 7.2 % Usman HymanCOMPREHENSIVE METABOLIC [id number] 00:00:00* Test Item Value Reference Range Interpretation Comme nts GLUCOSE (test code = 2217) 90 MG/DL BUN (test code = 2207) 20 MG/DL CREATININE (test code = 2214) 1.28 MG/DL eGFR AMER. (test cod e = 65036) 73 ML/MIN/1.73 eGFR NON- AMER. (test code = 80640) 63 ML/MIN/1.73 CALC BUN/CREAT (test code = [...] (test code = 2219) 22 U/L Usman HymanLIPID [id number] 00:00:00* Test Item Value Reference Range Interpretation Comme nts CHOLESTEROL (test code = 2210) 244 MG/DL TRIGLYCERIDES (test code = 2232) 225 MG/DL HDL CHOLESTEROL (test code = 2220) 64 MG/DL CALC LDL CHOL (test code = 2237) 135 MG/DL RISK RATIO LDL/HDL (test cod e = 2238) 2.11 RATIO Usman HymanHEMOGLOBIN [id number] 00:00:00* Test Item Value Reference Range Interpretation Comme nts HEMOGLOBIN A1c (test code = 35173) 7.2 % Usman HymanCOMPREHENSIVE METABOLIC [id number] 00:00:00* Test Item Value Reference Range Interpretation Comme nts GLUCOSE (test code = 2217) 90 MG/DL BUN (test code = 2208) 20 MG/DL CREATININE (test code = 2214) 1.28 MG/DL eGFR AMER. (test cod e = 36312) 73 ML/MIN/1.73 eGFR NON- AMER. (test code = 57570) 63 ML/MIN/1.73 CALC BUN/CREAT (test code = [...] = 2219) 22 U/L Usman Patterson AustinLIPID [id number] 00:00:00* Test Item Value Reference Range Interpretation Comme nts CHOLESTEROL (test code = 2210) 244 MG/DL TRIGLYCERIDES (test code = 2232) 225 MG/DL HDL CHOLESTEROL (test code = 2220) 64 MG/DL CALC LDL CHOL (test code = 2237) 135 MG/DL RISK RATIO LDL/HDL (test cod e = 2238) 2.11 RATIO Usman Patterson AustinHEMOGLOBIN [id number] 00:00:00* Test Item Value Reference Range Interpretation Comme nts HEMOGLOBIN A1c (test code = 18227) 7.2 % Usman Patterson AustinHEMOGLOBIN [id number] 00:00:00* Test Item Value Reference Range Interpretation Comme nts HEMOGLOBIN A1c (test code = 85806) 7.0 % Usman Patterson AustinHEPATITIS C [id number] 00:00:00* Test Item Value Reference Range Interpretation Comme nts HEPATITIS C ANTIBODY (test c ode = 4675) REACTIVE Usman Patterson AustinHEMOGLOBIN [id number] 00:00:00* Test Item Value Reference Range Interpretation Comme nts HEMOGLOBIN A1c (test code = 63943) 7.0 % Usman Patterson AustinHEPATITIS C [id number] 00:00:00* Test Item Value Reference Range Interpretation Comme nts HEPATITIS C ANTIBODY (test c ode = 4675) REACTIVE Usman Patterson AustinHEMOGLOBIN [id number] 00:00:00* Test Item Value Reference Range Interpretation Comme nts HEMOGLOBIN A1c (test code = 93990) 7.0 % Usman Patterson AustinHEPATITIS C [id number] 00:00:00* Test Item Value Reference Range Interpretation Comme nts HEPATITIS C ANTIBODY (test c ode = 4675) REACTIVE Usman Patterson AustinHEMOGLOBIN [id number] 00:00:00* Test Item Value Reference Range Interpretation Comme nts HEMOGLOBIN A1c (test code = 78838) 6.7 % Usman Patterson AustinCOMPREHENSIVE METABOLIC [id number] 00:00:00* Test Item Value Reference Range Interpretation Comme nts GLUCOSE (test code = 2217) 114 MG/DL BUN (test code = 2208) 16 MG/DL CREATININE (test code = 2214) 1.0 MG/DL eGFR AMER. (test cod e = 91537) 95 ML/MIN/1.73 eGFR NON- AMER. (test code = 85483) 78 ML/MIN/1.73 CALCULATED BUN/CREAT (test code = [...] code = 2219) 27 U/L Usman HymanLIPID [id number] 00:00:00* Test Item Value Reference Range Interpretation Comme nts CHOLESTEROL (test code = 2210) 305 MG/DL TRIGLYCERIDES (test code = 2232) 535 MG/DL HDL CHOLESTEROL (test code = 2220) 45 MG/DL CALCULATED LDL CHOL (test co de = 2237) NOTE MG/DL Usman F BoogieTHYROID II PROFILE (T3U, T4, T7, TSH)2015-04-08 00:00:00* Test Item Value Reference Range Interpretation Comme nts T3 UPTAKE (test code = 2817) 25.6 % T4 (THYROXINE) (test code = 2819) 10.1 UG/DL CALCULATED T7 (FTI) (test co de = 2820) 2.59 TSH (test code = 2821) 0.8 UIU/ML Usman Yesenia BoogiePSA, [id number] 00:00:00* Test Item Value Reference Range Interpretation Comme nts PSA, TOTAL (test code = 2606) 0.2 NG/ML Usman Yesenia BoogieCBC W/AUTO [id number] 00:00:00* Test Item Value Reference Range Interpretation [...] code = 1015) 288 K/UL Usman HymanHEMOGLOBIN [id number] 00:00:00* Test Item Value Reference Range Interpretation Comme [facility] HEMOGLOBIN A1c (test code = 27899) 6.7 % Usman HymanCOMPREHENSIVE METABOLIC [id number] 00:00:00* Test Item Value Reference Range Interpretation Comme nts GLUCOSE (test code = 2217) 114 MG/DL BUN (test code = 2208) 16 MG/DL CREATININE (test code = 2214) 1.0 MG/DL eGFR AMER. (test cod e = 84485) 95 ML/MIN/1.73 eGFR NON- AMER. (test code = 07389) 78 ML/MIN/1.73 CALCULATED BUN/CREAT (test code = [...] code = 2219) 27 U/L Usman HymanLIPID [id number] 00:00:00* Test Item Value Reference Range Interpretation [...] code = 2821) 0.8 UIU/ML Usman HymanPSA, [id number] 00:00:00* Test Item Value Reference Range Interpretation Comme nts PSA, TOTAL (test code = 2606) 0.2 NG/ML Usman HymanCBC W/AUTO [id number] 00:00:00* Test Item Value Reference Range Interpretation [...] code = 1015) 288 K/UL Usman HymanHEMOGLOBIN [id number] 00:00:00* Test Item Value Reference Range Interpretation Comme nts HEMOGLOBIN A1c (test code = 62952) 6.7 % Usman HymanCOMPREHENSIVE METABOLIC [id number] 00:00:00* Test Item Value Reference Range Interpretation Comme nts GLUCOSE (test code = 2217) 114 MG/DL BUN (test code = 2208) 16 MG/DL CREATININE (test code = 2214) 1.0 MG/DL eGFR AMER. (test cod e = 84721) 95 ML/MIN/1.73 eGFR NON- AMER. (test code = 82080) 78 ML/MIN/1.73 CALCULATED BUN/CREAT (test code = [...] code = 2219) 27 U/L Usman HymanLIPID [id number] 00:00:00* Test Item Value Reference Range Interpretation Comme nts CHOLESTEROL (test code = 2210) 305 MG/DL TRIGLYCERIDES (test code = 2232) 535 MG/DL HDL CHOLESTEROL (test code = 2220) 45 MG/DL CALCULATED LDL CHOL (test co de = 2237) NOTE MG/DL Usman Patterson BoogieTHYROID II PROFILE (T3U, T4, T7, TSH)2015-04-08 00:00:00* Test Item Value Reference Range Interpretation Comme [facility] T3 UPTAKE (test code = 2817) 25.6 % T4 (THYROXINE) (test code = 2819) 10.1 UG/DL CALCULATED T7 (FTI) (test co de = 2820) 2.59 TSH (test code = 2821) 0.8 UIU/ML Usman Yesenia BoogiePSA, [id number] 00:00:00* Test Item Value Reference Range Interpretation Comme nts PSA, TOTAL (test code = 2606) 0.2 NG/ML Usman HymanCBC W/AUTO [id number] 00:00:00* Test Item Value Reference Range Interpretation [...] Usman Hyman Notes Date/Time Note Provider Source 2024-07-27 10:40:22 Chief Complaint Patient presents with REFILLS-NURSE/MD Medication refill Lucy Hough MA [facility] 2024-07-13 09:35:46 Chief Complaint Patient presents with Back Pain Pt states lower back pain that radiates down the right leg x 7 years. Numbness Pt states numbness and tingling in the right leg. Weakness Pt states weakness in the right leg. [facility] 2024-07-06 09:57:27 Chief Complaint Patient presents with Back Pain Pt states lower back pain x 5 years. [facility] 2024-05-14 15:51:58 Chief Complaint Patient presents with [facility] Previous PCP was Dr. Kristin To in [place]. He is changing PCP's due to insurance. Referral Referral to PT for back pain. He currently uses [facility]. Carmen Bruno MA [facility] Usman Smiley [facility]2024-07-02 00:00:00 Usman Smiley [facility]2024-06-18 00:00:00 Usman Smiley [facility]2024-04-04 10:02:[id number] [place] [address] PATIENT NAME: ESAU VALDES ADMIT DATE: ACCOUNT NO: [id number] ROOM NO: AGE: 63 REPORT TYPE: ELECTROCARDIOGRAM SEX: M ADMITTING PHYSICIAN: ATTENDING PHYSICIAN:Frances Bar MD Order: [id number] Test Reason : PRE OP CLEARANCE HTN [...] Inferior leads Confirmed by KARTIK ALFONSO MD ([id number]) on 08/26/2023 12:21:06 PM Referred By: Frances Bar Confirmed by:KARTIK ALFONSO MD PATIENT NAME: ESAU VALDES
[2024-08-13] MEDS ORDERED: HYDROCODONE/APAP 5/325 MG TAB ONE (12:18)
[2024-08-13] MEDS ORDERED: IBUPROFEN 200 MG TAB PO ONE (12:18)
[2024-08-13 12:46] LABS: Absolute Basophils 0.1 K/uL (0-0.5); Absolute Eosinophils 0.2 K/uL (0-0.5); Absolute Lymphocytes (CBC) 1.2 K/uL (0.7-4.9); Absolute Monocytes 0.4 K/uL (0.1-1.3); Absolute Neutrophil 5.7 K/uL (1.8-8.0); Basophils % 0.7 % (0-1.3); Eosinophils % 2.4 % (0-4.4); Hematocrit 42.3 % (39.6-49.0); Hemoglobin 13.9 g/dL (13.6-17.9); Lymphocytes % 15.8 % (15.3-44.8); MCHC 32.8 g/dL (32.0-36.0); MCV 79.3 fL (80-100); MPV 8.1 fL (7.6-11.3); Monocytes % 5.5 % (3.3-12.3); Neutrophils % 75.6 % (41.7-73.7); Platelets 347 thou/uL (152-406); RBC Red Blood Cell Count 5.34 M/uL (4.33-5.43); Red Cell Distribution Width 14.5 % (12.1-15.2)
[2024-08-13 12:57] LABS: Anion Gap 9.1 mEq/L (5.0-15.0); Potassium 4.1 mEq/L (3.5-5.1)
--- NOTE | 2024-08-13 13:08 | RAD REPORT ---
EXAM: Foot Left 3 View HISTORY: PAIN COMPARISON: None FINDINGS: Bones: No acute fracture identified. Alignment:No significant malalignment. Degenerative changes:None significant. Other: Laceration/ulceration along the lateral aspect of the foot at the level of the MTP joint. No r adiopaque foreign body. No evidence of underlying osteomyelitis. IMPRESSION: No evidence of acute osseous abnormality involving the imaged foot.
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
[2024-08-13 14:02] VITALS: TEMP 98.2
[2024-08-13 14:07] VITALS: BP 146/55; O2SAT 99
== END 2024-08-13 13:35 | disposition home or self-care (01) ==
LOC: ER 11:03
DX: G62.9 Polyneuropathy, unspecified (principal); Z72.0 Tobacco use
CPT/HCPCS: 36415; 80048; 85025; 99284

== ENCOUNTER 2024-09-01 08:26 | Emergency (ER) | payer OTHER, SELFPAY ==
--- OUTSIDE RECORDS SUMMARY | 2024-09-01 08:37 | XMS REPORT | Continuity of Care Document ---
Author Name Unknown Address [address] [facility] [address] [place] [address] [facility] Address [address] [facility] [place] [address] Care Team Providers Care Waistline Joiner Overlock Name Role Phone Ekaterina Kendall NP Primary Care Physician [phone] PARISH HAWKINS Attending Clinician Unavailable [facility] B Attending Clinician Unavaila ble LAB90 Attending Clinician Unavailable BILLY, YANI Attending Clinician Unavailable LINUS SEVILLA Attending Clinician Unavailable FRANCO ELIZALDEEOMA O Attending Clinician Unavailable [facility] Attending Clinician UnavailFrances Alvarenga Attending Clinician Unavailable Neena Attending Clinician Unavaila Frances Nagel Admitting Clinician Unavailable Neena Admitting Clinician Unavaila MIKE Sotelo Admitting Clinician Unavailable Payers Payer Name Policy Type Policy Number Effective Date Expirati on Date Source [facility] [employer] 9 [id number] 2024 00:00:00 [place] [id number] 2022 00:00:00 Blue Cross Blue Shield of [place] 6 [id number] [facility] Problems Condition Name Condition Details Condition [...] syndrome Disease Active Dara Hale Externa l [id number] Posthitis Problem [facility] [id number] 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 Problem [facility] Allergies, Adverse Reactions, Alerts Allergy Name Allergy Type Status Severity Reaction(s) Onset Date Inactive Date Treating Clinician Comments Source No Known Allergie s DA Active U 08-21 00:00: 00 [facility] Woman's [facility] No Known Allergie s DA Active U 12-28 00:00: 00 [facility] Womans [facility] Social History Social Habit Start Date Stop Date Quantity Comments Source History of tobacco use 2008-08-17 00:00:00 Cigarette Smoker Dara eLwis - External Sexual orientation K sukh Lewis [...] MG oral Tablet 07-27 00:00: 00 Yes [id number] 100mg QD Take 1 tablet (100 mg total) by mouth daily. Dara andrews Insulin Glargine (Basaglar KwikPen) 100 UNIT/ML subcutaneou s Solution Pen-injecto r 07-27 00:00: 00 Yes [id number] 3 20U QD Inject 20 units into the skin daily (with breakfast) Take 10 units in the morning and 10 units in the evening.. Dara andrews Amlodipine Besylate (NORVASC) 5 MG oral Tablet 07-27 00:00: 00 Yes [id number] 5mg QD Take 1 tablet (5 mg total) by mouth daily. Dara andrews glipiZIDE 10 MG oral Tablet 07-27 00:00: 00 Yes [id number] 3 10mg Take 1 tablet (10 mg total) by mouth in the morning and 1 tablet (10 mg total) in the evening. Take before meals. Dara andrews Atorvastati n Calcium 40 MG oral Tablet 07-27 00:00: 00 Yes [id number] 3 40mg QD Take 1 tablet (40 mg total) by mouth nightly. Dara andrews glipiZIDE 5 MG oral Tablet 06-17 11:33: 32 06-17 00:00 :00 No [id number] 00 10mg Take 2 tablets (10 mg total) by mouth. Dara andrews Atorvastati n Calcium 10 MG oral Tablet 06-17 11:33: 32 06-17 00:00 :00 No [id number] 40mg QD Take 4 tablets (40 mg total) by mouth daily. Dara andrews Buprenorphi ne HCl-Naloxon e HCl (Suboxone) 8-2 MG sublingual Film 06-17 00:00: 00 Yes [id number] 1{film} Q.5D Place 1 film under the tongue 2 times daily. Dara andrews Atorvastati n Calcium 40 MG oral Tablet 06-17 00:00: 00 07-27 00:00 :00 No [id number] 00 40mg QD Take 1 tablet (40 mg total) by mouth nightly. Dara andrews glipiZIDE 10 MG oral Tablet 06-17 00:00: 07-27 00:00 :00 No [id number] 00 10mg Take 1 tablet (10 mg total) by mouth in the morning and 1 tablet (10 mg total) in the evening. Take before meals. Dara andrews Amlodipine Besylate (NORVASC) 5 MG oral Tablet 06-17 00:00: 00 07-27 00:00 :00 No [id number] 5mg QD Take 1 tablet (5 mg total) by mouth daily. Dara andrews Insulin Glargine (Basaglar KwikPen) 100 UNIT/ML subcutaneou s Solution Pen-injecto r 2023-05 00:00: 00 07-27 00:00 :00 No [id number] 00 Take 10 units in the morning and 10 units in the evening.. Draa andrews Tramadol HCl (ULTRAM) 50 MG oral [...] MG oral Tablet 2023-05 16:02: 06 Yes [id number] 00 10mg Take 2 tablets (10 mg total) by mouth. Dara andrews Atorvastati n Calcium 10 MG oral Tablet 2023-05 16:02: 06 Yes [id number] 40mg QD Take 4 tablets (40 mg total) by mouth daily. Dara andrews Insulin Glargine (Lantus SoloStar) 100 UNIT/ML subcutaneou s Solution Pen-injecto r 2023-05 00:00: 00 Yes [id number] 00 Take 10 units in the morning and 10 units in the evening.. Dara andrews Losartan Potassium (COZAAR) 100 MG oral Tablet 2023-05 00:00: 00 07-27 00:00 :00 No [id number] 100mg QD Take 1 tablet (100 mg total) by mouth daily. Dara andrews Amlodipine Besylate (NORVASC) 5 MG oral Tablet 2023-05 00:00: 00 06-17 00:00 :00 No [id number] 5mg QD Take 1 tablet (5 mg [...] MG oral Capsule 2023-05 00:00: 00 Yes [id number] 00 75mg Q.5D Take 1 capsule (75 [...] film 8-15 00:00: 00 Yes 1mg Usman yHman Suboxone 8 mg-2 mg sublingual film - 00:00: 00 Yes 1mg Usman Hyman atorvastati n 40 mg tablet 11-27 00:00: 00 Yes 1mg Usman Hyman Suboxone [...] 3-27 00:00: 00 06-17 00:00 :00 No [id number] 1mg 1 mg. Dara Hale Externa juliana Buprenorphi ne HCl-Naloxon e HCl 4-1 MG sublingual Film 08-12 00:00: 00 06-17 00:00 :00 No [id number] 1mg 1 mg. Dara Underwooda juliana TAKE 1 TABLET BY MOUTH TWICE DAILY 08-11 00:00: 00 Yes 10 Usman Hmyan TAKE 1 TABLET AT BEDTIME. 08-11 00:00: [...] 07-29 00:00: 00 06-17 00:00 :00 No [id number] Dara andrews Doxycycline Hyclate 100 MG oral [...] MOUTH ONCE DAILY 06-18 00:00: 00 Yes [id number] Usman Hyman TAKE 1 TABLET AT BEDTIME. [...] 06-14 00:00: 00 09-28 00:00 :00 No [id number] Usman Hyman TAKE 1 TABLET BY MOUTH [...] A DAY 2022-05 0 00:00: 00 Yes [id number] Usman Yesenia Hyman INJECT 0.25 MG SC ONCE A WEEK X 4 WEEKS 2022-05 0 00:00: 00 09-28 00:00 :00 No 23 Usman Hyman TAKE 1 TABLET BY MOUTH ONCE DAILY 2022-05 0 00:00: 00 09-28 00:00 :00 No [id number] Usman Yesenia Boogie TAKE 1 TABLET BY [...] -22 00:00: 00 09-28 00:00 :00 No [id number] Usman Yesenia Boogie JANUMET XR 50-1,000 MG 3 [...] 08-12 00:00: 00 09-28 00:00 :00 No [id number] Usman Hyman TAKE 1 TABLET BY MOUTH DAILY 08-08 00:00: 00 09-28 00:00 :00 No 100 Usman Hyman TAKE 1 TABLET BY MOUTH AT BEDTIME 08-08 00:00: 00 09-28 00:00 :00 No 40 Usman Hyman TAKE 1 TABLET BY MOUTH TWICE A DAY 08-08 00:00: 00 09-28 00:00 :00 No [id number] Usman Hyman APPLY CREAM TOPICALLY TO AFFECTED [...] Usman Hyman hydrochloro thiazide 12.5 mg capsule 10-06 00:00: [...] capsule 2- 00:00: 00 Yes 1mg Usman yHman metformin 1,000 mg tablet 2-05 00:00: 00 [...] tablet 0 - 00:00: 00 Yes 1mg Usamn Hyman lovastatin 20 mg tablet 0 - [...] - External BMI 2024-07-06 15:51:00 32.50 kg/m2 Rebecac ey Seybold - External Systolic blood pressure [...] height 2021-06-07 08:15:00 75 [in_i] [facility] weight 2021-06-07 08:15:00 295 [lb_av] [facility] temperature 2021-06-07 08:15:00 98 [degF] [facility] bmi 2021-06-07 08:15:00 36.87 kg/m2 [facility] oximetry 2021-06-07 08:15:00 98 % [facility] respiratory rate 2021-06-07 08:15:00 16 /min [facility] blood pressure systolic 2021-06-07 08:15:00 179 mm[Hg] [facility] blood pressure diastolic 2021-06-07 08:15:00 86 mm[Hg] [facility] height 2021-01-11 16:30:00 75 [in_i] [facility] weight 2021-01-11 16:30:00 285 [lb_av] [facility] temperature 2021-01-11 16:30:00 97.2 [degF] Com [facility] bmi 2021-01-11 16:30:00 35.62 kg/m2 [facility] oximetry 2021-01-11 16:30:00 99 % [facility] blood pressure systolic 2021-01-11 16:30:00 147 mm[Hg] [facility] blood pressure diastolic 2021-01-11 16:30:00 76 mm[Hg] Common [facility] height 2020-11-28 15:40:00 75 [in_i] [facility] weight 2020-11-28 15:40:00 287.4 [lb_av] Co m[facility] temperature 2020-11-28 15:40:00 96.5 [degF] Com [facility] bmi 2020-11-28 15:40:00 35.92 kg/m2 [facility] oximetry 2020-11-28 15:40:00 97 % [facility] blood pressure systolic 2020-11-28 15:40:00 159 mm[Hg] Common [facility] blood pressure diastolic 2020-11-28 15:40:00 84 mm[Hg] Common [facility] BP Systolic 2024-03-25 11:31:00 Step hen [...] End Date/Time Encounter Type Admission Type Attending [facility] Care Facility Care Department Encounter ID Source 2021-06-21 15:49:01 [facility] [id number] [facility] 2021-06-13 13:32:49 [facility] [id number] [facility] 2021-06-13 13:25:32 [facility] [id number] [facility] 2024-09-08 09:45:00 2024-09-08 09:45:00 Outpatient PARISH HAWKINS [id number] [facility] 2024-08-23 16:46:23 2024-08-23 16:46:23 Outpatient [facility] [id number] Usman Hyman 2024-08-10 10:00:00 2024-08-10 10:00:00 Outpatient SAV ERVIN [id number] [facility] 2024-08-06 00:00:00 2024-08-06 00:00:00 Outpatient PARISH HAWKINS [id number] [facility] 2024-08-03 00:00:00 2024-08-03 00:00:00 Outpatient PARISH HAWKINS [id number] [facility] 2024-07-27 11:30:00 2024-07-27 11:30:00 Outpatient YULISA DONG [id number] [facility] 2024-07-27 10:30:00 2024-07-27 10:30:00 Outpatient [facility] HAWKINS [id number] [facility] 2024-07-23 00:00:00 2024-07-23 00:00:00 Outpatient BILLY, YANI ROAROXANNE DONG [id number] [facility] 2024-07-22 00:00:00 2024-07-22 00:00:00 Outpatient SEVILLALINUS GARVIN DARA DONG [id number] [facility] 2024-07-21 11:26:26 2024-07-21 11:26:26 Outpatient SFA [facility] [id number] Usman F Boogie 2024-07-16 09:20:00 2024-07-16 09:20:00 Outpatient DARA DONG [id number] [facility] 2024-07-16 09:15:00 2024-07-16 09:15:00 Outpatient DARA DONG [id number] [facility] 2024-07-16 00:00:00 2024-07-16 00:00:00 Outpatient PREZASPARISH [id number] [facility] 2024-07-13 11:00:00 2024-07-13 11:00:00 Outpatient BILLY, YANI DARA DONG [id number] [facility] 2024-07-13 08:00:00 2024-07-13 08:00:00 Outpatient BILLY, YANI DARA DONG [id number] [facility] 2024-07-06 09:25:00 2024-07-06 09:25:00 Outpatient DARA DONG [id number] [facility] 2024-07-06 09:00:00 2024-07-06 09:00:00 Outpatient NWAEZECRISTOBAL DARA DONG [id number] [facility] 2024-07-05 00:00:00 2024-07-05 00:00:00 Outpatient NWAEZE, CRISTOBAL [facility]ARA DONG [id number] [facility] 2024-06-22 00:00:00 2024-06-22 00:00:00 Outpatient SEVILLALINUS DARA DONG [id number] [facility] 2024-06-18 00:00:00 2024-06-18 00:00:00 Outpatient PARISH HAWKINS [id number] [facility] 2024 11:00:00 2024 11:00:00 Outpatient PARISH HAWKINS [id number] [facility] 2024-06-14 13:17:27 2024-06-14 13:17:27 Outpatient SFA [facility] [id number] Usman Hyman 2024-05-26 13:12:59 2024-05-26 13:12:59 Outpatient SFA [facility] [id number] Usman Hyman 2024-05-21 15:45:00 2024-05-21 15:45:00 Outpatient SAV ERVIN [id number] [facility] 2024-05-17 15:40:38 2024-05-17 15:40:38 Outpatient SFA [facility] [id number] Usman Hyman 2024-05-17 00:00:00 2024-05-17 00:00:00 Outpatient LINUS SEVILLA [id number] [facility] 2024-05-17 00:00:00 2024-05-17 00:00:00 Outpatient LINUS SEVILLA [id number] [facility] 2024-05-14 16:30:00 2024-05-14 16:30:00 Outpatient LINUS SEVILLA [id number] [facility] 2024-03-25 11:29:41 2024-03-25 11:29:41 Outpatient SFA [facility] 7 Usman Hyman 2024-03-25 00:00:00 2024-03-25 00:00:00 Outpatient Visit SFA [id number] Usman Hyman 2024-03-24 13:32:46 2024-03-24 13:32:46 Outpatient [facility]FA [facility] [id number] Usman Hyman 2024-02-09 14:17:28 2024-02-09 14:17:28 Outpatient SFA [facility] [id number] Usman Hyman 2024-01-01 10:33:32 2024-01-01 10:33:32 Outpatient [facility] [id number] Usman Hyman 2023-11-27 11:08:32 2023-11-27 11:08:32 Outpatient [facility] 07 Usman Hyman 2023-11-25 00:00:00 2023-11-25 00:00:00 Dionte Valentine MD: [address] [place] [address] , Ph. [phone] [facility] [place] [facility] [place] [facility] FOG_Ofc [address] [id number] [facility] 2023-11-18 10:34:48 2023-11-18 10:34:48 Outpatient [facility] [id number] Usman Hyman 2023-11-18 00:00:00 2023-11-18 00:00:00 Outpatient Visit [facility] [id number] Usman Hyman 2023-11-14 00:00:00 2023-11-14 00:00:00 Frances Bar MD: [address] [place] [address] , Ph. [phone] [facility] [place] [facility] [place] [facility] [address] [place] [id number] [facility] 2023-11-10 11:08:47 2023-11-10 11:08:47 Outpatient [facility] [id number] Usman Patterson Boogie 2023-11-06 00:00:00 2023-11-06 00:00:00 Heath Lawson MD: [address] [place], [place] [address] , Ph. [phone] [facility] [place] [facility] [place] [facility] [address] [place] [id number] [facility] 2023-11-04 11:06:32 2023-11-04 11:06:32 Outpatient [facility] [id number] Usman Patterson [place] 2023-11-04 00:00:00 2023-11-04 00:00:00 Outpatient Visit [facility] [id number] Usman Hyman 2023-10-31 00:00:00 2023-10-31 00:00:00 Rafal Pate MD: [address] [place], [place] [id number] , Ph. [phone] [facility] [place] [facility] [place] [facility] [place] [id number] [facility] 2023-10-24 00:00:00 2023-10-24 00:00:00 Rafal Pate MD: [address] [place] [address] , Ph. [phone] [facility] [place] [facility] [place] [facility] [place] [id number] [facility] 2023-10-23 10:42:24 2023-10-23 10:42:24 Outpatient [facility] [id number] Usman Hyman 2023-09-26 00:00:00 2023-09-26 00:00:00 Frances Bar MD: [address] [place] [address] , Ph. [phone] [facility] [place] [facility] [place] [facility] [id number] [facility] 2023-09-24 14:35:23 2023-09-24 14:35:23 Outpatient [facility] [id number] Usman Patterson Boog[place] 2023-09-12 00:00:00 2023-09-12 00:00:00 Frances Bar MD: [address] [place] [phone] , Ph. [phone] [facility] [place] [facility] [place] [facility] [id number] [facility] 2023-09-10 13:51:14 2023-09-10 13:51:14 Outpatient [facility] [id number] Usman Hyman 2023-09-02 09:14:00 2023-09-02 09:14:00 Outpatient KERMIT Frances Bar HCATO DAYS [id number] [facility] 2023-09-02 00:00:00 2023-09-02 00:00:00 Frances Bar MD: [address] [place] [address] , Ph. [phone] [facility] [place] [facility] [place] [facility] F[facility]gery [id number] [facility] 2023-08-31 00:00:00 2023-08-31 00:00:00 Outpatient FOG_Goytia_ Robin_MD [facility] [id number] [facility] 2023-08-25 00:00:00 2023-08-25 00:00:00 Frances aBr MD: [address] [place] [address] , Ph. [phone] [facility] [place] [facility] [place] [facility] [place] [id number] [facility] 2023-08-22 08:46:00 2023-08-22 08:46:00 Outpatient KERMIT Frances Bar [facility] [id number] [facility] 2023-08-22 00:00:00 2023-08-22 00:00:00 Frances Bar MD: [address] [place] [phone] , Ph. [phone] FOG_Goytia_ Robin_ [facility] [place] [facility] [place] [facility] [id number] [facility] 2023-08-21 19:53:00 2023-08-21 19:53:00 [id number] [facility] 2023-08-20 13:42:52 2023-08-20 13:42:52 Outpatient [facility] [id number] Usman Patterson Boogie 2023-08-18 00:00:00 2023-08-18 00:00:00 Frances Bar MD: [address] [place] [phone] , Ph. [phone] FOG_Goytia_ Dutch_ [facility] [place] [facility] [place] [facility] [id number] [facility] 2023-08-12 00:00:00 2023-08-12 00:00:00 Outpatient FOG_Goytia_ Dutch_ [place] [id number] [facility] 2023-08-07 14:41:23 2023-08-07 14:41:23 Outpatient [facility] [id number] Usman Hyman 2023-08-01 15:35:34 2023-08-01 15:35:34 Outpatient [facility] 5 Usman Hyman 2023-07-04 13:34:23 2023-07-04 13:34:23 Outpatient [facility] [id number] Usman Patterson Boogie 2023-06-14 09:52:35 2023-06-14 09:52:35 Outpatient [facility] [id number] Usman Patterson Boogie 2023-02-24 15:33:13 2023-02-24 15:33:13 Outpatient [facility] [id number] Usman Hyman 2022-10-07 09:08:20 2022-10-07 09:08:20 Outpatient [facility] [id number] Usman Patterson Boogie 2022-08-12 11:14:26 2022-08-12 11:14:26 Outpatient [facility] [id number] Usman Patterson Boogie 2022-05-28 17:22:02 2022-05-28 17:22:02 Outpatient [facility] [id number] Usman Patterson Boog[place] 2021-06-22 00:00:00 2021-06-22 00:00:00 (TEL) [facility] [id number] [facility] 2021-06-07 00:00:00 2021-06-07 00:00:00 OFFICE VISIT ESTAB PT LEVEL 4 [facility] [id number] [facility] 2021-05-31 00:00:00 2021-05-31 00:00:00 (TEL) [facility] [id number] [facility] 2021-01-11 00:00:00 2021-01-11 00:00:00 OFFICE VISIT EST PT LEVEL 3 [facility] [id number] [facility] 2020-11-28 00:00:00 2020-11-28 00:00:00 OFFICE VISIT NEW PT LEVEL 3 [facility] [id number] [facility] Results Test Description Test Time Test Comments Results Result Co mments Source VITAMIN B 12 AND FOLIC [id number] 03:55:09* Test Item Value Reference Range Interpretation Comme [facility] VITAMIN B-12 (test code = 2840) >2000 [...] TESTING PERFORMED AT [facility] [address] [place] [address] SUPPLY AND DISTRIBUTION MANAGER: MAREN CHAVARRIA M.D. CLIA NUMBER [id number] [facility] [place]. [id number] CBC W/AUTO DIFF WITH [id number] 03:15:20* Test Item Value Reference Range Interpretation [...] 0.00-0.10 ABS NUCLEATED RBCS (test code = 00494) 0.00 K/UL 0.00-0.11 [id number] 02:39:37* Test Item Value Reference Range Interpretation Comme nts FERRITIN (test code = 2074) 267 NG/ML 30-400 [id number] 02:39:29* Test Item Value Reference Range Interpretation Comme nts TRANSFERRIN (test code = 4936) 213 MG/DL 200-360 IRON BINDING CAPACITY AND IRON AND % [id number] 02:38:50* Test Item Value Reference Range Interpretation Comme nts IRON, SERUM (test code = 2222) 52 UG/DL 59-158 L UNSATURATED IBC (test code = 83970) 197 UG/DL 112-347 CALC TOTAL IBC (test code = 2076) 249 UG/DL 250-450 L CALC % IRON SAT (test code = 2079) 21 % 20-50 CBC W/AUTO [id number] 00:00:00* Test Item Value Reference Range Interpretation [...] ABS NUCLEATED RBCS (test cod e = 54445) 0.00 K/UL Usman Patterson AustinHEMOGLOBIN [id number] 00:00:00* Test Item Value Reference Range Interpretation Comme nts HEMOGLOBIN A1c (test code = 03073) 6.7 % Usman F AustinIRON BINDING CAPACITY AND IRON AND % [id number] 00:00:00* Test Item Value Reference Range Interpretation Comme nts IRON, SERUM (test code = 2222) 52 UG/DL UNSATURATED IBC (test code = 57421) 197 UG/DL CALC TOTAL IBC (test code = 7) 249 UG/DL CALC % IRON SAT (test code = 2079) 21 % Usman F [id number] 00:00:00* Test Item Value Reference Range Interpretation Comme nts FERRITIN (test code = 2075) 267 NG/ML Usman [id number] 00:00:00* Test Item Value Reference Range Interpretation Comme nts TRANSFERRIN (test code = 4936) 213 MG/DL Usman HymanVITAMIN B 12 AND FOLIC [id number] 00:00:00* Test Item Value Reference Range Interpretation Comme nts VITAMIN B-12 (test code = 2840) >2000 PG/ML FOLIC ACID (test code = 2695) 19.1 UG/L Usman HymanCBC W/AUTO [id number] 00:00:00* Test Item Value Reference Range Interpretation [...] ABS NUCLEATED RBCS (test cod e = 30110) 0.00 K/UL Usman HymanHEMOGLOBIN [id number] 00:00:00* Test Item Value Reference Range Interpretation Comme nts HEMOGLOBIN A1c (test code = 00529) 6.7 % Usman HymanIRON BINDING CAPACITY AND IRON AND % [id number] 00:00:00* Test Item Value Reference Range Interpretation Comme nts IRON, SERUM (test code = 2222) 52 UG/DL UNSATURATED IBC (test code = 14851) 197 UG/DL CALC TOTAL IBC (test code = 2077) 249 UG/DL CALC % IRON SAT (test code = 2079) 21 % Usman [id number] 00:00:00* Test Item Value Reference Range Interpretation Comme nts FERRITIN (test code = 2075) 267 NG/ML Usman [id number] 00:00:00* Test Item Value Reference Range Interpretation Comme nts TRANSFERRIN (test code = 4936) 213 MG/DL Usman HymanVITAMIN B 12 AND FOLIC [id number] 00:00:00* Test Item Value Reference Range Interpretation Comme nts VITAMIN B-12 (test code = 2840) >2000 PG/ML FOLIC ACID (test code = 2695) 19.1 UG/L Usman HymanCBC W/AUTO DIFF WITH [id number] 08:10:35* Test Item Value Reference Range Interpretation [...] 0.00-0.10 ABS NUCLEATED RBCS (test code = 58812) 0.00 K/UL 0.00-0.11 UNLESS OTHER OCONNOR INDICATED, ALL TESTING PERFORMED AT [facility] [address] [place] [address] SUPPLY AND DISTRIBUTION MANAGER: MAREN CHAVARRIA M.D. IA NUMBER [id number] [facility] [place]. [id number] HIV 1/2 4TH GEN, RFLX [id number] 04:31:36* Test Item Value Reference Range Interpretation Comme nts HIV 1/2 4TH GEN, RFLX CONF ( test code = 3514) NON-REACTIVE NON-REACTIVE HEPATITIS PANEL, [id number] 04:31:36* Test Item Value Reference Range Interpretation Comme nts HEPATITIS A IgM (test code = 82725) NON-REACTIVE NON-REACTIVE HEPATITIS B CORE IgM (test code = 4644) NON-REACTIVE NON-REACTIVE HEPATITIS B SURF AG (test code = 2739) NON-REACTIVE NON-REACTIVE HEPATITIS C ANTIBODY (test code = 4675) REACTIVE NON-REACTIVE A INTERPRETATION HEPATITIS A: (test code = 2552) (NOTE) Hepatitis A serology shows no evidence of acute hepatitis A. INTERPRETATION HEPATITIS B: (test code = 29699) (NOTE) Hepatitis B serology shows no evidence of acute hepatitis B andno indication of exposure to hepatitis B virus in the previous danielle eight months. INTERPRETATION HEPATITIS C: (test code = 15045) (NOTE) Hepatitis C serology is consistent with exposure to hepatitis Cvirus. The CDC recommends performing a supplemental confirmatory teston initial positive hepatitis C antibody tests. HCV PCR quantitativecan be used to confirm these results on a new sample (See MMWR, 2003;52 RR-3). ACUTE HEPATITIS [id number] 00:00:00* Test Item Value Reference Range Interpretation Comme nts HEPATITIS A IgM (test code = 28280) NON-REACTIVE HEPATITIS B CORE IgM (test c ode = 4644) NON-REACTIVE HEPATITIS B SURF AG (test co de = 2739) NON-REACTIVE HEPATITIS C ANTIBODY (test c ode = 4675) REACTIVE INTERPRETATION HEPATITIS A: (test code = 2552) (NOTE) INTERPRETATION HEPATITIS B: (test code = 45614) (NOTE) INTERPRETATION HEPATITIS C: (test code = 48783) (NOTE) Usman Patterson [facility] [facility] W/AUTO [id number] 00:00:00* Test Item Value Reference Range Interpretation [...] ABS NUCLEATED RBCS (test cod e = 30205) 0.00 K/UL Usman HymanHIV 1/2 4TH GEN, RFLX [id number] 00:00:00* Test Item Value Reference Range Interpretation Comme nts HIV 1/2 4TH GEN, RFLX CONF ( test code = 3514) NON-REACTIVE Usman HymanACUTE HEPATITIS [id number] 00:00:00* Test Item Value Reference Range Interpretation Comme nts HEPATITIS A IgM (test code = 35819) NON-REACTIVE HEPATITIS B CORE IgM (test c ode = 4644) NON-REACTIVE HEPATITIS B SURF AG (test co de = 2739) NON-REACTIVE HEPATITIS C ANTIBODY (test c ode = 4675) REACTIVE INTERPRETATION HEPATITIS A: (test code = 2552) (NOTE) INTERPRETATION HEPATITIS B: (test code = 56580) (NOTE) INTERPRETATION HEPATITIS C: (test code = 10157) (NOTE) Usman HymanCBC W/AUTO [id number] 00:00:00* Test Item Value Reference Range Interpretation [...] ABS NUCLEATED RBCS (test cod e = 04199) 0.00 K/UL Usman HymanHIV 1/2 4TH GEN, RFLX [id number] 00:00:00* Test Item Value Reference Range Interpretation Comme nts HIV 1/2 4TH GEN, RFLX CONF ( test code = 3514) NON-REACTIVE Usman HymanACUTE HEPATITIS [id number] 00:00:00* Test Item Value Reference Range Interpretation Comme nts HEPATITIS A IgM (test code = 47778) NON-REACTIVE HEPATITIS B CORE IgM (test c ode = 4644) NON-REACTIVE HEPATITIS B SURF AG (test co de = 2739) NON-REACTIVE HEPATITIS C ANTIBODY (test c ode = 4675) REACTIVE INTERPRETATION HEPATITIS A: (test code = 2552) (NOTE) INTERPRETATION HEPATITIS B: (test code = 32671) (NOTE) INTERPRETATION HEPATITIS C: (test code = 72970) (NOTE) Usman HymanCBC W/AUTO [id number] 00:00:00* Test Item Value Reference Range Interpretation [...] ABS NUCLEATED RBCS (test cod e = 28924) 0.00 K/UL Usman HymanHIV 1/2 4TH GEN, RFLX [id number] 00:00:00* Test Item Value Reference Range Interpretation Comme nts HIV 1/2 4TH GEN, RFLX CONF ( test code = 3514) NON-REACTIVE Usman [id number] 16:40:00* Test Item Value Reference Range Interpretation Comme nts GLUBED (test code = GLUBED) 189 mg/dL 60-99 H The normal fasti ng blood glucose range for a non-diabeticadult is 60-99 mg/dL. Two hours after meals, normal blood glucose levels should beless than 140 mg/dL.Please note new normal range. [id number] 16:27:00* Test Item Value Reference Range Interpretation Comme nts glubed (test code = glubed) 189 mg/dL 60-99 H performing lab: (test code = performing lab:) [id number] 10:58:00* Test Item Value Reference Range Interpretation Comme nts GLUBED (test code = GLUBED) 202 mg/dL 60-99 H The normal fasti ng blood glucose range for a non-diabeticadult is 60-99 mg/dL. Two hours after meals, normal blood glucose levels should beless than 140 mg/dL.Please note new normal range. [id number] 10:47:00* Test Item Value Reference Range Interpretation Comme nts glubed (test code = glubed) 202 mg/dL 60-99 H performing lab: (test code = performing lab:) [facility]- MRI LW JNT W/CONTRAST [id number] 08:23:00 [facility] 1960 Sex: M Patient Name: ESAU VALDES Unit No: [id number] EXAMS: CPT CODE: [id number] MRI LW JNT W/CONTRAST RT [id number]: Multiplanar multisequence images of the right hip [...] Technologist: JOANNE MACHUCA MRI Transcribed D/ (0823) [facility]: E[facility]U VALDES[address] [facility] PHYS: BRIMA. - Frances Bar MD : 1960 AGE: 63 SEX: M [place] [address] LOC: Y.MRI PHONE #: [phone] EXAM DATE: 08/22/2023 STATUS: DEP CLI FAX#: [phone] RAD #: D/C DT PAGE 1 Signed Report Patient Name: ESAU VALDES Unit No: [id number] EXAMS: CPT CODE: [id number] MRI LW JNT W/[place] [id number] (Continued) Orig Print D/T: S: 08/24/2023 (0826) [facility]: ESAU VALDES [address] [facility] PHYS: OJ. Frances Bar MD : 1960 AGE: 63 SEX: M [place] [address] LOC: Y.MRI PHONE #: [phone] EXAM DATE: 08/22/2023 STATUS: DEP CLI FAX #: [phone] RAD #: D/C DT PAGE 2 Signed Report- MRI LW JNT W/O CONT [id number] 08:23:00 [facility] : 1960 Sex: M Patient Name: ESAU VALDES Unit No: [id number] EXAMS: CPT CODE: [id number] MRI LW JNT W/[place] [id number] TECHNIQUE: Multiplanar multisequence images of the right hip were obtained with and without IV contrast. COMPARISON STUDY: MRI dated 08/22/2023. FINDINGS: Marked heterogeneous increased signal is demonstrated within the right femoral head and neck, greatest within the anterior femoral neck. Underlying fr acture anteriorly is not excluded. A right hip joint effusion is present. There is pronounced intramuscular edema and enhancement surrounding the right hip joint and extending into the abductor musculature. A complex fluid collection is noted within the adductor musculature measuring up to 4 cm. Nodefinite enhancing focal mass is visualized. Mild right hip cartilage loss is noted diffusely. There is a complex tear of the superior labrum. Bone marrow signal is otherwise normal. The gluteal and hamstring tendons are intact. Visualized intrapelvic structures are unremarkable. IMPRESSION: Markedintramuscular edema and enhancement within the right adductor musculature as well as a complex fluid collection. This could represent myositis/abscess formation in the absence of trauma. If there is history of trauma, these findings may be secondary to muscle tear/strain and hematoma. No underlyingmass is visualized. at 0823 Reported and signed by: Usman To M.D. CC: Frances Bar MD Technologist: Ismael Mcfarlane (ARR T),MRI Transcribed D/ (08) [facility]: ESAU VALDES [address] [facility] PHYS: BRIMA. - Frances Bar MD : 1960 AGE: 63 SEX: M [place], [place] [address] LOC: Y.MRI PHONE #: [phone] EXAM DATE: 08/22/2023 STATUS: DEP CLI FAX #: [phone] RAD #: D/C DT PAGE 1 Signed Report Patient Name: ESAU VALDES Unit No: [id number] EXAMS: CPT CODE: [id number] MRI LW JNT W/[place] [id number] (Continued) Orig Print D/T: S: 08/24/2023 (0826) [facility] ESAU VALDES [address] [facility] PHYS: BR. - Frances Bar MD : 1960 AGE: 63 SEX: M [place], [place] [address] [id number] LOC: MYA PHONE #: [phone] EXAM DATE: 08/22/2023 STATUS: DEP CLI FAX #: [phone] RAD #: D/C DT PAGE 2 Signed ReportC REACTIVE [id number] 23:20:00* Test Item Value Reference Range Interpretation Comme nts C REACTIVE PROTEIN (test cod e = CRP) < 0.30 mg/dL < 0.3 N COMPREHENSIVE METABOLIC [id number] 22:12:00* Test Item Value Reference Range Interpretation [...] calculation forGFR is based on the CKD-EPI (202) calculation. This formulais race indifferent and is [...] code = ALKP) 100 U/L 46-116 N C REACTIVE [id number] 21:25:00* Test Item Value Reference Range Interpretation Comme nts C REACTIVE PROTEIN (test code = CRP) mg/dL < 0.3 ACUTE HEPATITIS [id number] 21:25:00* Test Item Value Reference Range Interpretation [...] BOWEN HOLLINS MT.READ BACK & CONFIRMED? Y.BY [id number] 08/21/232123. SIGNAL TO CUTOFF (test code = CUTOFF) > 11.00 <0.80 H AB HIV 21:25:00* Test Item Value Reference Range Interpretation Comme nts AB HIV 1 (test code = HIV1AB) NONREACTIVE NONREACTIVE Done by [employer] 4[employer] Gen HIV Ag/Ab Combo Screen ACUTE HEPATITIS [id number] 21:25:00* Test Item Value Reference Range Interpretation Comme nts AB HEPATITIS A IGM (test code = HAVMAB) NONREACTIVE NONREACTIVE AG HEPATITIS B SURFACE (test code = HBSAG) NONREACTIVE NONREACTIVE AB HEPATITIS B CORE IGM (test code = HBCMAB) NONREACTIVE NONREACTIVE AB HEPATITIS C (test code = HCVAB) REACTIVE NONREACTIVE A RESULTS CALLED T O BOWEN HOLLINS MT.READ BACK & CONFIRMED? Y.BY [id number] 08/21/232123. SIGNAL TO CUTOFF (test code = CUTOFF) >11.00 <0.80 H AB HIV 1 21:25:00* Test Item Value Reference Range Interpretation Comme nts AB HIV 1 2 (test code = HZA88WV) NONREACTIVE NONREACTIVE Done by [employer] 4[employer] Gen HIV Ag/Ab Combo Screen SED [id number] 15:30:00* Test Item Value Reference Range Interpretation Comme nts SED RATE (test code = SEDW) 10 mm/hr 0-20 N PROTHROMBIN [id number] 14:45:00* Test Item Value Reference Range Interpretation [...] intravascular valves IS PATIENT ON ANTICOAGULANTS ? [facility] been notified if Patient is on Heparin Drip? NOIf Yes, order CBC, OCCULT BLOOD, PT every other day NTHROMBOPLASTIN TIME [id number] 14:45:00* Test Item Value Reference Range Interpretation Comme nts PTT ACTIVATED (test code = APTT) 33.2 secs 25.1-36.5 N IS PATIENT ON ANTICOAGULANTS ? [facility] been notified if Patient is on [...] N CBC W Auto Differential panel - [id number] 11:45:00* Test Item Value Reference Range Interpretation [...] performing lab: (test code = performing lab:) [facility] MedicineProthrombin time (PT)2023-08-21 11:45:00* Test Item Value Reference Range Interpretation Comme nts prothrombin time patient (te st code = prothrombin time patient) 9.5 secs 9.4-12.5 international normal ratio ( test code = international normal ratio) 0.89 <2.0 performing lab: (test code = performing lab:) [facility] Medicinethromboplastin time [id number] 11:45:00 * Test Item Value Reference Range Interpretation Comme nts PTT activated (test code = P TT activated) 33.2 secs 25.1-36.5 performing lab: (test code = performing lab:) [facility] Medicinesed [id number] 11:45:00* Test Item Value Reference Range Interpretation Comme nts sed rate (test code = sed rate) 10 mm/HR 0-20 performing lab: (test code = performing lab:) [facility]Com[facility] 2000 panel - Serum or [id number] 11:45:00* Test Item Value Reference Range Interpretation [...] performing lab: (test code = performing lab:) [facility] CenterC reactive [id number] 11:45:00* Test Item Value Reference Range Interpretation Comme nts C reactive protein (test cod e = C reactive protein) < 0.30 < 0.3 performing lab: (test code = performing lab:) [facility] CenterCULTURE, [id number] 11:21:14SPECIMEN NUMBER: [id number] CULTURE, URINE SPECIMEN NUMBER: [id number] SPECIMEN COMMENT: URINE SOURCE: URINE REPORT STATUS: FINAL ISOLATE NUMBER 1: IDENTIFICATION: 07/06/2023 10-50,000 CFU/ML STREPTOCOCCUS AGALACTIAE (GROUP B) ADDITIONAL OBSERVATIONS: PENICILLIN AND AMPICILLIN ARE DRUGS OF CHOICE FOR TREATMENT OF B- HEMOLYTIC STREPTOCOCCAL INFECTIONS. SUSCEPTIBILITY TESTING OF PENICILLIN AND OTHERB-LACTAMS APPROVED BY THE [place] FOOD AND DRUG ADMINISTRATION FOR TREATMENT OF B-HEMOLYTIC STREPTOCOCCAL INFECTIONS NEED NOT BE PERFORMED ROUTINELY.CULTURE, [id number] 00:00:00* Test Item Value Reference Range Interpretation Comme nts CULTURE, URINE (test code = 75821) SPECIMEN NUMBER: [id number] Usman HymanCULTURE, [id number] 00:00:00* Test Item Value Reference Range Interpretation Comme nts CULTURE, URINE (test code = 09421) SPECIMEN NUMBER: [id number] Usman HymanCULTURE, [id number] 00:00:00* Test Item Value Reference Range Interpretation Comme nts CULTURE, URINE (test code = 86252) SPECIMEN NUMBER: [id number] Usman HymanPSA, [id number] 07:47:28* Test Item Value Reference Range Interpretation Comme nts PSA, TOTAL (test code = 2606) 0.31 NG/ML <=4.00 NOTE: Methodolog y is Tushar Jayden Electrochemiluminescence Immunoassay traceable to WHO reference standard 96/760. UNLESS OTHERWISE INDICATED, ALL TESTING PERFORMED AT [facility] [address] [place] [address] SUPPLY AND DISTRIBUTION MANAGER: MAREN CHAVARRIA M.D. CLIA NUMBER [id number] [facility] [place]. [id number] PSA, [id number] 00:00:00* Test Item Value Reference Range Interpretation Comme nts PSA, TOTAL (test code = 2606) 0.31 NG/ML Usman HymanPSA, [id number] 00:00:00* Test Item Value Reference Range Interpretation Comme nts PSA, TOTAL (test code = 2606) 0.31 NG/ML Usman Patterson AustinPSA, [id number] 00:00:00* Test Item Value Reference Range Interpretation Comme nts PSA, TOTAL (test code = 2606) 0.31 NG/ML Usman Patterson AustinALBUMIN/CREATININE RATIO, URINE, [id number] 02:45:52* Test Item Value Reference Range Interpretation Comme nts CREATININE, URINE, CONC. (test code = 2072) 61.4 MG/DL NOT ESTAB ALBUMIN, URINE, RANDOM (test code = 49926) 9.1 MG/DL NOT ESTAB CALC ALBUMIN/CREAT, RND (test code = 34607) 148 MG/G <30 H Note: Albumin/Cr eatinine ratio reference interval reflects ADA and NKF guidelines. UNLESS OTHERWISE INDICATED, ALL TESTING PERFORMED AT [facility] [address] [place] [address] SUPPLY AND DISTRIBUTION MANAGER: MAREN CHAVARRIA M.D. [place] NUMBER [id number] [facility] [place]. [id number] ALBUMIN/CREATININE RATIO, RANDOM [id number] 00:00:00* Test Item Value Reference Range Interpretation Comme nts CREATININE, URINE, CONC. (te st code = 207) 61.4 MG/DL ALBUMIN, URINE, RANDOM (test code = 22657) 9.1 MG/DL CALC ALBUMIN/CREAT, RND (shanna t code = 31682) 148 MG/G Usman Yesenia AustinALBUMIN/CREATININE RATIO, RANDOM [id number] 00:00:00* Test Item Value Reference Range Interpretation Comme nts CREATININE, URINE, CONC. (te st code = 207) 61.4 MG/DL ALBUMIN, URINE, RANDOM (test code = 18280) 9.1 MG/DL CALC ALBUMIN/CREAT, RND (shanna t code = 77544) 148 MG/G Usman F AustinALBUMIN/CREATININE RATIO, RANDOM [id number] 00:00:00* Test Item Value Reference Range Interpretation Comme nts CREATININE, URINE, CONC. (te st code = 207) 61.4 MG/DL ALBUMIN, URINE, RANDOM (test code = 12218) 9.1 MG/DL CALC ALBUMIN/CREAT, RND (shanna t code = 22942) 148 MG/G Usman Patterson AustinHCV RNA, PCR [id number] 20:16:46* Test Item Value Reference Range Interpretation Comme nts HCV RNA, PCR QUANT (test code = 4571) NOT DETEC IU/ML HCV VIRAL LOG (test code = 99826) NOT DETEC LOG IU/ML HCV RNA was [...] range is NOT DETECTED. HEPATITIS C REFLEX [id number] 02:34:07* Test Item Value Reference Range Interpretation Comme nts HEPATITIS C ANTIBODY (test c ode = 4675) REACTIVE NON-REACTIVE A HEPATITIS C REFLEX [id number] 00:00:00* Test Item Value Reference Range Interpretation Comme nts HEPATITIS C ANTIBODY (test c ode = 4675) REACTIVE Usman Patterson AustinHCV RNA, PCR [id number] 00:00:00* Test Item Value Reference Range Interpretation Comme nts HCV RNA, PCR QUANT (test code = 4571) NOT DETEC IU/ML HCV VIRAL LOG (test code = 12976) NOT DETEC LOGIU/ML Usman HymanHEPATITIS C REFLEX [id number] 00:00:00* Test Item Value Reference Range Interpretation Comme nts HEPATITIS C ANTIBODY (test c ode = 4675) REACTIVE Usman F AustinHCV RNA, PCR [id number] 00:00:00* Test Item Value Reference Range Interpretation Comme nts HCV RNA, PCR QUANT (test code = 4571) NOT DETEC IU/ML HCV VIRAL LOG (test code = 64525) NOT DETEC LOGIU/ML Usman Patterson AustinHEPATITIS C REFLEX [id number] 00:00:00* Test Item Value Reference Range Interpretation Comme nts HEPATITIS C ANTIBODY (test c ode = 4675) REACTIVE Usman F AustinHCV RNA, PCR [id number] 00:00:00* Test Item Value Reference Range Interpretation Comme nts HCV RNA, PCR QUANT (test code = 4571) NOT DETEC IU/ML HCV VIRAL LOG (test code = 74433) NOT DETEC LOGIU/ML Usman Patterson AustinCOMPREHENSIVE METABOLIC [id number] 23:23:07* Test Item Value Reference Range Interpretation Comme nts GLUCOSE (test code = 221) 327 MG/DL 70-99 H BUN (test code = 2207) 14 MG/DL 8-23 CREATININE (test code = 2213) 1.20 MG/DL 0.80-1.40 eGFR (2020 CKD-EPI) (test co de = 55107) 69 ML/MIN/1.73 >60 CALC BUN/CREAT (test code [...] 55 U/L 40-123 AST (test code = 221) 26 U/L 9-50 ALT (test code = 2219) 40 U/L 5-50 LIPID [id number] 23:23:07* Test Item Value Reference Range Interpretation [...] SPECIMENS. FOR MOREINFORMATION, SEE CLIENT ANNOUNCEMENT AT [email or web address] /CalcLDL-C RISK RATIO LDL/HDL (test code = 2238) 2.74 RATIO <3.55 HEMOGLOBIN [id number] 03:16:16* Test Item Value Reference Range Interpretation Comme [facility] HEMOGLOBIN A1c (test code = 80074) 11.2 % 4.2-5.6 H [employer] GUIDELINES FOR HGB A1C: [...] CONSIDER ALTERNATE TESTING OR LABORATORY CONSULTATION. HEMOGLOBIN [id number] 00:00:00* Test Item Value Reference Range Interpretation Comme [facility] HEMOGLOBIN A1c (test code = 49445) 11.2 % Usman Patterson AustinLIPID [id number] 00:00:00* Test Item Value Reference Range Interpretation Comme nts CHOLESTEROL (test code = 2210) 128 MG/DL TRIGLYCERIDES (test code = 2232) 174 MG/DL HDL CHOLESTEROL (test code = 2220) 27 MG/DL CALC LDL CHOL (test code = 2237) 74 MG/DL RISK RATIO LDL/HDL (test cod e = 2238) 2.74 RATIO Usman HymanCOMPREHENSIVE METABOLIC [id number] 00:00:00* Test Item Value Reference Range Interpretation Comme nts GLUCOSE (test code = 2217) 327 MG/DL BUN (test code = 2208) 14 MG/DL CREATININE (test code = 2214) 1.20 MG/DL eGFR (2020 CKD-EPI) (test co de = 18641) 69 ML/MIN/1.73 CALC BUN/CREAT (test code = [...] code = 2219) 40 U/L Usman HymanHEMOGLOBIN [id number] 00:00:00* Test Item Value Reference Range Interpretation Comme [facility] HEMOGLOBIN A1c (test code = 73318) 11.2 % Usman HymanLIPID [id number] 00:00:00* Test Item Value Reference Range Interpretation Comme nts CHOLESTEROL (test code = 2210) 128 MG/DL TRIGLYCERIDES (test code = 2232) 174 MG/DL HDL CHOLESTEROL (test code = 2220) 27 MG/DL CALC LDL CHOL (test code = 2237) 74 MG/DL RISK RATIO LDL/HDL (test cod e = 2238) 2.74 RATIO Usman HymanCOMPREHENSIVE METABOLIC [id number] 00:00:00* Test Item Value Reference Range Interpretation Comme nts GLUCOSE (test code = 2217) 327 MG/DL BUN (test code = 2208) 14 MG/DL CREATININE (test code = 2214) 1.20 MG/DL eGFR (2020 CKD-EPI) (test co de = 90812) 69 ML/MIN/1.73 CALC BUN/CREAT (test code = [...] code = 2219) 40 U/L Usman HymanHEMOGLOBIN [id number] 00:00:00* Test Item Value Reference Range Interpretation Comme joseph HEMOGLOBIN A1c (test code = 56830) 11.2 % Usman HymanLIPID [id number] 00:00:00* Test Item Value Reference Range Interpretation Comme nts CHOLESTEROL (test code = 2210) 128 MG/DL TRIGLYCERIDES (test code = 2232) 174 MG/DL HDL CHOLESTEROL (test code = 2220) 27 MG/DL CALC LDL CHOL (test code = 2237) 74 MG/DL RISK RATIO LDL/HDL (test cod e = 2238) 2.74 RATIO Usman HymanCOMPREHENSIVE METABOLIC [id number] 00:00:00* Test Item Value Reference Range Interpretation Comme nts GLUCOSE (test code = 2217) 327 MG/DL BUN (test code = 2208) 14 MG/DL CREATININE (test code = 2214) 1.20 MG/DL eGFR (2020 CKD-EPI) (test co de = 93305) 69 ML/MIN/1.73 CALC BUN/CREAT (test code = [...] U/L Usman HymanHIV 1/2 4TH GEN, RFLX [id number] 04:13:42* Test Item Value Reference Range Interpretation Comme nts HIV 1/2 4TH GEN, RFLX CONF ( test code = 3514) NON-REACTIVE NON-REACTIVE HIV AB/AG COMBO RFLX [id number] 00:00:00* Test Item Value Reference Range Interpretation Comme nts HIV 1/2 4TH GEN, RFLX CONF ( test code = 3514) NON-REACTIVE Usman HymanHIV AB/AG COMBO RFLX [id number] 00:00:00* Test Item Value Reference Range Interpretation Comme nts HIV 1/2 4TH GEN, RFLX CONF ( test code = 3514) NON-REACTIVE Usman Patterson AustinHIV AB/AG COMBO RFLX [id number] 00:00:00* Test Item Value Reference Range Interpretation Comme nts HIV 1/2 4TH GEN, RFLX CONF ( test code = 3514) NON-REACTIVE Usman Patterson AustinTSH, THIRD [id number] 01:15:29* Test Item Value Reference Range Interpretation Comme nts TSH, THIRD GENERATION (test code = 2821) 0.746 UIU/ML 0.400-4.100 UNLESS OTHERWISE INDICATED, ALL TESTING PERFORMED [facility] [address] [place] [address] SUPPLY AND DISTRIBUTION MANAGER: FRANCES SAPP M.D. CLIA NUMBER [id number] [facility] [place]. [id number] LIPID [id number] 00:16:46* Test Item Value Reference Range Interpretation [...] SPECIMENS. FOR MOREINFORMATION, SEE CLIENT ANNOUNCEMENT AT [email or web address] RISK RATIO LDL/HDL (test code = 2238) 1.08 RATIO <3.55 LIPID [id number] 00:00:00* Test Item Value Reference Range Interpretation Comme nts CHOLESTEROL (test code = 2210) 106 MG/DL TRIGLYCERIDES (test code = 2232) 144 MG/DL HDL CHOLESTEROL (test code = 2220) 40 MG/DL CALC LDL CHOL (test code = 2237) 43 MG/DL RISK RATIO LDL/HDL (test cod e = 2238) 1.08 RATIO Usman [id number] 00:00:00* Test Item Value Reference Range Interpretation Comme nts TSH, THIRD GENERATION (test code = 2821) 0.746 UIU/ML Usman HymanLIPID [id number] 00:00:00* Test Item Value Reference Range Interpretation Comme nts CHOLESTEROL (test code = 2210) 106 MG/DL TRIGLYCERIDES (test code = 2232) 144 MG/DL HDL CHOLESTEROL (test code = 2220) 40 MG/DL CALC LDL CHOL (test code = 2237) 43 MG/DL RISK RATIO LDL/HDL (test cod e = 2238) 1.08 RATIO Usman [id number] 00:00:00* Test Item Value Reference Range Interpretation Comme nts TSH, THIRD GENERATION (test code = 2821) 0.746 UIU/ML Usman HymanLIPID [id number] 00:00:00* Test Item Value Reference Range Interpretation Comme nts CHOLESTEROL (test code = 2210) 106 MG/DL TRIGLYCERIDES (test code = 2232) 144 MG/DL HDL CHOLESTEROL (test code = 2220) 40 MG/DL CALC LDL CHOL (test code = 2237) 43 MG/DL RISK RATIO LDL/HDL (test cod e = 2238) 1.08 RATIO Usman [id number] 00:00:00* Test Item Value Reference Range Interpretation Comme joseph TSH, THIRD GENERATION (test code = 2821) 0.746 UIU/ML Usman HymanHEMOGLOBIN [id number] 07:26:51* Test Item Value Reference Range Interpretation Comme joseph HEMOGLOBIN A1c (test code = 33170) 13.1 % 4.2-5.6 H [employer] GUIDELINES FOR HGB A1C: [...] OR LABORATORY CONSULTATION. CBC W/AUTO DIFF WITH [id number] 05:39:50* Test Item Value Reference Range Interpretation [...] = 1065) 0.0 /100 WBC'S See_Comment [Automated [employer]] The system which generated this result [...] 0.00-0.10 ABS NUCLEATED RBCS (test code = 52287) 0.00 K/UL 0.00-0.11 HEMOGLOBIN [id number] 00:00:00* Test Item Value Reference Range Interpretation Comme nts HEMOGLOBIN A1c (test code = 51839) 13.1 % Usman Patterson AustinCBC W/AUTO [id number] 00:00:00* Test Item Value Reference Range Interpretation [...] ABS NUCLEATED RBCS (test cod e = 43417) 0.00 K/UL Usman HymanHEMOGLOBIN [id number] 00:00:00* Test Item Value Reference Range Interpretation Comme nts HEMOGLOBIN A1c (test code = 26333) 13.1 % Usman HymanCBC W/AUTO [id number] 00:00:00* Test Item Value Reference Range Interpretation [...] ABS NUCLEATED RBCS (test cod e = 58511) 0.00 K/UL Usman HymanHEMOGLOBIN [id number] 00:00:00* Test Item Value Reference Range Interpretation Comme nts HEMOGLOBIN A1c (test code = 91022) 13.1 % Usman HymanCBC W/AUTO [id number] 00:00:00* Test Item Value Reference Range Interpretation [...] ABS NUCLEATED RBCS (test cod e = 46407) 0.00 K/UL Usman HymanLIPID PANEL [ADDED]2021-06-02 00:00:00* [...] eGFR (2020 CKD-EPI) (test co de = 15617) 66 ML/MIN/1.73 CALC BUN/CREAT (test code = [...] MG/DL ALBUMIN, URINE, RANDOM (test code = 68437) 0.8 MG/DL CALC ALBUMIN/CREAT, RND (shanna t code = 19623) 8 MG/G Usman HymanHEMOGLOBIN A1c [ADDED]2021-06-02 00:00:00* Test Item Value Reference Range Interpretation Comme joseph HEMOGLOBIN A1c (test code = 03305) 12.7 % Usman HymanLIPID PANEL [ADDED]2021-06-02 00:00:00* [...] eGFR (2020 CKD-EPI) (test co de = 77729) 66 ML/MIN/1.73 CALC BUN/CREAT (test code = [...] MG/DL ALBUMIN, URINE, RANDOM (test code = 38150) 0.8 MG/DL CALC ALBUMIN/CREAT, RND (shanna t code = 83238) 8 MG/G Usman HymanHEMOGLOBIN A1c [ADDED]2021-06-02 00:00:00* Test Item Value Reference Range Interpretation Comme [facility] HEMOGLOBIN A1c (test code = 40315) 12.7 % Usman HymanLIPID PANEL [ADDED]2021-06-02 00:00:00* [...] eGFR (2020 CKD-EPI) (test co de = 11136) 66 ML/MIN/1.73 CALC BUN/CREAT (test code = [...] MG/DL ALBUMIN, URINE, RANDOM (test code = 58303) 0.8 MG/DL CALC ALBUMIN/CREAT, RND (shanna t code = 34650) 8 MG/G Usman HymanHEMOGLOBIN A1c [ADDED]2021-06-02 00:00:00* Test Item Value Reference Range Interpretation Comme nts HEMOGLOBIN A1c (test code = 26346) 12.7 % Usman HymanLIPID [id number] 00:00:00* Test Item Value Reference Range Interpretation Comme nts CHOLESTEROL (test code = 2210) 95 MG/DL TRIGLYCERIDES (test code = 2232) 176 MG/DL HDL CHOLESTEROL (test code = 2220) 34 MG/DL CALC LDL CHOL (test code = 2237) 36 MG/DL RISK RATIO LDL/HDL (test cod e = 2238) 1.06 RATIO Usman HymanCOMPREHENSIVE METABOLIC [id number] 00:00:00* Test Item Value Reference Range Interpretation Comme nts GLUCOSE (test code = 2217) 494 MG/DL BUN (test code = 2208) 12 MG/DL CREATININE (test code = 2214) 1.44 MG/DL eGFR AMER. (test cod e = 87748) 61 ML/MIN/1.73 eGFR NON- AMER. (test code = 02327) 53 ML/MIN/1.73 CALC BUN/CREAT (test code = [...] code = 2219) 33 U/L Usman HymanHEMOGLOBIN [id number] 00:00:00* Test Item Value Reference Range Interpretation Comme joseph HEMOGLOBIN A1c (test code = 59109) 13.8 % Usman HymanLIPID [id number] 00:00:00* Test Item Value Reference Range Interpretation Comme nts CHOLESTEROL (test code = 2210) 95 MG/DL TRIGLYCERIDES (test code = 2232) 176 MG/DL HDL CHOLESTEROL (test code = 2220) 34 MG/DL CALC LDL CHOL (test code = 2237) 36 MG/DL RISK RATIO LDL/HDL (test cod e = 2238) 1.06 RATIO Usman HymanCOMPREHENSIVE METABOLIC [id number] 00:00:00* Test Item Value Reference Range Interpretation Comme nts GLUCOSE (test code = 7) 494 MG/DL BUN (test code = 8) 12 MG/DL CREATININE (test code = 2214) 1.44 MG/DL eGFR AMER. (test cod e = 05660) 61 ML/MIN/1.73 eGFR NON- AMER. (test code = 57440) 53 ML/MIN/1.73 CALC BUN/CREAT (test code = [...] code = 2219) 33 U/L Usman HymanHEMOGLOBIN [id number] 00:00:00* Test Item Value Reference Range Interpretation Comme nts HEMOGLOBIN A1c (test code = 01070) 13.8 % Usman HymanLIPID [id number] 00:00:00* Test Item Value Reference Range Interpretation Comme nts CHOLESTEROL (test code = 2210) 95 MG/DL TRIGLYCERIDES (test code = 2232) 176 MG/DL HDL CHOLESTEROL (test code = 2220) 34 MG/DL CALC LDL CHOL (test code = 2237) 36 MG/DL RISK RATIO LDL/HDL (test cod e = 2238) 1.06 RATIO Usman HymanCOMPREHENSIVE METABOLIC [id number] 00:00:00* Test Item Value Reference Range Interpretation Comme nts GLUCOSE (test code = 2217) 494 MG/DL BUN (test code = 8) 12 MG/DL CREATININE (test code = 2214) 1.44 MG/DL eGFR AMER. (test cod e = 22344) 61 ML/MIN/1.73 eGFR NON- AMER. (test code = 04165) 53 ML/MIN/1.73 CALC BUN/CREAT (test code = [...] (test code = 2219) 33 U/L Usman Patterson AustinHEMOGLOBIN [id number] 00:00:00* Test Item Value Reference Range Interpretation Comme nts HEMOGLOBIN A1c (test code = 42948) 13.8 % Usman Patterson AustinLIPID [id number] 00:00:00* Test Item Value Reference Range Interpretation Comme nts CHOLESTEROL (test code = 2210) 86 MG/DL TRIGLYCERIDES (test code = 2232) 132 MG/DL HDL CHOLESTEROL (test code = 2220) 30 MG/DL CALC LDL CHOL (test code = 2237) 34 MG/DL RISK RATIO LDL/HDL (test cod e = 2238) 1.13 RATIO Usman HymanCOMPREHENSIVE METABOLIC [id number] 00:00:00* Test Item Value Reference Range Interpretation Comme nts GLUCOSE (test code = 7) 231 MG/DL BUN (test code = 2208) 14 MG/DL CREATININE (test code = 2214) 1.22 MG/DL eGFR AMER. (test cod e = 62628) 75 ML/MIN/1.73 eGFR NON- AMER. (test code = 28090) 64 ML/MIN/1.73 CALC BUN/CREAT (test code = [...] (test code = 2219) 36 U/L Usman F AustinHEMOGLOBIN [id number] 00:00:00* Test Item Value Reference Range Interpretation Comme joseph HEMOGLOBIN A1c (test code = 29887) 10.9 % Usman HymanLIPID [id number] 00:00:00* Test Item Value Reference Range Interpretation Comme nts CHOLESTEROL (test code = 2210) 86 MG/DL TRIGLYCERIDES (test code = 2232) 132 MG/DL HDL CHOLESTEROL (test code = 2220) 30 MG/DL CALC LDL CHOL (test code = 2237) 34 MG/DL RISK RATIO LDL/HDL (test cod e = 2238) 1.13 RATIO Usman HymanCOMPREHENSIVE METABOLIC [id number] 00:00:00* Test Item Value Reference Range Interpretation Comme nts GLUCOSE (test code = 2217) 231 MG/DL BUN (test code = 2208) 14 MG/DL CREATININE (test code = 2214) 1.22 MG/DL eGFR AMER. (test cod e = 20779) 75 ML/MIN/1.73 eGFR NON- AMER. (test code = 01234) 64 ML/MIN/1.73 CALC BUN/CREAT (test code = [...] code = 2219) 36 U/L Usman HymanHEMOGLOBIN [id number] 00:00:00* Test Item Value Reference Range Interpretation Comme joseph HEMOGLOBIN A1c (test code = 07743) 10.9 % Usman HymanLIPID [id number] 00:00:00* Test Item Value Reference Range Interpretation Comme nts CHOLESTEROL (test code = 2210) 86 MG/DL TRIGLYCERIDES (test code = 2232) 132 MG/DL HDL CHOLESTEROL (test code = 2220) 30 MG/DL CALC LDL CHOL (test code = 2237) 34 MG/DL RISK RATIO LDL/HDL (test cod e = 2238) 1.13 RATIO Usman HymanCOMPREHENSIVE METABOLIC [id number] 00:00:00* Test Item Value Reference Range Interpretation Comme nts GLUCOSE (test code = 2217) 231 MG/DL BUN (test code = 2208) 14 MG/DL CREATININE (test code = 2214) 1.22 MG/DL eGFR AMER. (test cod e = 91379) 75 ML/MIN/1.73 eGFR NON- AMER. (test code = 12889) 64 ML/MIN/1.73 CALC BUN/CREAT (test code = [...] code = 2219) 36 U/L Usman HymanHEMOGLOBIN [id number] 00:00:00* Test Item Value Reference Range Interpretation Comme nts HEMOGLOBIN A1c (test code = 00676) 10.9 % Usman HymanCBC W/AUTO [id number] 00:00:00* Test Item Value Reference Range Interpretation [...] code = 1015) 290 K/UL Usman HymanLIPID [id number] 00:00:00* Test Item Value Reference Range Interpretation Comme nts CHOLESTEROL (test code = 2210) 224 MG/DL TRIGLYCERIDES (test code = 2232) 268 MG/DL HDL CHOLESTEROL (test code = 2220) 41 MG/DL CALC LDL CHOL (test code = 2237) 142 MG/DL RISK RATIO LDL/HDL (test cod e = 2238) 3.46 RATIO Usman HymanCOMPREHENSIVE METABOLIC [id number] 00:00:00* Test Item Value Reference Range Interpretation Comme nts GLUCOSE (test code = 2217) 204 MG/DL BUN (test code = 2208) 12 MG/DL CREATININE (test code = 2214) 1.20 MG/DL eGFR AMER. (test cod e = 79697) 76 ML/MIN/1.73 eGFR NON- AMER. (test code = 22511) 66 ML/MIN/1.73 CALC BUN/CREAT (test code = [...] code = 2219) 30 U/L Usman HymanHEMOGLOBIN [id number] 00:00:00* Test Item Value Reference Range Interpretation Comme nts HEMOGLOBIN A1c (test code = 51003) 10.1 % Usman HymanCBC W/AUTO [id number] 00:00:00* Test Item Value Reference Range Interpretation [...] code = 1015) 290 K/UL Usman HymanLIPID [id number] 00:00:00* Test Item Value Reference Range Interpretation Comme nts CHOLESTEROL (test code = 2210) 224 MG/DL TRIGLYCERIDES (test code = 2232) 268 MG/DL HDL CHOLESTEROL (test code = 2220) 41 MG/DL CALC LDL CHOL (test code = 2237) 142 MG/DL RISK RATIO LDL/HDL (test cod e = 2238) 3.46 RATIO Usman HymanCOMPREHENSIVE METABOLIC [id number] 00:00:00* Test Item Value Reference Range Interpretation Comme nts GLUCOSE (test code = 2217) 204 MG/DL BUN (test code = 2208) 12 MG/DL CREATININE (test code = 2214) 1.20 MG/DL eGFR AMER. (test cod e = 49920) 76 ML/MIN/1.73 eGFR NON- AMER. (test code = 00441) 66 ML/MIN/1.73 CALC BUN/CREAT (test code = [...] code = 2219) 30 U/L Usman HymanHEMOGLOBIN [id number] 00:00:00* Test Item Value Reference Range Interpretation Comme nts HEMOGLOBIN A1c (test code = 33199) 10.1 % Usman HymanCBC W/AUTO [id number] 00:00:00* Test Item Value Reference Range Interpretation [...] code = 1015) 290 K/UL Usman HymanLIPID [id number] 00:00:00* Test Item Value Reference Range Interpretation Comme nts CHOLESTEROL (test code = 2210) 224 MG/DL TRIGLYCERIDES (test code = 2232) 268 MG/DL HDL CHOLESTEROL (test code = 2220) 41 MG/DL CALC LDL CHOL (test code = 2237) 142 MG/DL RISK RATIO LDL/HDL (test cod e = 2238) 3.46 RATIO Usman HymanCOMPREHENSIVE METABOLIC [id number] 00:00:00* Test Item Value Reference Range Interpretation Comme nts GLUCOSE (test code = 2217) 204 MG/DL BUN (test code = 2208) 12 MG/DL CREATININE (test code = 2214) 1.20 MG/DL eGFR AMER. (test cod e = 05842) 76 ML/MIN/1.73 eGFR NON- AMER. (test code = 58783) 66 ML/MIN/1.73 CALC BUN/CREAT (test code = [...] code = 2219) 30 U/L Usman HymanHEMOGLOBIN [id number] 00:00:00* Test Item Value Reference Range Interpretation Comme joseph HEMOGLOBIN A1c (test code = 55286) 10.1 % Usman HymanSARS-CoV-2 (COVID-19) by RT-PCR (HIGH RISK)2020-01-05 00:00:00* Test Item Value Reference Range Interpretation Comme nts SARS-CoV-2 INTERPRETATION (t est code = 44529) NEGATIVE SOURCE (test code = 89546) NOT SPECIFIED Usman HymanSARS-CoV-2 (COVID-19) by RT-PCR (HIGH RISK)2020-01-05 00:00:00* Test Item Value Reference Range Interpretation Comme nts SARS-CoV-2 INTERPRETATION (t est code = 32443) NEGATIVE SOURCE (test code = 51909) NOT SPECIFIED Usman HymanSARS-CoV-2 (COVID-19) by RT-PCR (HIGH RISK)2020-01-05 00:00:00* Test Item Value Reference Range Interpretation Comme nts SARS-CoV-2 INTERPRETATION (t est code = 47198) NEGATIVE SOURCE (test code = 75652) NOT SPECIFIED Usman HymanLIPID [id number] 00:00:00* Test Item Value Reference Range Interpretation Comme nts CHOLESTEROL (test code = 2210) 180 MG/DL TRIGLYCERIDES (test code = 2232) 177 MG/DL HDL CHOLESTEROL (test code = 2220) 25 MG/DL CALC LDL CHOL (test code = 2237) 126 MG/DL RISK RATIO LDL/HDL (test cod e = 2238) 5.04 RATIO Usman HymanHEMOGLOBIN [id number] 00:00:00* Test Item Value Reference Range Interpretation Comme nts HEMOGLOBIN A1c (test code = 03718) 9.2 % Usman HymanCOMPREHENSIVE METABOLIC [id number] 00:00:00* Test Item Value Reference Range Interpretation Comme nts GLUCOSE (test code = 2217) 215 MG/DL BUN (test code = 2208) 10 MG/DL CREATININE (test code = 2214) 1.28 MG/DL eGFR AMER. (test cod e = 15189) 71 ML/MIN/1.73 eGFR NON- AMER. (test code = 86473) 61 ML/MIN/1.73 CALC BUN/CREAT (test code = [...] = 2219) 46 U/L Usman Patterson AustinLIPID [id number] 00:00:00* Test Item Value Reference Range Interpretation Comme nts CHOLESTEROL (test code = 2210) 180 MG/DL TRIGLYCERIDES (test code = 2232) 177 MG/DL HDL CHOLESTEROL (test code = 2220) 25 MG/DL CALC LDL CHOL (test code = 2237) 126 MG/DL RISK RATIO LDL/HDL (test cod e = 2238) 5.04 RATIO Usman HymanHEMOGLOBIN [id number] 00:00:00* Test Item Value Reference Range Interpretation Comme nts HEMOGLOBIN A1c (test code = 79494) 9.2 % Usman HymanCOMPREHENSIVE METABOLIC [id number] 00:00:00* Test Item Value Reference Range Interpretation Comme nts GLUCOSE (test code = 2217) 215 MG/DL BUN (test code = 2208) 10 MG/DL CREATININE (test code = 2214) 1.28 MG/DL eGFR AMER. (test cod e = 64076) 71 ML/MIN/1.73 eGFR NON- AMER. (test code = 82775) 61 ML/MIN/1.73 CALC BUN/CREAT (test code = [...] = 2219) 46 U/L Usman Patterson AustinLIPID [id number] 00:00:00* Test Item Value Reference Range Interpretation Comme nts CHOLESTEROL (test code = 2210) 180 MG/DL TRIGLYCERIDES (test code = 2232) 177 MG/DL HDL CHOLESTEROL (test code = 2220) 25 MG/DL CALC LDL CHOL (test code = 2237) 126 MG/DL RISK RATIO LDL/HDL (test cod e = 2238) 5.04 RATIO Usman aPtterson AustinHEMOGLOBIN [id number] 00:00:00* Test Item Value Reference Range Interpretation Comme nts HEMOGLOBIN A1c (test code = 44845) 9.2 % Usman Patterson AustinCOMPREHENSIVE METABOLIC [id number] 00:00:00* Test Item Value Reference Range Interpretation Comme nts GLUCOSE (test code = 2217) 215 MG/DL BUN (test code = 2208) 10 MG/DL CREATININE (test code = 2214) 1.28 MG/DL eGFR AMER. (test cod e = 72769) 71 ML/MIN/1.73 eGFR NON- AMER. (test code = 86102) 61 ML/MIN/1.73 CALC BUN/CREAT (test code = [...] = 2219) 46 U/L Usman Patterson AustinHEMOGLOBIN [id number] 00:00:00* Test Item Value Reference Range Interpretation Comme nts HEMOGLOBIN A1c (test code = 62345) 7.5 % Usman Patterson AustinCOMPREHENSIVE METABOLIC [id number] 00:00:00* Test Item Value Reference Range Interpretation Comme nts GLUCOSE (test code = 2217) 186 MG/DL BUN (test code = 2208) 14 MG/DL CREATININE (test code = 2214) 1.07 MG/DL eGFR AMER. (test cod e = 35503) 89 ML/MIN/1.73 eGFR NON- AMER. (test code = 59000) 77 ML/MIN/1.73 CALC BUN/CREAT (test code = [...] code = 2219) 27 U/L Usman Patterson StampsLIPID [id number] 00:00:00* Test Item Value Reference Range Interpretation Comme nts CHOLESTEROL (test code = 2210) 178 MG/DL TRIGLYCERIDES (test code = 2232) 155 MG/DL HDL CHOLESTEROL (test code = 2220) 56 MG/DL CALC LDL CHOL (test code = 2237) 91 MG/DL RISK RATIO LDL/HDL (test cod e = 2238) 1.63 RATIO Usman HymanHEMOGLOBIN [id number] 00:00:00* Test Item Value Reference Range Interpretation Comme nts HEMOGLOBIN A1c (test code = 44705) 7.5 % Usman Patterson StampsCOMPREHENSIVE METABOLIC [id number] 00:00:00* Test Item Value Reference Range Interpretation Comme nts GLUCOSE (test code = 2217) 186 MG/DL BUN (test code = 2208) 14 MG/DL CREATININE (test code = 2214) 1.07 MG/DL eGFR AMER. (test cod e = 59092) 89 ML/MIN/1.73 eGFR NON- AMER. (test code = 32556) 77 ML/MIN/1.73 CALC BUN/CREAT (test code = [...] (test code = 2219) 27 U/L Usman Pattreson StampsLIPID [id number] 00:00:00* Test Item Value Reference Range Interpretation Comme nts CHOLESTEROL (test code = 2210) 178 MG/DL TRIGLYCERIDES (test code = 2232) 155 MG/DL HDL CHOLESTEROL (test code = 2220) 56 MG/DL CALC LDL CHOL (test code = 2237) 91 MG/DL RISK RATIO LDL/HDL (test cod e = 2238) 1.63 RATIO Usman HymanHEMOGLOBIN [id number] 00:00:00* Test Item Value Reference Range Interpretation Comme nts HEMOGLOBIN A1c (test code = 19706) 7.5 % Usman Patterson BoogieCOMPREHENSIVE METABOLIC [id number] 00:00:00* Test Item Value Reference Range Interpretation Comme nts GLUCOSE (test code = 2217) 186 MG/DL BUN (test code = 2208) 14 MG/DL CREATININE (test code = 2214) 1.07 MG/DL eGFR AMER. (test cod e = 65042) 89 ML/MIN/1.73 eGFR NON- AMER. (test code = 64118) 77 ML/MIN/1.73 CALC BUN/CREAT (test code = [...] code = 2219) 27 U/L Usman HymanLIPID [id number] 00:00:00* Test Item Value Reference Range Interpretation Comme nts CHOLESTEROL (test code = 2210) 178 MG/DL TRIGLYCERIDES (test code = 2232) 155 MG/DL HDL CHOLESTEROL (test code = 2220) 56 MG/DL CALC LDL CHOL (test code = 2237) 91 MG/DL RISK RATIO LDL/HDL (test cod e = 2238) 1.63 RATIO Usman HymanLIPID [id number] 00:00:00* Test Item Value Reference Range Interpretation Comme nts CHOLESTEROL (test code = 2210) 192 MG/DL TRIGLYCERIDES (test code = 2232) 226 MG/DL HDL CHOLESTEROL (test code = 2220) 47 MG/DL CALC LDL CHOL (test code = 2237) 100 MG/DL RISK RATIO LDL/HDL (test cod e = 2238) 2.12 RATIO Usman Patterson [id number] 00:00:00* Test Item Value Reference Range Interpretation Comme nts TSH (test code = 2821) 0.616 UIU/ML Usman Patterson StampsCOMPREHENSIVE METABOLIC [id number] 00:00:00* Test Item Value Reference Range Interpretation Comme nts GLUCOSE (test code = 2217) 148 MG/DL BUN (test code = 2208) 26 MG/DL CREATININE (test code = 2214) 1.31 MG/DL eGFR AMER. (test cod e = 65520) 71 ML/MIN/1.73 eGFR NON- AMER. (test code = 81918) 61 ML/MIN/1.73 CALC BUN/CREAT (test code = [...] code = 2219) 20 U/L Usman HymanLIPID [id number] 00:00:00* Test Item Value Reference Range Interpretation Comme nts CHOLESTEROL (test code = 2210) 192 MG/DL TRIGLYCERIDES (test code = 2232) 226 MG/DL HDL CHOLESTEROL (test code = 2220) 47 MG/DL CALC LDL CHOL (test code = 2237) 100 MG/DL RISK RATIO LDL/HDL (test cod e = 2238) 2.12 RATIO Usman [id number] 00:00:00* Test Item Value Reference Range Interpretation Comme nts TSH (test code = 2821) 0.616 UIU/ML Usman HymanCOMPREHENSIVE METABOLIC [id number] 00:00:00* Test Item Value Reference Range Interpretation Comme nts GLUCOSE (test code = 2217) 148 MG/DL BUN (test code = 2208) 26 MG/DL CREATININE (test code = 2214) 1.31 MG/DL eGFR AMER. (test cod e = 68561) 71 ML/MIN/1.73 eGFR NON- AMER. (test code = 78652) 61 ML/MIN/1.73 CALC BUN/CREAT (test code = [...] code = 2219) 20 U/L Usman HymanLIPID [id number] 00:00:00* Test Item Value Reference Range Interpretation Comme nts CHOLESTEROL (test code = 2210) 192 MG/DL TRIGLYCERIDES (test code = 2232) 226 MG/DL HDL CHOLESTEROL (test code = 2220) 47 MG/DL CALC LDL CHOL (test code = 2237) 100 MG/DL RISK RATIO LDL/HDL (test cod e = 223) 2.12 RATIO Usman [id number] 00:00:00* Test Item Value Reference Range Interpretation Comme nts TSH (test code = 2821) 0.616 UIU/ML Usman HymanCOMPREHENSIVE METABOLIC [id number] 00:00:00* Test Item Value Reference Range Interpretation Comme nts GLUCOSE (test code = 2217) 148 MG/DL BUN (test code = 2208) 26 MG/DL CREATININE (test code = 2214) 1.31 MG/DL eGFR AMER. (test cod e = 15328) 71 ML/MIN/1.73 eGFR NON- AMER. (test code = 14198) 61 ML/MIN/1.73 CALC BUN/CREAT (test code = [...] = 2219) 20 U/L Usman HymanCBC W/AUTO [id number] 00:00:00* Test Item Value Reference Range Interpretation [...] code = 1015) 292 K/UL Usman HymanHEMOGLOBIN [id number] 00:00:00* Test Item Value Reference Range Interpretation Comme nts HEMOGLOBIN A1c (test code = 84022) 7.4 % Usman HymanC W/AUTO [id number] 00:00:00* Test Item Value Reference Range Interpretation [...] code = 1015) 292 K/UL Usman HymanHEMOGLOBIN [id number] 00:00:00* Test Item Value Reference Range Interpretation Comme joseph HEMOGLOBIN A1c (test code = 25283) 7.4 % Usman HymanCBC W/AUTO [id number] 00:00:00* Test Item Value Reference Range Interpretation [...] code = 1015) 292 K/UL Usman HymanHEMOGLOBIN [id number] 00:00:00* Test Item Value Reference Range Interpretation Comme joseph HEMOGLOBIN A1c (test code = 23863) 7.4 % Usman HymanCOMPREHENSIVE METABOLIC [id number] 00:00:00* Test Item Value Reference Range Interpretation Comme nts GLUCOSE (test code = 2217) 138 MG/DL BUN (test code = 2208) 21 MG/DL CREATININE (test code = 2214) 1.35 MG/DL eGFR AMER. (test cod e = 96115) 68 ML/MIN/1.73 eGFR NON- AMER. (test code = 64565) 59 ML/MIN/1.73 CALC BUN/CREAT (test code = [...] code = 2219) 25 U/L Usman Patterson StampsLIPID [id number] 00:00:00* Test Item Value Reference Range Interpretation Comme nts CHOLESTEROL (test code = 2210) 224 MG/DL TRIGLYCERIDES (test code = 2232) 179 MG/DL HDL CHOLESTEROL (test code = 2220) 58 MG/DL CALC LDL CHOL (test code = 2237) 130 MG/DL RISK RATIO LDL/HDL (test cod e = 2238) 2.24 RATIO Usman HymanCOMPREHENSIVE METABOLIC [id number] 00:00:00* Test Item Value Reference Range Interpretation Comme nts GLUCOSE (test code = 2217) 138 MG/DL BUN (test code = 2208) 21 MG/DL CREATININE (test code = 2214) 1.35 MG/DL eGFR AMER. (test cod e = 05386) 68 ML/MIN/1.73 eGFR NON- AMER. (test code = 18652) 59 ML/MIN/1.73 CALC BUN/CREAT (test code = [...] = 2219) 25 U/L Usman Patterson AustinLIPID [id number] 00:00:00* Test Item Value Reference Range Interpretation Comme nts CHOLESTEROL (test code = 2210) 224 MG/DL TRIGLYCERIDES (test code = 2232) 179 MG/DL HDL CHOLESTEROL (test code = 2220) 58 MG/DL CALC LDL CHOL (test code = 2237) 130 MG/DL RISK RATIO LDL/HDL (test cod e = 2238) 2.24 RATIO Usman HymanCOMPREHENSIVE METABOLIC [id number] 00:00:00* Test Item Value Reference Range Interpretation Comme nts GLUCOSE (test code = 2217) 138 MG/DL BUN (test code = 2208) 21 MG/DL CREATININE (test code = 2214) 1.35 MG/DL eGFR AMER. (test cod e = 48235) 68 ML/MIN/1.73 eGFR NON- AMER. (test code = 99206) 59 ML/MIN/1.73 CALC BUN/CREAT (test code = [...] = 2219) 25 U/L Usman Patterson AustinLIPID [id number] 00:00:00* Test Item Value Reference Range Interpretation Comme nts CHOLESTEROL (test code = 2210) 224 MG/DL TRIGLYCERIDES (test code = 2232) 179 MG/DL HDL CHOLESTEROL (test code = 2220) 58 MG/DL CALC LDL CHOL (test code = 2237) 130 MG/DL RISK RATIO LDL/HDL (test cod e = 2238) 2.24 RATIO Usman Patterson AustinLIPID [id number] 00:00:00* Test Item Value Reference Range Interpretation Comme nts CHOLESTEROL (test code = 2210) 262 MG/DL TRIGLYCERIDES (test code = 2232) 391 MG/DL HDL CHOLESTEROL (test code = 2220) 51 MG/DL CALC LDL CHOL (test code = 2237) 133 MG/DL RISK RATIO LDL/HDL (test cod e = 2238) 2.60 RATIO Usman HymanHEMOGLOBIN [id number] 00:00:00* Test Item Value Reference Range Interpretation Comme nts HEMOGLOBIN A1c (test code = 00157) 6.8 % Usman HymanCOMPREHENSIVE METABOLIC [id number] 00:00:00* Test Item Value Reference Range Interpretation Comme nts GLUCOSE (test code = 2217) 115 MG/DL BUN (test code = 2208) 26 MG/DL CREATININE (test code = 2214) 1.26 MG/DL eGFR AMER. (test cod e = 34520) 74 ML/MIN/1.73 eGFR NON- AMER. (test code = 43523) 64 ML/MIN/1.73 CALC BUN/CREAT (test code = [...] code = 2219) 16 U/L Usman HymanLIPID [id number] 00:00:00* Test Item Value Reference Range Interpretation Comme nts CHOLESTEROL (test code = 2210) 262 MG/DL TRIGLYCERIDES (test code = 2232) 391 MG/DL HDL CHOLESTEROL (test code = 2220) 51 MG/DL CALC LDL CHOL (test code = 2237) 133 MG/DL RISK RATIO LDL/HDL (test cod e = 2238) 2.60 RATIO Usman HymanHEMOGLOBIN [id number] 00:00:00* Test Item Value Reference Range Interpretation Comme nts HEMOGLOBIN A1c (test code = 42914) 6.8 % Usman HymanCOMPREHENSIVE METABOLIC [id number] 00:00:00* Test Item Value Reference Range Interpretation Comme nts GLUCOSE (test code = 2217) 115 MG/DL BUN (test code = 2208) 26 MG/DL CREATININE (test code = 2214) 1.26 MG/DL eGFR AMER. (test cod e = 48994) 74 ML/MIN/1.73 eGFR NON- AMER. (test code = 96065) 64 ML/MIN/1.73 CALC BUN/CREAT (test code = [...] code = 2219) 16 U/L Usman HymanLIPID [id number] 00:00:00* Test Item Value Reference Range Interpretation Comme nts CHOLESTEROL (test code = 2210) 262 MG/DL TRIGLYCERIDES (test code = 2232) 391 MG/DL HDL CHOLESTEROL (test code = 2220) 51 MG/DL CALC LDL CHOL (test code = 2237) 133 MG/DL RISK RATIO LDL/HDL (test cod e = 2238) 2.60 RATIO Usman HymanHEMOGLOBIN [id number] 00:00:00* Test Item Value Reference Range Interpretation Comme joseph HEMOGLOBIN A1c (test code = 32448) 6.8 % Usman HymanCOMPREHENSIVE METABOLIC [id number] 00:00:00* Test Item Value Reference Range Interpretation Comme nts GLUCOSE (test code = 2217) 115 MG/DL BUN (test code = 2208) 26 MG/DL CREATININE (test code = 2214) 1.26 MG/DL eGFR AMER. (test cod e = 05181) 74 ML/MIN/1.73 eGFR NON- AMER. (test code = 14547) 64 ML/MIN/1.73 CALC BUN/CREAT (test code = [...] = 2219) 16 U/L Usman HymanCOMPREHENSIVE METABOLIC [id number] 00:00:00* Test Item Value Reference Range Interpretation Comme nts GLUCOSE (test code = 2217) 90 MG/DL BUN (test code = 2208) 20 MG/DL CREATININE (test code = 2214) 1.28 MG/DL eGFR AMER. (test cod e = 94882) 73 ML/MIN/1.73 eGFR NON- AMER. (test code = 50468) 63 ML/MIN/1.73 CALC BUN/CREAT (test code = [...] code = 2219) 22 U/L Usman HymanLIPID [id number] 00:00:00* Test Item Value Reference Range Interpretation Comme nts CHOLESTEROL (test code = 2210) 244 MG/DL TRIGLYCERIDES (test code = 2232) 225 MG/DL HDL CHOLESTEROL (test code = 0) 64 MG/DL CALC LDL CHOL (test code = 2237) 135 MG/DL RISK RATIO LDL/HDL (test cod e = 223) 2.11 RATIO Usman HymanHEMOGLOBIN [id number] 00:00:00* Test Item Value Reference Range Interpretation Comme nts HEMOGLOBIN A1c (test code = 91507) 7.2 % Usman HymanCOMPREHENSIVE METABOLIC [id number] 00:00:00* Test Item Value Reference Range Interpretation Comme nts GLUCOSE (test code = 2217) 90 MG/DL BUN (test code = 8) 20 MG/DL CREATININE (test code = 2214) 1.28 MG/DL eGFR AMER. (test cod e = 11761) 73 ML/MIN/1.73 eGFR NON- AMER. (test code = 64485) 63 ML/MIN/1.73 CALC BUN/CREAT (test code = [...] code = 2219) 22 U/L Usman HymanLIPID [id number] 00:00:00* Test Item Value Reference Range Interpretation Comme nts CHOLESTEROL (test code = 2210) 244 MG/DL TRIGLYCERIDES (test code = 2232) 225 MG/DL HDL CHOLESTEROL (test code = 2220) 64 MG/DL CALC LDL CHOL (test code = 2237) 135 MG/DL RISK RATIO LDL/HDL (test cod e = 2238) 2.11 RATIO Usman HymanHEMOGLOBIN [id number] 00:00:00* Test Item Value Reference Range Interpretation Comme joseph HEMOGLOBIN A1c (test code = 84240) 7.2 % Usman HymanCOMPREHENSIVE METABOLIC [id number] 00:00:00* Test Item Value Reference Range Interpretation Comme nts GLUCOSE (test code = 2217) 90 MG/DL BUN (test code = 8) 20 MG/DL CREATININE (test code = 2214) 1.28 MG/DL eGFR AMER. (test cod e = 51158) 73 ML/MIN/1.73 eGFR NON- AMER. (test code = 69374) 63 ML/MIN/1.73 CALC BUN/CREAT (test code = [...] = 2219) 22 U/L Usman Patterson AustinLIPID [id number] 00:00:00* Test Item Value Reference Range Interpretation Comme nts CHOLESTEROL (test code = 2210) 244 MG/DL TRIGLYCERIDES (test code = 2232) 225 MG/DL HDL CHOLESTEROL (test code = 2220) 64 MG/DL CALC LDL CHOL (test code = 2237) 135 MG/DL RISK RATIO LDL/HDL (test cod e = 2238) 2.11 RATIO Usman Patterson AustinHEMOGLOBIN [id number] 00:00:00* Test Item Value Reference Range Interpretation Comme nts HEMOGLOBIN A1c (test code = 16099) 7.2 % Usman Patterson AustinHEMOGLOBIN [id number] 00:00:00* Test Item Value Reference Range Interpretation Comme nts HEMOGLOBIN A1c (test code = 60640) 7.0 % Usman Patterson AustinHEPATITIS C [id number] 00:00:00* Test Item Value Reference Range Interpretation Comme nts HEPATITIS C ANTIBODY (test c ode = 4675) REACTIVE Usman Patterson AustinHEMOGLOBIN [id number] 00:00:00* Test Item Value Reference Range Interpretation Comme nts HEMOGLOBIN A1c (test code = 36437) 7.0 % Usman Patterson AustinHEPATITIS C [id number] 00:00:00* Test Item Value Reference Range Interpretation Comme nts HEPATITIS C ANTIBODY (test c ode = 4675) REACTIVE Usman Patterson AustinHEMOGLOBIN [id number] 00:00:00* Test Item Value Reference Range Interpretation Comme nts HEMOGLOBIN A1c (test code = 28169) 7.0 % Usman Patterson AustinHEPATITIS C [id number] 00:00:00* Test Item Value Reference Range Interpretation Comme nts HEPATITIS C ANTIBODY (test c ode = 4675) REACTIVE Usman Patterson AustinHEMOGLOBIN [id number] 00:00:00* Test Item Value Reference Range Interpretation Comme nts HEMOGLOBIN A1c (test code = 67552) 6.7 % Usman Patterson AustinCOMPREHENSIVE METABOLIC [id number] 00:00:00* Test Item Value Reference Range Interpretation Comme nts GLUCOSE (test code = 2217) 114 MG/DL BUN (test code = 2208) 16 MG/DL CREATININE (test code = 2214) 1.0 MG/DL eGFR AMER. (test cod e = 34574) 95 ML/MIN/1.73 eGFR NON- AMER. (test code = 13147) 78 ML/MIN/1.73 CALCULATED BUN/CREAT (test code = [...] code = 2219) 27 U/L Usman Patterson BoogieLIPID [id number] 00:00:00* Test Item Value Reference Range Interpretation Comme nts CHOLESTEROL (test code = 2210) 305 MG/DL TRIGLYCERIDES (test code = 2232) 535 MG/DL HDL CHOLESTEROL (test code = 2220) 45 MG/DL CALCULATED LDL CHOL (test co de = 2237) NOTE MG/DL Usman Yesenia BoogieTHYROID II PROFILE (T3U, T4, T7, TSH)2015-04-08 00:00:00* Test Item Value Reference Range Interpretation Comme nts T3 UPTAKE (test code = 2817) 25.6 % T4 (THYROXINE) (test code = 2819) 10.1 UG/DL CALCULATED T7 (FTI) (test co de = 2820) 2.59 TSH (test code = 2821) 0.8 UIU/ML Usman HymanPSA, [id number] 00:00:00* Test Item Value Reference Range Interpretation Comme nts PSA, TOTAL (test code = 2606) 0.2 NG/ML Usman HymanCBC W/AUTO [id number] 00:00:00* Test Item Value Reference Range Interpretation [...] code = 1015) 288 K/UL Usman HymanHEMOGLOBIN [id number] 00:00:00* Test Item Value Reference Range Interpretation Comme joseph HEMOGLOBIN A1c (test code = 33216) 6.7 % Usman HymanCOMPREHENSIVE METABOLIC [id number] 00:00:00* Test Item Value Reference Range Interpretation Comme nts GLUCOSE (test code = 2217) 114 MG/DL BUN (test code = 2208) 16 MG/DL CREATININE (test code = 2214) 1.0 MG/DL eGFR AMER. (test cod e = 20374) 95 ML/MIN/1.73 eGFR NON- AMER. (test code = 06290) 78 ML/MIN/1.73 CALCULATED BUN/CREAT (test code = [...] code = 2219) 27 U/L Usman HymanLIPID [id number] 00:00:00* Test Item Value Reference Range Interpretation [...] code = 2821) 0.8 UIU/ML Usman HymanPSA, [id number] 00:00:00* Test Item Value Reference Range Interpretation Comme nts PSA, TOTAL (test code = 2606) 0.2 NG/ML Usman HymanCBC W/AUTO [id number] 00:00:00* Test Item Value Reference Range Interpretation [...] code = 1015) 288 K/UL Usman HymanHEMOGLOBIN [id number] 00:00:00* Test Item Value Reference Range Interpretation Comme nts HEMOGLOBIN A1c (test code = 85572) 6.7 % Usman HymanCOMPREHENSIVE METABOLIC [id number] 00:00:00* Test Item Value Reference Range Interpretation Comme [facility] GLUCOSE (test code = 2217) 114 MG/DL BUN (test code = 2208) 16 MG/DL CREATININE (test code = 2214) 1.0 MG/DL eGFR AMER. (test cod e = 50042) 95 ML/MIN/1.73 eGFR NON- AMER. (test code = 77412) 78 ML/MIN/1.73 CALCULATED BUN/CREAT (test code = [...] code = 2219) 27 U/L Usman HymanLIPID [id number] 00:00:00* Test Item Value Reference Range Interpretation Comme [facility] CHOLESTEROL (test code = 2210) 305 MG/DL TRIGLYCERIDES (test code = 2232) 535 MG/DL HDL CHOLESTEROL (test code = 2220) 45 MG/DL CALCULATED LDL CHOL (test co de = 2237) NOTE MG/DL Usman HymanTHYROID II PROFILE (T3U, T4, T7, TSH)2015-04-08 00:00:00* Test Item Value Reference Range Interpretation Comme [facility] T3 UPTAKE (test code = 2817) 25.6 % T4 (THYROXINE) (test code = 2819) 10.1 UG/DL CALCULATED T7 (FTI) (test co de = 2820) 2.59 TSH (test code = 2821) 0.8 UIU/ML Usman HymanPSA, [id number] 00:00:00* Test Item Value Reference Range Interpretation Comme nts PSA, TOTAL (test code = 2606) 0.2 NG/ML Usman HymanCBC W/AUTO [id number] 00:00:00* Test Item Value Reference Range Interpretation [...] with REFILLS-NURSE/MD Medication refill Lucy Hough MA [facility] 2024-07-13 09:35:46 Chief Complaint Patient presents with Back Pain Pt states lower back pain that radiates down the right leg x 7 years. Numbness Pt states numbness and tingling in the right leg. Weakness Pt states weakness in the right leg. [facility] 2024-07-06 09:57:27 Chief Complaint Patient presents with Back Pain Pt states lower back pain x 5 years. [facility] 2024-05-14 15:51:58 Chief Complaint Patient presents with Establish Care Previous PCP was Dr. Kristin To in [place]. He is changing PCP's due to insurance. Referral Referral to PT for back pain. He currently uses [facility]. Carmen Bruno MA [facility] [address]2024-07-02 00:00:00 [facility]2024-06-18 00:00:00 [facility]2024-04-04 10:02:[id number] [place] [address] PATIENT NAME: ESAU VALDES ADMIT DATE: ACCOUNT NO: [id number] ROOM NO: AGE: 63 REPORT TYPE: ELECTROCARDIOGRAM SEX: M ADMITTING PHYSICIAN: ATTENDING PHYSICIAN:Frances Bar MD Order: [id number] Test Reason : PRE OP CLEARANCE HTN [...] Inferior leads Confirmed by KARTIK ALFONSO MD ([id number]) on 08/26/2023 12:21:06 PM Referred By: Frances Bar Confirmed by:KARTIK ALFONSO MD PATIENT NAME: ESAU VALDES
[2024-09-01 08:59] LABS: Absolute Basophils 0.1 K/uL (0-0.5); Absolute Eosinophils 0.3 K/uL (0-0.5); Absolute Lymphocytes (CBC) 1.6 K/uL (0.7-4.9); Absolute Monocytes 0.8 K/uL (0.1-1.3); Absolute Neutrophil 9.1 K/uL (1.8-8.0); Basophils % 0.8 % (0-1.3); Eosinophils % 2.2 % (0-4.4); Hematocrit 45.5 % (39.6-49.0); Hemoglobin 14.5 g/dL (13.6-17.9); Lymphocytes % 13.5 % (15.3-44.8); MCH 25.1 pg (27.0-35.0); MCV 78.6 fL (80-100); Monocytes % 6.4 % (3.3-12.3); Neutrophils % 77.1 % (41.7-73.7); Nucleated Red Blood Cells % 0.1 % (0-0); Platelets 289 thou/uL (152-406); RBC Red Blood Cell Count 5.78 M/uL (4.33-5.43); Red Cell Distribution Width 14.8 % (12.1-15.2)
[2024-09-01 09:20] LABS: ALT/SGPT 61 U/L (16-61); AST/SGOT 37 U/L (15-37); Albumin 3.2 g/dL (3.4-5.0); Albumin/Globulin Ratio 0.8 (1.1-1.8); Alkaline Phosphatase 79 U/L (45-117); Anion Gap 6.2 mEq/L (5.0-15.0); BUN Blood Urea Nitrogen 19 mg/dL (7-18); Bicarbonate 29 mEq/L (21-32); Bilirubin Total 0.3 mg/dL (0.2-1.0); Glomerular Filtration Rate 64 ml/min (=/>90); Glucose Level 88 mg/dL (74-106); Potassium 4.2 mEq/L (3.5-5.1); Protein, Total 7.2 g/dL (6.4-8.2); Sodium Level 135 mEq/L (136-145)
[2024-09-01 09:22] LABS: C-Reactive Protein < 2.90 mg/L (<3.00)
[2024-09-01] MEDS ORDERED: CEFAZOLIN SODIUM 2 GM/VIAL ONE (09:28)
[2024-09-01] MEDS ORDERED: NA CHLORIDE 0.9% 100 ML ONE (09:28)
--- NOTE | 2024-09-01 10:00 | RAD REPORT ---
EXAMINATION: XR Foot Left 3 View CLINICAL INDICATION: Male, 64 years old. [facility] MAIN wound Bed Name: IW1 TECHNIQUE: 3 view radiographs of the left foot were obtained. COMPARISON: No prior exam. FINDINGS: No evidence of fracture or dislocation. Normal alignment. Corticated fragment at the tip of the medial malleolus, suggesting sequelae of remote trauma. No evidence of arthropathy or other focal bone lesion. Soft tissue swelling and defect about the lateral forefoot, not significantly vizcarra ged on radiography. No deeper soft tissue gas. Moderate degenerative changes with cranially directed spurring at the talonavicular articulation. IMPRESSION: Soft tissue abnormalities of the lateral forefoot. No deeper soft tissue gas or evidence of osseous d estructive changes. If there is ongoing concern for acute osteomyelitis, additional evaluation by MRI would be more sensitive.
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
[2024-09-01 11:28] VITALS: BP 148/88; TEMP 98.1; O2SAT 98
== END 2024-09-01 11:05 | disposition home or self-care (01) ==
LOC: ER 08:26
DX: S91.302A Unspecified open wound, left foot, initial encounter (principal)
CPT/HCPCS: 36415; 80053; 85025; 86140; 87070; 87205

== ENCOUNTER 2024-12-30 05:39 | Day surgery (SDC) | payer OTHER ==
--- NOTE | 2024-12-27 15:23 | RAD REPORT ---
EXAM: Chest Pa And Lat (2 Views) HISTORY: 64 years Male Pre-op pending bunionectomy/osteotomy COMPARISON: 07/22/2023 FINDINGS: LUNGS/PLEURA: The lungs are clear. No pleural effusions or pneumothorax. No pulmonary edema. CARDIAC/MEDIASTINUM: The cardiac silhouette is within normal limits. UPPER ABDOMEN: No significant abnormality. BONES: No acute abnormality. LINES/TUBES/OTHER: N/A IMPRESSION: No evidence of acute cardiopulmonary disease.
[2024-12-27 15:35] LABS: Absolute Lymphocytes (CBC) 1.2 K/uL (0.7-4.9); Hematocrit 45.5 % (39.6-49.0); Hemoglobin 14.9 g/dL (13.6-17.9); MCH 25.6 pg (27.0-35.0); MCHC 32.8 g/dL (32.0-36.0); MCV 78.0 fL (80-100); MPV 8.2 fL (7.6-11.3); Nucleated RBC Absolute Count 0.0 (0-0); Nucleated Red Blood Cells % 0.1 % (0-0); RBC Red Blood Cell Count 5.83 M/uL (4.33-5.43); White Blood Count 8.00 thou/uL (4.3-10.9)
[2024-12-27 15:44] LABS: PT Prothrombin Time 11.7 SECONDS (10-13.0); PTT, Activated Partial Thromb 32.2 SECONDS (27.2-37.4); Protime INR 1.04
[2024-12-27 15:49] LABS: Anion Gap 10.5 mEq/L (5.0-15.0); BUN Blood Urea Nitrogen 13.0 mg/dL (7-18); Glucose Level 210.0 mg/dL (74-106); Potassium 4.5 mEq/L (3.5-5.1)
[2024-12-30] MEDS: NA CHLORIDE 0.9% 1,000 ML ONE (06:00)
[2024-12-30] MEDS ORDERED: EPINEPHRINE 1 MG/ML VIAL ONE (06:18)
[2024-12-30] MEDS ORDERED: LIDOCAINE 1% MPF 5 ML VIAL ONE (06:18)
[2024-12-30] MEDS ORDERED: BUPIVACAINE 0.5% PF 10 ML VIAL ONE (06:18)
[2024-12-30] MEDS ORDERED: MIDAZOLAM HCL 2 MG/2 ML INJ ONE (06:29)
[2024-12-30] MEDS ORDERED: FENTANYL CITR 100 MCG/2 ML ONE (06:29)
[2024-12-30] MEDS ORDERED: LIDOCAINE 2% MPF 5 ML VIAL ONE (07:10)
[2024-12-30] MEDS ORDERED: ONDANSETRON 4 MG/2 ML VIAL ONE (07:10)
[2024-12-30] MEDS ORDERED: CEFAZOLIN SODIUM 1 GM/VIAL ONE (07:16)
[2024-12-30] MEDS ORDERED: EPHEDRINE SULF 50 MG/ML VIAL ONE (07:18)
--- NOTE | 2024-12-30 08:27 | P.OP ---
Preoperative diagnosis: Left Tailor's bunion Postoperative diagnosis: same Primary procedure: Left tailor's bunionectomy Secondary procedure: none Anesthesia: general with 20 cc 0.5% marcaine plain postop Estimated blood loss: <10cc Specimen: none Findings: as above Operative Technique: dictated Complications: None Implants: paragon 2.0x14mm headed cannulated screw Transferred to: Recovery Room Condition: Good
--- NOTE | 2024-12-30 09:01 | RAD REPORT ---
Exam:Foot Left 2 View CLINICAL HISTORY: Left foot surgery FINDINGS: 9 fluoroscopic spot images obtained. Surgery performed by Please refer to his report for findings. Fluoroscopy time 0.3 minutes. 9 fluoroscopic spot images obtained
[2024-12-30 10:01] VITALS: BP 128/72; TEMP 97.4; O2SAT 98
--- NOTE | 2024-12-30 10:40 | OP ---
Surgeon: Calos Ross Jr, DPM Preoperative Diagnosis: Left tailor's bunion. Postoperative Diagnosis: Left tailor's bunion. Procedure: Left tailor's bunionectomy. Pathology: None. Anesthesia: General with 20 cc of 0.5% Marcaine plain postoperatively. Hemostasis: Pneumatic ankle tourniquet 250 mmHg. Estimated Blood Loss: Less than 10 cc. Materials: 3-0 and 4-0 Vicryl, 4-0 Prolene, and a Ripon 2.0 x 14 mm cannulated cortical headed screw. Injectables: None. Complication: None. Procedure In Detail: Patient was brought into [facility] Operating Room and placed on the OR table in the supine position. Patient was placed under general anesthesia by the anesthesiologist. The patient was prepped and draped in the usual aseptic manner. Attention was directed to the left plantar foot, at which time, the left lower extremity was exsanguinated utilizing the Esmarch bandage. Pneumatic ankle tourniquet was inflated to 250 mmHg. A linear incision was made over the dorsum of the left fifth metatarsal phalangeal joint and distal aspect of the fifth metatarsal. Skin incision was carried from superficial to deep utilizing sharp and blunt disection taking care to cauterize, ligate and retract all vital vascular and neurologic structures as necessary. A linear capsular incision was made in the dorsum of the left fifth metatarsal phalangeal joint followed by releasing of soft tissue structures from the dorsal, medial, and lateral aspect of the head of the fifth metatarsal and plantar aspect as well. Next, there was noted to be a large bony prominence laterally. This was resected utilizing an oscillating bone saw, and attention was directed plantarly, at which time, a plantar condylectomy was performed utilizing the same bone saw. Following this, utilizing adequate retraction, the reverse Boogie cuts were made in the surgical neck of the fifth metatarsal, plantar cut was made first, dorsal cut was made second. They were made approximately 50 degrees in angulation to each other and angled in a medial, dorsal direction to allow for shifting and relieving of the pressure of the plantar aspect of the fifth MPJ. Capital fragment was transposed medially as desired, placement in the exact position, verified on fluoroscopy and fixated utilizing a 2.0 x 14 mm headed cannulated screw by Ripon. Next, utilizing oscillating bone saw, the prominent lateral shelf was resected. The wound was irrigated with copious amounts of normal sterile saline with reapproximation of these structures with 3-0 Vicryl, subcutaneous with 4-0 Vicryl, and skin with 4- 0 Prolene. Sterile dressing consisting of Adaptic, 4x4's, Kerlix, and an Geovanny wrap were applied to the left lower extremity. The pneumatic ankle tourniquet was deflated with prompt hyperemic response being noted to the left lower extremity. The patient tolerated the procedure and anesthesia well, was transferred from OR to recovery with vital signs stable and neurovascular status intact. EYAL/YAMILET Voice ID: [id number] Report ID: [id number] [id number]
== END 2024-12-30 09:58 | disposition home or self-care (01) ==
LOC: OR 05:39
PROVIDERS: ATTEND Podiatrist Foot & Ankle Surgery
PROC: 0QBP0ZZ Excision of Left Metatarsal, Open Approach (ICD-10-PCS; principal; 2024-12-30 07:00)
DX: M21.622 Bunionette of left foot (principal)
CPT/HCPCS: 93005; 85025; 80048; 36415; 85610; 82947 ×2; 85730; 71046; 73620; 28308; J2704; J2003 ×2; J2250; J3010; J1100; J0171; J2405; J7030; J0690

== ENCOUNTER 2025-01-06 15:05 | Emergency (ER) | payer OTHER ==
--- OUTSIDE RECORDS SUMMARY | 2025-01-06 15:16 | XMS REPORT | Continuity of Care Document ---
Author Name Unknown Address [address] [facility] [address] [place] [address] [facility] [place] Address [address] [facility]. [address] [place] [address] Care Team Providers Care Ergonomics Technician Name Role Phone Faiza PATTERNMAKER METAL, Ekaterina Primary Care Physician PARISH HAWKINS Attending Clinician Unavailable [id number] Attending Clinician Unavailable [facility] B Attending Clinician Unavaila ble LAB90 Attending Clinician Unavailable YANI CERVANTES Attending Clinician Unavailable LINUS SEVILLA Attending Clinician Unavailable [facility]RE[facility] O Attending Clinician Unavailable [facility] Attending Clinician UnavailFrances Alvarenga Attending Clinician Unavailable Neena Attending Clinician Unavaila Frances Nagel Admitting Clinician Unavailable Neena Admitting Clinician UnavailMIKE Guillen Admitting Clinician Unavailable Payers Payer Name Policy Type Policy Number Effective Date Expirati on Date Source [facility]AY[facility] [employer] [employer] 9 [id number] 2024 00:00:00 [place] [id number] 2022 00:00:00 Blue Cross Blue Shield of [place] 6 [id number] [facility] Problems Condition Name Condition Details Condition Category Status Onset Date Resolution Date Last Treatment Date Treating Clinician Comments Source PVD (periphera l vascular disease) PVD (periphera l vascular disease) Disease Active 09-21 00:00: 00 Dara andrews Stress and adjustment reaction Stress and adjustment reaction Disease Active 09-21 00:00: 00 Dara andrews Opioid-ind uced constipati on Opioid-ind uced constipati on Disease Active 3-11 00:00: 00 Dara andrews Hx of opioid abuse Hx of opioid abuse Disease Active 1-30 00:00: 00 Dara andrews Type 2 diabetes mellitus with foot ulcer, with long-term current use of insulin (multi HCC) Type 2 diabetes mellitus with foot ulcer, with long-term current use of insulin (multi HCC) Disease Active 2023-05 2-27 00:00: 00 Dara andrews Diabetic peripheral neuropathy Diabetic Peripheral Neuropathy Problem Active 7-09 00:00: 00 [facility] Lumbar radiculopa thy Lumbar Radiculopa thy Problem Active 620 00:00: 00 [facility] [...] Subluxatio n of Elbow Joint Problem Active 15 00:00: 00 [facility] Total knee replacemen t Total Knee Replacemen t Problem Active 01-10 00:00: 00 [facility] Chronic back pain Chronic back pain Disease Active Dara Seybold - Externa l Chronic pain syndrome Chronic pain syndrome Disease Active Dara Seybold - Externa l [id number] Posthitis Problem Commo n [facility] [id number] 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 Problem Common [facility] Allergies, Adverse Reactions, Alerts Allergy Name Allergy Type Status Severity Reaction(s) Onset Date Inactive Date Treating Clinician Comments Source No Known Allergie s DA Active U 4 00:00: 00 [facility] No Known Allergie s DA Active U 12-28 00:00: 00 [facility] Social History Social Habit Start Date Stop Date Quantity Comments Source History of tobacco use 2008-08-17 00:00:00 Cigarette Smoker Dara Lewis - External Sexual orientation K brittanykatarina Debbie - External History of Social function 2024-11-29 00:00:00 2024-11-29 00:00:00 Dara Lewis - External Alcoholic beverage intake 2024-11-29 00:00:00 2024-11-29 00:00:00 Lifetime non-drinker (finding) Dara Alcantara Cigarettes [...] Medicine Smokes tobacco daily 2024-05-14 00:00:00 Dara Hale External Medications Ordered Medication Name Filled Medication Name Start Date Stop Date Current Medication? Ordering Clinician Indication Dosage Frequency Signature (SIG) Comments Components Source Clopidogrel Bisulfate (Plavix) 75 MG oral Tablet 11-29 16:04: 36 Yes [id number] 75mg QD Take 1 tablet (75 mg total) by mouth daily. Dara andrews Insulin Glargine (Basaglar KwikPen) 100 UNIT/ML subcutaneou s Solution Pen-injecto r 11-29 00:00: 00 Yes [id number] 3 12U Q.5D Inject 12 units into the skin in the morning and 12 units before bedtime. Dara andrews Losartan Potassium (COZAAR) 100 MG oral Tablet 11-29 00:00: 00 Yes [id number] 100mg QD Take 1 tablet (100 mg total) by mouth daily. Dara andrews glipiZIDE 10 MG oral Tablet 11-29 00:00: 00 11-29 00:00 :00 Yes [id number] 3 10mg QD Take 1 tablet (10 mg total) by mouth daily. Dara andrews Amlodipine Besylate 10 MG oral Tablet 09-21 00:00: 00 Yes [id number] 10mg QD Take 1 tablet (10 mg total) by mouth daily. Dara andrews Insulin Glargine (Basaglar KwikPen) 100 UNIT/ML subcutaneou s Solution Pen-injecto r 09-21 00:00: 00 11-29 00:00 :00 No [id number] 3 12U Q.5D Inject 12 units into the skin in the morning and 12 units before bedtime. Take 10 units in the morning and 10 units in the evening. Dara andrews glipiZIDE 10 MG oral Tablet 07-27 00:00: 00 Yes [id number] 3 10mg Take 1 tablet (10 mg total) by mouth in the morning and 1 tablet (10 mg total) in the evening. Take before meals. Dara andrews Atorvastati n Calcium 40 MG oral Tablet - 00:00: 00 Yes [id number] 3 40mg QD Take 1 tablet (40 mg total) by mouth nightly. Dara andrews Losartan Potassium (COZAAR) 100 MG oral Tablet 07-27 00:00: 00 11-29 00:00 :00 No [id number] 100mg QD Take 1 tablet (100 mg total) by mouth daily. Dara andrews Insulin Glargine (Basaglar KwikPen) 100 UNIT/ML subcutaneou s Solution Pen-injecto r 3-11 00:00: 00 09-21 00:00 :00 No [id number] 3 20U QD Inject 20 units into the skin daily (with breakfast) Take 10 units in the morning and 10 units in the evening.. Dara andrews Amlodipine Besylate (NORVASC) 5 MG oral Tablet 07-27 00:00: 00 09-21 00:00 :00 No [id number] 5mg QD Take 1 tablet (5 mg total) by mouth daily. Dara andrews glipiZIDE 5 MG oral Tablet 06-17 11:33: 32 06-17 00:00 :00 No [id number] 00 10mg Take 2 tablets (10 mg total) by mouth. Dara andrews Atorvastati n Calcium 10 MG oral Tablet 06-17 11:33: 06-17 00:00 :00 No [id number] 40mg QD Take 4 tablets (40 mg total) by mouth daily. Dara andrews Buprenorphi ne HCl-Naloxon e HCl (Suboxone) 8-2 MG sublingual Film 06-17 00:00: 00 Yes [id number] 1{film} Q.5D Place 1 film under the tongue 2 times daily. Dara andrews Atorvastati n Calcium 40 MG oral Tablet 06-17 00:00: 00 07-27 00:00 :00 No [id number] 00 40mg QD Take 1 tablet (40 mg total) by mouth nightly. Dara andrews glipiZIDE 10 MG oral Tablet 06-17 00:00: 00 07-27 00:00 :00 No [id number] 00 10mg Take 1 tablet (10 mg total) by mouth in the morning and 1 tablet (10 mg total) in the evening. Take before meals. Dara andrews Amlodipine Besylate (NORVASC) 5 MG oral Tablet 06-17 00:00: 00 07-27 00:00 :00 No [id number] 5mg QD Take 1 tablet (5 mg total) by mouth daily. Dara andrews Insulin Glargine (Basaglar KwikPen) 100 UNIT/ML subcutaneou s Solution Pen-injecto r 2023-05 00:00: 00 07-27 00:00 :00 No [id number] 00 Take 10 units in the morning [...] MG oral Tablet 2023-05 16:02: 06 Yes [id number] 00 10mg Take 2 tablets (10 mg total) by mouth. Dara andrews Atorvastati n Calcium 10 MG oral Tablet 2023-05 16:02: 06 Yes [id number] 40mg QD Take 4 tablets (40 mg total) by mouth daily. Dara andrews Insulin Glargine (Lantus SoloStar) 100 UNIT/ML subcutaneou s Solution Pen-injecto r 2023-05 00:00: 00 Yes [id number] 00 Take 10 units in the morning and 10 units in the evening.. Dara andrews Losartan Potassium (COZAAR) 100 MG oral Tablet 2023-05 00:00: 00 07-27 00:00 :00 No [id number] 100mg QD Take 1 tablet (100 mg total) by mouth daily. Dara andrews Amlodipine Besylate (NORVASC) 5 MG oral Tablet 2023-05 00:00: 00 06-17 00:00 :00 No [id number] 5mg QD Take 1 tablet (5 mg [...] 75 MG oral Capsule 2023-05 00:00: 00 11-29 00:00 :00 No [id number] 00 75mg Q.5D Take 1 capsule (75 mg total) by mouth in the morning and 1 capsule (75 mg total) in the evening. Dara andrews Lannicoleus Solольгаar U-100 Insulin 100 unit/mL (3 mL) subcutaneou s pen 2023-05 00:00: 00 Yes (3 mL) Usman Yesenia Boogie atorvastati n 40 mg tablet 2023-05 00:00: 00 Yes 1mg Usman Yesenia Hyman losartan 100 mg tablet 2023-05 00:00: 00 Yes 1mg Usman Hyman glipizide 10 mg tablet 2023-05 00:00: 00 Yes 1mg Usman Hyman Suboxone 8 mg-2 mg sublingual film 2023-05 00:00: 00 Yes 1mg Usman Hyman Mupirocin (BACTROBAN) 2 % apply externally Ointment 2023-05 0 00:00: 00 05-14 00:00 :00 No APPLY 1 APPLICATIO N EXTERNALLY TWICE A DAY Dara Vasquez l TRIMETHOPRI M-SULFAMETH OXAZOLE (BACTRIM DS) 800-160 MG oral Tablet 2023-05 0 00:00: 00 05-14 00:00 :00 No 1{tbl} 1 tablet. Dara Vasquez l Suboxone 8 mg-2 mg sublingual film 9-23 00:00: 00 Yes 1mg Usman Hyman Suboxone [...] 00:00 :00 No 1mg 1 mg. Dara Vasquez l Lantus Solostar U-100 Insulin 100 unit/mL (3 mL) subcutaneou s pen 6- 00:00: 00 Yes (3 mL) Usman Hyman [...] 00:00 :00 No 1mg 1 mg. Dara Hale Externa l Meloxicam 15 MG oral Tablet 10-23 00:00: 00 05-14 00:00 :00 No Take 1 tablet every day by oral route with meal(s) for 42 days. Dara Hale Externa l Suboxone 8 mg-2 mg sublingual film 10-22 00:00: 00 Yes 1mg Usman Hyman Suboxone 8 mg-2 mg sublingual film 5-08 00:00: 00 Yes 1mg Usman Hyman Suboxone 8 mg-2 mg sublingual film 24 00:00: 00 Yes 1mg Usman Hyman BUPRENORPHI NE-NALOX 8-2MG FILM 24 00:00: 00 Yes Usman Hyman buprenorphi ne 8 mg-naloxone 2 mg sublingual film 4-03 00:00: 00 Yes 1mg Usman Hyman buprenorphi ne 8 mg-naloxone 2 mg sublingual film 08-12 00:00: 00 Yes 1mg Usman Hyman Suboxone 8-2 MG sublingual Film 27 00:00: 00 06-17 00:00 :00 No [id number] 1mg 1 mg. Dara Lewis - Externa l Buprenorphi ne HCl-Naloxon e HCl 4-1 MG sublingual Film 08-12 00:00: 00 06-17 00:00 :00 No [id number] 1mg 1 mg. Dara andrews TAKE 1 TABLET BY MOUTH TWICE DAILY [...] 07-29 00:00: 00 06-17 00:00 :00 No [id number] Dara andrews Doxycycline Hyclate 100 MG oral Tablet 07-29 00:00: 00 05-14 00:00 :00 No Dara andrews Famotidine 40 MG oral Tablet 305 00:00: 00 05-14 00:00 :00 No 40mg 1 tablet (40 mg total). Dara andrews Amlodipine Besylate 2.5 MG oral Tablet 07-21 00:00: 00 05-14 00:00 :00 No Dara andrews DOXYCYCL HYC 100MG 07-17 00:00: 00 Yes Usman Hyman Tamsulosin HCl 0.4 MG oral Capsule 07-08 00:00: 00 05-14 00:00 :00 No Dara andrews TAKE 1 TABLET TWICE DAILY UNTIL GONE. [...] 00 05-14 00:00 :00 No Dara andrews TAKE 1 TABLET BY MOUTH ONCE DAILY 06-18 00:00: 00 Yes [id number] Usman Hyman TAKE 1 TABLET AT BEDTIME. [...] 06-14 00:00: 00 09-28 00:00 :00 No [id number] Usman Yesenia Hyman TAKE 1 TABLET BY MOUTH AT [...] DAY 2022-05 00:00: 00 Yes Usman Yesenia Hyman TAKE 1 TABLET BY MOUTH TWICE A DAY 2022-05 00:00: 00 Yes [id number] Usman Hyman INJECT 0.25 MG SC ONCE A WEEK X 4 WEEKS 2022-05 0 00:00: 00 09-28 00:00 :00 No 23 Usman Hyman TAKE 1 TABLET BY MOUTH ONCE DAILY 2022-05 0 00:00: 00 09-28 00:00 :00 No [id number] Usman Yesenia Hyman TAKE 1 TABLET BY MOUTH TWICE DAILY 2022-05 00:00: 00 09-28 00:00 :00 No 10 Usman Yesenia Hyman LOSARTAN POTASSIUM 100 MG 2022-05 0 00:00: 00 09-28 00:00 :00 No Usman Yesenia Boogie ATORVASTATI N 40 MG 2022-05 0 00:00: 00 09-28 00:00 :00 No Usman Yesenia Hyman TAKE 1 TABLET BY MOUTH TWICE DAILY 14 00:00: 00 09-28 00:00 :00 No 10 Usman Hyman APPLY CREAM TOPICALLY TO AFFECTED AREA TWICE A DAY FOR 15 DAYS 2023-0 7-24 00:00: 00 Yes Usman Hyman TAKE 1 TABLET BY MOUTH TWICE DAILY 5-22 00:00: 00 09-28 00:00 :00 No [id number] Usman Hyman JANUMET XR 50-1,000 MG 3-31 00:00: 00 09-28 00:00 :00 No Usman [...] 08-12 00:00: 00 09-28 00:00 :00 No [id number] Usman Hyman TAKE 1 TABLET BY MOUTH DAILY 08-08 00:00: 00 09-28 00:00 :00 No 100 Usman Hyman TAKE 1 TABLET BY MOUTH AT BEDTIME 08-08 00:00: 00 09-28 00:00 :00 No 40 Usman Hyman TAKE 1 TABLET BY MOUTH TWICE A DAY 08-08 00:00: 00 09-28 00:00 :00 No [id number] Usman Hyman APPLY CREAM TOPICALLY TO AFFECTED [...] 00:00: 00 Yes Usman Hyman Dose Unknown 07-13 00:00: 00 Yes Usman Hyman Dose Unknown 2- 00:00: 00 Yes Usman Hyman Dose Unknown 1- 00:00: 00 Yes Usman Hyman Dose Unknown 06-01 00:00: 00 Yes Usman Hyman Dose Unknown 06-01 00:00: 00 Yes Usman Hymna Dose Unknown 06-01 00:00: 00 Yes Usman Hyman Dose Unknown 06-01 00:00: 00 Yes Usman Hmyan Dose Unknown 2020-05 00:00: 00 Yes Usman Hyman Januvia 50 mg tablet 2020-05 0 00:00: 00 Yes 1mg Usman Hyman losartan 50 mg tablet 2020-05 00:00: 00 Yes 1mg Usman Hyman metformin 1,000 mg tablet 2020-05 0 00:00: 00 Yes 1mg Usman Hyman glipizide 10 mg tablet 2020-05 00:00: 00 Yes 1mg Usman Hyman Dose Unknown 2020-05 00:00: 00 Yes Usman Hyman hydrochloro thiazide 12.5 mg capsule 2020-05 00:00: 00 Yes 1mg Usman Hyman Dose [...] e-Betametha sone 1-0.05 % 8-26 00:00: 00 04-05 00:00 :00 No 1{appli [...] Unknown 4-30 00:00: 00 Yes Usman Hyman metformin 1,000 [...] Usman Hyman losartan 25 mg tablet 2019-05 2- 00:00: 00 Yes 1mg Usman Hyman metformin 1,000 mg tablet 2019-05 2- 00:00: 00 Yes 1mg Usman Hyman hydrochloro thiazide 12.5 mg capsule 2019-05 2- 00:00: 00 Yes 1mg Usman Hyman hydrochloro thiazide 12.5 mg capsule 2019-05 0 00:00: 00 Yes 1mg Usman Hyman ProAir HFA 90 mcg/actuati on aerosol inhaler 0 01-28 00:00: 00 Yes 12mcg/a ctuatio n Usman Hyman metformin 1,000 mg tablet 01-28 00:00: 00 Yes 1mg Usman Hyman losartan 25 mg tablet 01-28 00:00: 00 Yes 1mg Usman Hyman levofloxaci n 500 mg tablet 8- 00:00: 00 Yes 1mg Usman Hyman prednisone 20 mg tablet 0 8-17 00:00: 00 Yes 1mg Usman Hyman benzonatate 200 mg capsule 8-17 00:00: 00 Yes 1mg Usman Hyman losartan 25 mg tablet - 00:00: 00 Yes 1mg Usman Hyman metformin 1,000 mg tablet - 00:00: 00 Yes 1mg Usman Hyman ProAir HFA 90 mcg/actuati on aerosol inhaler - 00:00: 00 Yes 12mcg/a ctuatio n Usman Hyman losartan 25 mg tablet 0 5- 00:00: 00 Yes 1mg Usman Hyman metformin 1,000 mg tablet 5- 00:00: 00 Yes 1mg Usman Hyman lovastatin 20 mg tablet 5- 00:00: 00 Yes 1mg Usman Hyman losartan 25 mg tablet 0 - 00:00: 00 Yes 1mg Usman Hyman metformin 1,000 mg tablet 0 4- 00:00: 00 Yes 1mg Usman Hyman lovastatin 20 mg tablet 0 4- 00:00: 00 Yes 1mg Usman Hyman losartan 25 mg tablet 310 00:00: 00 Yes 1mg Usman Hyman metformin [...] Usman Hyman metformin 1,000 mg tablet 2018-05 0 00:00: 00 Yes 1mg Usman Hyman lovastatin [...] 1mg Usman Hyman glipizide 5 mg tablet 06 00:00: 00 Yes 1mg Usman Hyman hydrochloro [...] No omeprazole 20 mg capsule,de layed release [facility] penicillin V [...] COVID-19 Vaccine 2020-08-31 00:00:00 Completed Usman Hyman Covid-19 Vaccine Moderna (Spikevax), Mrna-lnp, Vadim Protein, Pf Unknown [facility] Moderna (Spikevax), Mrna-lnp, Vadim Protein, Pf Unknown [facility] Vaccine Moderna (Spikevax), Mrna-lnp, Vadmi Protein, Pf Unknown Com[facility] Covid-19 Vaccine Moderna (Spikevax), Mrna-lnp, Vadim Protein, Pf Unknown Completed Dara [facility] - External Covid-19 Vaccine Moderna (Spikevax), Mrna-lnp, Vadim Protein, Pf Unknown Completed Dara Edouardybold - External Covid-19 Vaccine Moderna (Spikevax), Mrna-lnp, Vadim Protein, Pf Unknown Completed Dara Seybold - External Covid-19 Vaccine Moderna (Spikevax), Mrna-lnp, Vadim Protein, Pf Unknown Completed Dara Rochaold - External Vital Signs Vital Name Observation Time Observation Value Comments S ource Systolic blood pressure 2024-11-29 21:12:00 138 mm[Hg] Dara Edouardybo ld - External Diastolic blood pressure 2024-11-29 21:12:00 85 mm[Hg] Dara Rochao ld - External Heart rate 2024-11-29 20:51:00 79 /min Destinee bray Seybold - External Body temperature 2024-11-29 20:51:00 36.44 Teena Dara Edouardybold - External Respiratory rate 2024-11-29 20:51:00 18 /min Dara Rochaold - External Body height 2024-11-29 20:51:00 190.5 cm Rebecca dobson Seybold - External Body weight 2024-11-29 20:51:00 118.752 kg Rebecca dobson Seybold - External BMI 2024-11-29 20:51:00 32.72 kg/m2 Rebecca dobson Seybold - External Oxygen saturation in Arterial blood by Pulse oximetry 2024-11-29 20:51:00 97 /min Dara Rochao ld - External Systolic blood pressure 2024-09-21 14:57:00 157 mm[Hg] Dara Rochao ld - External Diastolic blood pressure 2024-09-21 14:57:00 89 mm[Hg] Dara Rochao ld - External Heart rate 2024-09-21 14:55:00 84 /min Destinee y Seybold - External Body temperature 2024-09-21 14:55:00 36.61 Teena Dara Edouardybold - External Respiratory rate 2024-09-21 14:55:00 18 /min Dara Edouardybold - External Body height 2024-09-21 14:55:00 190.5 cm Rebecca ey Seybold - External Body weight 2024-09-21 14:55:00 117.119 kg Rebecca dobson Seybold - External BMI 2024-09-21 14:55:00 32.27 kg/m2 Rebecca ey Seybold - External Oxygen saturation in Arterial blood by Pulse oximetry 2024-09-21 14:55:00 99 /min Dara Rochao ld - External Systolic blood pressure 2024-07-27 15:35:00 158 mm[Hg] Dara Edouardybo ld - External Diastolic blood pressure 2024-07-27 15:35:00 98 mm[Hg] Dara Edouardybo ld - External Heart rate 2024-07-27 15:35:00 81 /min Destinee y Seybold - External Body temperature 2024-07-27 [...] blood pressure 2024 17:15:00 85 mm[Hg] Dara Seybo ld - External Heart rate 2024 17:15:00 85 /min Kelse y Seybold - External Body temperature 2024 [...] height 2021-06-07 08:15:00 75 [in_i] Commo n [facility] weight 2021-06-07 08:15:00 295 [lb_av] Comm on [facility] temperature 2021-06-07 08:15:00 98 [degF] Comm on [facility] bmi 2021-06-07 08:15:00 36.87 kg/m2 Comm on [facility] oximetry 2021-06-07 08:15:00 98 % Commo n [facility] respiratory rate 2021-06-07 08:15:00 16 /min Common [facility] blood pressure systolic 2021-06-07 08:15:00 179 mm[Hg] Common [facility] blood pressure diastolic 2021-06-07 08:15:00 86 mm[Hg] Common [facility] height 2021-01-11 16:30:00 75 [in_i] Commo n [facility] weight 2021-01-11 16:30:00 285 [lb_av] Comm on [facility] temperature 2021-01-11 16:30:00 97.2 [degF] Com [facility] bmi 2021-01-11 16:30:00 35.62 kg/m2 Comm on [facility] oximetry 2021-01-11 16:30:00 99 % Commo n [facility] blood pressure systolic 2021-01-11 16:30:00 147 mm[Hg] [facility] blood pressure diastolic 2021-01-11 16:30:00 76 mm[Hg] Common [facility] height 2020-11-28 15:40:00 75 [in_i] Commo n [facility] weight 2020-11-28 15:40:00 287.4 [lb_av] Co mmon [facility] temperature 2020-11-28 15:40:00 96.5 [degF] Com [facility] bmi 2020-11-28 15:40:00 35.92 kg/m2 Comm on [facility] oximetry 2020-11-28 15:40:00 97 % Commo n [facility] blood pressure systolic 2020-11-28 15:40:00 159 mm[Hg] Common [facility] blood pressure diastolic 2020-11-28 15:40:00 84 mm[Hg] Common [facility] BP Systolic 2024-03-25 11:31:00 Eugene Hyman BP Diastolic 2024-03-25 11:31:00 Lul Hyman Weight Measured 2024-03-25 11:31:00 257.80 pounds Usman Hyman Height Measured 2024-03-25 11:31:00 74.00 inches Usman Hyman Body Temperature 2024-03-25 11:31:00 Usman Yesenia Boogie Heart Rate 2024-03-25 11:31:00 60.00 /min Safia Hyman Respiratory Rate 2024-03-25 11:31:00 18.00 /min Usman F Boogie BP Systolic 2024-03-24 13:33:00 134 mm[Hg] Step hen F Boogie BP Diastolic 2024-03-24 13:33:00 88 mm[Hg] Lul phen F Boogie Weight Measured 2024-03-24 13:33:00 258.80 pounds Usman F Boogie Height Measured 2024-03-24 13:33:00 74.00 inches Usman [...] 2023-09-10 13:54:00 85.00 /min Safia en F Booige Respiratory Rate 2023-09-10 13:54:00 19.00 /min Usman [...] 2023-08-20 13:46:00 18.00 /min Usman F Boogie Height Measured 2023-08-13 10:04:00 [...] 2023-08-13 10:04:00 226.00 pounds Usman F Boogie BP Systolic 2023-08-12 13:36:00 [...] Diastolic 2023-08-01 15:50:00 78 mm[Hg] Lul phen Yesenia Hyman Weight Measured 2023-08-01 15:50:00 215.60 pounds Usman Hyman Height Measured 2023-08-01 15:50:00 74.00 inches Usman Hyman Body Temperature 2023-08-01 15:50:00 98.40 degrees Usman Hyman Heart Rate 2023-08-01 15:50:00 76.00 /min Safia en F Boogie Respiratory Rate 2023-08-01 15:50:00 18.00 /min Usmansharon Hyman BP Systolic 2023-07-04 13:45:00 149 mm[Hg] Step hen F Boogie BP Diastolic 2023-07-04 13:45:00 82 mm[Hg] Lul phen Yesenia Hyman Weight Measured 2023-07-04 13:45:00 255.60 pounds Usman Hyman Height Measured 2023-07-04 13:45:00 74.00 inches Usman Hyman Body Temperature 2023-07-04 13:45:00 98.20 degrees Usman Hyman Heart Rate 2023-07-04 13:45:00 76.00 /min Safia en F Boogie Respiratory Rate 2023-07-04 13:45:00 18.00 /min Usman [...] End Date/Time Encounter Type Admission Type Attending [facility] Care Facility Care Department Encounter ID Source 2021-06-21 15:49:01 [facility] [id number] [facility] 2021-06-13 13:32:49 Out[facility] [id number] [facility] 2021-06-13 13:25:32 [facility] [id number] [facility] 2025-03-01 14:15:00 2025-03-01 14:15:00 Outpatient PAR[facility] HAWKINS [id number] Dara bao 2025-01-03 00:00:00 2025-01-03 00:00:00 Outpatient PAR[facility] HAWKINS [id number] Dara bao 2024-12-21 15:16:30 2024-12-21 15:16:30 Outpatient [facility] [id number] Usman Yesenia Boogie 2024-12-06 00:00:00 2024-12-06 00:00:00 Outpatient PAR[facility] HAWKINS [id number] Dara bao 2024-12-06 00:00:00 2024-12-06 00:00:00 Outpatient [facility] [id number] [facility] 2024-11-29 16:20:00 2024-11-29 16:20:00 Outpatient [id number] DARA DARA [id number] [facility] 2024-11-29 15:45:00 2024-11-29 15:45:00 Outpatient PREZAS, PARISH DONG DARA [id number] [facility] 2024-11-24 09:44:50 2024-11-24 09:44:50 Outpatient SFA SFA [id number] Usman Hyman 2024-11-23 16:00:00 2024-11-23 16:00:00 Outpatient PREZAS, PARISH DONG DARA [id number] [facility] 2024-10-19 14:09:12 2024-10-19 14:09:12 Outpatient SFA SFA [id number] Usman Hyman 2024-09-27 00:00:00 2024-09-27 00:00:00 Outpatient PREZAS, PARISH DARA DARA [id number] Dara [facility] 2024-09-23 15:30:00 2024-09-23 15:30:00 Outpatient PREZAS, PARISH DARA DARA [id number] Dara [facility] 2024-09-23 00:00:00 2024-09-23 00:00:00 Outpatient PREZAS, PARISH DARA DONG [id number] [facility] 2024-09-21 14:06:34 2024-09-21 14:06:34 Outpatient SFA SFA [id number] Usman Hyman 2024-09-21 09:15:00 2024-09-21 09:15:00 Outpatient PREZAS, PARISH DONG DARA [id number] Dara [facility] 2024-09-08 09:45:00 2024-09-08 09:45:00 Outpatient PREZAS, PARISH DARA DONG [id number] Dara [facility] 2024-08-23 16:46:23 2024-08-23 16:46:23 Outpatient SFA SFA [id number] Usman Hyman 2024-08-10 10:00:00 2024-08-10 10:00:00 Outpatient ARCADIO, ANG DARA DARA [id number] Dara [facility] 2024-08-06 00:00:00 2024-08-06 00:00:00 Outpatient PREZASPARISH DARA [id number] [facility] 2024-08-03 00:00:00 2024-08-03 00:00:00 Outpatient PREZASPARISH DARA [id number] Dara [facility] 2024-07-27 11:30:00 2024-07-27 11:30:00 Outpatient LAB90 DARA DARA [id number] Dara [facility] 2024-07-27 10:30:00 2024-07-27 10:30:00 Outpatient PREZAS, PARISH DARA DARA [id number] Dara [facility] 2024-07-23 00:00:00 2024-07-23 00:00:00 Outpatient BILLY, YANI DARA DONG [id number] [facility] 2024-07-22 00:00:00 2024-07-22 00:00:00 Outpatient SEVILLALINUS DARA DONG [id number] [facility] 2024-07-21 11:26:26 2024-07-21 11:26:[address] [facility] [id number] Usman F Boogie 2024-07-16 09:20:00 2024-07-16 09:20:00 Outpatient DARA DONG [id number] [facility] [facility] 2024-07-16 09:15:00 2024-07-16 09:15:00 Outpatient DARA DONG [id number] D[facility] 2024-07-16 00:00:00 2024-07-16 00:00:00 Outpatient PREZASPARISH DARA DONG [id number] D[facility] 2024-07-13 11:00:00 2024-07-13 11:00:00 Outpatient BILLY, YANIMARGARET DONG [id number] [facility] 2024-07-13 08:00:00 2024-07-13 08:00:00 Outpatient BILLY, YANIMARGARET DONG [id number] [facility] 2024-07-06 09:25:00 2024-07-06 09:25:00 Outpatient DARA DARA [id number] Dara Lewis 2024-07-06 09:00:00 2024-07-06 09:00:00 Outpatient CRISTOBAL ELIZALDE DARA [id number] Dara Lewis 2024-07-05 00:00:00 2024-07-05 00:00:00 Outpatient CRISTOBAL ELIZALDE DARA DARA [id number] [facility] 2024-06-22 00:00:00 2024-06-22 00:00:00 Outpatient LINUS SEVILLA DARA DONG [id number] [facility] 2024-06-18 00:00:00 2024-06-18 00:00:00 Outpatient PARISH HAWKINS DARA DONG [id number] Dara [facility] 2024 11:00:00 2024 11:00:00 Outpatient PARISH HAWKINS DARA DONG [id number] Dara [facility] 2024-06-14 13:17:27 2024-06-14 13:17:27 Outpatient SFA SFA 0127 Usman Hyman 2024-05-26 13:12:59 2024-05-26 13:12:59 Outpatient SFA SFA 0108 Usman Hyman 2024-05-21 15:45:00 2024-05-21 15:45:00 Outpatient SAV ERVIN DARA DONG [id number] D[facility] 2024-05-17 15:40:38 2024-05-17 15:40:38 Outpatient SFA SFA 1230 Usman Patterson [place] 2024-05-17 00:00:00 2024-05-17 00:00:00 Outpatient SEVILLALINUS [id number] Dara [facility] 2024-05-17 00:00:00 2024-05-17 00:00:00 Outpatient SEVILLALINUS [id number] Dara [facility] 2024-05-14 16:30:00 2024-05-14 16:30:00 Outpatient LINUS SEVILLA [id number] Dara Lewis 2024-03-25 11:29:41 2024-03-25 11:29:[address] [facility] 1107 Usman Hyman 2024-03-25 00:00:00 2024-03-25 00:00:00 Outpatient Visit SFA [id number] Usman Hyman 2024-03-24 13:32:46 2024-03-24 13:32:[address] [facility] 1105 Usman Patterson [place] 2024-02-09 14:17:28 2024-02-09 14:17:[address] [facility] 0923 Usman Hyman 2024-01-01 10:33:32 2024-01-01 10:33:[address] [facility] 0815 Usman Hyman 2023-11-27 11:08:32 2023-11-27 11:08:[address] [facility] 0711 Usman Hyman 2023-11-25 00:00:00 2023-11-25 00:00:00 Dionte Valentine MD: [address] [place] [address] , Ph. [phone] [place] [facility] [place] [id number] [facility] 2023-11-18 10:34:48 2023-11-18 10:34:[address] [facility] 701 Usman Patterson [place] 2023-11-18 00:00:00 2023-11-18 00:00:00 Outpatient Visit SFA [id number] Usman Patterson [place] 2023-11-14 00:00:00 2023-11-14 00:00:00 Frances Bar MD: [address] [place] [address] , Ph. [phone] [place] [facility] [place] [facility] [place] [phone] [facility] 2023-11-10 11:08:47 2023-11-10 11:08:[address] [facility] 0624 Usman Hyman 2023-11-06 00:00:00 2023-11-06 00:00:00 Heath Lawson MD: [address] [place] [address] , Ph. [phone] [place] [facility] [place] [facility] [id number] [facility] 2023-11-04 11:06:32 2023-11-04 11:06:[address] [facility] 617 Usman Hyman 2023-11-04 00:00:00 2023-11-04 00:00:[address] [facility] [id number] Usman Hyman 2023-10-31 00:00:00 2023-10-31 00:00:00 Rafal Pate MD: [address] [place] [address] , Ph. [phone] [place] [facility] [place] [facility] [place] [id number] [facility] 2023-10-24 00:00:00 2023-10-24 00:00:00 Rafal Pate MD: [address] [place], [place] [id number] , Ph. [phone] [place] [facility] [place] [facility] [place] [id number] [facility] 2023-10-23 10:42:24 2023-10-23 10:42:24 Outpatient [facility] [id number] Usman Patterson [place] 2023-09-26 00:00:00 2023-09-26 00:00:00 Frances Bar MD: [address] [place] [address] , Ph. [phone] [place] [facility] [place] [facility] [id number] [facility] 2023-09-24 14:35:23 2023-09-24 14:35:[address] [facility] [id number] Usman Hyman 2023-09-12 00:00:00 2023-09-12 00:00:00 Frances Bar MD: [address] [place] [address] , Ph. [phone] AOS[place] [facility] [place] [facility] [address] [id number] [facility] 2023-09-10 13:51:14 2023-09-10 13:51:14 Outpatient [facility] [id number] Usman Hyman 2023-09-02 09:14:00 2023-09-02 09:14:00 Outpatient Frances Hsieh HCATO DAYS [id number] 29 [facility] 2023-09-02 00:00:00 2023-09-02 00:00:00 Frances Bar MD: [address] [place] [address] , Ph. [phone] [place] [facility] [place] [facility] [id number] [facility] 2023-08-31 00:00:00 2023-08-31 00:00:00 Outpatient FOG_Goytia_ Dutch_ [place] [id number] [facility] 2023-08-25 00:00:00 2023-08-25 00:00:00 Frances Bar MD: [address] [place] [address] , Ph. [phone] [place] [facility] [place] [facility] [place] [id number] [facility] 2023-08-22 08:46:00 2023-08-22 08:46:00 Outpatient Frances Hsieh HCATO RADI [id number] [facility] [place] [facility] 2023-08-22 00:00:00 2023-08-22 00:00:00 Frances Bar MD: [address] [place] [address] , Ph. [phone] FOG_[place]oyt[place]_ Robin_MD [place] [facility] [place] [facility] [place] [id number] [facility] 2023-08-21 19:53:00 2023-08-21 19:53:00 Outpatient Frances Bar [facility] [id number] 61 [facility] 2023-08-20 13:42:52 2023-08-20 13:42:52 Outpatient SFA SFA [id number] Usman Patterson [place] 2023-08-18 00:00:00 2023-08-18 00:00:00 Frances Bar MD: [address] [place] [address] , Ph. [phone] FOG_[place]_ Robin_MD [place] [facility] [place] [facility] [place] [address] [id number] [facility] 2023-08-12 00:00:00 2023-08-12 00:00:00 Outpatient FOG_Goytia_ Robin_MD [place] [id number] [facility] 2023-08-07 14:41:23 2023-08-07 14:41:23 Outpatient SFA SFA [id number] Usman Patterson [place] 2023-08-01 15:35:34 2023-08-01 15:35:34 Outpatient SFA SFA 0315 Usman Patterson [place] 2023-07-04 13:34:23 2023-07-04 13:34:23 Outpatient SFA SFA 0216 Usman Hyman 2023-06-14 09:52:35 2023-06-14 09:52:35 Outpatient SFA SFA [id number] Usman Hyman 2023-02-24 15:33:13 2023-02-24 15:33:13 Outpatient SFA SFA 1009 Usman Patterson [place] 2022-10-07 09:08:20 2022-10-07 09:08:20 Outpatient SFA SFA 0522 Usman Hyman 2022-08-12 11:14:26 2022-08-12 11:14:26 Outpatient [facility] [id number] Usman Hyman 2022-05-28 17:22:02 2022-05-28 17:22:02 Outpatient [facility] [id number] Usman Hyman 2021-06-22 00:00:00 2021-06-22 00:00:00 (TEL) STLMLC STLMLC [id number] [facility] 2021-06-07 00:00:00 2021-06-07 00:00:00 OFFICE VISIT ESTAB PT LEVEL 4 STLMLC STLMLC [id number] [facility] 2021-05-31 00:00:00 2021-05-31 00:00:00 (TEL) STLMLC STLMLC [id number] [facility] 2021-01-11 00:00:00 2021-01-11 00:00:00 OFFICE VISIT EST PT LEVEL 3 STLMLC STLMLC [id number] [facility] 2020-11-28 00:00:00 2020-11-28 00:00:00 OFFICE VISIT NEW PT LEVEL 3 STLMLC STLMLC [id number] [facility] Results Test Description Test Time Test Comments Results Result Co mments Source VITAMIN B 12 AND FOLIC [id number] 03:55:09* Test Item Value Reference Range Interpretation [...] PERFORMED AT [facility] [address] [place] [address] [employer] SERVER: MAREN CHAVARRIA M.D. CLIA NUMBER [id number] [facility] [place]. [id number] CBC W/AUTO DIFF WITH [id number] 03:15:20* Test Item Value Reference Range Interpretation [...] 0.00-0.10 ABS NUCLEATED RBCS (test code = 19307) 0.00 K/UL 0.00-0.11 [id number] 02:39:37* Test Item Value Reference Range Interpretation Comme nts FERRITIN (test code = 2075) 267 NG/ML 30-400 [id number] 02:39:29* Test Item Value Reference Range Interpretation Comme nts TRANSFERRIN (test code = 4936) 213 MG/DL 200-360 IRON BINDING CAPACITY AND IRON AND % [id number] 02:38:50* Test Item Value Reference Range Interpretation Comme nts IRON, SERUM (test code = 2222) 52 UG/DL 59-158 L UNSATURATED IBC (test code = 87255) 197 UG/DL 112-347 CALC TOTAL IBC (test code = 2077) 249 UG/DL 250-450 L CALC % IRON SAT (test code = 2079) 21 % 20-50 CBC W/AUTO [id number] 00:00:00* Test Item Value Reference Range Interpretation [...] ABS NUCLEATED RBCS (test cod e = 75237) 0.00 K/UL Usman HymanHEMOGLOBIN [id number] 00:00:00* Test Item Value Reference Range Interpretation Comme joseph HEMOGLOBIN A1c (test code = 33321) 6.7 % Usman HymanIRON BINDING CAPACITY AND IRON AND % [id number] 00:00:00* Test Item Value Reference Range Interpretation Comme nts IRON, SERUM (test code = 2222) 52 UG/DL UNSATURATED IBC (test code = 26528) 197 UG/DL CALC TOTAL IBC (test code = 2077) 249 UG/DL CALC % IRON SAT (test code = 2079) 21 % Usman [id number] 00:00:00* Test Item Value Reference Range Interpretation Comme nts FERRITIN (test code = 2075) 267 NG/ML Usman [id number] 00:00:00* Test Item Value Reference Range Interpretation Comme nts TRANSFERRIN (test code = 4936) 213 MG/DL Usman HymanVITAMIN B 12 AND FOLIC [id number] 00:00:00* Test Item Value Reference Range Interpretation Comme nts VITAMIN B-12 (test code = 2840) >2000 PG/ML FOLIC ACID (test code = 2695) 19.1 UG/L Usman HymanCBC W/AUTO [id number] 00:00:00* Test Item Value Reference Range Interpretation [...] ABS NUCLEATED RBCS (test cod e = 09940) 0.00 K/UL Usman HymanHEMOGLOBIN [id number] 00:00:00* Test Item Value Reference Range Interpretation Comme nts HEMOGLOBIN A1c (test code = 38329) 6.7 % Usman HymanIRON BINDING CAPACITY AND IRON AND % [id number] 00:00:00* Test Item Value Reference Range Interpretation Comme nts IRON, SERUM (test code = 2222) 52 UG/DL UNSATURATED IBC (test code = 42173) 197 UG/DL CALC TOTAL IBC (test code = 2077) 249 UG/DL CALC % IRON SAT (test code = 2079) 21 % Usman [id number] 00:00:00* Test Item Value Reference Range Interpretation Comme nts FERRITIN (test code = 2075) 267 NG/ML Usman [id number] 00:00:00* Test Item Value Reference Range Interpretation Comme nts TRANSFERRIN (test code = 4936) 213 MG/DL Usman Patterson BoogieVITAMIN B 12 AND FOLIC [id number] 00:00:00* Test Item Value Reference Range Interpretation Comme nts VITAMIN B-12 (test code = 2840) >2000 PG/ML FOLIC ACID (test code = 2695) 19.1 UG/L Usman Patterson BoogieCBC W/AUTO DIFF WITH [id number] 08:10:35* Test Item Value Reference Range Interpretation [...] 0.00-0.10 ABS NUCLEATED RBCS (test code = 91394) 0.00 K/UL 0.00-0.11 UNLESS OTHER OCONNOR INDICATED, ALL TESTING PERFORMED AT [facility] [address] [place] [address] [employer] SERVER: MAREN CHAVARRIA M.D. CLIA NUMBER [id number] [place]. [id number] HIV / 4TH GEN, RFLX [id number] 04:31:36* Test Item Value Reference Range Interpretation Comme nts HIV 1/2 4TH GEN, RFLX CONF ( test code = 3514) NON-REACTIVE NON-REACTIVE HEPATITIS PANEL, [id number] 04:31:36* Test Item Value Reference Range Interpretation Comme nts HEPATITIS A IgM (test code = 01493) NON-REACTIVE NON-REACTIVE HEPATITIS B CORE IgM (test code = 4644) NON-REACTIVE NON-REACTIVE HEPATITIS B SURF AG (test code = 2739) NON-REACTIVE NON-REACTIVE HEPATITIS C ANTIBODY (test code = 4675) REACTIVE NON-REACTIVE A INTERPRETATION HEPATITIS A: (test code = 2552) (NOTE) Hepatitis A serology shows no evidence of acute hepatitis A. INTERPRETATION HEPATITIS B: (test code = 84213) (NOTE) Hepatitis B serology shows no evidence of acute hepatitis B andno indication of exposure to hepatitis B virus in the previous danielle eight months. INTERPRETATION HEPATITIS C: (test code = 74609) (NOTE) Hepatitis C serology is consistent with exposure to hepatitis Cvirus. The CDC recommends performing a supplemental confirmatory teston initial positive hepatitis C antibody tests. HCV PCR quantitativecan be used to confirm these results on a new sample (See MMWR, 2003;52 RR-3). ACUTE HEPATITIS [id number] 00:00:00* Test Item Value Reference Range Interpretation Comme nts HEPATITIS A IgM (test code = 76853) NON-REACTIVE HEPATITIS B CORE IgM (test c ode = 4644) NON-REACTIVE HEPATITIS B SURF AG (test co de = 2739) NON-REACTIVE HEPATITIS C ANTIBODY (test c ode = 4675) REACTIVE INTERPRETATION HEPATITIS A: (test code = 2552) (NOTE) INTERPRETATION HEPATITIS B: (test code = 24186) (NOTE) INTERPRETATION HEPATITIS C: (test code = 60844) (NOTE) Usman HymanCBC W/AUTO [id number] 00:00:00* Test Item Value Reference Range Interpretation [...] ABS NUCLEATED RBCS (test cod e = 37761) 0.00 K/UL Usman HymanHIV 1/2 4TH GEN, RFLX [id number] 00:00:00* Test Item Value Reference Range Interpretation Comme nts HIV 1/2 4TH GEN, RFLX CONF ( test code = 3514) NON-REACTIVE Usman HymanACUTE HEPATITIS [id number] 00:00:00* Test Item Value Reference Range Interpretation Comme nts HEPATITIS A IgM (test code = 41576) NON-REACTIVE HEPATITIS B CORE IgM (test c ode = 4644) NON-REACTIVE HEPATITIS B SURF AG (test co de = 2739) NON-REACTIVE HEPATITIS C ANTIBODY (test c ode = 4675) REACTIVE INTERPRETATION HEPATITIS A: (test code = 2552) (NOTE) INTERPRETATION HEPATITIS B: (test code = 63264) (NOTE) INTERPRETATION HEPATITIS C: (test code = 48294) (NOTE) Usman yHmanCBC W/AUTO [id number] 00:00:00* Test Item Value Reference Range Interpretation [...] ABS NUCLEATED RBCS (test cod e = 23720) 0.00 K/UL Usman HymanHIV 1/2 4TH GEN, RFLX [id number] 00:00:00* Test Item Value Reference Range Interpretation Comme nts HIV 1/2 4TH GEN, RFLX CONF ( test code = 3514) NON-REACTIVE Usman HymanACUTE HEPATITIS [id number] 00:00:00* Test Item Value Reference Range Interpretation Comme nts HEPATITIS A IgM (test code = 81562) NON-REACTIVE HEPATITIS B CORE IgM (test c ode = 4644) NON-REACTIVE HEPATITIS B SURF AG (test co de = 2739) NON-REACTIVE HEPATITIS C ANTIBODY (test c ode = 4634) REACTIVE INTERPRETATION HEPATITIS A: (test code = 2552) (NOTE) INTERPRETATION HEPATITIS B: (test code = 39232) (NOTE) INTERPRETATION HEPATITIS C: (test code = 28153) (NOTE) Usman HymanCBC W/AUTO [id number] 00:00:00* Test Item Value Reference Range Interpretation [...] ABS NUCLEATED RBCS (test cod e = 58153) 0.00 K/UL Usman Patterson AustinHIV 1/2 4TH GEN, RFLX [id number] 00:00:00* Test Item Value Reference Range Interpretation Comme nts HIV 1/2 4TH GEN, RFLX CONF ( test code = 3514) NON-REACTIVE Usman [id number] 16:40:00* Test Item Value Reference Range Interpretation Comme nts GLUBED (test code = GLUBED) 189 mg/dL 60-99 H The normal fasti ng blood glucose range for a non-diabeticadult is 60-99 mg/dL. Two hours after meals, normal blood glucose levels should beless than 140 mg/dL.Please note new normal range. [id number] 16:27:00* Test Item Value Reference Range Interpretation Comme nts glubed (test code = glubed) 189 mg/dL 60-99 H performing lab: (test code = performing lab:) [id number] 10:58:00* Test Item Value Reference Range Interpretation Comme nts GLUBED (test code = GLUBED) 202 mg/dL 60-99 H The normal [facility] blood glucose range for a non-diabeticadult is 60-99 mg/dL. Two hours after meals, normal blood glucose levels should beless than 140 mg/dL.Please note new normal range. [id number] 10:47:00* Test Item Value Reference Range Interpretation Comme nts glubed (test code = glubed) 202 mg/dL 60-99 H performing lab: (test code = performing lab:) [facility]- MRI LW JNT W/CONTRAST [id number] 08:23:00 [facility] 1960 Sex: M Patient Name: ESAU VALDES Unit No: [id number] EXAMS: CPT CODE: [id number] MRI LW JNT W/[place] [address] TECHNIQUE: Multiplanar multisequence images of the right [...] CC: Frances Bar MD Technologist: JOANNE MACHUCA Transcribed D/ (08) TeresaVickey [facility] NAME: ESAU VALDES [address] [place] [address] PHYS: BRIMA. - Frances Bar MD : 1960 AGE: 63 SEX: M [place] [address] LOC: Y.MRI PHONE #: [phone] EXAM DATE: 08/22/2023 STATUS: DEP CLI FAX #: [phone] RAD #: D/C DT PAGE 1 Signed Report Patient Name: ESAU VALDES Unit No: [id number] EXAMS: CPT CODE: [id number] MRI LW JNT W/[place] [address] (Continued) Orig Print D/T: S: 08/24/2023 (08) [facility] NAME: ESAU VALDES [address] [place] [address] PHYS: [email or web address] - Frances Bar MD : 1960 AGE: 63 SEX: M [place] [address] LOC: Y.MRI PHONE #: [phone] EXAM DATE: 08/22/2023 STATUS: DEP CLI FAX #: [phone] RAD #: D/C DT PAGE 2 Signed Report- MRI LW JNT W/O CONT [id number] 08:23:00 [facility] 1960 Sex: M Patient Name: ESAU VALDES Unit No: [id number] EXAMS: CPT CODE: [id number] MRI LW JNT W/[place] [address] TECHNIQUE: Multiplanar multisequence images of the right [...] M.D. CC: Frances Bar MD Technologist: Ismael Mcfarlane([facility]),MRI Transcribed D/ (0823) [facility]The [facility]: ESAU VALDES [address] PHYS: [email or web address] - Frances Bar MD : 1960 AGE: 63 SEX: M [place], [place] [address] LOC: Y.MRI PHONE #: [phone] EXAM DATE: 08/22/2023 STATUS: DEP CLI FAX #: [phone] RAD #: D/C DT PAGE 1 Signed Report Patient Name: ESAU VALDES Unit No: [id number] EXAMS: CPT CODE: [id number] MRI LW JNT W/[place] [address] (Continued) Orig Print D/T: S: 08/24/2023 (0826) [facility] NAME: ESAU VALDES [address] [facility] PHYS: OJ. Steff Bar MD : 1960 AGE: 63 SEX: M [place] [id number] LOC: Y.MRI PHONE #: [phone] EXAM DATE: 08/22/2023 STATUS: DEP CLI FAX #: [phone] RAD #: D/C DT PAGE 2 Signed ReportC REACTIVE [id number] 23:20:00* Test Item Value Reference Range Interpretation Comme nts C REACTIVE PROTEIN (test cod e = CRP) < 0.30 mg/dL < 0.3 N COMPREHENSIVE METABOLIC [id number] 22:12:00* Test Item Value Reference Range Interpretation [...] code = ALKP) 100 U/L 46-116 N AB HIV 1 21:25:00* Test Item Value Reference Range Interpretation Comme nts AB HIV 1 2 (test code = OXN11US) NONREACTIVE NONREACTIVE Done by Siemens K121aur 4th Gen HIV Ag/Ab Combo Screen C REACTIVE [id number] 21:25:00* Test Item Value Reference Range Interpretation Comme nts C REACTIVE PROTEIN (test code = CRP) mg/dL < 0.3 ACUTE HEPATITIS [id number] 21:25:00* Test Item Value Reference Range Interpretation [...] BOWEN HOLLINS MT.READ BACK & CONFIRMED? Y.BY [id number] 08/21/232123. SIGNAL TO CUTOFF (test code = CUTOFF) > 11.00 <0.80 H AB HIV 21:25:00* Test Item Value Reference Range Interpretation Comme nts AB HIV 1 (test code = HIV1AB) NONREACTIVE NONREACTIVE Done by Siemens K121aulatakoo 4th Gen HIV Ag/Ab Combo Screen ACUTE HEPATITIS [id number] 21:25:00* Test Item Value Reference Range Interpretation Comme nts AB HEPATITIS A IGM (test code = HAVMAB) NONREACTIVE NONREACTIVE AG HEPATITIS B SURFACE (test code = HBSAG) NONREACTIVE NONREACTIVE AB HEPATITIS B CORE IGM (test code = HBCMAB) NONREACTIVE NONREACTIVE AB HEPATITIS C (test code = HCVAB) REACTIVE NONREACTIVE A RESULTS CALLED Nicole HOLLINS MT.READ BACK & CONFIRMED? Y.BY [id number] 08/21/232123. SIGNAL TO CUTOFF (test code = CUTOFF) >11.00 <0.80 H SED [id number] 15:30:00* Test Item Value Reference Range Interpretation Comme nts SED RATE (test code = SEDW) 10 mm/hr 0-20 N PROTHROMBIN [id number] 14:45:00* Test Item Value Reference Range Interpretation [...] intravascular valves IS PATIENT ON ANTICOAGULANTS ? [facility] been notified if Patient is on Heparin Drip? NOIf Yes, order CBC, OCCULT BLOOD, PT every other day NTHROMBOPLASTIN TIME [id number] 14:45:00* Test Item Value Reference Range Interpretation Comme nts PTT ACTIVATED (test code = APTT) 33.2 secs 25.1-36.5 N IS PATIENT ON ANTICOAGULANTS ? [facility] been notified if Patient is on [...] N CBC W Auto Differential panel - [id number] 11:45:00* Test Item Value Reference Range Interpretation [...] performing lab: (test code = performing lab:) [facility] MedicineProthrombin time (PT)2023-08-21 11:45:00* Test Item Value Reference Range Interpretation Comme nts prothrombin time patient (te st code = prothrombin time patient) 9.5 secs 9.4-12.5 international normal ratio ( test code = international normal ratio) 0.89 <2.0 performing lab: (test code = performing lab:) [facility] [id number] 11:45:00 * Test Item Value Reference Range Interpretation Comme nts PTT activated (test code = P TT activated) 33.2 secs 25.1-36.5 performing lab: (test code = performing lab:) [facility] Medicinesed [id number] 11:45:00* Test Item Value Reference Range Interpretation Comme nts sed rate (test code = sed rate) 10 mm/HR 0-20 performing lab: (test code = performing lab:) [facility] 2000 panel - Serum or [id number] 11:45:00* Test Item Value Reference Range Interpretation [...] performing lab: (test code = performing lab:) [facility] reactive [id number] 11:45:00* Test Item Value Reference Range Interpretation Comme nts C reactive protein (test cod e = C reactive protein) < 0.30 < 0.3 performing lab: (test code = performing lab:) [facility], [id number] 11:21:14SPECIMEN NUMBER: [id number] CULTURE, URINE SPECIMEN NUMBER: [id number] SPECIMEN COMMENT: URINE SOURCE: URINE REPORT STATUS: FINAL ISOLATE NUMBER 1: IDENTIFICATION: 07/06/2023 10-50,000 CFU/ML STREPTOCOCCUS AGALACTIAE (GROUP B) ADDITIONAL OBSERVATIONS: PENICILLIN AND AMPICILLIN ARE DRUGS OF CHOICE FORTREATMENT OF B- HEMOLYTIC STREPTOCOCCAL INFECTIONS. SUSCEPTIBILITY TESTING OF PENICILLIN AND OTHER B-LACTAMS APPROVED BY THE [employer] FOR TREATMENT OF B-HEMOLYTIC STREPTOCOCCALINFECTIONS NEED NOT BE PERFORMED ROUTINELY.CULTURE, [id number] 00:00:00* Test Item Value Reference Range Interpretation Comme nts CULTURE, URINE (test code = 27750) SPECIMEN NUMBER: [id number] Usman MarieLTLUKE, [id number] 00:00:00* Test Item Value Reference Range Interpretation Comme nts CULTURE, URINE (test code = 59148) SPECIMEN NUMBER: [id number] Usman MarieLTLUKE, [id number] 00:00:00* Test Item Value Reference Range Interpretation Comme nts CULTURE, URINE (test code = 68322) SPECIMEN NUMBER: [id number] Usman RaygozaA, [id number] 07:47:28* Test Item Value Reference Range Interpretation Comme nts PSA, TOTAL (test code = 2606) 0.31 NG/ML <=4.00 NOTE: Methodolog y is Tushar Jayden Electrochemiluminescence Immunoassay traceable to WHO reference standard 96/760. UNLESS OTHERWISE INDICATED, ALL TESTING PERFORMED AT [facility] [address] [place] [id number] [employer]: MAREN CHAVARRIA M.D. CLIA NUMBER [id number] [place] [id number] PSA, [id number] 00:00:00* Test Item Value Reference Range Interpretation Comme nts PSA, TOTAL (test code = 2606) 0.31 NG/ML Usmna HymanPSA, [id number] 00:00:00* Test Item Value Reference Range Interpretation Comme nts PSA, TOTAL (test code = 2606) 0.31 NG/ML Usman HymanPSA, [id number] 00:00:00* Test Item Value Reference Range Interpretation Comme nts PSA, TOTAL (test code = 2606) 0.31 NG/ML Usman Patterson AustinALBUMIN/CREATININE RATIO, URINE, [id number] 02:45:52* Test Item Value Reference Range Interpretation Comme nts CREATININE, URINE, CONC. (test code = 2071) 61.4 MG/DL NOT ESTAB ALBUMIN, URINE, RANDOM (test code = 26673) 9.1 MG/DL NOT ESTAB CALC ALBUMIN/CREAT, RND (test code = 97131) 148 MG/G <30 H Note: Albumin/Cr eatinine ratio reference interval reflects ADA and NKF guidelines. UNLESS OTHERWISE INDICATED, ALL TESTING PERFORMED AT [facility] [address] [place] [address] [employer]: MAREN CHAVARRIA M.D. CLIA NUMBER [id number] [place]. [id number] ALBUMIN/CREATININE RATIO, RANDOM [id number] 00:00:00* Test Item Value Reference Range Interpretation Comme nts CREATININE, URINE, CONC. (te st code = 2071) 61.4 MG/DL ALBUMIN, URINE, RANDOM (test code = 23278) 9.1 MG/DL CALC ALBUMIN/CREAT, RND (shanna t code = 56469) 148 MG/G Usman Patterson AustinALBUMIN/CREATININE RATIO, RANDOM [id number] 00:00:00* Test Item Value Reference Range Interpretation Comme nts CREATININE, URINE, CONC. (te st code = 2071) 61.4 MG/DL ALBUMIN, URINE, RANDOM (test code = 64310) 9.1 MG/DL CALC ALBUMIN/CREAT, RND (shanna t code = 12831) 148 MG/G Usman Patterson AustinALBUMIN/CREATININE RATIO, RANDOM [id number] 00:00:00* Test Item Value Reference Range Interpretation Comme nts CREATININE, URINE, CONC. (te st code = 2072) 61.4 MG/DL ALBUMIN, URINE, RANDOM (test code = 70340) 9.1 MG/DL CALC ALBUMIN/CREAT, RND (shanna t code = 09197) 148 MG/G Usman HymanHCV RNA, PCR [id number] 20:16:46* Test Item Value Reference Range Interpretation Comme nts HCV RNA, PCR QUANT (test code = 4571) NOT DETEC IU/ML HCV VIRAL LOG (test code = 53472) NOT DETEC LOG IU/ML HCV RNA was [...] range is NOT DETECTED. HEPATITIS C REFLEX [id number] 02:34:07* Test Item Value Reference Range Interpretation Comme nts HEPATITIS C ANTIBODY (test c ode = 4675) REACTIVE NON-REACTIVE A HEPATITIS C REFLEX [id number] 00:00:00* Test Item Value Reference Range Interpretation Comme nts HEPATITIS C ANTIBODY (test c ode = 4675) REACTIVE Usman HymanHCV RNA, PCR [id number] 00:00:00* Test Item Value Reference Range Interpretation Comme nts HCV RNA, PCR QUANT (test code = 4571) NOT DETEC IU/ML HCV VIRAL LOG (test code = 98505) NOT DETEC LOGIU/ML Usman HymanHEPATITIS C REFLEX [id number] 00:00:00* Test Item Value Reference Range Interpretation Comme nts HEPATITIS C ANTIBODY (test c ode = 4675) REACTIVE Usman HymanHCV RNA, PCR [id number] 00:00:00* Test Item Value Reference Range Interpretation Comme nts HCV RNA, PCR QUANT (test code = 4571) NOT DETEC IU/ML HCV VIRAL LOG (test code = 66307) NOT DETEC LOGIU/ML Usman HymanHEPATITIS C REFLEX [id number] 00:00:00* Test Item Value Reference Range Interpretation Comme nts HEPATITIS C ANTIBODY (test c ode = 4606) REACTIVE Usman HymanHCV RNA, PCR [id number] 00:00:00* Test Item Value Reference Range Interpretation Comme nts HCV RNA, PCR QUANT (test code = 4571) NOT DETEC IU/ML HCV VIRAL LOG (test code = 32446) NOT DETEC LOGIU/ML Usman HymanCOMPREHENSIVE METABOLIC [id number] 23:23:07* Test Item Value Reference Range Interpretation Comme nts GLUCOSE (test code = 2217) 327 MG/DL 70-99 H BUN (test code = 2207) 14 MG/DL 8-23 CREATININE (test code = 2214) 1.20 MG/DL 0.80-1.40 eGFR (2020 CKD-EPI) (test co de = 73088) 69 ML/MIN/1.73 >60 CALC BUN/CREAT (test code [...] code = 2219) 40 U/L 5-50 LIPID [id number] 23:23:07* Test Item Value Reference Range Interpretation [...] SPECIMENS. FOR MOREINFORMATION, SEE CLIENT ANNOUNCEMENT AT [email or web address] RISK RATIO LDL/HDL (test code = 2238) 2.74 RATIO <3.55 HEMOGLOBIN [id number] 03:16:16* Test Item Value Reference Range Interpretation Comme nts HEMOGLOBIN A1c (test code = 16846) 11.2 % 4.2-5.6 H [employer] GUIDELINES FOR HGB A1C: [...] CONSIDER ALTERNATE TESTING OR LABORATORY CONSULTATION. HEMOGLOBIN [id number] 00:00:00* Test Item Value Reference Range Interpretation Comme nts HEMOGLOBIN A1c (test code = 55731) 11.2 % Usman Yesenia AustinLIPID [id number] 00:00:00* Test Item Value Reference Range Interpretation Comme nts CHOLESTEROL (test code = 2210) 128 MG/DL TRIGLYCERIDES (test code = 2232) 174 MG/DL HDL CHOLESTEROL (test code = 2220) 27 MG/DL CALC LDL CHOL (test code = 2237) 74 MG/DL RISK RATIO LDL/HDL (test cod e = 2238) 2.74 RATIO Usman F BoogieCOMPREHENSIVE METABOLIC [id number] 00:00:00* Test Item Value Reference Range Interpretation Comme nts GLUCOSE (test code = 2217) 327 MG/DL BUN (test code = 2208) 14 MG/DL CREATININE (test code = 2214) 1.20 MG/DL eGFR (2020 CKD-EPI) (test co de = 16711) 69 ML/MIN/1.73 CALC BUN/CREAT (test code = [...] code = 2219) 40 U/L Usman HymanHEMOGLOBIN [id number] 00:00:00* Test Item Value Reference Range Interpretation Comme nts HEMOGLOBIN A1c (test code = 85980) 11.2 % Usman HymanLIPID [id number] 00:00:00* Test Item Value Reference Range Interpretation Comme nts CHOLESTEROL (test code = 2210) 128 MG/DL TRIGLYCERIDES (test code = 2232) 174 MG/DL HDL CHOLESTEROL (test code = 2220) 27 MG/DL CALC LDL CHOL (test code = 2237) 74 MG/DL RISK RATIO LDL/HDL (test cod e = 2238) 2.74 RATIO Usman HymanCOMPREHENSIVE METABOLIC [id number] 00:00:00* Test Item Value Reference Range Interpretation Comme nts GLUCOSE (test code = 2217) 327 MG/DL BUN (test code = 2208) 14 MG/DL CREATININE (test code = 2214) 1.20 MG/DL eGFR (2020 CKD-EPI) (test co de = 80303) 69 ML/MIN/1.73 CALC BUN/CREAT (test code = [...] code = 2219) 40 U/L Usman HymanHEMOGLOBIN [id number] 00:00:00* Test Item Value Reference Range Interpretation Comme nts HEMOGLOBIN A1c (test code = 13532) 11.2 % Usman HymanLIPID [id number] 00:00:00* Test Item Value Reference Range Interpretation Comme nts CHOLESTEROL (test code = 2210) 128 MG/DL TRIGLYCERIDES (test code = 2232) 174 MG/DL HDL CHOLESTEROL (test code = 2220) 27 MG/DL CALC LDL CHOL (test code = 2237) 74 MG/DL RISK RATIO LDL/HDL (test cod e = 2238) 2.74 RATIO Usman HymanCOMPREHENSIVE METABOLIC [id number] 00:00:00* Test Item Value Reference Range Interpretation Comme nts GLUCOSE (test code = 2217) 327 MG/DL BUN (test code = 2208) 14 MG/DL CREATININE (test code = 2214) 1.20 MG/DL eGFR (2020 CKD-EPI) (test co de = 53766) 69 ML/MIN/1.73 CALC BUN/CREAT (test code = [...] (test code = 2219) 40 U/L Usman Patterson AustinHIV 1/2 4TH GEN, RFLX [id number] 04:13:42* Test Item Value Reference Range Interpretation Comme nts HIV 1/2 4TH GEN, RFLX CONF ( test code = 3514) NON-REACTIVE NON-REACTIVE HIV AB/AG COMBO RFLX [id number] 00:00:00* Test Item Value Reference Range Interpretation Comme nts HIV 1/2 4TH GEN, RFLX CONF ( test code = 3514) NON-REACTIVE Usman F AustinHIV AB/AG COMBO RFLX [id number] 00:00:00* Test Item Value Reference Range Interpretation Comme nts HIV 1/2 4TH GEN, RFLX CONF ( test code = 3514) NON-REACTIVE Usman F AustinHIV AB/AG COMBO RFLX [id number] 00:00:00* Test Item Value Reference Range Interpretation Comme nts HIV 1/2 4TH GEN, RFLX CONF ( test code = 3514) NON-REACTIVE Usman Patterson AustinTSH, THIRD [id number] 01:15:29* Test Item Value Reference Range Interpretation Comme nts TSH, THIRD GENERATION (test code = 2821) 0.746 UIU/ML 0.400-4.100 UNLESS OTHERWISE INDICATED, [facility] [address] [place] [address] [employer]: FRANCES SAPP M.D. CLIA NUMBER [id number] [facility] [place]. [id number] LIPID [id number] 00:16:46* Test Item Value Reference Range Interpretation [...] SPECIMENS. FOR MOREINFORMATION, SEE CLIENT ANNOUNCEMENT AT [email or web address] RISK RATIO LDL/HDL (test code = 2238) 1.08 RATIO <3.55 LIPID [id number] 00:00:00* Test Item Value Reference Range Interpretation Comme nts CHOLESTEROL (test code = 2210) 106 MG/DL TRIGLYCERIDES (test code = 2232) 144 MG/DL HDL CHOLESTEROL (test code = 2220) 40 MG/DL CALC LDL CHOL (test code = 2237) 43 MG/DL RISK RATIO LDL/HDL (test cod e = 2238) 1.08 RATIO Usman [id number] 00:00:00* Test Item Value Reference Range Interpretation Comme nts TSH, THIRD GENERATION (test code = 2821) 0.746 UIU/ML Usman HymanLIPID [id number] 00:00:00* Test Item Value Reference Range Interpretation Comme nts CHOLESTEROL (test code = 2210) 106 MG/DL TRIGLYCERIDES (test code = 2232) 144 MG/DL HDL CHOLESTEROL (test code = 2220) 40 MG/DL CALC LDL CHOL (test code = 2237) 43 MG/DL RISK RATIO LDL/HDL (test cod e = 2238) 1.08 RATIO Usman [id number] 00:00:00* Test Item Value Reference Range Interpretation Comme nts TSH, THIRD GENERATION (test code = 2821) 0.746 UIU/ML Usman Patterson AustinLIPID [id number] 00:00:00* Test Item Value Reference Range Interpretation Comme nts CHOLESTEROL (test code = 2210) 106 MG/DL TRIGLYCERIDES (test code = 2232) 144 MG/DL HDL CHOLESTEROL (test code = 2220) 40 MG/DL CALC LDL CHOL (test code = 2237) 43 MG/DL RISK RATIO LDL/HDL (test cod e = 2238) 1.08 RATIO Usman [id number] 00:00:00* Test Item Value Reference Range Interpretation Comme nts TSH, THIRD GENERATION (test code = 2821) 0.746 UIU/ML Usman Patterson AustinHEMOGLOBIN [id number] 07:26:51* Test Item Value Reference Range Interpretation Comme nts HEMOGLOBIN A1c (test code = 15013) 13.1 % 4.2-5.6 H [employer] GUIDELINES FOR HGB A1C: [...] OR LABORATORY CONSULTATION. CBC W/AUTO DIFF WITH [id number] 05:39:50* Test Item Value Reference Range Interpretation [...] = 1065) 0.0 /100 WBC'S See_Comment [Automated [employer]] The system which generated this result [...] 0.00-0.10 ABS NUCLEATED RBCS (test code = 99533) 0.00 K/UL 0.00-0.11 HEMOGLOBIN [id number] 00:00:00* Test Item Value Reference Range Interpretation Comme nts HEMOGLOBIN A1c (test code = 53505) 13.1 % Usman Patterson [facility] W/AUTO [id number] 00:00:00* Test Item Value Reference Range Interpretation [...] ABS NUCLEATED RBCS (test cod e = 19956) 0.00 K/UL Usman HymanHEMOGLOBIN [id number] 00:00:00* Test Item Value Reference Range Interpretation Comme nts HEMOGLOBIN A1c (test code = 00835) 13.1 % Usman HymanCBC W/AUTO [id number] 00:00:00* Test Item Value Reference Range Interpretation [...] ABS NUCLEATED RBCS (test cod e = 30827) 0.00 K/UL Usman Patterson AustinHEMOGLOBIN [id number] 00:00:00* Test Item Value Reference Range Interpretation Comme nts HEMOGLOBIN A1c (test code = 13133) 13.1 % Usman HymanCBC W/AUTO [id number] 00:00:00* Test Item Value Reference Range Interpretation [...] ABS NUCLEATED RBCS (test cod e = 36643) 0.00 K/UL Usman Patterson BoogieLIPID PANEL [ADDED]2021-06-02 [...] eGFR (2020 CKD-EPI) (test co de = 83346) 66 ML/MIN/1.73 CALC BUN/CREAT (test code = [...] 0.3 MG/DL ALKALINE PHOSPHATASE (test code = 220) 73 U/L AST (test code = 221) 23 U/L ALT (test code = 2219) 30 U/L Usman HymanALBUMIN/CREATININE RATIO, URINE, RANDOM [ADDED]2021-06-02 00:00:00* Test Item Value Reference Range Interpretation Comme nts CREATININE, URINE, CONC. (te st code = 207) 98.4 MG/DL ALBUMIN, URINE, RANDOM (test code = 90641) 0.8 MG/DL CALC ALBUMIN/CREAT, RND (shanna t code = 34682) 8 MG/G Usman Patterson BoogieHEMOGLOBIN A1c [ADDED]2021-06-02 00:00:00* Test Item Value Reference Range Interpretation Comme nts HEMOGLOBIN A1c (test code = 63750) 12.7 % Usman HymanLIPID PANEL [ADDED]2021-06-02 00:00:00* [...] Interpretation Comme nts GLUCOSE (test code = 2216) 248 MG/DL BUN (test code = 2208) 20 MG/DL CREATININE (test code = 2214) 1.25 MG/DL eGFR (2020 CKD-EPI) (test co de = 58050) 66 ML/MIN/1.73 CALC BUN/CREAT (test code = 2235) 16 RATIO SODIUM (test code = 2231) 137 MEQ/L POTASSIUM (test code = 2228) 4.1 MEQ/L CHLORIDE (test code = 2215) 98 MEQ/L CARBON DIOXIDE (test code = 2206) 26 MEQ/L CALCIUM (test code = 2209) 9.7 MG/DL PROTEIN, TOTAL (test code = 222) 7.3 G/DL ALBUMIN (test code = 220) 4.2 G/DL CALC GLOBULIN (test code = 2240) 3.1 G/DL CALC A/G RATIO (test code = 2234) 1.4 RATIO BILIRUBIN, TOTAL (test code = 2207) 0.3 MG/DL ALKALINE PHOSPHATASE (test code = 2204) 73 U/L AST (test code = 2218) 23 U/L ALT (test code = 2219) 30 U/L Usman Yesenia BoogieALBUMIN/CREATININE RATIO, URINE, RANDOM [ADDED]2021-06-02 00:00:00* Test Item Value Reference Range Interpretation Comme nts CREATININE, URINE, CONC. (te st code = 2072) 98.4 MG/DL ALBUMIN, URINE, RANDOM (test code = 05801) 0.8 MG/DL CALC ALBUMIN/CREAT, RND (shanna t code = 82879) 8 MG/G Usman Yesenia BoogieHEMOGLOBIN A1c [ADDED]2021-06-02 00:00:00* Test Item Value Reference Range Interpretation Comme nts HEMOGLOBIN A1c (test code = 18736) 12.7 % Usman Yesenia BoogieLIPID PANEL [ADDED]2021-06-02 00:00:00* Test Item Value [...] eGFR (2020 CKD-EPI) (test co de = 90184) 66 ML/MIN/1.73 CALC BUN/CREAT (test code = [...] MG/DL ALBUMIN, URINE, RANDOM (test code = 69761) 0.8 MG/DL CALC ALBUMIN/CREAT, RND (shanna t code = 23542) 8 MG/G Usman HymanHEMOGLOBIN A1c [ADDED]2021-06-02 00:00:00* Test Item Value Reference Range Interpretation Comme nts HEMOGLOBIN A1c (test code = 14745) 12.7 % Usman HymanLIPID [id number] 00:00:00* Test Item Value Reference Range Interpretation Comme nts CHOLESTEROL (test code = 2210) 95 MG/DL TRIGLYCERIDES (test code = 2232) 176 MG/DL HDL CHOLESTEROL (test code = 2220) 34 MG/DL CALC LDL CHOL (test code = 2237) 36 MG/DL RISK RATIO LDL/HDL (test cod e = 2238) 1.06 RATIO Usman HymanCOMPREHENSIVE METABOLIC [id number] 00:00:00* Test Item Value Reference Range Interpretation Comme nts GLUCOSE (test code = 2217) 494 MG/DL BUN (test code = 2208) 12 MG/DL CREATININE (test code = 2214) 1.44 MG/DL eGFR AMER. (test cod e = 64321) 61 ML/MIN/1.73 eGFR NON- AMER. (test code = 76764) 53 ML/MIN/1.73 CALC BUN/CREAT (test code = [...] code = 2219) 33 U/L Usman HymanHEMOGLOBIN [id number] 00:00:00* Test Item Value Reference Range Interpretation Comme nts HEMOGLOBIN A1c (test code = 33795) 13.8 % Usman HymanLIPID [id number] 00:00:00* Test Item Value Reference Range Interpretation Comme nts CHOLESTEROL (test code = 2210) 95 MG/DL TRIGLYCERIDES (test code = 2232) 176 MG/DL HDL CHOLESTEROL (test code = 2220) 34 MG/DL CALC LDL CHOL (test code = 2237) 36 MG/DL RISK RATIO LDL/HDL (test cod e = 2238) 1.06 RATIO Usman HymanCOMPREHENSIVE METABOLIC [id number] 00:00:00* Test Item Value Reference Range Interpretation Comme nts GLUCOSE (test code = 2217) 494 MG/DL BUN (test code = 2208) 12 MG/DL CREATININE (test code = 2214) 1.44 MG/DL eGFR AMER. (test cod e = 27393) 61 ML/MIN/1.73 eGFR NON- AMER. (test code = 41322) 53 ML/MIN/1.73 CALC BUN/CREAT (test code = 2235) 8 RATIO SODIUM (test code = 2231) 135 MEQ/L POTASSIUM (test code = 2228) 4.2 MEQ/L CHLORIDE (test code = 2215) 94 MEQ/L CARBON DIOXIDE (test code = 2206) 28 MEQ/L CALCIUM (test code = 2209) 10.0 MG/DL PROTEIN, TOTAL (test code = 222) 7.2 G/DL ALBUMIN (test code = 2201) 4.4 G/DL CALC GLOBULIN (test code = 2240) 2.8 G/DL CALC A/G RATIO (test code = 2234) 1.6 RATIO BILIRUBIN, TOTAL (test code = 2207) 0.4 MG/DL ALKALINE PHOSPHATASE (test code = 2204) 69 U/L AST (test code = 2218) 26 U/L ALT (test code = 2219) 33 U/L Usman HymanHEMOGLOBIN [id number] 00:00:00* Test Item Value Reference Range Interpretation Comme nts HEMOGLOBIN A1c (test code = 14478) 13.8 % Usman HymanLIPID [id number] 00:00:00* Test Item Value Reference Range Interpretation Comme nts CHOLESTEROL (test code = 2210) 95 MG/DL TRIGLYCERIDES (test code = 2232) 176 MG/DL HDL CHOLESTEROL (test code = 2220) 34 MG/DL CALC LDL CHOL (test code = 2237) 36 MG/DL RISK RATIO LDL/HDL (test cod e = 2238) 1.06 RATIO Usman HymanCOMPREHENSIVE METABOLIC [id number] 00:00:00* Test Item Value Reference Range Interpretation Comme nts GLUCOSE (test code = 2217) 494 MG/DL BUN (test code = 2208) 12 MG/DL CREATININE (test code = 2214) 1.44 MG/DL eGFR AMER. (test cod e = 07336) 61 ML/MIN/1.73 eGFR NON- AMER. (test code = 48847) 53 ML/MIN/1.73 CALC BUN/CREAT (test code = [...] code = 2219) 33 U/L Usman HymanHEMOGLOBIN [id number] 00:00:00* Test Item Value Reference Range Interpretation Comme nts HEMOGLOBIN A1c (test code = 61812) 13.8 % Usman HymanLIPID [id number] 00:00:00* Test Item Value Reference Range Interpretation Comme nts CHOLESTEROL (test code = 2210) 86 MG/DL TRIGLYCERIDES (test code = 2232) 132 MG/DL HDL CHOLESTEROL (test code = 2220) 30 MG/DL CALC LDL CHOL (test code = 2237) 34 MG/DL RISK RATIO LDL/HDL (test cod e = 2238) 1.13 RATIO Usman HymanCOMPREHENSIVE METABOLIC [id number] 00:00:00* Test Item Value Reference Range Interpretation Comme nts GLUCOSE (test code = 2217) 231 MG/DL BUN (test code = 2208) 14 MG/DL CREATININE (test code = 2214) 1.22 MG/DL eGFR AMER. (test cod e = 35711) 75 ML/MIN/1.73 eGFR NON- AMER. (test code = 65521) 64 ML/MIN/1.73 CALC BUN/CREAT (test code = [...] 0.2 MG/DL ALKALINE PHOSPHATASE (test code = 220) 50 U/L AST (test code = 221) 27 U/L ALT (test code = 221) 36 U/L Usman HymanHEMOGLOBIN [id number] 00:00:00* Test Item Value Reference Range Interpretation Comme nts HEMOGLOBIN A1c (test code = 08732) 10.9 % Usman HymanLIPID [id number] 00:00:00* Test Item Value Reference Range Interpretation Comme nts CHOLESTEROL (test code = 0) 86 MG/DL TRIGLYCERIDES (test code = 2232) 132 MG/DL HDL CHOLESTEROL (test code = 2220) 30 MG/DL CALC LDL CHOL (test code = 2237) 34 MG/DL RISK RATIO LDL/HDL (test cod e = 2238) 1.13 RATIO Usman HymanCOMPREHENSIVE METABOLIC [id number] 00:00:00* Test Item Value Reference Range Interpretation Comme nts GLUCOSE (test code = 7) 231 MG/DL BUN (test code = 8) 14 MG/DL CREATININE (test code = 2214) 1.22 MG/DL eGFR AMER. (test cod e = 49812) 75 ML/MIN/1.73 eGFR NON- AMER. (test code = 99855) 64 ML/MIN/1.73 CALC BUN/CREAT (test code = [...] code = 2219) 36 U/L Usman HymanHEMOGLOBIN [id number] 00:00:00* Test Item Value Reference Range Interpretation Comme nts HEMOGLOBIN A1c (test code = 55475) 10.9 % Usman HymanLIPID [id number] 00:00:00* Test Item Value Reference Range Interpretation Comme nts CHOLESTEROL (test code = 2210) 86 MG/DL TRIGLYCERIDES (test code = 2232) 132 MG/DL HDL CHOLESTEROL (test code = 2220) 30 MG/DL CALC LDL CHOL (test code = 2237) 34 MG/DL RISK RATIO LDL/HDL (test cod e = 2238) 1.13 RATIO Usman HymanCOMPREHENSIVE METABOLIC [id number] 00:00:00* Test Item Value Reference Range Interpretation Comme nts GLUCOSE (test code = 2217) 231 MG/DL BUN (test code = 8) 14 MG/DL CREATININE (test code = 2214) 1.22 MG/DL eGFR AMER. (test cod e = 27129) 75 ML/MIN/1.73 eGFR NON- AMER. (test code = 54202) 64 ML/MIN/1.73 CALC BUN/CREAT (test code = [...] code = 2219) 36 U/L Usman HymanHEMOGLOBIN [id number] 00:00:00* Test Item Value Reference Range Interpretation Comme nts HEMOGLOBIN A1c (test code = 67586) 10.9 % Usman HymanCBC W/AUTO [id number] 00:00:00* Test Item Value Reference Range Interpretation [...] code = 1015) 290 K/UL Usman HymanLIPID [id number] 00:00:00* Test Item Value Reference Range Interpretation Comme nts CHOLESTEROL (test code = 2210) 224 MG/DL TRIGLYCERIDES (test code = 2232) 268 MG/DL HDL CHOLESTEROL (test code = 2220) 41 MG/DL CALC LDL CHOL (test code = 2237) 142 MG/DL RISK RATIO LDL/HDL (test cod e = 2238) 3.46 RATIO Usman HymanCOMPREHENSIVE METABOLIC [id number] 00:00:00* Test Item Value Reference Range Interpretation Comme nts GLUCOSE (test code = 2217) 204 MG/DL BUN (test code = 2208) 12 MG/DL CREATININE (test code = 2214) 1.20 MG/DL eGFR AMER. (test cod e = 82104) 76 ML/MIN/1.73 eGFR NON- AMER. (test code = 48922) 66 ML/MIN/1.73 CALC BUN/CREAT (test code = [...] ALT (test code = 2219) 30 U/L sUman HymanHEMOGLOBIN [id number] 00:00:00* Test Item Value Reference Range Interpretation Comme [facility] HEMOGLOBIN A1c (test code = 97611) 10.1 % Usman HymanCBC W/AUTO [id number] 00:00:00* Test Item Value Reference Range Interpretation [...] code = 1015) 290 K/UL Usman HymanLIPID [id number] 00:00:00* Test Item Value Reference Range Interpretation Comme nts CHOLESTEROL (test code = 2210) 224 MG/DL TRIGLYCERIDES (test code = 2232) 268 MG/DL HDL CHOLESTEROL (test code = 2220) 41 MG/DL CALC LDL CHOL (test code = 2237) 142 MG/DL RISK RATIO LDL/HDL (test cod e = 2238) 3.46 RATIO Usman HymanCOMPREHENSIVE METABOLIC [id number] 00:00:00* Test Item Value Reference Range Interpretation Comme nts GLUCOSE (test code = 2217) 204 MG/DL BUN (test code = 2208) 12 MG/DL CREATININE (test code = 2214) 1.20 MG/DL eGFR AMER. (test cod e = 06357) 76 ML/MIN/1.73 eGFR NON- AMER. (test code = 91591) 66 ML/MIN/1.73 CALC BUN/CREAT (test code = [...] code = 2219) 30 U/L Usman HymanHEMOGLOBIN [id number] 00:00:00* Test Item Value Reference Range Interpretation Comme joseph HEMOGLOBIN A1c (test code = 83864) 10.1 % Usman HymanCBC W/AUTO [id number] 00:00:00* Test Item Value Reference Range Interpretation [...] = 1015) 290 K/UL Usman Patterson AustinLIPID [id number] 00:00:00* Test Item Value Reference Range Interpretation Comme nts CHOLESTEROL (test code = 2210) 224 MG/DL TRIGLYCERIDES (test code = 2232) 268 MG/DL HDL CHOLESTEROL (test code = 2220) 41 MG/DL CALC LDL CHOL (test code = 2237) 142 MG/DL RISK RATIO LDL/HDL (test cod e = 2238) 3.46 RATIO Usman HymanCOMPREHENSIVE METABOLIC [id number] 00:00:00* Test Item Value Reference Range Interpretation Comme nts GLUCOSE (test code = 2217) 204 MG/DL BUN (test code = 2208) 12 MG/DL CREATININE (test code = 2214) 1.20 MG/DL eGFR AMER. (test cod e = 45605) 76 ML/MIN/1.73 eGFR NON- AMER. (test code = 37586) 66 ML/MIN/1.73 CALC BUN/CREAT (test code = [...] code = 2219) 30 U/L Usman HymanHEMOGLOBIN [id number] 00:00:00* Test Item Value Reference Range Interpretation Comme nts HEMOGLOBIN A1c (test code = 16300) 10.1 % Usman Patterson [id number] (COVID-19) by RT-PCR (HIGH RISK)2020-01-05 00:00:00* Test Item Value Reference Range Interpretation Comme nts SARS-CoV-2 INTERPRETATION (t est code = 29429) NEGATIVE SOURCE (test code = 10604) NOT SPECIFIED Usman Patterson [id number] (COVID-19) by RT-PCR (HIGH RISK)2020-01-05 00:00:00* Test Item Value Reference Range Interpretation Comme nts SARS-CoV-2 INTERPRETATION (t est code = 76794) NEGATIVE SOURCE (test code = 95688) NOT SPECIFIED Usman Patterson [id number] (COVID-19) by RT-PCR (HIGH RISK)2020-01-05 00:00:00* Test Item Value Reference Range Interpretation Comme nts SARS-CoV-2 INTERPRETATION (t est code = 60998) NEGATIVE SOURCE (test code = 92240) NOT SPECIFIED Usman Patterson AustinLIPID [id number] 00:00:00* Test Item Value Reference Range Interpretation Comme nts CHOLESTEROL (test code = 2210) 180 MG/DL TRIGLYCERIDES (test code = 2232) 177 MG/DL HDL CHOLESTEROL (test code = 2220) 25 MG/DL CALC LDL CHOL (test code = 2237) 126 MG/DL RISK RATIO LDL/HDL (test cod e = 2238) 5.04 RATIO Usman HymanHEMOGLOBIN [id number] 00:00:00* Test Item Value Reference Range Interpretation Comme nts HEMOGLOBIN A1c (test code = 44681) 9.2 % Usman HymanCOMPREHENSIVE METABOLIC [id number] 00:00:00* Test Item Value Reference Range Interpretation Comme nts GLUCOSE (test code = 2217) 215 MG/DL BUN (test code = 2208) 10 MG/DL CREATININE (test code = 2214) 1.28 MG/DL eGFR AMER. (test cod e = 25129) 71 ML/MIN/1.73 eGFR NON- AMER. (test code = 41228) 61 ML/MIN/1.73 CALC BUN/CREAT (test code = [...] code = 2219) 46 U/L Usman Patterson [place]LIP[place] [id number] 00:00:00* Test Item Value Reference Range Interpretation Comme nts CHOLESTEROL (test code = 2210) 180 MG/DL TRIGLYCERIDES (test code = 2232) 177 MG/DL HDL CHOLESTEROL (test code = 2220) 25 MG/DL CALC LDL CHOL (test code = 2237) 126 MG/DL RISK RATIO LDL/HDL (test cod e = 223) 5.04 RATIO Usman HymanHEMOGLOBIN [id number] 00:00:00* Test Item Value Reference Range Interpretation Comme nts HEMOGLOBIN A1c (test code = 03960) 9.2 % Usman Patterson BoogieCOMPREHENSIVE METABOLIC [id number] 00:00:00* Test Item Value Reference Range Interpretation Comme nts GLUCOSE (test code = 2217) 215 MG/DL BUN (test code = 2208) 10 MG/DL CREATININE (test code = 2214) 1.28 MG/DL eGFR AMER. (test cod e = 52655) 71 ML/MIN/1.73 eGFR NON- AMER. (test code = 58910) 61 ML/MIN/1.73 CALC BUN/CREAT (test code = [...] code = 2219) 46 U/L Usman HymanLIPID [id number] 00:00:00* Test Item Value Reference Range Interpretation Comme nts CHOLESTEROL (test code = 2210) 180 MG/DL TRIGLYCERIDES (test code = 2232) 177 MG/DL HDL CHOLESTEROL (test code = 2220) 25 MG/DL CALC LDL CHOL (test code = 2237) 126 MG/DL RISK RATIO LDL/HDL (test cod e = 223) 5.04 RATIO Usman HymanHEMOGLOBIN [id number] 00:00:00* Test Item Value Reference Range Interpretation Comme nts HEMOGLOBIN A1c (test code = 13768) 9.2 % Usman HymanCOMPREHENSIVE METABOLIC [id number] 00:00:00* Test Item Value Reference Range Interpretation Comme nts GLUCOSE (test code = 2217) 215 MG/DL BUN (test code = 8) 10 MG/DL CREATININE (test code = 2214) 1.28 MG/DL eGFR AMER. (test cod e = 31043) 71 ML/MIN/1.73 eGFR NON- AMER. (test code = 09897) 61 ML/MIN/1.73 CALC BUN/CREAT (test code = [...] code = 2219) 46 U/L Usman HymanHEMOGLOBIN [id number] 00:00:00* Test Item Value Reference Range Interpretation Comme nts HEMOGLOBIN A1c (test code = 88614) 7.5 % Usman HymanCOMPREHENSIVE METABOLIC [id number] 00:00:00* Test Item Value Reference Range Interpretation Comme nts GLUCOSE (test code = 2217) 186 MG/DL BUN (test code = 2208) 14 MG/DL CREATININE (test code = 2214) 1.07 MG/DL eGFR AMER. (test cod e = 08053) 89 ML/MIN/1.73 eGFR NON- AMER. (test code = 60181) 77 ML/MIN/1.73 CALC BUN/CREAT (test code = [...] code = 2219) 27 U/L Usman HymanLIPID [id number] 00:00:00* Test Item Value Reference Range Interpretation Comme nts CHOLESTEROL (test code = 2210) 178 MG/DL TRIGLYCERIDES (test code = 2232) 155 MG/DL HDL CHOLESTEROL (test code = 2220) 56 MG/DL CALC LDL CHOL (test code = 2237) 91 MG/DL RISK RATIO LDL/HDL (test cod e = 2238) 1.63 RATIO Usman HymanHEMOGLOBIN [id number] 00:00:00* Test Item Value Reference Range Interpretation Comme nts HEMOGLOBIN A1c (test code = 20010) 7.5 % Usman HymanCOMPREHENSIVE METABOLIC [id number] 00:00:00* Test Item Value Reference Range Interpretation Comme nts GLUCOSE (test code = 2217) 186 MG/DL BUN (test code = 2208) 14 MG/DL CREATININE (test code = 2214) 1.07 MG/DL eGFR AMER. (test cod e = 22018) 89 ML/MIN/1.73 eGFR NON- AMER. (test code = 23497) 77 ML/MIN/1.73 CALC BUN/CREAT (test code = [...] = 2219) 27 U/L Usman Patterson AustinLIPID [id number] 00:00:00* Test Item Value Reference Range Interpretation Comme nts CHOLESTEROL (test code = 2210) 178 MG/DL TRIGLYCERIDES (test code = 2232) 155 MG/DL HDL CHOLESTEROL (test code = 2220) 56 MG/DL CALC LDL CHOL (test code = 2237) 91 MG/DL RISK RATIO LDL/HDL (test cod e = 2238) 1.63 RATIO Usman HymanHEMOGLOBIN [id number] 00:00:00* Test Item Value Reference Range Interpretation Comme nts HEMOGLOBIN A1c (test code = 77370) 7.5 % Usman HymanCOMPREHENSIVE METABOLIC [id number] 00:00:00* Test Item Value Reference Range Interpretation Comme nts GLUCOSE (test code = 2217) 186 MG/DL BUN (test code = 2208) 14 MG/DL CREATININE (test code = 2214) 1.07 MG/DL eGFR AMER. (test cod e = 94846) 89 ML/MIN/1.73 eGFR NON- AMER. (test code = 83422) 77 ML/MIN/1.73 CALC BUN/CREAT (test code = [...] code = 2219) 27 U/L Usman HymanLIPID [id number] 00:00:00* Test Item Value Reference Range Interpretation Comme nts CHOLESTEROL (test code = 2210) 178 MG/DL TRIGLYCERIDES (test code = 2232) 155 MG/DL HDL CHOLESTEROL (test code = 2220) 56 MG/DL CALC LDL CHOL (test code = 2237) 91 MG/DL RISK RATIO LDL/HDL (test cod e = 2238) 1.63 RATIO Usman HymanLIPID [id number] 00:00:00* Test Item Value Reference Range Interpretation Comme nts CHOLESTEROL (test code = 2210) 192 MG/DL TRIGLYCERIDES (test code = 2232) 226 MG/DL HDL CHOLESTEROL (test code = 2220) 47 MG/DL CALC LDL CHOL (test code = 2237) 100 MG/DL RISK RATIO LDL/HDL (test cod e = 2238) 2.12 RATIO Usman [id number] 00:00:00* Test Item Value Reference Range Interpretation Comme nts TSH (test code = 2821) 0.616 UIU/ML Usman HymanCOMPREHENSIVE METABOLIC [id number] 00:00:00* Test Item Value Reference Range Interpretation Comme nts GLUCOSE (test code = 2217) 148 MG/DL BUN (test code = 2208) 26 MG/DL CREATININE (test code = 2214) 1.31 MG/DL eGFR AMER. (test cod e = 38766) 71 ML/MIN/1.73 eGFR NON- AMER. (test code = 09841) 61 ML/MIN/1.73 CALC BUN/CREAT (test code = [...] code = 2219) 20 U/L Usman HymanLIPID [id number] 00:00:00* Test Item Value Reference Range Interpretation Comme nts CHOLESTEROL (test code = 2210) 192 MG/DL TRIGLYCERIDES (test code = 2232) 226 MG/DL HDL CHOLESTEROL (test code = 2220) 47 MG/DL CALC LDL CHOL (test code = 2237) 100 MG/DL RISK RATIO LDL/HDL (test cod e = 2238) 2.12 RATIO Usman [id number] 00:00:00* Test Item Value Reference Range Interpretation Comme nts TSH (test code = 2821) 0.616 UIU/ML Usman F AustinCOMPREHENSIVE METABOLIC [id number] 00:00:00* Test Item Value Reference Range Interpretation Comme nts GLUCOSE (test code = 2217) 148 MG/DL BUN (test code = 2208) 26 MG/DL CREATININE (test code = 2214) 1.31 MG/DL eGFR AMER. (test cod e = 31909) 71 ML/MIN/1.73 eGFR NON- AMER. (test code = 83248) 61 ML/MIN/1.73 CALC BUN/CREAT (test code = [...] code = 2219) 20 U/L Usman Patterson AustinLIPID [id number] 00:00:00* Test Item Value Reference Range Interpretation Comme nts CHOLESTEROL (test code = 2210) 192 MG/DL TRIGLYCERIDES (test code = 2232) 226 MG/DL HDL CHOLESTEROL (test code = 2220) 47 MG/DL CALC LDL CHOL (test code = 2237) 100 MG/DL RISK RATIO LDL/HDL (test cod e = 2238) 2.12 RATIO Usman [id number] 00:00:00* Test Item Value Reference Range Interpretation Comme nts TSH (test code = 2821) 0.616 UIU/ML Usman HymanCOMPREHENSIVE METABOLIC [id number] 00:00:00* Test Item Value Reference Range Interpretation Comme nts GLUCOSE (test code = 2217) 148 MG/DL BUN (test code = 2208) 26 MG/DL CREATININE (test code = 2214) 1.31 MG/DL eGFR AMER. (test cod e = 27555) 71 ML/MIN/1.73 eGFR NON- AMER. (test code = 68409) 61 ML/MIN/1.73 CALC BUN/CREAT (test code = [...] = 2219) 20 U/L Usman HymanCBC W/AUTO [id number] 00:00:00* Test Item Value Reference Range Interpretation [...] code = 1015) 292 K/UL Usman HymanHEMOGLOBIN [id number] 00:00:00* Test Item Value Reference Range Interpretation Comme nts HEMOGLOBIN A1c (test code = 54811) 7.4 % Usman Patterson AustinCBC W/AUTO [id number] 00:00:00* Test Item Value Reference Range Interpretation [...] = 1015) 292 K/UL Usman Patterson AustinHEMOGLOBIN [id number] 00:00:00* Test Item Value Reference Range Interpretation Comme nts HEMOGLOBIN A1c (test code = 96997) 7.4 % Usman Patterson AustinCBC W/AUTO [id number] 00:00:00* Test Item Value Reference Range Interpretation [...] = 1015) 292 K/UL Usman Patterson AustinHEMOGLOBIN [id number] 00:00:00* Test Item Value Reference Range Interpretation Comme nts HEMOGLOBIN A1c (test code = 53496) 7.4 % Usman Patterson AustinCOMPREHENSIVE METABOLIC [id number] 00:00:00* Test Item Value Reference Range Interpretation Comme nts GLUCOSE (test code = 2217) 138 MG/DL BUN (test code = 2208) 21 MG/DL CREATININE (test code = 2214) 1.35 MG/DL eGFR AMER. (test cod e = 50146) 68 ML/MIN/1.73 eGFR NON- AMER. (test code = 08063) 59 ML/MIN/1.73 CALC BUN/CREAT (test code = [...] = 2219) 25 U/L Usman Patterson AustinLIPID [id number] 00:00:00* Test Item Value Reference Range Interpretation Comme nts CHOLESTEROL (test code = 2210) 224 MG/DL TRIGLYCERIDES (test code = 2232) 179 MG/DL HDL CHOLESTEROL (test code = 2220) 58 MG/DL CALC LDL CHOL (test code = 2237) 130 MG/DL RISK RATIO LDL/HDL (test cod e = 2238) 2.24 RATIO Usman Patterson AustinCOMPREHENSIVE METABOLIC [id number] 00:00:00* Test Item Value Reference Range Interpretation Comme nts GLUCOSE (test code = 2217) 138 MG/DL BUN (test code = 2208) 21 MG/DL CREATININE (test code = 2214) 1.35 MG/DL eGFR AMER. (test cod e = 18654) 68 ML/MIN/1.73 eGFR NON- AMER. (test code = 80914) 59 ML/MIN/1.73 CALC BUN/CREAT (test code = [...] code = 2219) 25 U/L Usman Patterson WashingtonLIPID [id number] 00:00:00* Test Item Value Reference Range Interpretation Comme nts CHOLESTEROL (test code = 2210) 224 MG/DL TRIGLYCERIDES (test code = 2232) 179 MG/DL HDL CHOLESTEROL (test code = 2220) 58 MG/DL CALC LDL CHOL (test code = 2237) 130 MG/DL RISK RATIO LDL/HDL (test cod e = 2238) 2.24 RATIO Usman HymanCOMPREHENSIVE METABOLIC [id number] 00:00:00* Test Item Value Reference Range Interpretation Comme nts GLUCOSE (test code = 2217) 138 MG/DL BUN (test code = 2208) 21 MG/DL CREATININE (test code = 2214) 1.35 MG/DL eGFR AMER. (test cod e = 55930) 68 ML/MIN/1.73 eGFR NON- AMER. (test code = 34900) 59 ML/MIN/1.73 CALC BUN/CREAT (test code = [...] code = 2219) 25 U/L Usman HymanLIPID [id number] 00:00:00* Test Item Value Reference Range Interpretation Comme nts CHOLESTEROL (test code = 2210) 224 MG/DL TRIGLYCERIDES (test code = 2232) 179 MG/DL HDL CHOLESTEROL (test code = 2220) 58 MG/DL CALC LDL CHOL (test code = 2237) 130 MG/DL RISK RATIO LDL/HDL (test cod e = 2238) 2.24 RATIO Usman HymanLIPID [id number] 00:00:00* Test Item Value Reference Range Interpretation Comme nts CHOLESTEROL (test code = 2210) 262 MG/DL TRIGLYCERIDES (test code = 2232) 391 MG/DL HDL CHOLESTEROL (test code = 2220) 51 MG/DL CALC LDL CHOL (test code = 2237) 133 MG/DL RISK RATIO LDL/HDL (test cod e = 2238) 2.60 RATIO Usman HymanHEMOGLOBIN [id number] 00:00:00* Test Item Value Reference Range Interpretation Comme nts HEMOGLOBIN A1c (test code = 39372) 6.8 % Usman HymanCOMPREHENSIVE METABOLIC [id number] 00:00:00* Test Item Value Reference Range Interpretation Comme nts GLUCOSE (test code = 2217) 115 MG/DL BUN (test code = 2208) 26 MG/DL CREATININE (test code = 2214) 1.26 MG/DL eGFR AMER. (test cod e = 94329) 74 ML/MIN/1.73 eGFR NON- AMER. (test code = 75689) 64 ML/MIN/1.73 CALC BUN/CREAT (test code = [...] code = 2219) 16 U/L Usman HymanLIPID [id number] 00:00:00* Test Item Value Reference Range Interpretation Comme nts CHOLESTEROL (test code = 2210) 262 MG/DL TRIGLYCERIDES (test code = 2232) 391 MG/DL HDL CHOLESTEROL (test code = 2220) 51 MG/DL CALC LDL CHOL (test code = 2237) 133 MG/DL RISK RATIO LDL/HDL (test cod e = 223) 2.60 RATIO Usman HymanHEMOGLOBIN [id number] 00:00:00* Test Item Value Reference Range Interpretation Comme nts HEMOGLOBIN A1c (test code = 62093) 6.8 % Usman HymanCOMPREHENSIVE METABOLIC [id number] 00:00:00* Test Item Value Reference Range Interpretation Comme nts GLUCOSE (test code = 2217) 115 MG/DL BUN (test code = 8) 26 MG/DL CREATININE (test code = 2214) 1.26 MG/DL eGFR AMER. (test cod e = 45636) 74 ML/MIN/1.73 eGFR NON- AMER. (test code = 74786) 64 ML/MIN/1.73 CALC BUN/CREAT (test code = [...] code = 2219) 16 U/L Usman HymanLIPID [id number] 00:00:00* Test Item Value Reference Range Interpretation Comme nts CHOLESTEROL (test code = 2210) 262 MG/DL TRIGLYCERIDES (test code = 2232) 391 MG/DL HDL CHOLESTEROL (test code = 2220) 51 MG/DL CALC LDL CHOL (test code = 2237) 133 MG/DL RISK RATIO LDL/HDL (test cod e = 2238) 2.60 RATIO Usman HymanHEMOGLOBIN [id number] 00:00:00* Test Item Value Reference Range Interpretation Comme joseph HEMOGLOBIN A1c (test code = 65103) 6.8 % Usman HymanCOMPREHENSIVE METABOLIC [id number] 00:00:00* Test Item Value Reference Range Interpretation Comme nts GLUCOSE (test code = 2217) 115 MG/DL BUN (test code = 2208) 26 MG/DL CREATININE (test code = 2214) 1.26 MG/DL eGFR AMER. (test cod e = 41686) 74 ML/MIN/1.73 eGFR NON- AMER. (test code = 58234) 64 ML/MIN/1.73 CALC BUN/CREAT (test code = [...] = 2219) 16 U/L Usman HymanCOMPREHENSIVE METABOLIC [id number] 00:00:00* Test Item Value Reference Range Interpretation Comme nts GLUCOSE (test code = 2217) 90 MG/DL BUN (test code = 2208) 20 MG/DL CREATININE (test code = 2214) 1.28 MG/DL eGFR AMER. (test cod e = 72459) 73 ML/MIN/1.73 eGFR NON- AMER. (test code = 77103) 63 ML/MIN/1.73 CALC BUN/CREAT (test code = [...] = 2219) 22 U/L Usman Patterson AustinLIPID [id number] 00:00:00* Test Item Value Reference Range Interpretation Comme nts CHOLESTEROL (test code = 2210) 244 MG/DL TRIGLYCERIDES (test code = 2232) 225 MG/DL HDL CHOLESTEROL (test code = 2220) 64 MG/DL CALC LDL CHOL (test code = 2237) 135 MG/DL RISK RATIO LDL/HDL (test cod e = 2238) 2.11 RATIO Usman HymanHEMOGLOBIN [id number] 00:00:00* Test Item Value Reference Range Interpretation Comme nts HEMOGLOBIN A1c (test code = 51943) 7.2 % Usman Patterson AustinCOMPREHENSIVE METABOLIC [id number] 00:00:00* Test Item Value Reference Range Interpretation Comme nts GLUCOSE (test code = 2217) 90 MG/DL BUN (test code = 2208) 20 MG/DL CREATININE (test code = 2214) 1.28 MG/DL eGFR AMER. (test cod e = 25480) 73 ML/MIN/1.73 eGFR NON- AMER. (test code = 58734) 63 ML/MIN/1.73 CALC BUN/CREAT (test code = [...] code = 2219) 22 U/L Usman Patterson BoogieLIPID [id number] 00:00:00* Test Item Value Reference Range Interpretation Comme nts CHOLESTEROL (test code = 2210) 244 MG/DL TRIGLYCERIDES (test code = 2232) 225 MG/DL HDL CHOLESTEROL (test code = 2220) 64 MG/DL CALC LDL CHOL (test code = 2237) 135 MG/DL RISK RATIO LDL/HDL (test cod e = 2238) 2.11 RATIO Usman HymanHEMOGLOBIN [id number] 00:00:00* Test Item Value Reference Range Interpretation Comme nts HEMOGLOBIN A1c (test code = 17754) 7.2 % Usman Patterson BoogieCOMPREHENSIVE METABOLIC [id number] 00:00:00* Test Item Value Reference Range Interpretation Comme nts GLUCOSE (test code = 2217) 90 MG/DL BUN (test code = 2208) 20 MG/DL CREATININE (test code = 2214) 1.28 MG/DL eGFR AMER. (test cod e = 26057) 73 ML/MIN/1.73 eGFR NON- AMER. (test code = 30727) 63 ML/MIN/1.73 CALC BUN/CREAT (test code = [...] = 2219) 22 U/L Usman Patterson AustinLIPID [id number] 00:00:00* Test Item Value Reference Range Interpretation Comme nts CHOLESTEROL (test code = 2210) 244 MG/DL TRIGLYCERIDES (test code = 2232) 225 MG/DL HDL CHOLESTEROL (test code = 2220) 64 MG/DL CALC LDL CHOL (test code = 2237) 135 MG/DL RISK RATIO LDL/HDL (test cod e = 2238) 2.11 RATIO Usman Patterson AustinHEMOGLOBIN [id number] 00:00:00* Test Item Value Reference Range Interpretation Comme nts HEMOGLOBIN A1c (test code = 53459) 7.2 % Usman Patterson AustinHEMOGLOBIN [id number] 00:00:00* Test Item Value Reference Range Interpretation Comme nts HEMOGLOBIN A1c (test code = 55480) 7.0 % Usman Patterson AustinHEPATITIS C [id number] 00:00:00* Test Item Value Reference Range Interpretation Comme nts HEPATITIS C ANTIBODY (test c ode = 4675) REACTIVE Usman Patterson AustinHEMOGLOBIN [id number] 00:00:00* Test Item Value Reference Range Interpretation Comme nts HEMOGLOBIN A1c (test code = 36604) 7.0 % Usman Patterson AustinHEPATITIS C [id number] 00:00:00* Test Item Value Reference Range Interpretation Comme nts HEPATITIS C ANTIBODY (test c ode = 4675) REACTIVE Usman Patterson AustinHEMOGLOBIN [id number] 00:00:00* Test Item Value Reference Range Interpretation Comme nts HEMOGLOBIN A1c (test code = 99883) 7.0 % Usman HymanHEPATITIS C [id number] 00:00:00* Test Item Value Reference Range Interpretation Comme nts HEPATITIS C ANTIBODY (test c ode = 4675) REACTIVE Usman Patterson AustinHEMOGLOBIN [id number] 00:00:00* Test Item Value Reference Range Interpretation Comme nts HEMOGLOBIN A1c (test code = 06039) 6.7 % Usman HymanCOMPREHENSIVE METABOLIC [id number] 00:00:00* Test Item Value Reference Range Interpretation Comme nts GLUCOSE (test code = 2217) 114 MG/DL BUN (test code = 2208) 16 MG/DL CREATININE (test code = 2214) 1.0 MG/DL eGFR AMER. (test cod e = 60411) 95 ML/MIN/1.73 eGFR NON- AMER. (test code = 19543) 78 ML/MIN/1.73 CALCULATED BUN/CREAT (test code = [...] = 2219) 27 U/L Usman Patterson AustinLIPID [id number] 00:00:00* Test Item Value Reference Range Interpretation [...] code = 2821) 0.8 UIU/ML Usman HymanPSA, [id number] 00:00:00* Test Item Value Reference Range Interpretation Comme nts PSA, TOTAL (test code = 2606) 0.2 NG/ML Usman HymanCBC W/AUTO [id number] 00:00:00* Test Item Value Reference Range Interpretation [...] code = 1015) 288 K/UL Usman HymanHEMOGLOBIN [id number] 00:00:00* Test Item Value Reference Range Interpretation Comme joseph HEMOGLOBIN A1c (test code = 62836) 6.7 % Usman HymanCOMPREHENSIVE METABOLIC [id number] 00:00:00* Test Item Value Reference Range Interpretation Comme nts GLUCOSE (test code = 2217) 114 MG/DL BUN (test code = 2208) 16 MG/DL CREATININE (test code = 2214) 1.0 MG/DL eGFR AMER. (test cod e = 51985) 95 ML/MIN/1.73 eGFR NON- AMER. (test code = 27958) 78 ML/MIN/1.73 CALCULATED BUN/CREAT (test code = 2235) 16 RATIO SODIUM (test code = 223) 137 MEQ/L POTASSIUM (test code = 2228) 4.2 MEQ/L CHLORIDE (test code = 2215) 101 MEQ/L CARBON DIOXIDE (test code = 2206) 26 MEQ/L CALCIUM (test code = 2209) 9.4 MG/DL PROTEIN, TOTAL (test code = 2229) 7.6 G/DL ALBUMIN (test code = 220) 4.1 G/DL CALCULATED GLOBULIN (test co de = 2240) 3.5 G/DL CALCULATED A/G RATIO (test code = 2234) 1.2 RATIO BILIRUBIN, TOTAL (test code = 2207) 0.5 MG/DL ALKALINE PHOSPHATASE (test code = 2204) 85 U/L SGOT (AST) (test code = 221) 27 U/L SGPT (ALT) (test code = 221) 27 U/L Usman HymanLIPID [id number] 00:00:00* Test Item Value Reference Range Interpretation [...] = 2821) 0.8 UIU/ML Usman Yesenia BoogiePSA, [id number] 00:00:00* Test Item Value Reference Range Interpretation Comme nts PSA, TOTAL (test code = 2606) 0.2 NG/ML Usman Patterson BoogieCBC W/AUTO [id number] 00:00:00* Test Item Value Reference Range Interpretation [...] code = 1015) 288 K/UL Usman HymanHEMOGLOBIN [id number] 00:00:00* Test Item Value Reference Range Interpretation Comme nts HEMOGLOBIN A1c (test code = 86769) 6.7 % Usman HymanCOMPREHENSIVE METABOLIC [id number] 00:00:00* Test Item Value Reference Range Interpretation Comme nts GLUCOSE (test code = 2217) 114 MG/DL BUN (test code = 2208) 16 MG/DL CREATININE (test code = 2214) 1.0 MG/DL eGFR AMER. (test cod e = 89507) 95 ML/MIN/1.73 eGFR NON- AMER. (test code = 36036) 78 ML/MIN/1.73 CALCULATED BUN/CREAT (test code = [...] code = 2219) 27 U/L Usman HymanLIPID [id number] 00:00:00* Test Item Value Reference Range Interpretation [...] code = 2821) 0.8 UIU/ML Usman HymanPSA, [id number] 00:00:00* Test Item Value Reference Range Interpretation Comme nts PSA, TOTAL (test code = 2606) 0.2 NG/ML Usman HymanCBC W/AUTO [id number] 00:00:00* Test Item Value Reference Range Interpretation [...] Usman Hyman Notes Date/Time Note Provider Source 2024-11-29 15:50:09 Chief Complaint Patient presents with Diabetes 2 month follow up Lucy Hough MA [facility] 2024-09-21 09:57:54 Chief Complaint Patient presents with Blood Pressure Patient is here for a follow up. Lucy Hough MA [facility] 2024-07-27 10:40:22 Chief Complaint Patient presents with REFILLS-NURSE/MD Medication refill Lucy Hough MA [facility] 2024-07-13 09:35:46 Chief Complaint Patient presents with Back Pain Pt states lower back pain that radiates down the right leg x 7 years. Numbness Pt states numbness and tingling in the right leg. Weakness Pt states weakness in the right leg. [facility] 2024-07-06 09:57:27 Chief Complaint Patient presents with Back Pain Pt states lower back pain x 5 years. [facility] 2024-05-14 15:51:58 Chief Complaint Patient presents with Establish Care Previous PCP was Dr. Kristin To in [place]. He is changing PCP's due to insurance. Referral Referral to PT for back pain. He currently uses [facility]. Carmen Bruno MA [facility]2024-07-02 00:00:00 [facility]2024-06-18 00:00:00 [facility]2024-04-04 [id number] [place] [address] PATIENT NAME: ESAU VALDES ADMIT DATE: ACCOUNT NO: [id number] ROOM NO: AGE: 63 REPORT TYPE: ELECTROCARDIOGRAM SEX: M ADMITTING PHYSICIAN: ATTENDING PHYSICIAN:Frances Bar MD Order: [id number] Test Reason : PRE OP CLEARANCE HTN [...] Inferior leads Confirmed by KARTIK ALFONSO MD ([id number]) on 08/26/2023 12:21:06 PM Referred By: Frances Bar Confirmed by:KARTIK ALFONSO MD PATIENT NAME: ESAU VALDES
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
[2025-01-06 18:35] VITALS: BP 142/88; TEMP 98; O2SAT 96
== END 2025-01-06 17:03 | disposition home or self-care (01) ==
LOC: ER 15:05
DX: Z48.01 Encounter for change or removal of surgical wound dressing (principal); I10 Essential (primary) hypertension; E11.9 Type 2 diabetes mellitus without complications; G47.30 Sleep apnea, unspecified